=== PATIENT | male | born 1985 | race African-American/Black ===

== ENCOUNTER 2020-06-28 14:19 | Outpatient (REF) | payer MEDICAID, SELFPAY ==
[2020-06-28 16:45] LABS: Digoxin 1.1 ng/mL (0.8-2.0)
[2020-06-28 16:54] LABS: Anion Gap 16 (12-20); Blood Urea Nitrogen 20 mg/dL (9-16); Calcium 8.8 mg/dL (8.4-10.2); Carbon Dioxide 25 mmol/L (22-29); Chloride 103 mmol/L (96-108); Estimated Glomerular Filt Rate > 60; Glucose Random 113 mg/dL (60-115); Potassium 4.5 mmol/l (3.3-5.1); Sodium 139 mmol/L (135-145)
== END 2020-06-28 14:20 | disposition home or self-care (01) ==
LOC: HO.LAB 14:19
PROVIDERS: Referring Provider Nurse Practitioner Family; Visit Provider Internal Medicine Cardiovascular Disease
DX: I48.20 Chronic atrial fibrillation, unspecified (principal); I50.20 Unspecified systolic (congestive) heart failure; I42.8 Other cardiomyopathies; E66.01 Morbid (severe) obesity due to excess calories
CPT/HCPCS: 80048; 80162; 99212

== ENCOUNTER → 2021-03-01 13:10 | Outpatient (REF) | payer MEDICAID, SELFPAY | LOC: HO.SL 13:10 | PROVIDERS: PCP Nurse Practitioner Primary Care; Visit Provider Nurse Practitioner Primary Care | DX: G47.33 Obstructive sleep apnea (adult) (pediatric) (principal); I42.9 Cardiomyopathy, unspecified | CPT/HCPCS: 95806 ==

== ENCOUNTER 2021-05-31 16:44 | Outpatient (REF) | payer MEDICAID, SELFPAY ==
--- NOTE | ~2021-05-31 | US_ITS ---
EXAMINATION: US RETROPERITONEAL COMPLETE (RENAL) CLINICAL INFORMATION: Painful micturition. COMPARISON: CT abdomen and pelvis 12/18/2018. TECHNIQUE: Real-time imaging of the kidneys and bladder. FINDINGS: RIGHT KIDNEY: 11.4 x 4.5 x 6.3 cm (SAG x AP x TRV). The kidney is normal in size, contour, and echogenicity. Renal cortical thickness is normal. No calculi or focal parenchymal lesions. No hydronephrosis. LEFT KIDNEY: 10.0 x 4.5 x 5.2 cm (SAG x AP x TRV). The kidney is normal in size, contour, and echogenicity. Renal cortical thickness is normal. No calculi or focal parenchymal lesions. No hydronephrosis. BLADDER: Well distended and normal. Bilateral ureteral jets are demonstrated. Prevoid bladder volume is 328 mL. Postvoid bladder volume is 17 mL. ADDITIONAL FINDINGS: None US/US retroperitoneal comp IMPRESSION: Unremarkable renal ultrasound..
== END 2021-05-31 16:45 | disposition home or self-care (01) ==
LOC: HO.US 16:44
PROVIDERS: PCP Nurse Practitioner Primary Care; Visit Provider Nurse Practitioner Primary Care
DX: R30.9 Painful micturition, unspecified (principal); R36.9 Urethral discharge, unspecified
CPT/HCPCS: 76770

== ENCOUNTER 2021-07-16 20:13 | Emergency (ER) | payer MEDICAID, SELFPAY ==
[2021-07-16 20:20] VITALS: RESP 16; BMI 48.8
--- NOTE | 2021-07-16 20:35 | ECG_ITS ---
Test Reason : CP Blood Pressure : / mmHG Vent. Rate : 067 BPM Atrial Rate : 000 BPM P-R Int : 000 ms QRS Dur : 094 ms QT Int : 370 ms P-R-T Axes : 000 -05 -13 degrees QTc Int : 390 ms Atrial fibrillation Minimal voltage criteria for LVH, may be normal variant ( R in aVL ) Nonspecific T wave abnormality Abnormal ECG When compared with ECG of 28-JAN-2019 15:18, Atrial fibrillation has replaced Sinus rhythm QT has shortened Referred By: Amberly Mariscal Electronically Signed By:PHAN MANRIQUEZ MD
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
--- NOTE | 2021-07-16 21:19 | PC.NURSE ---
pt brought over to POD by Garrett MOON and Rob URBINA. pt tearful, stating that he just wants to see his mother and that staff not human to not understand his requests. pt reports his gf broke up with his tonight, his mother dis-owned him, he is now homeless. pt perseverative, medications requested from .
[2021-07-16] MEDS: LORazepam 1 MG TABLET 2 MG PO (21:25)
[2021-07-16] MEDS: diphenhydrAMINE HCL 25 MG TABLET 50 MG PO (21:25)
[2021-07-16 21:26] VITALS: BP 166/106; PULSE 86; RESP 18; TEMP 36.5; O2SAT 98
--- NOTE | 2021-07-16 21:39 | PC.NURSE ---
pt on a section 12
[2021-07-16 21:50] LABS: Appearance Urine CLOUDY; Color Urine DK YELLOW; Glucose Urine UA NEG (NEG); Leukocyte Esterase Urine NEG (NEG); Nitrite Urine NEG (NEG); Specific Gravity - Urine >= 1.030 (1.005-1.025); UACC Culture Trigger NO; Urine Blood 1+ (NEG); Urine Ketones 5 MG/DL (NEG); Urine Protein 3+ MG/DL (NEG-TRACE)
[2021-07-16] MEDS: Furosemide 20 MG TABLET PO (21:54)
[2021-07-16 21:55] VITALS: BP 155/116; PULSE 78
[2021-07-16] MEDS: carvediloL 25 MG TABLET PO (21:55)
[2021-07-16 21:57] VITALS: BP 155/117; PULSE 78; TEMP 37.5; O2SAT 100
--- NOTE | 2021-07-16 21:58 | PC.NURSE ---
pt continues to be tearful, reporting that he is in prison. pt leaning against doors with body lightly hitting the doors ith body weight. stated to t/w that he feels trapped, going to explode and will break down the doors . pt reports he does not want to hurt anyone but he feels like he is in prison. flight risk signs hung at both entrances to the POD. security notified. all entrances into the POD redirected to come through by the security office.
--- NOTE | 2021-07-16 22:01 | PC.NURSE ---
medications: pt reports he takes a whole bunch but has not taken then from over a week
[2021-07-16 22:02] LABS: Bacteria Urine 1+ /LPF; Calcium Oxalate Crystals Urine TRACE /LPF; Mucus Urine 4+ /LPF; Squamous Epithelial Cell Urine 3+ /LPF; WBC Urine 0 /HPF (0-4)
[2021-07-16 22:06] LABS: Amphetamine Screen Urine Not Detected (Not Detect); Barbiturates, Urine Not Detected (Not Detect); Benzodiazepines Screen Urine Not Detected (Not Detect); Cannabinoid Screen Urine POSITIVE (Not Detect); Cocaine Screen Urine Not Detected (Not Detect); Fentanyl, urine POSITIVE (Not Detect); Opiate Screen Urine POSITIVE (Not Detect); Phencyclidine Screen Urine Not Detected (Not Detect)
--- NOTE | 2021-07-16 22:31 | PC.NURSE ---
pt referred to N for eval. N contacted for expected time of arrival and informed t/w they have no clinicians this evening. CARE team notified and asked to see the pt and CARE team also will have no clinicians after 11 pm . pt will be seen tomorrow.
[2021-07-16 22:45] LABS: MANUAL DIFF FLAG NO
[2021-07-16 22:46] LABS: Basophils Percent Auto 0.4 % (0-2); Eosinophils Percent Auto 0.2 % (0-4); Hematocrit 49.5 % (42.0-52.0); Hemoglobin 16.4 g/dl (14.0-18.0); Imm Gran Abs Auto 0.02 X10*3/uL (0.00-0.03); Imm Gran Pct Auto 0.4 % (0.0-0.4); Lymphocytes Absolute Auto 1.3 X10*3/uL (1.2-4.9); Lymphocytes Percent Auto 24.6 % (20-40); Mean Corpuscular HGB Conc 33.1 g/dl (31.0-36.0); Mean Corpuscular Hemoglobin 28.9 pg (27.0-33.0); Mean Corpuscular Volume 87.3 fL (80.0-98.0); Mean Platelet Volume 9.5 fL (9.4-12.4); Monocytes Absolute Auto 0.3 X10*3/uL (0.1-1.2); Monocytes Percent Auto 6.1 % (2-11); Neutrophils Absolute Auto 3.6 x10*3/uL (2.0-8.3); Neutrophils Percent Auto 68.3 % (45-73); Platelet Count 182 X10*3/uL (160-400); Red Blood Count 5.67 X10*6/uL (4.60-5.80); Red Cell Distribution Width 14.1 % (11.0-16.0); White Blood Count 5.2 X10*3/uL (4.8-10.8)
[2021-07-16 22:47] VITALS: BP 138/96; PULSE 91
[2021-07-16 22:57] LABS: Ethanol < 10 mg/dL
[2021-07-16 23:01] LABS: Alanine Aminotransferase 14 U/L (0-40); Albumin Level 4.2 g/dL (3.5-5.0); Alkaline Phosphatase 71 U/L (39-117); Anion Gap 11 (12-20); Aspartate Amino Transferase 16 U/L (5-37); Bilirubin Total 0.9 mg/dL (0.0-1.0); Blood Urea Nitrogen 15 mg/dL (9-16); Calcium 9.7 mg/dL (8.4-10.2); Carbon Dioxide 26 mmol/L (22-29); Chloride 104 mmol/L (96-108); Creatinine Clr Calc Pharmacy 161.8; Estimated Glomerular Filt Rate > 60; Glucose Random 116 mg/dL (60-115); Potassium 4.1 mmol/L (3.3-5.1); Sodium 137 mmol/L (135-145); Total Protein 7.4 g/dL (6.5-8.0)
[2021-07-16 23:02] LABS: COVID-19 Test Negative (Negative); IDNOW Serial# 9DD0AD1C
[2021-07-16 23:33] VITALS: BP 126/87; PULSE 66; RESP 18; TEMP 36.4; O2SAT 100
--- NOTE | 2021-07-17 00:16 | PC.NURSE ---
Patient med recs completed by talking patient and claim history and approved by the provider, provider raised question about why Carvedilol is not on med rec? Explained to provider that per med claim history patient is not on those medication, this financial underwriter was notified that patient should be on Carvedilol by the provider and this financial underwriter replied the provider to put the order in. Since Carvidelolol order was seen in the OCT, this financial underwriter called patient's girl friend Mary @ [phone] who takes care of patient's medication and Mary notified that his pharmacy told him that his meds is on hold as per provider's order put she has no answer but said he is supposed to on those medication, meds rec updated /pending provider's approval. Patient is currently upset, over being sectioned and not being able to see the clinician dima because he wants leave [facility], will continue to monitor.
[2021-07-17] MEDS: LORazepam 1 MG TABLET 2 MG PO (01:36)
[2021-07-17 02:50] VITALS: RESP 20
[2021-07-17] MEDS: diphenhydrAMINE HCL 50 MG/ML VIAL 25 MG IM (02:50)
[2021-07-17] MEDS: LORazepam 2 MG/ML VIAL IM (02:50)
[2021-07-17] MEDS: Haloperidol Lactate 5 MG/ML VIAL IM (02:50)
[2021-07-17 03:05] VITALS: RESP 20
[2021-07-17 03:20] VITALS: RESP 17
--- NOTE | 2021-07-17 03:21 | PC.NURSE ---
Patient's behavior is escalating, getting more disruptive, threatening to elope, upset and mad thinking he is held here against his will, argumentative towards staff member, non-redirectable, provider notified/ordered Ativan 2 mg IM, Bendryl 25 mg IM, and Haldol 5 mg IM, administered as ordered at 0250/pending effect, will continue to monitor.
[2021-07-17 03:35] VITALS: RESP 17
[2021-07-17 03:50] VITALS: RESP 16
--- NOTE | 2021-07-17 06:48 | PC.NURSE ---
Patient is currently in bed appears sleeping, patient is on 1:1 for safety, patient is s/p medication restraint, thought fixated on d/c, [facility] referral completed/confirmed patient will be evaluated in the morning, patient threatened to elope but patient was made aware of the consequences, will continue to monitor.
--- NOTE | 2021-07-17 07:38 | PC.NURSE ---
patient appears to remain at rest at present, respirations are even and unlabored, patient appears in no distress
--- NOTE | 2021-07-17 09:18 | PHA.MEDREC ---
Pharmacy Consult ? Medication Reconciliation Pharmacy has completed the medication reconciliation. Patient is unaware if they take digoxin or not Thanks Morteza Montiel
[2021-07-17] MEDS: Ondansetron ODT 4 MG TAB.RAPDIS TRANSLINGU (12:43)
== END 2021-07-17 13:15 | disposition home or self-care (01) ==
PROVIDERS: Physician Assistant; Emergency Provider Emergency Medicine
DX: F32.A Depression, unspecified (principal); R45.851 Suicidal ideations; F41.9 Anxiety disorder, unspecified; F19.10 Other psychoactive substance abuse, uncomplicated; I48.20 Chronic atrial fibrillation, unspecified; I50.20 Unspecified systolic (congestive) heart failure; I42.8 Other cardiomyopathies; Z79.01 Long term (current) use of anticoagulants; Z79.899 Other long term (current) drug therapy; Z20.822 Contact with and (suspected) exposure to COVID-19; Z91.51 Personal history of suicidal behavior
CPT/HCPCS: 36415; 80053; 80307; 81001; 82077; 85025; 87635; 93005; 96372; 99285; J1200; J2060; Q0163

== ENCOUNTER → 2021-07-25 15:18 | Outpatient (BNVA) | payer MEDICAID, SELFPAY | PROVIDERS: PCP Nurse Practitioner Primary Care; Referring Provider Nurse Practitioner Primary Care; Visit Provider Nurse Practitioner Family | DX: I50.20 Unspecified systolic (congestive) heart failure (principal); I42.8 Other cardiomyopathies; I48.20 Chronic atrial fibrillation, unspecified; E66.01 Morbid (severe) obesity due to excess calories; G47.33 Obstructive sleep apnea (adult) (pediatric) | CPT/HCPCS: 99212 ==

== ENCOUNTER → 2021-12-20 15:45 | Outpatient (BNVA) | payer MEDICAID, SELFPAY | PROVIDERS: PCP Nurse Practitioner Primary Care; Visit Provider Internal Medicine | DX: G47.33 Obstructive sleep apnea (adult) (pediatric) (principal); E66.01 Morbid (severe) obesity due to excess calories; Z68.41 Body mass index [BMI] 40.0-44.9, adult | CPT/HCPCS: 99202 ==

== ENCOUNTER → 2022-01-08 13:08 | Outpatient (REF) | payer MEDICAID, SELFPAY ==
--- NOTE | 2022-01-08 13:10 | CA_ITS ---
Transthoracic Echocardiogram Patient (Last, First, Middle): Pablo Bedolla A Gender: Male Date of : 1985 Age: 36 Procedure Date: 01/08/2022 Procedure Type: Transthoracic Echocardiogram Location: OP Height: 177.8 cm Weight: 140.62 kg BSA: 2.51 m2 Heart Rate: bpm BP: 136 / 70 mmHg Android Platform Developer: YOANA Referring MD: Margarita Rodriguez PUMP ERECTOR-Shakira Powder Line Repairer: Montrell Chow MD Symptoms: I50.20 - Unspecified systolic (congestive) heart failure Study Quality: Technically Difficult ECG Rhythm: Atrial Fibrillation Conclusions: - 1. Mildly dilated left ventricle with low normal LVEF of 50 55% 2. At least moderately dilated left atrium 3. Normal cardiac valvular Doppler 4. Normal RV systolic pressure 5. No pericardial effusion Findings Procedure Information Contrast agent, definity, is being given per protocol without apparent complications. Left Ventricle Mildly increased left ventricular cavity size. There is normal left ventricular wall thickness. The left ventricular systolic function is low normal. The visually estimated ejection fraction is between 50-55%. Diastolic function is indeterminate on the basis of available data. Right Ventricle The right ventricle was not well visualized. Atria The left atrium is moderately dilated. Interatrial shunt cannot be excluded. The right atrium was not well visualized. Aortic Valve The aortic valve was not well visualized. There is no aortic valve stenosis. There is no aortic valve regurgitation. Mitral Valve The mitral valve was not well visualized. There is trace mitral valve regurgitation. There is no mitral valve stenosis. Pulmonic Valve The pulmonic valve was not well visualized. Tricuspid Valve Likely normal tricuspid valve structure and function. There is mild tricuspid valve regurgitation. The right ventricular systolic pressure is normal. The right ventricular systolic pressure is 27 mmHg. Normal right atrial pressure. There is no evidence of pulmonary hypertension. Great Vessels All visible segments of the aorta are normal in size. The pulmonary artery was not well visualized. Venous The inferior vena cava was not well visualized. Pericardium/Pleural There is no evidence of pericardial effusion. Prior Study Comparison Changes noted compared to prior study dated: 05/24/2020. LV systolic function is improved Measurements 2D Linear Measurements IVSd: 0.70 0.6-0.9/0.6-1.0 cm LVIDd: 6.12 3.9-5.3/4.2-5.9 cm LVIDd Index: 2.44 2.4-3.2/2.2-3.1 cm/m2 LVIDs: 4.50 2.0-3.6 cm LVPWd: 0.56 0.7-1.1 cm LA Diam: 4.10 2.7-3.8/3.0-4.0 cm LAIDs Index: 1.63 1.5-2.3 cm/m2 LV Mass: 179.81 67-162/88-224 g LV Mass Index: 71.64 43-95/49-115 g/m2 LVOT Diam: 2.20 3.0+(-)1.3 cm 2D Systolic Function EF 4C: 55.40 >55% EF 2C: 54.30 >55% EF BiP: 54.80 >55% Aortic Valve AoV Pk Lance: 1.21 AoV Mn Lance: 0.85 AoV VTI: 0.21 AoV Pk Grad: 6.00 Aov Mn Grad: 3.00 ELISA Cont.VTI: 2.62 LVOT LVOT Pk Lance: 0.82 LVOT Mn Lance: 0.59 LVOT VTI: 0.15 LVOT Pk Grad: 3.00 LVOT Mn Grad: 2.00 LVOT Diam: 2.20 LVOT Area: 3.80 Right Ventricle TVS' Lance: 8.00 Tricuspid Valve TR Pk Lance: 2.43 TR Pk Grad: 24.00 RA Press: 3.00 RVSP: 27.00 Great Vessels Aorta Ao Asc: 3.30 2.1-3.4 cm Pulmonary Valve PV Pk Lance: 1.04 Peak PV Grad: 4.00 Updated in Other Vendor System with Status of Final Montrell Chow MD electronically signed on 01/08/2022 4:25:23 PM with status of Final
== END ==
LOC: HO.CARD 13:08
PROVIDERS: Visit Provider Nurse Practitioner Family
DX: I50.20 Unspecified systolic (congestive) heart failure (principal)
CPT/HCPCS: 93306; Q9957

== ENCOUNTER 2022-10-10 14:46 | Emergency (ER) | payer MEDICAID, SELFPAY ==
--- NOTE | ~2022-10-10 | CT_ITS ---
EXAMINATION: CT SOFT TISSUE NECK WITH CONTRAST CLINICAL INFORMATION: Left-sided neck swelling. History of lymphoma. COMPARISON: PET/CT from 01/08/2019. TECHNIQUE: Multidetector helical imaging was performed in the axial plane following the administration of 60 mL of Omnipaque 350 intravenous contrast. Multiple axial reformats and coronal/sagittal reconstructions were created the technologist workstation for review. This CT examination was performed using dose optimization techniques as appropriate, variously including the following: *Automated exposure control. *Adjustment of mA and/or kV according to patient size (this includes techniques or standardized protocols for targeted exams where dose is matched to indication/reason for exam; i.e. extremities or head). *Use of iterative reconstruction technique. DLP: 1155 mGy-cm FINDINGS: No significant cutaneous thickening or subcutaneous inflammation. No discrete fluid collection within the deep tissues of the neck. The premaxillary, retromaxillary, pterygopalatine fossa, orbital apical, parapharyngeal, and prelaryngeal adipose tissue is maintained. Normal appearance of the parotid, submandibular, and thyroid glands. Scattered subcentimeter lymph nodes bilaterally, none of which are pathologically enlarged or abnormally enhancing. Normal mucosal contours of the pharynx and larynx without abnormal enhancement. Normal appearance of the hyoid bone, thyroid cartilage, or cartilaginous trachea. The airways remains widely patent. No radiopaque foreign bodies. The atlantooccipital and atlantoaxial articulations remain well aligned. Mild reversal the normal cervical lordosis. No evidence of acute fracture or subluxation of the cervical spine. The vertebral body heights are maintained. Mild multilevel degenerative disc disease. No evidence of epidural collection. There is no prevertebral soft tissue swelling. Normal opacification of the cervical arterial and venous structures. The visualized portion of the skull base is without significant abnormalities. Mild mucosal thickening of the paranasal sinuses. Moderate leftward nasal septal deviation. The mastoid air cells and middle ear cavities are clear. No demonstrated significant periapical odontogenic disease. CT Upper Chest: Chronic peripherally calcified soft tissue within the preaortic soft tissues of the mediastinum, measuring up to 4.2 x 3.2 cm. Otherwise, the visualized lung apices and upper mediastinum are within normal limits. CT/CT soft tissue neck w IV con IMPRESSION: 1. No focal lesion, collection, lymphadenopathy, or abnormal enhancement within the soft tissues of the neck. 2. Chronic peripherally calcified soft tissue within the preaortic soft tissues of the mediastinum.
[2022-10-10 14:49] VITALS: BP 193/112; PULSE 62; RESP 19; TEMP 36.6; O2SAT 99; BMI 40.1
--- NOTE | 2022-10-10 14:53 | ED_ITS ---
HPI - General Adult General Chief complaint: Neck Pain/Injury <Radha Davis NP - Last Filed: 10/10/22 14:55> Stated complaint: lump on neck <Radha Davis NP - Last Filed: 10/10/22 14:55> Time Seen by Provider: 10/10/22 14:52 <Radha Davis NP - Last Filed: 10/10/22 14:55> Source: patient <RANDAL Bay - Last Filed: 10/10/22 19:11> Mode of arrival: ambulatory <RANDAL Bay Last Filed: 10/10/22 19:11> Limitations: no limitations <RANDAL Bay Last Filed: 10/10/22 19:11> History of Present Illness HPI narrative: 37 yo male with history of afib on Xarelto, NICMP, obesity, poorly controlled HTN, HFrEF, lymphoma in 2009 s/p treatment and since in remission presenting with a painful and tenderness mass on the left side of his neck that he noticed 4-5 days ago. He reports it is tender to touch. It gets bigger when he eats and tends to calm down after he eats. He denies any sore throat, difficulty swallowing, dental pain, ear pin. No chest pain or SOB. No fevers, night sweats or enlarged lymph nodes anywhere else on the body. <RANDAL Bay - Last Filed: 10/10/22 19:11> MD complaint: left sided neck mass <RANDAL Bay Last Filed: 10/10/22 19:11> Onset (ago): day(s) (5) <RANDAL Bay Last Filed: 10/10/22 19:11> Location: neck <RANDAL Bay Last Filed: 10/10/22 19:11> Radiation: non-radiation <RANDAL Bay Last Filed: 10/10/22 19:11> Severity: moderate <RANDAL Bay Last Filed: 10/10/22 19:11> Quality: aching <RANDAL Bay Last Filed: 10/10/22 19:11> Pain Consistency: intermittent <RANDAL Bay - Last Filed: 10/10/22 19:11> Relieving factors: rest <RANDAL Bay - Last Filed: 10/10/22 19:11> Exacerbating factors: eating <RANDAL Bay - Last Filed: 10/10/22 19:11> Associated symptoms: denies other symptoms <RANDAL Bay - Last Filed: 10/10/22 19:11> Treatments prior to arrival: none <RANDAL Bay - Last Filed: 10/10/22 19:11> Related Data Home medications: Home Medications Medication Instructions Recorded Confirmed bupropion HCl 300 mg 24 hr tablet, 1 tab PO DAILY 07/16/21 07/25/21 extended release levothyroxine 25 mcg tablet 1 tab PO QAM 07/16/21 07/25/21 venlafaxine 150 mg 1 cap PO DAILY 07/16/21 07/25/21 capsule,extended release 24 hr cholecalciferol (vitamin D3) 50 1 tab PO DAILY 07/17/21 07/25/21 mcg (2,000 unit) tablet Previous Rx's Medication Instructions Recorded sacubitril 49 mg-valsartan 51 mg 1 tab PO BID #60 tabs 08/06/22 tablet (Entresto) carvedilol 25 mg tablet 50 mg PO BID #360 tabs 08/13/22 digoxin 250 mcg (0.25 mg) tablet 250 mcg PO DAILY #90 tabs 08/13/22 furosemide 20 mg tablet 20 mg PO DAILY #90 tabs 08/13/22 rivaroxaban 20 mg tablet (Xarelto) 20 mg PO DAILY 90 days #90 tabs 08/14/22 clindamycin HCl 300 mg capsule 300 mg PO Q6H 7 days #28 caps 10/10/22 <Radha Davis NP - Last Filed: 10/10/22 14:55> Allergies/adverse reactions: Allergies Allergy/AdvReac Type Severity Reaction Status Date / Time No Known Allergies Allergy Verified 12/20/21 17:30 <Radha Davis NP - Last Filed: 10/10/22 14:55> Review of Systems Review of Systems: Yes all other systems are reviewed and are negative <RANDAL Bay - Last Filed: 10/10/22 19:11> [facility] Past Medical History Medical History: Medical History Chronic atrial fibrillation FH: bone marrow transplant Heart failure with reduced ejection fraction Hodgkin lymphoma Mitral regurgitation Morbid obesity Nonischemic cardiomyopathy RAMESH (obstructive sleep apnea) <Radha Davis NP - Last Filed: 10/10/22 14:55> Surgical History: Surgical History Hx of cardiac cath <Radha Davis NP - Last Filed: 10/10/22 14:55> Family History Family History: Family History Father CVD (cardiovascular disease) Diabetes Mother No problems noted. <Radha Davis NP - Last Filed: 10/10/22 14:55> Social History Social History: Social History Alcohol intake: current Patient Tobacco Use Status: Never used Tobacco Substance Use Type: Marijuana Advance Directives: No Advance Directives Information Provided: No <Radha Davis NP - Last Filed: 10/10/22 14:55> Physical Exam ED Vital Signs: Vital Signs - 24 hr 10/10/22 14:49 Temperature 98 F Pulse Rate 62 Respiratory Rate 19 Blood Pressure 193/112 H Pulse Oximetry 99 Oxygen Delivery Method Room Air BMI result Body Mass Index 40.1 <Radha Davis NP - Last Filed: 10/10/22 14:55> Vital Signs - 24 hr 10/10/22 14:49 Temperature 98 F Pulse Rate 62 Respiratory Rate 19 Blood Pressure 193/112 H Pulse Oximetry 99 Oxygen Delivery Method Room Air BMI result Body Mass Index 40.1 <RANDAL Bay - Last Filed: 10/10/22 19:11> Appearance: Alert. Oriented X3. No acute distress. HEENT: normal inspection. airway patent. no dental tenderness. normal TM bilaterally. no pre or post auricular LAD Neck: no visualized neck swelling, trachea midline, on palpation the left lateral with tenderness and possible mass, no skin changes, difficult to fully assess due to facial hair CVS: Normal heart rate and rhythm. Pulses normal. Respiratory: No respiratory distress. Skin: Skin warm and dry. Normal skin color. Normal skin turgor. No rashes. Extremities: normal inspection x4, no swelling, no appreciated LAD. Neuro: Oriented X 3. No motor deficit. No sensory deficit. <RANDAL Bay - Last Filed: 10/10/22 19:11> Course Course Course Narrative: This is rapid medical exam. Defer additional HPI, ROS, PE department provider. 37 yo male with history of hodgkins lymphoma s/p treatment in remission (2009), AFib on Xarelto, hypertension, nonischemic cardiomyopathy, sleep apnea who presents with left neck swelling x 1 week. On exam patient with palpable node to the left neck. Due to history will likely need advanced imaging. Will obtain labs and viral testing and triage. Hypertensive in triage. Did not take morning medications. <Radha Davis NP - Last Filed: 10/10/22 14:55> Reevaluation(s) Reevaluation #1: labs unremarkable. BP slightly improved after coreg. he states his BP is always high. He denies chest pain, headache, dizziness or vision changes. CT/CT soft tissue neck w IV con IMPRESSION: 1.? No focal lesion, collection, lymphadenopathy, or abnormal enhancement within the soft tissues of the neck. 2.? Chronic peripherally calcified soft tissue within the preaortic soft tissues of the mediastinum. results d/w patient. thankfully does not show concerning signs of possible lymphoma recurrence. will treat for partotitis. pateint agrees with plan and is stable for d/c home - will follow up with his cash reconciliation specialist, PCP and oncologist. ? <RANDAL Bay - Last Filed: 10/10/22 19:11> Medications Administered Discontinued Medications Generic Name Dose Route Start Last Admin Trade Name Freq PRN Reason Stop Dose Admin Carvedilol 25 mg 10/10/22 15:29 10/10/22 15:34 Carvedilol 25 Mg Tablet PO 10/10/22 15:30 25 mg ONCE ONE Administration Protocol Iohexol 100 ml 10/10/22 16:36 10/10/22 16:37 Iohexol 350 Mg/Ml 100 Ml Infus..Btl IV 10/10/22 16:37 60 ml ONCE ONE Administration <Radha Davis NP - Last Filed: 10/10/22 14:55> Medications Administered Discontinued Medications Generic Name Dose Route Start Last Admin Trade Name Humberto PRN Reason Stop Dose Admin Carvedilol 25 mg 10/10/22 15:29 10/10/22 15:34 Carvedilol 25 Mg Tablet PO 10/10/22 15:30 25 mg ONCE ONE Administration Protocol Iohexol 100 ml 10/10/22 16:36 10/10/22 16:37 Iohexol 350 Mg/Ml 100 Ml Infus..Btl IV 10/10/22 16:37 60 ml ONCE ONE Administration <RANDAL Bay - Last Filed: 10/10/22 19:11> Medical Decision Making Differential Diagnosis Differential Diagnoses: The differential diagnosis associated with the presentation includes <RANDAL Bay - Last Filed: 10/10/22 19:11> lymphoma recurrence, swollen lymph node, paroitits, cyst, abscess, <RANDAL Bay - Last Filed: 10/10/22 19:11> Lab Data MDM Lab Attestation statement: I reviewed the patient's lab results. <RANDAL Bay - Last Filed: 10/10/22 19:11> Result Diagrams: 10/10/22 15:15 10/10/22 15:15 <Radha Davis NP - Last Filed: 10/10/22 14:55> Labs: Lab Results 10/10/22 10/10/22 10/10/22 Range/Units 15:15 15:15 15:15 WBC 4.8 (4.8-10.8) X10*3/uL RBC 4.67 (4.60-5.80) X10*6/uL Hgb 13.4 L (14.0-18.0) g/dl Hct 41.6 L (42.0-52.0) % MCV 89.1 (80.0-98.0) fL MCH 28.7 (27.0-33.0) pg MCHC 32.2 (31.0-36.0) g/dl RDW 13.4 (11.0-16.0) % Plt Count 204 (160-400) X10*3/uL MPV 9.3 L (9.4-12.4) fL Immature Gran % (Auto) 0.2 (0.0-0.4) % Neut % (Auto) 49.6 (45-73) % Lymph % (Auto) 36.2 (20-40) % Esmeralda % (Auto) 10.1 (2-11) % Eos % (Auto) 3.5 (0-4) % Baso % (Auto) 0.4 (0-2) % Lymph # (Auto) 1.8 (1.2-4.9) X10*3/uL Esmeralda # (Auto) 0.5 (0.1-1.2) X10*3/uL Eos # (Auto) 0.2 (0.0-0.4) X10*3/uL Baso # (Auto) 0.0 (0.0-0.2) X10*3/uL Abs Immat Gran (auto) 0.01 (0.00-0.03) X10*3/uL Absolute Neuts (auto) 2.4 (2.0-8.3) x10*3/uL Absolute Nucleated RBC 0.000 (0.0-0.012) X10*3/uL Nucleated RBC % (auto) 0.0 (0.0-0.2) /100WBC Sodium 142 (135-145) mmol/L Potassium 4.7 (3.3-5.1) mmol/L Chloride 105 (96-108) mmol/L Carbon Dioxide 27 (22-29) mmol/L Anion Gap 15 (12-20) BUN 9 (9-16) mg/dL Creatinine 0.91 (0.5-1.4) mg/dL Estim Creat Clear Calc 148.7 Estimated GFR > 60 Random Glucose 102 (60-115) mg/dL Calcium 9.1 D (8.4-10.2) mg/dL Total Bilirubin 0.7 (0.0-1.0) mg/dL Direct Bilirubin 0.2 (0.0-0.5) mg/dL AST 14 (5-37) U/L ALT 12 (0-40) U/L Alkaline Phosphatase 62 (39-117) U/L Total Protein 6.2 L (6.5-8.0) g/dL Albumin 3.6 (3.5-5.0) g/dL Influenza Type A (PCR) NEGATIVE (Negative) Influenza Type B (PCR) NEGATIVE (Negative) RSV RNA Qual (PCR) NEGATIVE (Negative) SARS-CoV-2 RNA (RT-PCR) NEGATIVE (Negative) <Radha Germainmoy, ARCHIVIST ECONOMIC HISTORY - Last Filed: 10/10/22 14:55> Lab Results 10/10/22 10/10/22 10/10/22 Range/Units 15:15 15:15 15:15 WBC 4.8 (4.8-10.8) X10*3/uL RBC 4.67 (4.60-5.80) X10*6/uL Hgb 13.4 L (14.0-18.0) g/dl Hct 41.6 L (42.0-52.0) % MCV 89.1 (80.0-98.0) fL MCH 28.7 (27.0-33.0) pg MCHC 32.2 (31.0-36.0) g/dl RDW 13.4 (11.0-16.0) % Plt Count 204 (160-400) X10*3/uL MPV 9.3 L (9.4-12.4) fL Immature Gran % (Auto) 0.2 (0.0-0.4) % Neut % (Auto) 49.6 (45-73) % Lymph % (Auto) 36.2 (20-40) % Esmeralda % (Auto) 10.1 (2-11) % Eos % (Auto) 3.5 (0-4) % Baso % (Auto) 0.4 (0-2) % Lymph # (Auto) 1.8 (1.2-4.9) X10*3/uL Esmeralda # (Auto) 0.5 (0.1-1.2) X10*3/uL Eos # (Auto) 0.2 (0.0-0.4) X10*3/uL Baso # (Auto) 0.0 (0.0-0.2) X10*3/uL Abs Immat Gran (auto) 0.01 (0.00-0.03) X10*3/uL Absolute Neuts (auto) 2.4 (2.0-8.3) x10*3/uL Absolute Nucleated RBC 0.000 (0.0-0.012) X10*3/uL Nucleated RBC % (auto) 0.0 (0.0-0.2) /100WBC Sodium 142 (135-145) mmol/L Potassium 4.7 (3.3-5.1) mmol/L Chloride 105 (96-108) mmol/L Carbon Dioxide 27 (22-29) mmol/L Anion Gap 15 (12-20) BUN 9 (9-16) mg/dL Creatinine 0.91 (0.5-1.4) mg/dL Estim Creat Clear Calc 148.7 Estimated GFR > 60 Random Glucose 102 (60-115) mg/dL Calcium 9.1 D (8.4-10.2) mg/dL Total Bilirubin 0.7 (0.0-1.0) mg/dL Direct Bilirubin 0.2 (0.0-0.5) mg/dL AST 14 (5-37) U/L ALT 12 (0-40) U/L Alkaline Phosphatase 62 (39-117) U/L Total Protein 6.2 L (6.5-8.0) g/dL Albumin 3.6 (3.5-5.0) g/dL Influenza Type A (PCR) NEGATIVE (Negative) Influenza Type B (PCR) NEGATIVE (Negative) RSV RNA Qual (PCR) NEGATIVE (Negative) SARS-CoV-2 RNA (RT-PCR) NEGATIVE (Negative) <RANDAL Bay - Last Filed: 10/10/22 19:11> Independent Interpretation I performed an independent interpretation of an: CT Scan <RANDAL Bay - Last Filed: 10/10/22 19:11> Interpretation: no appreciated mass or enlarged LN <RANDAL Bay - Last Filed: 10/10/22 19:11> Radiology Impression Discussion of test interpretation with radiology: I have reviewed the radiologist's reading. <RANDAL Bay - Last Filed: 10/10/22 19:11> Radiologist Impression: CT/CT soft tissue neck w IV con IMPRESSION: 1.? No focal lesion, collection, lymphadenopathy, or abnormal enhancement within the soft tissues of the neck. 2.? Chronic peripherally calcified soft tissue within the preaortic soft tissues of the mediastinum. <RANDAL Bay - Last Filed: 10/10/22 19:11> Independent Historian Clinical information obtained from an independent historian. History obtained from or confirmed by: Spouse <RANDAL Bay - Last Filed: 10/10/22 19:11> External Record Review External record reviewed: Office record, Outpatient record, Prior outpatient labs and Prior outpatient radiology <RANDAL Bay Last Filed: 10/10/22 19:11> Prescription Management I considered prescription management with: Pain Medication and Antibiotic <RANDAL Bay Last Filed: 10/10/22 19:11> Chronic Conditions Patient?s care impacted by: Other (cardiomyopathy, afib, HTN, HFrEF) <RANDAL Bay - Last Filed: 10/10/22 19:11> Critical Care Time Critical Care Time Critical Care Time: No <RANDAL Bay Last Filed: 10/10/22 19:11> Discharge Plan Discharge Clinical Impression: Parotitis <Radha Davis NP - Last Filed: 10/10/22 14:55> Patient Disposition: Home, Self-Care <Radha Davis NP - Last Filed: 10/10/22 14:55> Additional Instructions: CT/CT soft tissue neck w IV con IMPRESSION: 1.? No focal lesion, collection, lymphadenopathy, or abnormal enhancement within the soft tissues of the neck. 2.? Chronic peripherally calcified soft tissue within the preaortic soft tissues of the mediastinum. Take the prescribed antibiotic as directed Eat lemon slices or sour candies to increase your salivation Follow up with your doctor and Dr. Lockhart <Radha Davis NP - Last Filed: 10/10/22 14:55> Prescriptions: New clindamycin HCl 300 mg capsule 300 mg PO Q6H 7 Days Qty: 28 0RF No Action Entresto 49-51 mg tablet 1 tab PO BID Qty: 60 5RF furosemide 20 mg tablet 20 mg PO DAILY Qty: 90 3RF carvedilol 25 mg tablet 50 mg PO BID Qty: 360 3RF digoxin 250 mcg (0.25 mg) tablet 250 mcg PO DAILY Qty: 90 3RF Xarelto 20 mg tablet 20 mg PO DAILY 90 Days Qty: 90 3RF venlafaxine 150 mg capsule,extended release 24hr 1 cap PO DAILY levothyroxine 25 mcg tablet 1 tab PO QAM bupropion HCl 300 mg tablet extended release 24 hr 1 tab PO DAILY cholecalciferol (vitamin D3) 50 mcg (2,000 unit) tablet 1 tab PO DAILY <Radha Davis NP - Last Filed: 10/10/22 14:55> Referrals: [facility] [place] [facility] [Provider Group] Yaquelin Cage NP [Primary Care Provider] - <Radha Davis NP - Last Filed: 10/10/22 14:55> Interventions: ED Discharge Assessment Last Done: 10/10/22 17:29 <Radha Davis NP - Last Filed: 10/10/22 14:55> Discharge Date/Time: 10/10/22 17:30 <Radha Davis NP - Last Filed: 10/10/22 14:55>
[2022-10-10 15:19] LABS: MANUAL DIFF FLAG NO
[2022-10-10 15:20] LABS: Basophils Percent Auto 0.4 % (0-2); Eosinophils Absolute Auto 0.2 X10*3/uL (0.0-0.4); Eosinophils Percent Auto 3.5 % (0-4); Hematocrit 41.6 % (42.0-52.0); Hemoglobin 13.4 g/dl (14.0-18.0); Imm Gran Abs Auto 0.01 X10*3/uL (0.00-0.03); Imm Gran Pct Auto 0.2 % (0.0-0.4); Lymphocytes Absolute Auto 1.8 X10*3/uL (1.2-4.9); Lymphocytes Percent Auto 36.2 % (20-40); Mean Corpuscular HGB Conc 32.2 g/dl (31.0-36.0); Mean Corpuscular Hemoglobin 28.7 pg (27.0-33.0); Mean Corpuscular Volume 89.1 fL (80.0-98.0); Mean Platelet Volume 9.3 fL (9.4-12.4); Monocytes Absolute Auto 0.5 X10*3/uL (0.1-1.2); Monocytes Percent Auto 10.1 % (2-11); Neutrophils Absolute Auto 2.4 x10*3/uL (2.0-8.3); Neutrophils Percent Auto 49.6 % (45-73); Platelet Count 204 X10*3/uL (160-400); Red Blood Count 4.67 X10*6/uL (4.60-5.80); Red Cell Distribution Width 13.4 % (11.0-16.0); White Blood Count 4.8 X10*3/uL (4.8-10.8)
[2022-10-10] MEDS: carvediloL 25 MG TABLET PO (15:34)
[2022-10-10 15:58] LABS: Influenza A PCR NEGATIVE (Negative); Influenza B PCR NEGATIVE (Negative); Resp Syncy Virus RNA Qual PCR NEGATIVE (Negative); SARS COV2 PCR INHOUSE NEGATIVE (Negative)
[2022-10-10 16:20] LABS: Alanine Aminotransferase 12 U/L (0-40); Albumin Level 3.6 g/dL (3.5-5.0); Alkaline Phosphatase 62 U/L (39-117); Anion Gap 15 (12-20); Aspartate Amino Transferase 14 U/L (5-37); Bilirubin Direct 0.2 mg/dL (0.0-0.5); Bilirubin Total 0.7 mg/dL (0.0-1.0); Blood Urea Nitrogen 9 mg/dL (9-16); Calcium 9.1 mg/dL (8.4-10.2); Carbon Dioxide 27 mmol/L (22-29); Chloride 105 mmol/L (96-108); Creatinine Clr Calc Pharmacy 148.7; Estimated Glomerular Filt Rate > 60; Glucose Random 102 mg/dL (60-115); Potassium 4.7 mmol/L (3.3-5.1); Sodium 142 mmol/L (135-145); Total Protein 6.2 g/dL (6.5-8.0)
[2022-10-10] MEDS: iohexoL 350 MG/ML 100 ML INFUS..BTL IV (16:37)
== END 2022-10-10 17:30 | disposition home or self-care (01) ==
PROVIDERS: Nurse Practitioner Family; Emergency Provider Emergency Medicine; PCP Nurse Practitioner Primary Care
DX: K11.20 Sialoadenitis, unspecified (principal); Z20.822 Contact with and (suspected) exposure to COVID-19; Z20.828 Contact with and (suspected) exposure to other viral communicable diseases; I48.20 Chronic atrial fibrillation, unspecified; F12.90 Cannabis use, unspecified, uncomplicated; E66.9 Obesity, unspecified; Z68.41 Body mass index [BMI] 40.0-44.9, adult; Z85.71 Personal history of Hodgkin lymphoma; Z79.01 Long term (current) use of anticoagulants; Z79.899 Other long term (current) drug therapy
CPT/HCPCS: 0241U; 70491; 80048; 80076; 85025; 99283; 99284; Q9967

== ENCOUNTER → 2022-11-20 13:27 | Outpatient (BNV) | payer MEDICAID, SELFPAY | PROVIDERS: PCP Nurse Practitioner Primary Care; Visit Provider Internal Medicine Medical Oncology | DX: C81.90 Hodgkin lymphoma, unspecified, unspecified site (principal) | CPT/HCPCS: 99204; 99213 ==

== ENCOUNTER → 2023-01-22 14:19 | Outpatient (BNVA) | payer MEDICAID, SELFPAY | PROVIDERS: PCP Nurse Practitioner Primary Care; Referring Provider Nurse Practitioner Primary Care; Visit Provider Nurse Practitioner Family | DX: I48.20 Chronic atrial fibrillation, unspecified (principal); I42.8 Other cardiomyopathies; I50.20 Unspecified systolic (congestive) heart failure; G47.33 Obstructive sleep apnea (adult) (pediatric); E66.01 Morbid (severe) obesity due to excess calories; Z68.41 Body mass index [BMI] 40.0-44.9, adult; Z59.01 Sheltered homelessness; Z98.890 Other specified postprocedural states | CPT/HCPCS: 93005; 99212 ==

== ENCOUNTER → 2023-02-25 15:10 | Outpatient (REF) | payer MEDICAID, SELFPAY ==
--- NOTE | 2023-02-25 15:13 | CA_ITS ---
Transthoracic Echocardiogram Patient (Last, First, Middle): Pablo Bedolla A Gender: Male Date of : 1985 Age: 37 Procedure Date: 02/25/2023 Procedure Type: Transthoracic Echocardiogram Location: OP Height: 177.8 cm Weight: 138.35 kg BSA: 2.50 m2 Heart Rate: bpm BP: 130 / 80 mmHg [place] [facility] [place]: Referring MD: Margarita Rodriguez INSTRUCTOR WATCH ASSEMBLY-Shakira Symptoms: I42.8 - Other cardiomyopathies, Re-assess EF and WMA Study Quality: Fair ECG Rhythm: Atrial Fibrillation Conclusions: - The left ventricular systolic function is normal. The visually estimated ejection fraction is between 55-60%. Findings Left Ventricle Mildly increased left ventricular cavity size. There is mildly increased left ventricular wall thickness. The left ventricular systolic function is normal. The visually estimated ejection fraction is between 55-60%. Prior Study Comparison Changes noted compared to prior study dated: 01/08/2022. Slightly higher LVEF, but could also be inter-observer variability. Measurements 2D Linear Measurements IVSd: 1.20 0.6-0.9/0.6-1.0 cm LVIDd: 5.76 3.9-5.3/4.2-5.9 cm LVIDd Index: 2.30 2.4-3.2/2.2-3.1 cm/m2 LVIDs: 4.26 2.0-3.6 cm LVPWd: 1.24 0.7-1.1 cm LV Mass: 374.68 67-162/88-224 g LV Mass Index: 149.87 43-95/49-115 g/m2 2D Systolic Function EF 4C: 57.10 >55% EF 2C: 63.20 >55% EF BiP: 59.60 >55% Updated in Other Vendor System with Status of Final Sincere Hollis MD electronically signed on 02/26/2023 11:07:07 AM with status of Final
== END ==
LOC: HO.CARD 15:10
PROVIDERS: PCP Nurse Practitioner Primary Care; Visit Provider Nurse Practitioner Family
DX: I42.8 Other cardiomyopathies (principal)
CPT/HCPCS: 93308; Q9957

== ENCOUNTER 2024-03-31 15:26 | Outpatient (AMB) | payer MEDICAID, SELFPAY ==
[2024-03-31 15:30] VITALS: BP 124/70; PULSE 61; BMI 43.9
--- NOTE | 2024-03-31 15:30 | A.OFFVIS_ITS ---
Vital Signs 03/31/24 15:30 Height 5 ft 10 in Weight 306 lb 0.026 oz BMI 43.9 BP 124/70 Blood Pressure Location Lt brachial Position Sitting Pulse 61 Pulse Source Monitor Intake Visit Reasons: f/u Skeiner Required: No Allergies No Known Allergies Allergy (Verified 03/31/24 15:34) Medication List - Last Reconciled 03/31/24 by Margarita Rodriguez NP-C bupropion HCl XL 300 mg PO DAILY carvedilol 25 mg PO BID 90 days cholecalciferol (vitamin D3) 50 mcg PO DAILY digoxin 250 mcg PO DAILY furosemide 20 mg PO DAILY levothyroxine 25 mcg PO QAM rivaroxaban (Xarelto) 20 mg PO DAILY sacubitril-valsartan 49-51 mg (Entresto) 1 tab PO BID sildenafil (Viagra) 1 tab PO DAILY PRN venlafaxine ER 150 mg PO DAILY HPI HPI f/u: Details: Pablo is a 37-year-old male with past medical history of morbid obesity, obstructive sleep apnea, chronic atrial fibrillation, heart failure with reduced EF, nonischemic cardiomyopathy who presents for follow-up.? Today he reports that he has been under high mental stress in the last year. His mother last year and he is now homeless. He is currently staying with his brother but that is temporary. He has been unable to get an apartment because he has no rental history. Physically he denies any chest discomfort at rest or with activity. He denies shortness of breath, palpitations, dizziness, presyncope, syncope, PND, orthopnea or edema. He tells me he is taking his medications as directed. He is smoking marijuana routinely. No routine exercise or physical activity. [facility]LY [facility] Medical History (Updated 03/31/24 @ 16:49 by Margarita Rodriguez, GRACIE-C) Hodgkin lymphoma FH: bone marrow transplant Mitral regurgitation Morbid obesity RAMESH (obstructive sleep apnea) Heart failure with reduced ejection fraction Chronic atrial fibrillation Nonischemic cardiomyopathy Surgical History (Updated 03/31/24 @ 16:50 by Margarita Rodriguez NP-C) Hx of cardiac cath Family History Father CVD (cardiovascular disease) Diabetes Mother No problems noted. Social History Alcohol intake: former Patient Tobacco Use Status: Never used Tobacco Substance Use Type: Marijuana Review of Systems Const All systems reviewed & are unremarkable except as noted in HPI and below ENT Denies dizziness Card Reports chest pain, Reports chest pain at rest, Denies chest pain with activity, Denies rapid heart rate, Denies pedal edema, Denies edema, Denies leg edema, Denies lightheadedness, Denies palpitations, Denies dyspnea, Denies dyspnea on exertion and Denies orthopnea Resp Denies cough, Denies dyspnea and Denies dyspnea on exertion GI Denies hematochezia and Denies change in stool character Musc Denies abnormal gait, Denies limited range of motion, Denies muscle cramps, Denies muscle weakness, Denies numbness, Denies radiating pain into limb, Denies stiffness and Denies tingling Neuro Denies abnormal gait, Denies dizziness, Denies numbness and Denies tingling Endo Denies palpitations Physical Exam Vital Signs: BMI result Body Mass Index 43.9 Const Other: morbidly obese General: cooperative, healthy appearing, comfortable and no acute distress Orientation/consciousness: patient oriented x3 Neck Neck: Yes normal visual inspection and Yes no JVD Resp Effort & Inspection: normal respiratory effort Auscultation: clear to auscultation bilaterally, no rales, no rhonchi and no wheezes Cardio Jugular venous distension: no JVD Rate: regular rate Rhythm: regular rhythm Heart sounds: S1 normal heart sound present, S2 normal heart sound present, no murmurs and no rubs Neuro General: patient oriented x3 Extrem General: Yes normal to inspection Psych Appearance: grossly normal Mental Status: mental status grossly normal Speech and movement: Normal speech and movement present Office Procedures EKG Details: Today, read by me, atrial fibrillation, nonspecific ST and T-wave abnormality, rate 61, QTC 356 milliseconds [id number], Complete Assessment & Plan Assessment & Plan (1) Heart failure with reduced ejection fraction: Code(s): I50.20 - Unspecified systolic (congestive) heart failure Category: Medical Plan: History of heart failure with reduced EF, secondary to nonischemic cardiomyopathy. Echo 05/24/2020 shows EF 30-35% with global hypokinesis. He has been on appropriate medical management with Entresto and carvedilol for neurohormonal modulation and he does report med compliance. Last echocardiogram done 01/08/2022 showed EF 50-55% with moderately dilated left atrium. He reports high social stressors and considers himself homeless. He does tell me he is taking his meds. On exam he has no clinical signs indicating decompensated heart failure however morbid obesity makes this assessment more challenging. Labs done on 11/20/2022 showed creatinine 0.95. Reviewed the need for ongoing strict medication compliance. Signs and symptoms of heart failure discussed. Will send message to our nurse regarding getting him some social assistance. Will check a limited echo to reassess EF based on his current situation. Cardiology follow-up in 6 months, sooner if needed. (2) Nonischemic cardiomyopathy: Code(s): I42.8 - Other cardiomyopathies Category: Medical Plan: As above (3) Chronic atrial fibrillation: Code(s): I48.20 - Chronic atrial fibrillation, unspecified Category: Medical Plan: History of chronic atrial fibrillation. He has been on carvedilol for rate slowing and cardiomyopathy. His current dose is 50 mg b.i.d. and has been listed as such in our record for some time. I am not able to locate a reason for it has increased. EKG done today shows atrial fibrillation with heart rate 68. He is also on digoxin. Lasted level in 2020 was 1.1. At this time I will ordered reduce carvedilol down to 25 mg b.i.d. which is a usual max dose. Will continue digoxin and obtain a digoxin level. He is on Xarelto for anticoagulation. No reports of bleeding issues. Continue without change. Stroke risk with AFib reviewed with him. (4) Morbid obesity: Comment: Patient is well aware of the this problem. He claims that he has lost weight already and is trying to restrict his diet. He is not inclined to join a weight management program. Code(s): E66.01 - Morbid (severe) obesity due to excess calories Category: Medical (5) RAMESH (obstructive sleep apnea): Comment: Moderately severe obstructive sleep apnea with excessive snoring, as per his sleep study. In view of his the cardiac problems, it is imperative for him to start the CPAP therapy as soon as possible. He does have an old CPAP device. We are checking with the [employer] , to go over the settings in that old CPAP. And if it is functioning or not. If it is not functioning then he would need a new CPAP device. I have advised to start him on auto PAP mode with pressure setting of 6-20 cm, using full face mask. He will be monitored closely for compliance. Code(s): G47.33 - Obstructive sleep apnea (adult) (pediatric) Category: Medical Plan: Home sleep study done on 03/03/2021 shows obstructive sleep apnea, moderately severe, no significant hypoxemia was recorded, CPAP therapy recommended. Follows with Dr. Parr. Need for mask compliance reviewed with him. (6) Chest discomfort: Code(s): R07.89 - Other chest pain Category: Medical (7) Hx of cardiac cath: Comment: 12/31/2018 showing normal coronary arteries Code(s): Z98.890 - Other specified postprocedural states Category: Surgical Plan: As above Plan Time spent on chart review, documentation, interview and assessment Orders: Orders Basic Metabolic Panel Today I48.20 - Chronic atrial fibrillation, unspecified Digoxin Today I48.20 - Chronic atrial fibrillation, unspecified CA echo transthoracic complete Today I42.8 - Other cardiomyopathies, I48.20 - Chronic atrial fibrillation, unspecified Coding Level of Care Code Est Pt Level 4 (82360) Diagnoses Heart failure with reduced ejection fraction I50.20 Nonischemic cardiomyopathy I42.8 Chronic atrial fibrillation I48.20 Morbid obesity E66.01 RAMESH (obstructive sleep apnea) G47.33 Chest discomfort R07.89 Hx of cardiac cath Z98.890 CPT Codes EKG - CPT: [id number], Complete ([id number]) Time Spent (min) 30
== END 2024-03-31 16:05 | disposition home or self-care (01) ==
PROVIDERS: PCP Nurse Practitioner Primary Care; Visit Provider Nurse Practitioner Family
DX: I50.20 Unspecified systolic (congestive) heart failure (principal); I42.8 Other cardiomyopathies; I48.20 Chronic atrial fibrillation, unspecified; E66.01 Morbid (severe) obesity due to excess calories; G47.33 Obstructive sleep apnea (adult) (pediatric); R07.89 Other chest pain; Z98.890 Other specified postprocedural states
CPT/HCPCS: 93010; 99214

== ENCOUNTER → 2024-03-31 15:26 | Outpatient (BNVA) | payer MEDICAID, SELFPAY | PROVIDERS: PCP Nurse Practitioner Primary Care; Visit Provider Nurse Practitioner Family | DX: I50.20 Unspecified systolic (congestive) heart failure (principal); I42.8 Other cardiomyopathies; I48.20 Chronic atrial fibrillation, unspecified; E66.01 Morbid (severe) obesity due to excess calories; G47.33 Obstructive sleep apnea (adult) (pediatric); R07.89 Other chest pain; R94.31 Abnormal electrocardiogram [ECG] [EKG]; Z98.890 Other specified postprocedural states; Z68.41 Body mass index [BMI] 40.0-44.9, adult | CPT/HCPCS: 93005; 99212 ==

== ENCOUNTER → 2024-05-21 14:49 | Outpatient (REF) | payer MEDICAID, SELFPAY ==
--- NOTE | 2024-05-21 14:51 | CA_ITS ---
Transthoracic Echocardiogram Patient (Last, First, Middle): Pablo Bedolla A Gender: Male Date of : 1985 Age: 38 Procedure Date: 05/21/2024 Procedure Type: Transthoracic Echocardiogram Location: OP Height: 177.8 cm Weight: 136.08 kg BSA: 2.48 m2 Heart Rate: bpm BP: 150 / 90 mmHg Machine Presser: KAY Referring MD: Margarita Rodriguez NARCOTICS AGENT-Shakira Machine Stapler: Montrell Chow MD Symptoms: I42.8 - Other cardiomyopathies Study Quality: Technically Difficult, contrast ECG Rhythm: Atrial Fibrillation Conclusions: - 1. Low normal LV ejection fraction 50-55% 2. Mildly dilated left atrium 3. Cardiac valvular Doppler is within normal limits Findings Procedure Information Contrast agent, definity, is being given per protocol without apparent complications. Left Ventricle Normal left ventricular cavity size. There is normal left ventricular wall thickness. The left ventricular systolic function is low normal. The visually estimated ejection fraction is between 50-55%. Diastolic function is indeterminate on the basis of available data. Right Ventricle The right ventricle was not well visualized. Atria The left atrium is mildly dilated. Interatrial shunt cannot be excluded. The right atrium was not well visualized. Aortic Valve The aortic valve was not well visualized. There is no aortic valve stenosis. There is no aortic valve regurgitation. Mitral Valve Likely normal mitral valve structure and function. There is no mitral valve regurgitation. There is no mitral valve stenosis. Pulmonic Valve The pulmonic valve was not well visualized. Tricuspid Valve The tricuspid valve was not well visualized. Tricuspid regurgitation envelope is inadequate for calculation of right ventricular systolic pressure. Normal right atrial pressure. Great Vessels All visible segments of the aorta are normal in size. The pulmonary artery was not well visualized. There is no dilatation of the ascending aorta measuring 3.30 cm. Venous The inferior vena cava is normal in size and collapses greater than 50% with inspiration. Pericardium/Pleural The pericardium was not well visualized. Prior Study Comparison Changes noted compared to prior study dated: 02/25/2023. minimal reduction LV ejection fraction, could be interobserver variability Measurements 2D Linear Measurements IVSd: 0.97 0.6-0.9/0.6-1.0 cm LVIDd: 5.12 3.9-5.3/4.2-5.9 cm LVIDd Index: 2.06 2.4-3.2/2.2-3.1 cm/m2 LVIDs: 3.30 2.0-3.6 cm LVPWd: 0.89 0.7-1.1 cm LA Diam: 4.30 2.7-3.8/3.0-4.0 cm LAIDs Index: 1.73 1.5-2.3 cm/m2 LV Mass: 214.39 67-162/88-224 g LV Mass Index: 86.45 43-95/49-115 g/m2 LVOT Diam: 2.10 3.0+(-)1.3 cm 2D Systolic Function EF 4C: 53.90 >55% EF 2C: 47.30 >55% EF BiP: 51.50 >55% Mitral Valve MV Pk E: 1.00 MV Decel Time: 209.00 E'Lateral: 14.60 E'Medial: 9.03 E/E' Med: 11.10 E/E' Lat: 6.80 PHT: 61.00 MVA PHT: 3.61 Decel Brewster: 4.83 Aortic Valve AoV Pk Lance: 1.24 AoV Mn Lance: 0.85 AoV VTI: 0.23 AoV Pk Grad: 6.00 Aov Mn Grad: 3.00 ELISA Cont.VTI: 2.58 LVOT LVOT Pk Lance: 0.89 LVOT Mn Lance: 0.56 LVOT VTI: 0.17 LVOT Pk Grad: 3.00 LVOT Mn Grad: 2.00 LVOT Diam: 2.10 LVOT Area: 3.46 Diastolic Function MV Pk E: 1.00 E'Medial: 9.03 E/E' Med: 11.10 E' Laterial: 14.60 E/E' Lat: 6.80 Right Ventricle TAPSE (mm): 26.70 TVS' Lance: 13.90 Tricuspid Valve RA Press: 3.00 Great Vessels Aorta Sinus of Valsalva: 3.33 2.0-3.5 cm Ao Asc: 3.30 2.1-3.4 cm Updated in Other Vendor System with Status of Final Montrell Chow MD electronically signed on 05/22/2024 9:22:34 AM with status of Final
== END ==
LOC: HO.CARD 14:49
PROVIDERS: PCP Nurse Practitioner Primary Care; Visit Provider Nurse Practitioner Family
DX: I42.8 Other cardiomyopathies (principal); I48.20 Chronic atrial fibrillation, unspecified
CPT/HCPCS: 93306; Q9957

== ENCOUNTER → 2024-05-21 14:51 | Outpatient (BNV) | payer MEDICAID, SELFPAY | PROVIDERS: PCP Nurse Practitioner Primary Care; Visit Provider Internal Medicine Cardiovascular Disease | DX: I42.8 Other cardiomyopathies (principal) | CPT/HCPCS: 93306 ==

== ENCOUNTER 2024-06-24 09:09 | Outpatient (REF) | payer MEDICAID, SELFPAY ==
[2024-06-24 12:25] LABS: Anion Gap 10 (12-20); Blood Urea Nitrogen 15 mg/dL (9-16); Calcium 9.4 mg/dL (8.4-10.2); Carbon Dioxide 31 mmol/L (22-29); Chloride 106 mmol/L (96-108); Estimated Glomerular Filt Rate > 60; Glucose Random 84 mg/dL (60-115); Potassium 4.5 mmol/L (3.3-5.1); Sodium 142 mmol/L (135-145)
[2024-06-24 12:43] LABS: TSH reflex Free T4 2.05 uIU/mL (0.32-4.0); Vitamin D 25-OH Total 27.3 ng/mL (>30)
[2024-06-29 19:44] LABS: Testosterone, Free 52.5 pg/mL (35.0-155.0); Testosterone, Total 324 ng/dL (250-1100)
== END 2024-06-24 09:10 | disposition home or self-care (01) ==
LOC: HO.HHCL 09:09
PROVIDERS: Referring Provider Nurse Practitioner Family; Visit Provider Nurse Practitioner Primary Care
DX: E03.9 Hypothyroidism, unspecified (principal); R79.89 Other specified abnormal findings of blood chemistry; I48.20 Chronic atrial fibrillation, unspecified
CPT/HCPCS: 36415; 80048; 80162; 82306; 84402; 84403; 84443

== ENCOUNTER 2024-10-02 13:27 | Outpatient (AMB) | payer MEDICAID, SELFPAY ==
--- OUTSIDE RECORDS SUMMARY | 2024-10-02 13:37 | XMS_ITS | Encounter Summary ---
Author Organization [employer] Address [address] [place] [address] 7 [place] [address] Care Team Providers Care Tube Mill Operator Name Role Phone Yaquelin Cage Primary Care Provider [phone] Jamal Marie Unavailable Unavailable Fouzia Romero RN Unavailable [phone] Reason for Visit * Reason Comments Care Coordination Appt reminder Encounter Details Date Type Department Care Team (Latest Contact Info) Description 10/01/2024 Patient Outreach [facility] [address] [place], [place] [phone] Yaquelin Cage ANP [address] [place] [address] Care Coordination (Appt reminder) Social History Tobacco Use Types Packs/Day Years Used Date Smoking Tobacco: Former Cigarettes Smokeless Tobacco: Never Alcohol Use Standard Drinks/Week Comments Never 0 (1 standard drink = 0.6 oz pur e alcohol) Depression Answer Date Recorded Patient Health Questionnaire-9 Score 17 08/06/2024 Patient Health Questionnaire-9 Score 17 08/06/2024 Last PHQ-9: Questionnaire Data Not on file 1 10/07/2023 Housing Stability Answer Date Recorded What is your housing situation today? I do not have housing (Staying with others, in a hotel, in a jail, living outside on the street, on a beach, in a car, or in a park 12/30/[address] you li ve. Do you have problems with any of the following? None of the above 12/30/2023 Food Insecurity Answer Date Recorded Within the past 12 months, y ou worried that your food would run out before you got money to buy more: Sometimes True 04/29/ 2024 Within the past 12 months,th e food you bought just didn't last and you didn't have enough money to get more: Sometimes True 12/30/2023 Transportation Answer Date Recorded In the past 12 months, has l ack of transportation kept you from medical appts, meetings, work or from getting things needed for daily living? No 09/24/2024 Utilities Answer Date Recorded In the past 12 months, has t he electric, gas, oil or water company threatened to shut off services in your home? No 12/30/2023 Depression Answer Date Recorded Patient Health Questionnaire-2 Score 6 08/06/2024 Internet Access Answer Date Recorded Internet Access Q1 Yes 09/24/2024 Internet Access Q2 Not on file 09/24/2024 Sex and Gender Information Value Date Recorded Sex Assigned at Male 07/02/2022 10:16 AM EDT Legal Sex Male 10:16 AM EDT Gender Identity Male 07/02/2022 10:16 AM EDT Sexual Orientation Choose not to disclose 2021 10:16 AM EDT documented as of this encounter Progress Notes * Yolanda Murray - 10/01/2024 10:20 AM EST CHW Yolanda Murray placed call to patient to remind of appt on [facility] 10/02/24 at 1:45pm. CHW let patient know that PT1 will pick him up at 115pm. Patient understood and agreed to attend appt. documented in this encounter Plan of Treatment Upcoming Encounters Date Type Department Care Team (Late st Contact Info) Description 10/09/2024 10:30 AM EST Office Visit [facility] [address] [place] [address] Yaquelin Cage ANP [address] [place] [address] documented as of this encounter Visit Diagnoses Not on filedocumented in this encounter Additional Health Concerns Assessment Noted Time PHQ-9 Depression Total Score: 17 024 2:40 PM EST documented as of this encounter Care Teams Tube Mill Operator Relationship Specialty Start Date End Date Yaqueiln Cage ANP [address] [place] [address] PCP - General Family Medicine 05/02/20 Jamal Marie FNP [address] [place] [address] Nurse Practitioner Family Medicine 08/06/23 Fouzia Romero RN [address] [address] Sheet Rock Installation HelperOncology Nurse 09/28/24 documented as of this encounter
--- OUTSIDE RECORDS SUMMARY | 2024-10-02 13:37 | XMS_ITS | Encounter Summary ---
Author Organization [employer] Address [address] [place] [address] 7 [place] [address] Care Team Providers Care Straight Tooth Gear Generator Operator Name Role Phone Yaquelin Cage Primary Care Provider [phone] Jamal Marie Unavailable Unavailable Fouzia Romero RN Unavailable [phone] Reason for Visit * Reason Onset Date Comments Med Refill 02/18/2024 Encounter Details Date Type Department Care Team (Late st Contact Info) Description 02/18/2024 Telephone [facility] MEDICINE [address] [place], [place] [phone] Yaquelin Cage ANP [address] [place], [place] [phone] Med Refill Social History Tobacco Use Types Packs/Day Years Used Date Smoking Tobacco: Former Cigarettes Smokeless Tobacco: Never Alcohol Use Standard Drinks/Week Comments Never 0 (1 standard drink = 0.6 oz pur e alcohol) Depression Answer Date Recorded Patient Health Questionnaire-9 Score 22 01/09/2024 Patient Health Questionnaire-9 Score 22 01/09/2024 Last PHQ-9: Questionnaire Data Not on file 0 01/09/2024 Housing Stability Answer Date Recorded What is your housing situation today? I do not have housing (Staying with others, in a hotel, in a fpc, living outside on the street, on a [...] got money to buy more: Sometimes True 2023 Within the past 12 months,th e food you bought just didn't last and you didn't have enough money to get more: Sometimes True 12/30/2023 Transportation Answer Date Recorded In the past 12 months, has l ack of transportation kept you from medical appts, meetings, work or from getting things needed for daily living? Yes, it has kept me from medical appointments or getting medications. 12/30/2023 Utilities Answer Date Recorded In the past 12 months, has t he [employer], gas, oil or water company threatened to shut off services in your home? No 12/30/2023 Depression Answer Date Recorded Patient Health Questionnaire-2 Score 6 01/09/2024 Sex and Gender Information Value Date Recorded Sex Assigned at Male 07/02/2022 10:16 AM EDT Legal Sex Male 10:16 AM EDT Gender Identity Male 07/02/2022 10:16 AM EDT Sexual Orientation Choose not to disclose 2021 10:16 AM EDT documented as of this encounter Miscellaneous Notes * Telephone Encounter - Sofie Joiner LPN - 02/18/2024 10:59 AM EDT Medication pended to PCP. * Telephone Encounter - Junior Murray - 02/18/2024 10:53 AM EDT TC from pt requesting medication refill. Medications needing refill: sildenafil (Viagra) 100 MG tablet To be sent to: [facility] Pharmacy documented in this encounter Plan of Treatment Upcoming Encounters Date Type Department Care Team (Late st Contact Info) Description 10/09/2024 10:30 AM EST Office Visit [facility] MED[facility]INE [address] [place], [place] [phone] Yaquelin Cage ANP [address] [place], [place] [phone] documented as of this encounter Visit Diagnoses Not on filedocumented in this encounter Additional Health Concerns Assessment Noted Time PHQ-9 Depression Total Score: 22 024 3:48 PM EDT documented as of this encounter Care Teams Straight Tooth Gear Generator Operator Relationship Specialty Start Date End Date Yaquelin Cage ANP [address] [place] [address] PCP - General Family Medicine 05/02/20 Jamal Marie FNP [address] [place] [address] Nurse Practitioner Family Medicine 08/06/23 Fouzia Romero, RED [address] [place] [address] Box Coverer HandCustomer Resource Specialist 09/28/24 documented as of this encounter
--- OUTSIDE RECORDS SUMMARY | 2024-10-02 13:37 | XMS_ITS | Encounter Summary ---
Author Organization [employer] Address [address] [place] [address] [address] [place] [address] Care Team Providers Care Film Washer Name Role Phone Fauzia Yaquelin WARD Primary Care Provider [phone] Jamal Marie Unavailable Unavailable Reason for Visit * Reason Onset Date Comments Care Management 09/17/2024 [facility]- chart revi ew Encounter Details Date Type Department Care Team ([facility] st Contact Info) Description 09/17/2024 Telephone [facility] MEDICINE [address] [place] [address] Fouzia Romero RN [address] [place] [address] Care Management ([facility]- chart review) Social History Tobacco Use Types Packs/Day Years [...] with others, in a hotel, in a skilled nursing, living outside on the street, on a [...] Recorded Patient Health Questionnaire-2 Score 6 08/06/2024 Sex and Gender Information Value Date Recorded Sex Assigned at Male 07/02/2022 10:16 AM EDT Legal Sex Male 10:16 AM EDT Gender Identity Male 07/02/2022 10:16 AM EDT Sexual Orientation Choose not to disclose 2021 10:16 AM EDT documented as of this encounter Miscellaneous Notes * Telephone Encounter - Fouzia Romero RN - 09/17/2024 8:15 AM EST CM Fouzia Romero RN, performed chart review, in anticipation of initial assessment with patient, as patient has stratified for [facility] Adult Complex Care through the ADT feed. History significant for RAMESH, asthma, nonischemic cardiomyopathy, HTN, obesity, cannabis abuse, depressive disorder, Hodgkin's di sease, OCD, housing instability, PTSD, and low testosterone. Specialists include [facility], and [facility]. ED visits within the last 12 months include [facility] ED 09/17/24, [facility] [place]24, [facility] [facility] [place] 08[facility]04/24, [facility] 05/12/24, [facility] [place] 03[facility]09/24, and [facility] [place] 01/08/[place]-01/09/24. Patient admitted to [facility] on 09/17/24 Dx Hemoptysis. Discharge pending. Last appointment in PCP office on 08/05. Next appointment scheduled for 10/08/24 at 1:00pm for follow up with PCP. documented in this encounter Plan of Treatment Upcoming Encounters Date Type Department Care Team (Late st Contact Info) Description 10/09/2024 10:30 AM EST Office Visit [facility] MED[facility] [address] [place] [address] Yaquelin Cage ANP [address] [place] [address] documented as of this encounter Visit Diagnoses Not on filedocumented in this encounter Additional Health Concerns Assessment Noted Time PHQ-9 Depression Total Score: 17 024 2:40 PM EST documented as of this encounter Care Teams Film Washer Relationship Specialty Start Date End Date Yaquelin Cage ANP [address] [place] [id number] PCP - General Family Medicine 05/02/20 Jamal Marie FNP [address] [place] [phone] Nurse Practitioner Family Medicine 08/06/23 documented as of this encounter
--- OUTSIDE RECORDS SUMMARY | 2024-10-02 13:37 | XMS_ITS | Encounter Summary ---
Author Organization [employer] Address [address] [place] [address] [place] [address] Care Team Providers Care Manager Hydraulic Name Role Phone Yaquelin Cage Primary Care Provider [phone] Jamal Marie Unavailable Unavailable Reason for Visit * Reason Comments Transition Of Care (Tcm) HDF- scheduled and SDOH screening positive and Tobacco screening negative Encounter Details Date Type Department Care Team ([facility] st Contact Info) Description 09/24/2024 Patient Outreach [facility] [address] [place] [address] Yaquelin Cage ANP [address] [place] [address] Transition Of Care (Tcm) (HDF- scheduled and SDOH screening positive and Tobacco screening negative) Social History Tobacco Use Types Packs/Day Years [...] as of this encounter Miscellaneous Notes * Significant Event - Iliana Bowie - 09/24/2024 9:15 AM EST 09/24/24 0908 Hospital Discharges and Admission for [facility] Type of Visit Hospital Admission Date of Admission/Visit 09/17/24 Date of Discharge 09/23/24 [facility] Diagnosis Pending Disposition Discharged Home Follow-Up Actions Follow-Up Needed Provider appointment Follow-Up Outcome Spoke to Patient;Booked Appointment Initial Contact Date 09/24/24 PRETTY Herrera placed outbound call to patient for HDF outreach. Patient's name and were confirmed. Patient educated on the importance of follow up with provider following inpatient admission. Patient offered an HDF appt. Patient is agreeable to an appointment and has been scheduled for 10/09/2024 at 10:30am with Yaquelin Cage NP. Insurance verified prior to scheduling. Patient advised to bring to appointment a photo id and insurance card. Patient provided with education on contacting the Health Center with any questions or concerns prior to the scheduled appointment. Patient educated on extended clinic hours on Mondays and Wednesdays, and Walk-In Urgent Care Located in [facility]. Patient provided with after-hours line for [facility], , which offer night time triage service and option to transfer to fashion supervisor provider if needed. CC will request Discharge summary to be scanned into chart. Biggest concern for appointment at this time is no concerns. Patient was scheduled for a follow with PCP on 10/08/2024, video game script writer advised appt will need to be cancelled. Patient agreed and will keep appt for 10/09/2024. Appropriate screenings completed in anticipation of appointment. SDOH positive. Patient looking for assistance with housing and food insecurities. Referral will be placed. documented in this encounter Plan of Treatment Upcoming Encounters Date Type Department Care Team (Late st Contact Info) Description 10/09/2024 10:30 AM EST Office Visit [facility] [address] [place] [address] Yaquelin Cage ANP [address] [place] [address] documented as of this encounter Visit Diagnoses Not on filedocumented in this encounter Additional Health Concerns Assessment Noted Time PHQ-9 Depression Total Score: 17 024 2:40 PM EST documented as of this encounter Care Teams Manager Hydraulic Relationship Specialty Start Date End Date Yaquelin Cage ANP [address] [place] [id number] PCP - General Family Medicine 05/02/20 Jamal Marie FNP [address] [place] [phone] Nurse Practitioner Family Medicine 08/06/23 documented as of this encounter
--- OUTSIDE RECORDS SUMMARY | 2024-10-02 13:37 | XMS_ITS | Encounter Summary ---
Author Organization [employer] Address [address] [place] [address] [address] [place] [address] Care Team Providers Care Flatwork Folder Name Role Phone Yaquelin Cage Primary Care Provider [phone] Jamal Marie Unavailable Unavailable Reason for Visit * Reason Comments Care Coordination CM/CHW outreach Encounter Details Date Type Department Care Team (Latest Contact Info) Description 09/22/[address] [facility] [address] [place], [place] [phone] Yaquelin Cage ANP [address] [place] [address] Care Coordination (CM/CHW outreach) Social History Tobacco Use Types Packs/Day Years [...] with others, in a hotel, in a mcfp, living outside on the street, on a [...] encounter Progress Notes * Yolanda Murray - 09/22/2024 9:51 AM EST CHW Yolanda Murray, placed outbound call to patient introducing herself from [facility] CM Department, in regard to offering services. Patient's name and was confirmed. Patient agrees to participate in program. Appt. for initial assessment scheduled for 09/28/24 @ 1PM tele with BON Romero RN. CHW reinforced direct contact information or CM for any additional questions or concerns and extended clinic hours on Mondays and Wednesdays, and Walk-InUrge Care Located in [facility]. Patient provided with after-hours line for [facility], , which offer nighttime triage service and option to transfer to head of loss prevention provider if needed. Patient verbalizes understanding, and able to repeat back to business writer. documented in this encounter Plan of Treatment Upcoming Encounters Date Type Department Care Team (Late st Contact Info) Description 10/09/2024 10:30 AM EST Office Visit [facility] [address] [place] [address] Yaquelin Cage, ANP [address] [place] [address] documented as of this encounter Visit Diagnoses Not on filedocumented in this encounter Additional Health Concerns Assessment Noted Time PHQ-9 Depression Total Score: 17 024 2:40 PM EST documented as of this encounter Care Teams Flatwork Folder Relationship Specialty Start Date End Date Yaquelin Cage ANP [address] [place] [address] PCP - General Family Medicine 05/02/20 Jamal Marie FNP [address] [place] [address] Nurse Practitioner Family Medicine 08/06/23 documented as of this encounter
--- OUTSIDE RECORDS SUMMARY | 2024-10-02 13:37 | XMS_ITS | Encounter Summary ---
Author Organization [facility] Address [address] [place] [id number] Care Team Providers Care Control System Manager Name Role Phone Physician, No Pcp Primary Care Provider Unavaila ble Reason for Visit * Auth/Cert (Routine) Specialty Diagnoses / Procedures Referred By Contac t Referred To Contact Diagnoses Lung mass Left lower lobe pneumonia Hemoptysis Pneumonia of left lower lobe due to infectious organism Procedures [facility] IP/OBS CARE INITIAL MODERATE LEVEL PER DAY Balta Wilson MD [address] [place] [address] [address] Referral ID Status Reason Start Date Expiration Date Visits Re quested Visits Authorized [id number] 1 1 Encounter Details Date Type Department Care Team (Late st Contact Info) Description 09/22/2024 4:46 PM EST Anesthesia Event [facility] Endoscopy [address] [place] [phone] Roldan Crain MD [address] [place] [phone] Marcial Troncoso CRNA [address] [place] [phone] Anesthesia Record Procedure Summary Procedure Name Responsible Anesthesiologist Anesthesia Start Time Anesthesia Stop Time BRONCHOSCOPY Roldan Crain MD 09/22/24 1646 09/22/24 1722 Events Date Time Event Comment 09/22/2024 1559 1644 In Room 1646 An Start 1646 An Start Data The patient wa s reevaluated immediately before moderate or deep sedation use and before anesthesia induction. 1650 An Induction 1653 An Intubation 1654 Anesthesia Ready 1711 An Extubation 1714 an stop data 1717 Out of Room 1718 Handoff to RN I completed my handoff to the receiving nurse during which we: 1. Identified the patient 2. Identified the responsible provider 3. Reviewed the pertinent medical history 4. Discussed the surgical course 5. Reviewed intra-op anesthesia management and issues during anesthesia 6. Set expectations for post-procedure period 7. Allowed opportunity for questions and acknowledgement of understanding. 1722 An Stop Meds Name Total midazolam 1 mg/mL 2 mg fentaNYL (SUBLIMAZE) injection 100 mcg propofol (DIPRIVAN) injection 10 mg/mL 2 00 mg succinylcholine 20 mg/mL 100 mg propofoL (DIPRIVAN) infusion 10 mg/mL 24 4.98 mg lactated Ringer's infusion 100 mL * Agents Name O2 N2O Air Sevoflurane Inspired Sevoflurane * Blood No blood administrations on file. Lines, Drains, and Airways Type Details Placement Removal Peripheral IV Placement Date: 09/02 05/27; Placement Time: 1200; Catheter Size: 20 G; Orientation: Anterior, Distal, Right, Upper; Location: Arm; Site Prep: Alcohol; Inserted by: marleen gallego RN; Insertion Attempts: 1; Patient Tolerance: Tolerated well; Removal Date: 09/23/24; Removal Time: 1345; Removal Reason: Removed by patient 09/20/24 1200 by Marleen Gallego RN 09/23/24 1345 by Morena Staley RN ETT Placement Date: 09/03 09/26; Placement Time: 1658 (created via procedure documentation); Mask Ventilation: 0; Technique: Direct laryngoscopy; Type: ETT; Cuffed: Yes; Blade Size: 4; Location: Oral; Insertion Attempts: 1; Placement Verification: Auscultation, Capnometry, Palpation of cuff; Removal Date: 09/22/24; Removal Time: 1713 09/22/24 1658 by Roldan Crain MD 09/22/24 1713 by Marcial Troncoso CRNA documented in this encounter Social History Tobacco Use Types Packs/Day Years Used Date Smoking Tobacco: Never Smokeless Tobacco: Never Alcohol Use Standard Drinks/Week Comments Not Currently 0 (1 standard drink = 0.6 oz pur e alcohol) Interpersonal Safety Answer Date Record ed Physical Abuse 09/21/2024 Verbal Abuse 09/21/2024 Sex and Gender Information Value Date Recorded Sex Assigned at Not on file Gender Identity Not on file Sexual Orientation Not on file Job Start Date Occupation Industry Not on file Not on file Not on file documented as of this encounter Progress Notes * Marcial Troncoso CRNA - 09/22/2024 5:22 PM EST Patient: Pablo Bedolla Procedure Summary Date: 09/22/24 Room / Location: [facility] Endoscopy Anesthesia Start: 164 Anesthesia Stop: 1721 Procedure: BRONCHOSCOPY Diagnosis: TB (pulmonary tuberculosis) Scheduled Providers: Tahmina Knapp MD Responsible Provider: Roldan Crain MD Anesthesia Type: general ASA Status: 3 Anesthesia Plan: general Last Vitals: Vitals Value Taken Time BP 140/97 09/22/24 1722 Temp 97.7 09/22/24 1722 Pulse 81 09/22/24 1722 Resp 22 09/22/24 1722 SpO2 96 09/22/24 1722 Pain Score: 0 - No pain Anesthesia Post Evaluation Patient location during evaluation: PACU Patient participation: waiting for patient participation Level of consciousness: responsive to verbal stimuli Pain score: 0 Pain management: adequate Airway patency: patent Anesthetic complications: no Cardiovascular status: acceptable and hemodynamically stable Respiratory status: acceptable, face mask and nasal airway Hydration status: acceptable Nausea: No There were no known notable events for this encounter. * Roldan Crain MD - 09/22/2024 4:56 PM ESTAssociated Order(s): Intubation General Information and Staff Patient location during procedure: OR Performed by: Roldan Crain MD Authorized by: Roldan Crain MD Intubation Airway not difficult Urgency: elective Final Airway Details Successful airway: ETT Cuffed: yes Successful intubation technique: direct laryngoscopy Facilitating devices/methods: anterior pressure/BURP Endotracheal tube insertion site: oral Blade: Serge Blade size: #4 ETT size (mm): 8.5 Cormack-Lehane Classification: grade IIb - view of arytenoids or posterior of glottis only Placement verified by: chest auscultation, capnometry and palpation of cuff Measured from: gums ETT to gums (cm): 22 Number of attempts at approach: 1 Ventilation between attempts: none Number of other approaches attempted: 0Final airway type: endotracheal airway Indications and Patient Condition Indications for airway management: anesthesia Spontaneous Ventilation: absent Sedation level: Yes Preoxygenated: yes Soft Tissue Damage: No Dentition Unchanged: Yes Patient position: neutral MILS maintained throughout Mask difficulty assessment: 0 - not attempted * Roldan Crain MD - 09/22/2024 3:54 PM EST Relevant Problems Cardio (+) Atrial fibrillation (CMS/HCC) Pulmonary (+) Left lower lobe pneumonia Clinical information reviewed: Allergies Meds Med Hx Surg Hx Fam Hx Soc Hx Anesthesia Plan ASA 3 Anesthesia Plan: general General Anesthesia Considerations: ETT Anesthesia Risks Discussed serious complications Anesthetic plan and risks discussed with patient. Anesthesia Evaluation No history of anesthetic complications Airway Mallampati: II Dental - normal exam Pulmonary (+) asthma (mild), sleep apnea (doesnt use cpap), rhonchi (-) COPD Cardiovascular Exercise tolerance: good (+) hypertension, dysrhythmias (a-fib), CHF (-) past AR Rhythm: regular Rate: normal Neuro/Psych (-) seizures, CVA GI/Hepatic/Renal (-) GERD, liver disease, renal disease Endo/Other (-) diabetes mellitus Comments: Lymphoma s/p chemorx tx Abdominal (+) obese ECHO (09/2024): Left ventricle cavity size is normal. Left ventricle mild concentric hypertrophy. Left ventricular systolic function is mildly decreased with an ejection fraction of 45-50%. Right ventricle cavity is mildly enlarged. Right ventricular systolic function is normal. Left atrium cavity is mildly dilated. Right atrium cavity is mildly dilated. There is mild regurgitation. Right ventricular systolic pressure is normal PONV RISK SCORE: 2 Vitals: 09/22/24 0100 09/22/24 0343 09/22/24 0738 09/22/24 1546 BP: (!) 171/95 (!) 161/107 (!) 177/105 (!) 160/119 BP Location: Left arm Left arm Left arm Patient Position: Lying Lying Lying Pulse: 80 (!) 47 55 83 Resp: 18 18 18 Temp: 36.5 ??C (97.7 ??F) 36.4 ??C (97.5 ??F) 36.1 ??C (96.9 ??F) 35.8 ??C (96.5 ??F) TempSrc: Oral Oral Temporal Temporal SpO2: 100% 98% 100% 100% Weight: Height: SpO2 Readings from Last 1 Encounters: 09/22/24 100% WBC Date Value Ref Range Status 09/22/2024 6.1 4.8 - 10.8 K/mcL Final RBC Date Value Ref Range Status 09/22/2024 4.90 4.50 - 5.50 M/mcL Final Hemoglobin Date Value Ref Range Status 09/22/2024 13.4 (L) 13.5 - 17.5 g/dL Final Hematocrit Date Value Ref Range Status 09/22/2024 42.6 42.0 - 54.0 % Final Platelets Date Value Ref Range Status 09/22/2024 227 130 - 400 K/mcL Final MCV Date Value Ref Range Status 09/22/2024 87.1 79.0 - 98.0 FL Final No Known Allergies STOP BANG: No data recorded NPO Status: Time of Last Liquid: 0900 documented in this encounter Plan of Treatment Not on file documented as of this encounter Procedures Procedure Name Priority Date/Time Associated Diagnosis Comments TH AN ENDOTRACHEAL(NO CHARGE) Routine 09/22/2024 4:56 PM EST documented in this encounter Results * TH AN ENDOTRACHEAL(NO CHARGE) (09/22/2024 4:56 PM EST) Narrative Roldan Crain MD - 09/22/2024 4:56 PM EST Roldan Crain MD ? 09/22/2024 ??4:58 PM General Information and Staff Patient location during procedure: OR Performed by: Roldan Crain MD Authorized by: Roldan Crain MD ?? Intubation Airway not difficult Urgency: elective Final Airway Details Successful airway: ETT Cuffed: yes Successful intubation technique: direct laryngoscopy Facilitating devices/methods: anterior pressure/BURP Endotracheal tube insertion site: oral Blade: Serge Blade size: #4 ETT size (mm): 8.5 Cormack-Lehane Classification: grade IIb - view of arytenoids or posterior of glottis only Placement verified by: chest auscultation, capnometry and palpation of cuff Measured from: gums ETT to gums (cm): 22 Number of attempts at approach: 1 Ventilation between attempts: none Number of other approaches attempted: 0Final airway type: endotracheal airway Indications and Patient Condition Indications for airway management: anesthesia Spontaneous Ventilation: absent Sedation level: Yes Preoxygenated: yes Soft Tissue Damage: No Dentition Unchanged: Yes Patient position: neutral MILS maintained throughout Mask difficulty assessment: 0 - not attempted Roldan Crain MD ANESTHESIA ORDERABLE S documented in this encounter Visit Diagnoses Not on filedocumented in this encounter Administered Medications Inactive Administered Medications - up to 3 most recent administrations Medication Order MAR Action Action Date Dose Rate Site fentaNYL (PF) (SUBLIMAZE) injection intravenous, As needed, Starting on Sat09/22/24 at 1644, Anesthesia Intraprocedure Given 09/22/2024 4:44 PM EST 100 mcg lactated Ringer's infusion 100 mL/hr, intravenous, Continuous, Starting on Sat09/22/24 at 1615, Recovery (only) New Bag 09/22/2024 4:44 PM EST midazolam (VERSED) injection intravenous, As needed, Starting on Sat09/22/24 at 1644, Anesthesia Intraprocedure Given 09/22/2024 4:44 PM EST 2 mg propofoL (DIPRIVAN) infusion 10 mg/mL intravenous, Continuous PRN, Starting on Sat09/22/24 at 1653, Anesthesia Intraprocedure Rate/Dose Change 09/22/2024 5:04 PM EST 150 mcg/kg/min 122.49 mL/hr New Bag 09/22/2024 4:53 PM EST 150 mcg/kg/min 122.49 mL /hr propofoL (DIPRIVAN) injection intravenous, As needed, Starting on Sat09/22/24 at 1650, Anesthesia Intraprocedure Given 09/22/2024 4:50 PM EST 2 00 mg succinylcholine (ANECTINE) injection intravenous, As needed, Starting on Sat09/22/24 at 1650, Anesthesia Intraprocedure Given 09/22/2024 4:50 PM EST 1 00 mg documented in this encounter Care Teams Control System Manager Relationship Specialty Start Date End Date Physician, No Pcp PCP - General 08/16/24 documented as of this encounter
--- OUTSIDE RECORDS SUMMARY | 2024-10-02 13:37 | XMS_ITS | Clinical Summary ---
Author Organization [facility] Address [address] [place] [address] Phone Care Team Providers Care Composition Molder Name Role Phone Physician, No Pcp Primary Care Provider Unavaila ble Allergies No known active allergies Medications Medication Sig Dispensed Refills Start Date End Date Status amLODIPine (NORVASC) 10 mg tablet Take 1 tablet (10 mg total) by mouth 1 (one) time each day. Active buPROPion XL (WELLBUTRIN XL) 300 mg 24 hr tablet Take 1 tablet (300 mg total) by mouth 1 (one) time each day. Do not crush, chew, or split. Active carvediloL (COREG) 25 mg tablet Take 1 tablet (25 mg total) by mouth 2 (two) times a day with meals. Active cholecalciferol (VITAMIN D-3) 50 mcg (2,000 unit) tablet Take 1 tablet (2,000 Units total) by mouth 1 (one) time each day. Active digoxin (LANOXIN) 250 mcg (0.25 mg) tablet Take 1 tablet (250 mcg total) by mouth 1 (one) time each day. Active furosemide (LASIX) 20 mg tablet Take 1 tablet (20 mg total) by mouth 1 (one) time each day. Active levothyroxine (SYNTHROID, LEVOTHROID) 25 mcg tablet Take 1 tablet (25 mcg total) by mouth 1 (one) time each day before breakfast. Active rivaroxaban (XARELTO) 20 mg tablet Take 1 tablet (20 mg total) by mouth 1 (one) time each day with dinner. Take with food. Active sacubitriL-valsar anderson (Entresto) 49-51 mg per tablet Take 1 tablet by mouth 2 (two) times a day. Active venlafaxine XR (EFFEXOR-XR) 150 mg 24 hr capsule Take 1 capsule (150 mg total) by mouth 1 (one) time each day. Do not crush or chew. Active hydrALAZINE (APRESOLINE) 10 mg tablet Take 2 tablets (20 mg total) by mouth 2 (two) times a day. 120 each 11 09/23/2024 09/23/2025 Active levoFLOXacin (LEVAQUIN) 750 mg tablet Take 1 tablet (750 mg total) by mouth 1 (one) time each day for 12 days. 12 each 09/23/2024 10/05/2024 Active guaiFENesin (ROBITUSSIN) 100 mg/5 mL liquid Take 10 mL (200 mg total) by mouth 3 (three) times a day if needed for cough for up to 10 days. 120 mL 09/23/2024 10/03/2024 Active omeprazole (PriLOSEC) [address] capsule Take 1 capsule (20 mg total) by mouth 1 (one) time each day. Do not crush or chew. 30 each 08/16/2024 09/23/2024 Discontinued( Stop Taking at Discharge) Active Problems Problem Noted Date Diagnosed Date Left lower lobe pneumonia 09/17/2024 Mass of lower lobe of left lung 09/17/2024 History of Hodgkin's lymphoma 09/17/2024 Nonischemic cardiomyopathy 09/17/2024 Atrial fibrillation 09/17/2024 Hemoptysis 09/17/2024 Encounters Date Type Department Care Team Description 09/22/2024 4:46 PM EST Anesthesia Event [facility] Endoscopy [address] [place] [address] Roldan Crain MD Hayes, Brett L, YARED 09/17/2024 2:57 AM EST - 09/23/2024 4:57 PM EST Hospital Encounter [facility] [address] [place] [address] Balta Wilson MD Flores, Carlos M, MD Zipagan, James T, MD Mohani, Priya, MD Surendran, MD Lyudmila Hemoptysis (Primary Dx); Lung mass; Pneumonia of left lower lobe due to infectious organism; Longstanding persistent atrial fibrillation (CMS/HCC); Leg swelling; Atrial fibrillation, unspecified type (CMS/HCC); History of Hodgkin's lymphoma; TB (pulmonary tuberculosis) Discharge Disposition: Home or Self Care 08/16/2024 11:15 AM EST - 08/16/2024 4:07 PM EST Emergency [facility] Emergency [address] [place] [address] Other acute gastritis without hemorrhage (Primary Dx) Discharge Disposition: Home or Self Care from Last 3 Months Immunizations Name Administration Dates Next Due Pneumococcal conjugate 20 va lent (Prevnar 20, PCV 20) 2mo and older 09/23/2024(Deferred: Patient Refused) Medical History Medical History Date Comments Non-Hodgkin lymphoma (CMS/HCC) Social History Tobacco Use Types Packs/Day Years Used Date Smoking Tobacco: Never Smokeless Tobacco: Never Tobacco Cessation:Counseling Given: No Alcohol Use Standard Drinks/Week Comments Not Currently [...] file Not on file Not on file Obstetrics History Last Filed Vital Signs Vital Sign Reading Time Taken Comments Blood Pressure 162/105 09/23/2024 3:31 PM EST Pulse 96 09/23/2024 3:31 PM EST Temperature 36.1 ??C (97 ??F) 09/23/2024 3:31 PM EST Respiratory Rate 18 09/23/2024 3:31 PM EST Oxygen Saturation 100% 09/23/2024 3:31 PM EST Inhaled Oxygen Concentration - - Weight 136 kg (300 lb) 09/17/2024 3:12 AM EST Height 180.3 cm (5' 11 ) 09/17/2024 3:12 AM EST Body Mass Index 41.84 09/17/2024 3:12 AM EST Plan of Treatment Health Maintenance Due Date Last Done Comments COVID-19 Vaccine (#1) 1990 Pneumococcal Vaccine: Pediatrics (0 to 5 Years) and At-Risk Patients (6 to 64 Years) (1 of 2 - PCV) 1991 Hepatitis A Vaccines (1 of 2 - Risk 2-dose series) 2004 Hepatitis B Vaccines (1 of 3 - 19+ 3-dose series) 2004 Influenza Vaccine (#1) 2024 06/10/2013, 2008 Social Influencers of Health Screening 08/16/2024 Depression Screening 08/06/2025 08/06/2024 Cholesterol Screening (Lipid Panel) 09/14/2025 09/14/2020 Hypertension/CHF/CAD Annual BMP Blood Test 09/22/2025 09/22/2024, 09/21/2024, 09/20/2024, Additional history exists DTaP,Tdap,and Td Vaccines (2 - Td or Tdap) 10/22/2028 10/22/2018 HIV Screening Completed 09/17/2024 Hepatitis C Screening Completed 09/21/2024 HIB Vaccines Aged Out No longer eligi ble based on patient's age to complete this topic HPV Vaccines Aged Out No longer eligi ble based on patient's age to complete this topic IPV Vaccines Aged Out No longer eligi ble based on patient's age to complete this topic MMR Vaccines Aged Out No longer eligi ble based on patient's age to complete this topic Meningococcal ACWY Vaccine Aged Out N o longer eligible based on patient's age to complete this topic RSV Immunization Patients Under 20 months Aged Out No longer eligible based on patient's age to complete this topic Varicella Vaccines Aged Out No longer eligible based on patient's age to complete this topic Procedures Procedure Name Priority Date/Time Associated Diagnosis Comments NON-GYNECOLOGIC CYTOLOGY Routine 09/22/2024 5:19 PM EST Hemoptysis Lung mass Pneumonia of left lower lobe due to infectious organism Longstanding persistent atrial fibrillation (CMS/HCC) Leg swelling Atrial fibrillation, unspecified type (CMS/HCC) History of Hodgkin's lymphoma TB (pulmonary tuberculosis) CULTURE ANAEROBIC WITH GRAM STAIN Routine 09/22/2024 5:18 PM EST Hemoptysis Lung mass Pneumonia of left lower lobe due to infectious organism Longstanding persistent atrial fibrillation (CMS/HCC) Leg swelling Atrial fibrillation, unspecified type (CMS/HCC) History of Hodgkin's lymphoma TB (pulmonary tuberculosis) BRONCHOSCOPY Routine 09/22/2024 5:17 PM EST TB (pulmonary tuberculosis) ..CONCENTRATION Routine 09/22/2024 5:10 PM EST Hemoptysis Lung mass Pneumonia of left lower lobe due to infectious organism Longstanding persistent atrial fibrillation (CMS/HCC) Leg swelling Atrial fibrillation, unspecified type (CMS/HCC) History of Hodgkin's lymphoma TB (pulmonary tuberculosis) ACID FAST BACILLI STAIN Routine 09/22/2024 5:10 PM EST Hemoptysis Lung mass Pneumonia of left lower lobe due to infectious organism Longstanding persistent atrial fibrillation (CMS/HCC) Leg swelling Atrial fibrillation, unspecified type (CMS/HCC) History of Hodgkin's lymphoma TB (pulmonary tuberculosis) CULTURE BRONCHIAL WITH GRAM STAIN Routine 09/22/2024 5:10 PM EST Hemoptysis Lung mass Pneumonia of left lower lobe due to infectious organism Longstanding persistent atrial fibrillation (CMS/HCC) Leg swelling Atrial fibrillation, unspecified type (CMS/HCC) History of Hodgkin's lymphoma TB (pulmonary tuberculosis) CULTURE, AFB AND SMEAR WITH REFLEX TO IDENTIFICATION AND SUSCEPTIBILITY Routine 09/22/2024 5:10 PM EST Hemoptysis Lung mass Pneumonia of left lower lobe due to infectious organism Longstanding persistent atrial fibrillation (CMS/HCC) Leg swelling Atrial fibrillation, unspecified type (CMS/HCC) History of Hodgkin's lymphoma TB (pulmonary tuberculosis) PNEUMOCYSTIS JIROVECII PCR Routine 09/22/2024 5:10 PM EST Hemoptysis Lung mass Pneumonia of left lower lobe due to infectious organism Longstanding persistent atrial fibrillation (CMS/HCC) Leg swelling Atrial fibrillation, unspecified type (CMS/HCC) History of Hodgkin's lymphoma TB (pulmonary tuberculosis) CULTURE FUNGAL, OTHER Routine 09/22/2024 5:10 PM EST Hemoptysis Lung mass Pneumonia of left lower lobe due to infectious organism Longstanding persistent atrial fibrillation (CMS/HCC) Leg swelling Atrial fibrillation, unspecified type (CMS/HCC) History of Hodgkin's lymphoma TB (pulmonary tuberculosis) TH AN ENDOTRACHEAL(NO CHARGE) Routine 09/22/2024 4:56 PM EST OXYGEN THERAPY, ADULT Routine 09/22/2024 3:59 PM EST OXYGEN THERAPY, ADULT Routine 09/22/2024 3:59 PM EST CULTURE BLOOD Routine 09/22/2024 12:00 PM EST CULTURE BLOOD Routine 09/22/2024 11:38 AM EST CRYPTOCOCCAL ANTIGEN, CSF Routine 09/22/2024 9:52 AM EST CSF CELL COUNT WITH REFLEX TO DIFFERENTIAL, ADDITIONAL TUBE Routine 09/22/2024 9:52 AM EST PROTEIN, CSF Routine 09/22/2024 9:52 AM EST GLUCOSE, CSF Routine 09/22/2024 9:52 AM EST CULTURE CSF WITH GRAM STAIN Routine 09/22/2024 9:52 AM EST ENCEPHALITIS PATHOGENS BY PCR Routine 09/22/2024 9:52 AM EST HERPES SIMPLEX VIRUS 1 AND 2 PCR, QUALITATIVE Routine 09/22/2024 9:52 AM EST XR LUMBAR PUNCTURE DIAGNOSTIC Routine 09/22/2024 9:51 AM EST BASIC METABOLIC PANEL Routine 09/22/2024 4:04 AM EST CBC WITH AUTO DIFFERENTIAL Routine 09/22/2024 4:04 AM EST CBC AND DIFFERENTIAL Routine 09/22/2024 4:04 AM EST PROTHROMBIN TIME WITH INR Routine 09/22/2024 4:04 AM EST TYPE AND SCREEN Routine 09/22/2024 4:04 AM EST HEPATITIS C ANTIBODY Add-On 09/21/2024 8:51 AM EST LAVENDER - EDTA Routine 09/21/2024 8:51 AM EST EXTRA TUBES Routine 09/21/2024 8:51 AM EST PROTHROMBIN TIME WITH INR Routine 09/21/2024 8:51 AM EST BASIC METABOLIC PANEL Routine 09/21/2024 8:[address] CHEST W CONTRAST STAT 09/20/2024 1 1:16 AM EST ..CONCENTRATION Routine 09/20/2024 6:42 AM EST ACID FAST BACILLI STAIN Routine 09/20/2024 6:42 AM EST CULTURE, AFB AND SMEAR WITH REFLEX TO IDENTIFICATION AND SUSCEPTIBILITY Routine 09/20/2024 6:42 AM EST CBC WITH AUTO DIFFERENTIAL Routine 09/20/2024 6:06 AM EST CBC AND DIFFERENTIAL Routine 09/20/2024 6:06 AM EST BASIC METABOLIC PANEL Routine 09/20/2024 6:06 AM EST ..CONCENTRATION Routine 09/19/2024 8:45 AM EST ACID FAST BACILLI STAIN Routine 09/19/2024 8:45 AM EST CULTURE, AFB AND SMEAR WITH REFLEX TO IDENTIFICATION AND SUSCEPTIBILITY Routine 09/19/2024 8:45 AM EST CBC WITH AUTO DIFFERENTIAL Routine 09/19/2024 6:33 AM EST CBC AND DIFFERENTIAL Routine 09/19/2024 6:33 AM EST BASIC METABOLIC PANEL Routine 09/19/2024 6:32 AM EST VAS US DUPLEX LOWER EXT VENOUS BILAT Routine 09/18/2024 5:40 PM EST Leg swelling INTERFERON GAMMA INTERPRETATION Routine 09/18/2024 10:47 AM EST INTERFERON GAMMA ANTIGEN 2 Routine 09/18/2024 10:47 AM EST INTERFERON GAMMA ANTIGEN 1 Routine 09/18/2024 10:47 AM EST INTERFERON GAMMA MITOGEN Routine 09/18/2024 10:47 AM EST INTERFERON GAMMA NIL Routine 09/18/2024 10:47 AM EST INTERFERON GAMMA FOR TB, QUALITATIVE Routine 09/18/2024 10:47 AM EST TRANSTHORACIC ECHOCARDIOGRAM (TTE) COMPLETE W/ CONTRAST Routine 09/18/2024 10:37 AM EST Longstanding persistent atrial fibrillation (CMS/HCC) ..CONCENTRATION Routine 09/18/2024 9:44 AM EST ACID FAST BACILLI STAIN Routine 09/18/2024 9:44 AM EST CULTURE, AFB AND SMEAR WITH REFLEX TO IDENTIFICATION AND SUSCEPTIBILITY Routine 09/18/2024 9:44 AM EST CBC WITH AUTO DIFFERENTIAL Routine 09/18/2024 9:35 AM EST TYPE AND SCREEN Routine 09/18/2024 9:35 AM EST CBC AND DIFFERENTIAL Routine 09/18/2024 9:35 AM EST BASIC METABOLIC PANEL Routine 09/18/2024 9:35 AM EST CULTURE BLOOD Routine 09/18/2024 9:35 AM EST XR CHEST 2 VIEWS Routine 09/18/2024 8:36 AM EST CULTURE BLOOD STAT 09/17/2024 7:15 PM EST STREPTOCOCCUS PNEUMONIAE ANTIBODIES, IGG, 23 SEROTYPES Routine 09/17/2024 3:17 PM EST MRSA PCR Routine 09/17/2024 11:36 AM EST CULTURE SPUTUM STAT 09/17/2024 10:31 AM EST PROTHROMBIN TIME WITH INR STAT 09/17/2024 9:08 AM EST HIV 1, 2 ANTIBODY, P24 ANTIGEN WITH REFLEX TO DIFFERENTIATION Add-On 09/17/2024 8:36 AM EST DIGOXIN LEVEL Timed 09/17/2024 8:36 AM EST MRSA PCR Routine 09/17/2024 6:55 AM EST LACTATE STAT 09/17/2024 6:52 AM EST BLOOD CULTURE PATHOGENS BY PCR Routine 09/17/2024 6:52 AM EST CULTURE BLOOD STAT 09/17/2024 6:52 AM EST CULTURE BLOOD STAT 09/17/2024 6:[address] ANGIO CHEST WO AND/OR W CONTRAST STAT 09/17/2024 5:[address] ABDOMEN PELVIS W CONTRAST STAT 09/17/2024 5:[address] HEAD WO CONTRAST STAT 09/17/2024 5 :43 AM EST VILLEGAS URINE CULTURE TUBE STAT 09/17/2024 5:00 AM EST URINALYSIS WITH REFLEX MICROSCOPIC AND CULTURE STAT 09/17/2024 5:00 AM EST URINALYSIS WITH REFLEX MICROSCOPIC AND CULTURE STAT 09/17/2024 5:00 AM EST LEGIONELLA ANTIGEN URINE, EIA STAT Add-on 09/17/2024 5:00 AM EST CULTURE URINE STAT 09/17/2024 5:00 AM EST RESPIRATORY VIRUS PANEL MOLECULAR STUDY STAT 09/17/2024 4:39 AM EST TROPONIN I HIGH SENSITIVITY STAT 09/17/2024 4:25 AM EST ECG 12-LEAD STAT 09/17/2024 3:38 AM EST LACTATE DEHYDROGENASE Add-On 09/17/2024 3:35 AM EST CBC WITH AUTO DIFFERENTIAL STAT 09/17/2024 3:35 AM EST TROPONIN I HIGH SENSITIVITY STAT 09/17/2024 3:35 AM EST MAGNESIUM STAT 09/17/2024 3:35 AM EST BASIC METABOLIC PANEL STAT 09/17/2024 3:35 AM EST CBC AND DIFFERENTIAL STAT 09/17/2024 3:35 AM EST ECG ANNOTATED 09/17/2024 US ABDOMEN LIMITED STAT 08/16/2024 12 :37 PM EST THYROID STIMULATING HORMONE STAT Add-on 08/16/2024 9:47 AM EST HELICOBACTER PYLORI ANTIBODY, IGG Add-On 08/16/2024 9:47 AM EST DIGOXIN LEVEL STAT 08/16/2024 9:47 AM EST CBC WITH AUTO DIFFERENTIAL STAT 08/16/2024 9:47 AM EST LIPASE STAT 08/16/2024 9:47 AM EST COMPREHENSIVE METABOLIC PANEL STAT 08/16/2024 9:47 AM EST CBC AND DIFFERENTIAL STAT 08/16/2024 9:47 AM EST from Last 3 Months Results * Non-gynecologic cytology (09/22/2024 5:19 PM EST) Final Diagnosis A. Lung, Left Lower Lobe, Bronchoalveolar Lavage, (ThinPrep, cell block): Negative for malignant cells. B. Lung, Left Lower Lobe, Brushing, (ThinPrep, cell block): Negative for malignant cells. 09/24/2024 9:35 AM EST [facility]) [facility] Specimen A Adequacy Satisfactory for evaluation 09/24/2024 9:35 AM EST [facility] Specimen B Adequacy Satisfactory for evaluation 09/24/2024 9:[address] [facility] Gross Description A. Lung, Left Lower Lobe, Bronchoalveolar Lavage: Received in saline 10 ml of cloudy fluid; 1 ThinPrep, 1 Cell block Cell block in formalin @1030 am; -total formalin fixation time 10.5 hours. Specimen was collected 09/22/24 @ 17:19 in saline. Specimen was not split into formalin and CytoLyt. Processed the next morning, 09/23/24. B. Lung, Left Lower Lobe, Brushing: Received in saline 30 ml of clear fluid with brush; 1 ThinPrep, 1 Cell block Cell block in formalin @1030 am; -total formalin fixation time 10.5 hours. Specimen was collected 09/22/24 @ 17:21 in saline. Specimen was not split into formalin and CytoLyt. Processed the next morning, 09/23/24. 09/24/2024 9:35 AM EST [facility] Disclaimer Unless otherwise specified, all tissue is 10% NB formalin fixed and paraffin embedded. Technical cytopathology services provided by [facility], at [address] [place] [id number] (CLIA # [id number]/Newton Braden MD, Wrapper Stitcher.) 09/24/2024 9:[address] [facility] Bronchoalveolar Lavage Structure of lower lobe of left lung / Unknown 09/22/2024 5:19 PM EST 09/23/2024 9:55 AM EST Brushing, function (observable entity) Structure of lower lobe of left lung / Unknown 09/22/2024 5:21 PM EST 09/23/2024 9:59 AM EST Tahmina Knapp MD LAB CYTOLOGY ORDERAB LES [facility]) [facility] [address] [place] [address], * Culture anaerobic with gram stain (09/22/2024 5:18 PM EST) Culture, Anaerobic No Growth of Anaerobes. 09/27/2024 9:31 AM EST [facility] Brushing Structure of lower lobe of left lung / Unknown 09/22/2024 5:18 PM EST 09/22/2024 5:38 PM EST Tahmina Knapp MD LAB MICROBIOLOGY - G ENERAL ORDERABLES [facility]) [facility] [address] [place] [address], * BRONCHOSCOPY Anesthesia - MAC; [facility] ENDOSCOPY (09/22/2024 5:17 PM EST) Anatomical Region Laterality Modality Endoscopy 09/22/2024 4:18 PM EST Impressions 09/22/2024 5:50 PM EST - Hemoptysis with abnormal CXR ? - No specimens collected. Recommendation: ?await lab results Narrative 09/22/2024 5:50 PM EST [facility] Pulmonology Patient Name: Pablo Bedolla Procedure Date: 09/22/2024 4:18 PM Date of : 1985 Age: 39 Gender: Male Note Status: Finalized Attending MD: Tahmina Knapp MD, Procedure Date No Time: 09/22/2024 Procedure: ? Bronchoscopy Indications: ? Hemoptysis with abnormal CXR Providers: ? Tahmina Knapp MD Referring MD: ?Tahmina Knapp MD Medicines: ? See the Anesthesia note for documentation of the ? administered medications Complications: ? no immediate Estimated Blood Loss: ? Estimated blood loss was minimal. Procedure: ? Pre-Anesthesia Assessment: ? - ? After obtaining informed consent, the Olympus ? Bronchoscope was introduced through the mouth, via the ? endotracheal tube (the patient was intubated for the ? procedure) and advanced to the tracheobronchial tree ? of both lungs. The procedure was accomplished without ? difficulty. The patient tolerated the procedure well. Findings: ?ETT place by anesthesia. The tracheal was normal and ? elina was sharp. Quick inspection of the right lung ? vides showed no significant abnormality. The right ? lower, middle and upper lobe were patent. I next went ? to the left lung vides, the left main bronchus was ? patent. No fresh blood in the left bronchus. The left ? upper lobe was visualized. The ant-posterior segment ? was first visualized. It was atelectic due to external ? compression. The orifice was saber tooth appearing and ? bronchosocopy cannot be extended. The submucal was ? normal from partial visualization. The rest of the ? left upper lobe and lingula lobe was patent. No fresh ? or old blood, submucosal was normal. The left lower ? lobe was patent, no endobronchial lesuion, no blood. i ? did lavage in left lower lobe bronchus and 2 ? brushings. Specimen send for cytology nad culture. MD Tahmina Smith MD 09/22/2024 5:49:54 PM This report has been signed electronically.Tahmina Knapp MD Number of Addenda: 0 Note Initiated On: 09/22/2024 4:18 PM ? Endoscopy Department at [facility] - [address] [place] [address] [address] ? [address] [place] [address] Procedure Note Tahmina Knapp MD - 09/22/2024 [facility] Pulmonology Patient Name: Pablo Bedolla Procedure Date: 09/22/2024 4:18 PM Date of : 1985 Age: 39 Gender: Male Note Status: Finalized Attending MD: Tahmina Knapp MD, Procedure Date No Time: 09/22/2024 Procedure: Bronchoscopy Indications: Hemoptysis with abnormal CXR Providers: Tahmina Knapp MD Referring MD: Tahmina Knapp MD Medicines: See the Anesthesia note for documentation of the administered medications Complications: no immediate Estimated Blood Loss: Estimated blood loss was minimal. Procedure: Pre-Anesthesia Assessment: - After obtaining informed consent, the Olympus Bronchoscope was introduced through the mouth, viathe endotracheal tube (the patient was intubated forthe procedure) and advanced to the tracheobronchialtree of both lungs. The procedure was accomplishedwithout difficulty. The patient tolerated the procedurewell. Findings: ETT place by anesthesia. The tracheal was normaland elina was sharp. Quick inspection of the rightlung vides showed no significant abnormality. The right lower, middle and upper lobe were patent. I nextwent to the left lung vides, the left main bronchus was patent. No fresh blood in the left bronchus. Theleft upper lobe was visualized. The ant-posteriorsegment was first visualized. It was atelectic due toexternal compression. The orifice was saber tooth appearingand bronchosocopy cannot be extended. The submucal was normal from partial visualization. The rest of the left upper lobe and lingula lobe was patent. Nofresh or old blood, submucosal was normal. The left lower lobe was patent, no endobronchial lesuion, noblood. i did lavage in left lower lobe bronchus and 2 brushings. Specimen send for cytology nadculture. MD Tahmina Smith MD 09/22/2024 5:49:54 PM This report has been signed electronically.Tahmina Knapp MD Number of Addenda: 0 Note Initiated On: 09/22/2024 4:18 PM Endoscopy Department at [facility] - [address] [place] [address] [address] [place] [address] IMPRESSION: - Hemoptysis with abnormal CXR - No specimens collected. Recommendation: await lab results Tahmina Knapp MD GI~PROCEDURE ORDERAB LES * Culture bronchial with gram stain (09/22/2024 5:10 PM EST) Bronchial Culture No pathogens isolated. 09/25/2024 11:18 AM EST [facility] Gram Stain Result No Epithelial cells 09/25/2024 11:18 AM EST [facility] Gram Stain Result Moderate Polymorphonuclear leukocytes 09/25/2024 11:18 AM EST [facility] Gram Stain Result No organisms seen 09/25/2024 11:18 AM EST [facility] Bronchoalveolar Lavage Structure of lower lobe of left lung / Unknown 09/22/2024 5:10 PM EST 09/22/2024 5:38 PM EST Tahmina Knapp MD LAB MICROBIOLOGY - G ENERAL ORDERABLES Performing Organization Address [facility] Co de Phone Number [facility] [address] [place] [address], * Concentration (09/22/2024 5:10 PM EST) Only the most recent of4 resultswithin the time period is included. [facility] AFB Concentration Performed 025 4:05 PM EST [facility] Bronchoalveolar Lavage Structure of lower lobe of left lung / Unknown 09/22/2024 5:10 PM EST 09/22/2024 5:38 PM EST Narrative [facility] - 09/24/2024 4:05 PM EST Performed at: ??01 - [facility] [address] ??[id number] Clinical Laboratory Service Teacher: Rosalina Vuong MD, Phone: ??[phone] Tahmina Knapp MD LAB BLOOD ORDERABLES [facility] * Pneumocystis jirovecii molecular study (09/22/2024 5:10 PM EST) [facility] Pneumocystis PCR Result Negative 09/27/2024 2:05 AM EST [facility] Comment: ADDITIONAL INFORMATION This test was developed and its performance characteristics determined by [facility] in a manner consistent with CLIA requirements. This test has not been cleared or approved by the U.S. Food and Drug Administration. REFERENCE RANGE: Not Applicable Specimen Source LUNG, LEFT LOWER LOBE 09/27/2024 2:05 AM EST [facility] Bronchoalveolar Lavage Structure of lower lobe of left lung / Unknown 09/22/2024 5:10 PM EST 09/22/2024 5:36 PM EST Narrative [facility] - 09/27/2024 2:05 AM EST Performed at: ??01 - [facility] Main [facility] [address] [place], [place] ??[id number] Clinical Laboratory Service Teacher: Evan Uribe PhD, Phone: ??[phone] Tahmina Knapp MD LAB MICROBIOLOGY - G ENERAL ORDERABLES Performing Organization Address City/[facility]/ZIP Co de Phone Number [facility] * Acid fast bacilli stain (09/22/2024 5:10 PM EST) Only the most recent of4 resultswithin the time period is included. AFB Stain Result No Acid fast bacilli seen on direct smear (Fuchsin method, 1000x) No Acid Fast Bacilli seen on direct smear 09/23/2024 7:56 AM EST [facility] Bronchoalveolar Lavage Structure of lower lobe of left lung / Unknown 09/22/2024 5:10 PM EST 09/22/2024 5:38 PM EST Tahmina Knapp MD LAB MICROBIOLOGY - G ENERAL ORDERABLES Performing Organization Address City/[facility]/ZIP Co de Phone Number [facility] [address] [place] [address], * TH AN ENDOTRACHEAL(NO CHARGE) (09/22/2024 4:56 [...] attempted Roldan Crain MD ANESTHESIA ORDERABLE S * Culture blood (09/22/2024 12:00 PM EST) Only the most recent of6 resultswithin the time period is included. [facility] Culture, Blood No growth at 5 days 09/27/2024 1:01 PM EST [facility] Blood Venous blood specimen / Unknown Venipuncture / Unknown 09/22/2024 12:00 PM EST 09/22/2024 12:33 PM EST Christine Harman MD LAB MICROBIOLOGY - G ENERAL ORDERABLES [facility] [address] [place] [address], * (ABNORMAL) CSF cell count with reflex to differential, additional tube (09/22/2024 9:52 AM EST) [facility] Total Nucleated Cells, CSF Additional Tube 3 0 - 4 /mm3 09/22/2024 10:56 AM EST [facility] RBC, CSF Additional Tube 2,870(H) 0 - 10 /mm3 09/22/2024 10:56 AM EST [facility] Color, CSF Additional Tube [place] 09/22/2024 10:[address] [facility] Appearance, CSF Additional Tube Cloudy(A) Clear/Colorless 09/22/2024 10:[address] [facility] Tube Number, CSF Additional Tube 4 09/22/2024 10:[address] [facility] Appearance, Supernatant CSF Additional Tube Xanthochromic Absent Xanthochromic Absent 09/22/2024 10:[address] [facility] Cerebrospinal Fluid Lumbar puncture / Unknown Non-blood Collection / Unknown 09/22/2024 9:52 AM EST 09/22/2024 10:05 AM EST Lyudmila Cardoso MD LAB BODY FLUIDS AND STOOLS ORDERABLES [facility] [address] [place] [address], * Culture CSF with gram stain (09/22/2024 9:52 AM EST) Culture, CSF No growth at 5 days 9:[address] [facility] Gram Stain Result Rare Polymorphonuclear leukocytes 09/27/2024 9:[address] [facility] Gram Stain Result No epithelial cells seen 09/27/2024 9:[address] [facility] Gram Stain Result No organisms seen 09/27/2024 9:[address] [facility] Cerebrospinal Fluid Lumbar puncture / Unknown Non-blood Collection / Unknown 09/22/2024 9:52 AM EST 09/22/2024 10:06 AM EST Lyudmila Cardoso MD LAB MICROBIOLOGY - GENERAL ORDERABLES [facility] [address] [place], [place] [address] [phone] * Encephalitis pathogens molecular study (09/22/2024 9:52 AM EST) Escherichia coli K1 Detection by PCR Not Detected Not Detected LAB MICROBIOLOGY METHOD 09/22/2024 11:[address] [facility] Haemophilus influenzae Detection by PCR Not Detected Not Detected LAB MICROBIOLOGY METHOD 09/22/2024 11:[address] [facility] Listeria monocytogenes Detection by PCR Not Detected Not Detected LAB MICROBIOLOGY METHOD 09/22/2024 11:[address] [facility] Neisseria meningitidis Detection by PCR Not Detected Not Detected LAB MICROBIOLOGY METHOD 09/22/2024 11:[address] [facility] Streptococcus agalactiae Detection by PCR Not Detected Not Detected LAB MICROBIOLOGY METHOD 09/22/2024 11:[address] [facility] Streptococcus pneumoniae Detection by PCR Not Detected Not Detected LAB MICROBIOLOGY METHOD 09/22/2024 11:[address] [facility] Cytomegalovirus Detection by PCR Not Detected Not Detected LAB MICROBIOLOGY METHOD 09/22/2024 11:[address] [facility] Enterovirus Detection by PCR Not Detected Not Detected LAB MICROBIOLOGY METHOD 09/22/2024 11:[address] [facility] Herpes Simplex Virus 1 Detection by PCR Not Detected Not Detected LAB MICROBIOLOGY METHOD 09/22/2024 11:[address] [facility] Herpes Simplex Virus 2 Detection by PCR Not Detected Not Detected LAB MICROBIOLOGY METHOD 09/22/2024 11:[address] [facility] Human Herpesvirus 6 Detection by PCR Not Detected Not Detected LAB MICROBIOLOGY METHOD 09/22/2024 11:[address] [facility] Human Parechovirus Detection by PCR Not Detected Not Detected LAB MICROBIOLOGY METHOD 09/22/2024 11:[address] [facility] Varicella Zoster Virus Detection by PCR Not Detected Not Detected LAB MICROBIOLOGY METHOD 09/22/2024 11:[address] [facility] Cryptococcus neoformans/gattii Detection by PCR Not Detected Not Detected LAB MICROBIOLOGY METHOD 09/22/2024 11:54 AM EST [facility] Cerebrospinal Fluid Lumbar puncture / Unknown Non-blood Collection / Unknown 09/22/2024 9:52 AM EST 09/22/2024 10:06 AM EST Narrative [facility] - 09/22/2024 11:54 AM EST All results must be correlated with clinical findings. A negative result does not exclude the possibility of [employer] infection and should not be used as the sole basis for diagnosis, treatment, or other management decisions. False negative results may occur from the presence of sequence variants in the region targeted by the assay or the presence of inhibitors. Results may be affected by concurrent Antiviral/Antiicrobial therapy or levels of organisms that are below the limit of detection. REFERENCE RANGE: NEGATIVE, Target Nucleic Acid Not Detected Testing Performed by Multiplexed PCR Lyudmila Cardoso MD LAB MICROBIOLOGY - GENERAL ORDERABLES [facility] [address] [place] [address], * Herpes simplex virus 1 and 2 molecular study, qualitative (09/22/2024 9:52 AM EST) Specimen Source CSF 10:56 AM EST [facility] Herpes simplex Virus I Not detected Not detected 09/25/2024 10:56 AM EST [facility] Herpes simplex Virus II Not detected Not detected 09/25/2024 10:56 AM EST [facility] Comment: This test utilizes a real-time polymerase chain reaction procedure to amplify and detect portions of the herpes simplex virus glycoprotein G genes. ??The analytical sensitivity of this assay is 50 copies/mL. A Not detected result does not rule out infection. This test uses commercial reagents that have not been approved or cleared by the FDA. ??The FDA has determined that such clearance or approval is not necessary. ??The performance characteristics of this procedure were determined by [facility]. This test is performed pursuant to a license agreement with [employer] Test performed at [facility], [facility] [address], [place] ??[address] ? [phone] Senait Stokes MD, PhD - Wrapper Stitcher Cerebrospinal Fluid Lumbar spine structure / Unknown Non-blood Collection / Unknown 09/22/2024 9:52 AM EST 09/22/2024 10:05 AM EST Lyudmila Cardoso MD LAB MICROBIOLOGY - GENERAL ORDERABLES Performing Organization Address [facility]/ZIP Co de Phone Number [address] [address] * Cryptococcal antigen, CSF (09/22/2024 9:52 AM EST) Cryptococcal Antigen CSF Negative Negative 09/24/2024 4:06 PM EST [facility] CAP Mandated Reflex to Culture Not Indicated 09/24/2024 4:06 PM EST [facility] Cerebrospinal Fluid Lumbar puncture / Unknown Non-blood Collection / Unknown 09/22/2024 9:52 AM EST 09/22/2024 10:06 AM EST Narrative [facility] - 09/24/2024 4:06 PM EST Performed at: ??01 - [facility] [address] ??[id number] Clinical Laboratory Service Teacher: Nori Samuel MD, Phone: ??[phone] Lyudmila Cardoso MD LAB BODY FLUIDS AND STOOLS ORDERABLES Performing Organization Address [facility]/ZIP Co de Phone Number [facility] * (ABNORMAL) Protein, CSF (09/22/2024 9:52 AM EST) Protein, CSF 52(H) 15 - 45 mg/dL LAB CHEMISTRY METHOD 09/22/2024 10:49 AM EST [facility] Cerebrospinal Fluid Lumbar puncture / Unknown Non-blood Collection / Unknown 09/22/2024 9:52 AM EST 09/22/2024 10:05 AM EST Lyudmila Cardoso MD LAB BODY FLUIDS AND STOOLS ORDERABLES Performing Organization Address City/State/[facility] Co de Phone Number [facility] [address] [place] [address], * Glucose, CSF (09/22/2024 9:52 AM EST) Glucose, CSF 68 40 - 80 mg/dL LAB CHEMISTRY METHOD 09/22/2024 10:49 AM EST [facility] Cerebrospinal Fluid Lumbar puncture / Unknown Non-blood Collection / Unknown 09/22/2024 9:52 AM EST 09/22/2024 10:05 AM EST Lyudmila Cardoso MD LAB BODY FLUIDS AND STOOLS ORDERABLES Performing Organization Address [facility] Co de Phone Number [facility] [address] [place] [address], * XR Lumbar Puncture Diagnostic w Fluoro/CT (09/22/2024 9:51 AM EST) Anatomical Region Laterality Modality Spine, L-spine Radiographic Xochilt ging 09/22/2024 10:5 4 AM EST Impressions 09/23/2024 9:46 AM EST Fluoroscopically-guided lumbar puncture with retrieval of approximately 13cc of CSF fluid as described above. 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 ??Following sterile prep of the skin overlying the lumbar spine and placement of local anesthetic, 20-gauge spinal needle advanced into the thecal sac at the L4- 5 level. Blood-tinged CSF encountered likely secondary to traumatic tap. Opening and closing pressures not obtained due to patient being in prone position. Fluid divided between 4 vials and sent for requested studies. Stylet replaced and needle removed. ??Procedure well tolerated. No immediate complication. FINDINGS: Single spot film of the LS-spine at time of needle placement shows spinal needle tip projecting over the right paramedian lumbar spinal canal at the L4-5 level. DAP: 3.92 Gycm^2 Procedure Note Merle Segundo MD - 09/23/2024 History: Bacteremia, nuchal rigidity PROCEDURE: Fluoroscopically-guided lumbar puncture as per referring clinicianrequest. Following sterile prep of the skin overlying the lumbar spineand placement of local anesthetic, 20-gauge spinal needle advanced intothe thecal sac at the L4-5 level. Blood- tinged CSF encountered likelysecondary to traumatic tap. Opening and closing pressures not obtained dueto patient being in prone position. Fluid divided between 4 vials and sentfor requested studies. Stylet replaced and needle removed. Procedure welltolerated. No immediate complication. FINDINGS: Single spot film of the LS-spine at time of needle placementshows spinal needle tip projecting over the right paramedian lumbar spinalcanal at the L4-5 level. DAP: 3.92 Gycm^2 IMPRESSION: Fluoroscopically-guided lumbar puncture with retrieval of [id number] of CSF fluid as described above. -------- FINAL REPORT -------- Dictated By: Gabby Underwood Dictated Date: 09/22/2024 10:54 ET Assigned Physician: Merle Segundo Reviewed and Electronically Signed By: Merle Segundo Signed Date: 09/23/2024 09:46 ET Workstation ID: [id number] Transcribed By: Self Edit Transcribed Date: 09/22/2024 11:00 ET Resident/PA/TRUCK B[employer] BUILDER APPRENTICE: Gabby Underwood Lyudmila Cardoso MD IMG FLUOROSCOPY PRO CEDURES * (ABNORMAL) CBC auto differential (09/22/2024 4:04 AM EST) Only the most recent of6 resultswithin the time period is included. WBC 6.1 4.8 - 10.8 K/mcL LAB HEMETOLOGY METHOD 09/22/2024 4:[address] [facility] RBC 4.90 4.50 - 5.50 M/mcL LAB HEMETOLOGY METHOD 09/22/2024 4:[address] [facility] Hemoglobin 13.4(L) 13.5 - 17.5 g/dL LAB HEMETOLOGY METHOD 09/22/2024 4:[address] [facility] Hematocrit 42.6 42.0 - 54.0 % LAB HEMETOLOGY METHOD 09/22/2024 4:[address] [facility] MCV 87.1 79.0 - 98.0 FL LAB HEMETOLOGY METHOD 09/22/2024 4:[address] [facility] MCH 27.4 27.0 - 32.0 pcg LAB HEMETOLOGY METHOD 09/22/2024 4:[address] [facility] MCHC 31.5(L) 32.0 - 37.0 g/dL LAB HEMETOLOGY METHOD 09/22/2024 4:[address] [facility] RDW 14.9 11.0 - 15.0 % LAB HEMETOLOGY METHOD 09/22/2024 4:[address] [facility] Platelets 227 130 - 400 K/mcL LAB HEMETOLOGY METHOD 09/22/2024 4:[address] [facility] MPV 9.7 7.0 - 11.0 FL LAB HEMETOLOGY METHOD 09/22/2024 4:[address] [facility] NRBC 0.0 <1.0 % LAB HEMETOLOGY METHOD 09/22/2024 4:[address] [facility] NRBC Absolute 0.00 <0.10 K/mcL LAB HEMETOLOGY METHOD 09/22/2024 4:[address] [facility] Neutrophils Relative 52.6 % LAB HEMETOLOGY METHOD 09/22/2024 4:[address] [facility] Lymphocytes Relative 32.0 % LAB HEMETOLOGY METHOD 09/22/2024 4:[address] [facility] Monocytes Relative 12.6 % LAB HEMETOLOGY METHOD 09/22/2024 4:[address] [facility] Eosinophils Relative 1.5 % LAB HEMETOLOGY METHOD 09/22/2024 4:[address] [facility] Basophils Relative 0.5 % LAB HEMETOLOGY METHOD 09/22/2024 4:[address] [facility] Immature Granulocytes Relative 0.8 % LAB HEMETOLOGY METHOD 09/22/2024 4:[address] [facility] Neutrophils Absolute 3.21 1.50 - 7.00 K/mcL LAB HEMETOLOGY METHOD 09/22/2024 4:[address] [facility] Lymphocytes Absolute 1.95 1.00 - 5.00 K/mcL LAB HEMETOLOGY METHOD 09/22/2024 4:[address] [facility] Monocytes Absolute 0.77 0.20 - 1.00 K/mcL LAB HEMETOLOGY METHOD 09/22/2024 4:[address] [facility] Eosinophils Absolute 0.09 0.00 - 0.50 K/mcL LAB HEMETOLOGY METHOD 09/22/2024 4:[address] [facility] Basophils Absolute 0.03 0.00 - 0.20 K/mcL LAB HEMETOLOGY METHOD 09/22/2024 4:[address] [facility] Immature Granulocytes Absolute 0.05(H) 0.00 - 0.03 K/mcL LAB HEMETOLOGY METHOD 09/22/2024 4:[address] [facility] Blood Venous blood specimen / Unknown Venipuncture / Unknown 09/22/2024 4:04 AM EST 09/22/2024 4:13 AM EST Maddison Benavidez MD LAB BLOOD ORDERABLES Performing Organization Address City/[facility]/ZIP Co de Phone Number [facility] [address] [place] [address], [place] [phone] * Prothrombin time with INR (09/22/2024 4:04 AM EST) Only the most recent of3 resultswithin the time period is included. Protime 12.6 10.6 - 13.9 sec LAB COAGULATION METHOD 09/22/2024 4:30 AM EST [facility] INR 1.0 LAB COAGULATION METHOD 09/22/2024 4:30 AM EST [facility] Blood Venous blood specimen / Unknown Venipuncture / Unknown 09/22/2024 4:04 AM EST 09/22/2024 4:13 AM EST Maddison Benavidez MD LAB BLOOD ORDERABLES Performing Organization Address [facility]/ZIP Co de Phone Number [facility] [address] [place] [address], [place] [phone] * Type and screen (09/22/2024 4:04 AM EST) Only the most recent of2 resultswithin the time period is included. ABO Group O 09/22/2024 5:10 AM EST [facility] Rh Type Positive 09/22/2024 5:10 AM EST [facility] Antibody Screen Negative 09/22/2024 5:10 AM EST [facility] Blood Venous blood specimen / Unknown Venipuncture / Unknown 09/22/2024 4:04 AM EST 09/22/2024 4:13 AM EST Maddison Benavidez MD LAB BLOOD BANK TEST ORDERABLES Performing Organization Address City/[facility]/ZIP Co de Phone Number [facility] [address] [place] [address], [place] [phone] * (ABNORMAL) Basic metabolic panel (09/22/2024 4:04 AM EST) Only the most recent of6 resultswithin the time period is included. Sodium 142 133 - 145 mmol/L LAB CHEMISTRY METHOD 09/22/2024 4:[address] [facility] Potassium 4.3 3.5 - 5.5 mmol/L LAB CHEMISTRY METHOD 09/22/2024 4:[address] [facility] Chloride 105 96 - 110 mmol/L LAB CHEMISTRY METHOD 09/22/2024 4:[address] [facility] CO2 32 21 - 32 mmol/L LAB CHEMISTRY METHOD 09/22/2024 4:[address] [facility] Anion Gap 5 3 - 11 LAB CHEMISTRY METHOD 09/22/2024 4:[address] [facility] Glucose 127(H) 70 - 100 mg/dL LAB CHEMISTRY METHOD 09/22/2024 4:[address] [facility] BUN 15 5 - 25 mg/dL LAB CHEMISTRY METHOD 09/22/2024 4:[address] [facility] Creatinine 1.09 0.70 - 1.30 mg/dL LAB CHEMISTRY METHOD 09/22/2024 4:[address] [facility] eGFR 89 >=60 mL/min/1. 73m2 LAB CHEMISTRY METHOD 09/22/2024 4:[address] [facility] Comment:Calculation based on the??Chronic Kidney Disease Epidemiology Collaboration (CKD-EPI) equation refit??without adjustment for race. BUN/Creatinine Ratio 13.8 LAB CHEMISTRY METHOD 09/22/2024 4:[address] [facility] Calcium 8.4(L) 8.5 - 10.5 mg/dL LAB CHEMISTRY METHOD 09/22/2024 4:[address] [facility] Blood Venous blood specimen / Unknown Venipuncture / Unknown 09/22/2024 4:04 AM EST 09/22/2024 4:13 AM EST Lyudmila Cardoso MD LAB BLOOD ORDERABLE S Performing Organization Address [facility]/ZIP Co de Phone Number [facility] [address] [place] [address], [place] [phone] * Hepatitis C antibody (09/21/2024 8:51 AM EST) Hepatitis C Antibody Negative Negative LAB CHEMISTRY METHOD 09/21/2024 5:07 PM EST [facility] Blood Venous blood specimen / Unknown Venipuncture / Unknown 09/21/2024 8:51 AM EST 09/21/2024 8:58 AM EST Christine Harman MD LAB BLOOD ORDERABLES Performing Organization Address [facility] de Phone Number [facility] [address] [place] [address], [place] [phone] * Lavender tube (09/21/2024 8:51 AM EST) Pathologist [facility] Extra Tube Hold for add-ons. 09/21/2024 10:01 AM EST [facility] Comment:Auto resulted. Blood Venous blood specimen / Unknown Venipuncture / Unknown 09/21/2024 8:51 AM EST 09/21/2024 9:00 AM EST Lyudmila Cardoso MD LAB BLOOD ORDERABLE S Performing Organization Address City/[facility] Co de Phone Number [facility] [address] [place] [address], [place] [phone] * CT Chest w Contrast (09/20/2024 11:16 AM EST) Anatomical Region Laterality Modality Body Computed Tomogra phy 09/20/2024 11:5 1 AM EST Impressions 09/20/2024 12:05 PM EST Ill-defined left upper lobe 2.1 cm nodule intertwined within the secondary bronchioles. This results in lingular, left lower lobe dense consolidation. There is mild atelectatic changes of the left upper lobe anterior segment. These findings were present on the last exam 09/17/2024. There is a abnormal anterior mediastinal lymph node. There is a adjacent 3.3 cm lesion likely lymph node with calcified alcantar. It is stable to last exam. No additional parenchymal lesions seen. Small left pleural effusion. -------- FINAL REPORT -------- Dictated By: Ronaldo Fuller Dictated Date: 09/20/2024 11:51 ET Assigned Physician: Ronaldo Fuller Reviewed and Electronically Signed By: Ronaldo Fuller Signed Date: 09/20/2024 12:05 ET Workstation ID: [id number] Transcribed By: Self Edit Transcribed Date: 09/20/2024 11:51 ET Narrative 09/20/2024 12:05 PM EST Examination: CT chest with contrast. CLINICAL INDICATION: Pneumonia, effusion abscess suspected. COMPARISON: Chest 2 views TECHNIQUE: 2.5 mm thin axial and reformatted 3 mm thin sagittal and coronal images of chest were obtained following IV 90 mL Isovue-370. Scanner: [employer] 64 slice VCT Dose reduction technique: ASIR (Adaptive statistical iterative reconstruction) and/or AEC (automated exposure control) Dose: total exam DLP 1399 mGy/cm FINDINGS: LUNGS: The right lung is expanded and clear. There is loss of left lung volume with left lingular and left lower lobed ??dense consolidation. There is a soft tissue ill-defined density in the left upper lobe paramediastinal measuring 2.1 x 1.8 cm on axial slice 36/3 with a few bronchi traversing the lesion resulting in mild atelectatic changes in the left upper lobe anterior segment. Nonspecific focal right lateral major fissure thickening ??is noted. No additional pulmonary nodules seen. Pleura: There is a small left pleural effusion without thickening. Mediastinum. Heart size and the great vessels are normal caliber. There is a three-vessel rotting of the aortic arch without aneurysm or dissection. There is a prominent anterior mediastinal lymph node measuring 1.5 cm cyst, suspicious. Adjacent to the lymph is a mass with calcified alcantar. It measures 3.3 x 3.3 cm on axial slice 42/3 There is no pericardial effusion. No coronary artery calcification seen. There is good opacification of pulmonary artery and its branches without intraluminal filling defect. Axilla: Unremarkable. Upper abdomen: Visualized liver, spleen, pancreas and adrenal glands unremarkable. The upper kidneys unremarkable. Osseous structures: No aggressive lytic or sclerotic process seen. Procedure Note Ronaldo Fuller MD - 09/20/2024 Examination: CT chest with contrast. CLINICAL INDICATION: Pneumonia, effusion abscess suspected. COMPARISON: Chest 2 views TECHNIQUE: 2.5 mm thin axial and reformatted 3 mm thin sagittal andcoronal images of chest were obtained following IV 90 mL Isovue-370.Scanner: [employer] 64 slice VCT Dose reduction technique: ASIR (Adaptive statistical iterativereconstruction) and/or AEC (automated exposure control) Dose: total exam DLP 1399 mGy/cm FINDINGS: LUNGS: The right lung is expanded and clear. There is loss of left lungvolume with left lingular and left lower lobed dense consolidation. Thereis a soft tissue ill-defined density in the left upper lobeparamediastinal measuring 2.1 x 1.8 cm on axial slice 36/3 with a fewbronchi traversing the lesion resulting in mild atelectatic changes in theleft upper lobe anterior segment. Nonspecific focal right lateral majorfissure thickening is noted. No additional pulmonary nodules seen. Pleura: There is a small left pleural effusion without thickening. Mediastinum. Heart size and the great vessels are normal caliber. There geri three-vessel rotting of the aortic arch without aneurysm or dissection.There is a prominent anterior mediastinal lymph node measuring 1.5 cmcyst, suspicious. Adjacent to the lymph is a mass with calcified alcantar. Itmeasures 3.3 x 3.3 cm on axial slice 42/3 There is no pericardialeffusion. No coronary artery calcification seen. There is goodopacification of pulmonary artery and its branches without intraluminalfilling defect. Axilla: Unremarkable. Upper abdomen: Visualized liver, spleen, pancreas and adrenal glandsunremarkable. The upper kidneys unremarkable. Osseous structures: No aggressive lytic or sclerotic process seen. IMPRESSION: Ill-defined left upper lobe 2.1 cm nodule intertwined within the secondarybronchioles. This results in lingular, left lower lobe denseconsolidation. There is mild atelectatic changes of the left upper lobeanterior segment. These findings were present on the last exam09/17/2024. There is a abnormal anterior mediastinal lymph node. There is a adjacent3.3 cm lesion likely lymph node with calcified alcantar. It is stable to lastexam. No additional parenchymal lesions seen. Small left pleural effusion. -------- FINAL REPORT -------- Dictated By: Ronaldo Fuller Dictated Date: 09/20/2024 11:51 ET Assigned Physician: Ronaldo Fuller Reviewed and Electronically Signed By: Ronaldo Fuller Signed Date: 09/20/2024 12:05 ET Workstation ID: [id number] Transcribed By: Self Edit Transcribed Date: 09/20/2024 11:51 ET Sanna Mackey MD IMG CT PROCEDURES * Vascular US duplex lower extremity venous bilateral (09/18/2024 5:40 PM EST) Anatomical Region Laterality Modality Vascular, Abdomen Ultrasound 09/18/2024 5:56 PM EST Impressions 09/18/2024 5:57 PM EST NO RIGHT OR LEFT LOWER EXTREMITY DEEP VENOUS THROMBOSIS. -------- FINAL REPORT -------- Dictated By: DIO CALDWELL Dictated Date: 09/18/2024 17:56 ET Assigned Physician: DIO CALDWELL Reviewed and Electronically Signed By: DIO CALDWELL Signed Date: 09/18/2024 17:57 ET Workstation ID: [id number] Transcribed By: Self Edit Transcribed Date: 09/18/2024 17:56 ET Narrative 09/18/2024 5:57 PM EST PROCEDURE: VAS US DUPLEX LOWER EXT VENOUS BILAT INDICATION: Lower extremity edema, lymphoma TECHNIQUE: 2-D and color Doppler imaging of the lower extremity venous vasculature with compression and augmentation maneuvers. COMPARISON: No priors available. FINDINGS: RIGHT: There is normal flow, compression, and augmentation from the common femoral through the popliteus. LEFT: There is normal flow, compression, and augmentation from the common femoral through the popliteus. Visualized calf veins are patent. 3.5 cm right popliteal fossa cyst Procedure Note Dio Caldwell MD - 09/18/2024 PROCEDURE: VAS US DUPLEX LOWER EXT VENOUS BILAT INDICATION: Lower extremity edema, lymphoma TECHNIQUE: 2-D and color Doppler imaging of the lower extremity venousvasculature with compression and augmentation maneuvers. COMPARISON: No priors available. FINDINGS: RIGHT: There is normal flow, compression, and augmentation from the commonfemoral through the popliteus. LEFT: There is normal flow, compression, and augmentation from the commonfemoral through the popliteus. Visualized calf veins are patent. 3.5 cm right popliteal fossa cyst IMPRESSION: NO RIGHT OR LEFT LOWER EXTREMITY DEEP VENOUS THROMBOSIS. -------- FINAL REPORT -------- Dictated By: DIO CALDWELL Dictated Date: 09/18/2024 17:56 ET Assigned Physician: DIO CALDWELL Reviewed and Electronically Signed By: DIO CALDWELL Signed Date: 09/18/2024 17:57 ET Workstation ID: [id number] Transcribed By: Self Edit Transcribed Date: 09/18/2024 17:56 ET Maddison Benavidez MD CV VASCULAR PROCEDUR ES * Interferon gamma interpretation (09/18/2024 10:47 AM EST) Quantiferon Plus Interpretation Negative Negative LAB CHEMISTRY METHOD 09/19/2024 10:37 AM EST [facility] Blood Venous blood specimen / Unknown Venipuncture / Unknown 09/18/2024 10:47 AM EST 09/18/2024 10:57 AM EST Maddison Benavidez MD LAB BLOOD ORDERABLES [facility] [address] [place] [address], * Interferon gamma antigen 2 (09/18/2024 10:47 AM EST) Blood Venous blood specimen / Unknown Venipuncture / Unknown 09/18/2024 10:47 AM EST 09/18/2024 10:57 AM EST Maddison Benavidez MD LAB BLOOD ORDERABLES Performing Organization Address City/[facility]/ZIP Co de Phone Number [facility] [address] [place] [address], * Inteferon gamma antigen 1 (09/18/2024 10:47 AM EST) Blood Venous blood specimen / Unknown Venipuncture / Unknown 09/18/2024 10:47 AM EST 09/18/2024 10:57 AM EST Maddison Benavidez MD LAB BLOOD ORDERABLES Performing Organization Address City/[facility]/ZIP Co de Phone Number [facility] [address] [place] [address], * Interferon gamma mitogen (09/18/2024 10:47 AM EST) Blood Venous blood specimen / Unknown Venipuncture / Unknown 09/18/2024 10:47 AM EST 09/18/2024 10:57 AM EST Maddison Benavidez MD LAB BLOOD ORDERABLES Performing Organization Address City/[facility]/ZIP Co de Phone Number [facility] [address] [place] [address], * Interferon gamma NIL (09/18/2024 10:47 AM EST) Blood Venous blood specimen / Unknown Venipuncture / Unknown 09/18/2024 10:47 AM EST 09/18/2024 10:57 AM EST Maddison Benavidez MD LAB BLOOD ORDERABLES Performing Organization Address City/[facility]/ZIP Co de Phone Number [facility] [address] [place] [address], * (ABNORMAL) TRANSTHORACIC ECHOCARDIOGRAM (TTE) COMPLETE W/ CONTRAST (09/18/2024 10:37 AM EST) Left Atrium Minor Bristow 6.0 cm CV PACS Left Atrium Major Bristow 6.8 cm CV PACS LA Area Sys (A2C) 27 cm2 CV PACS LA Area Sys (A4C) 27 cm2 CV PACS LA Volume (BP) 98 mL CV PACS RA Area 23.6 cm2 CV PACS RA 2D Volume 73 mL CV PACS AV Mean Gradient 3 mmHg CV PACS Ao VTI 17.9 cm CV PACS AV Peak Lance 1.3 m/s CV PACS AV Peak Gradient 6 mmHg CV PACS AV Area Continuity Equation 2.9 cm2 CV PACS AV Area Peak Velocity 2.3 cm2 CV PACS Aortic Sinus Valsalva 3.5 cm CV PACS Ascending Aorta 3.8 cm CV PACS IVSD 1.1(A) 0.6 - 1.0 cm CV PACS LVIDD 5.3 4.2 - 5.8 cm CV PACS LVIDS 3.8 2.5 - 4.0 cm CV PACS LVOT Diameter 2.0 cm CV PACS LVOT Mean Lance 0.6 m/s CV PACS LVOT Mean Grad 1 mmHg CV PACS LVOT Peak VTI 16.6 cm CV PACS LVOT Peak Lance 0.9 m/s CV PACS LVOT Peak Gradient 3 mmHg CV PACS LVPWD 1.2(A) 0.6 - 1.0 cm CV PACS MV E' Tissue Velocity Lateral 13 cm/s CV PACS MV E' Tissue Velocity Septal 7 cm/s CV PACS LVOT Area 3.1 cm2 CV PACS LVOT Stroke Volume 52 mL CV PACS MV Deceleration [place] 4.6 m/s2 CV PACS E Wave Deceleration Time 209 119 - 242 ms CV PACS MV PHT 61 ms CV PACS MV Peak E Lance 0.80 m/s CV PACS MV Mean Gradient 2 mmHg CV PACS MV VTI 27.7 cm CV PACS Mitral Valve Max Velocity 1.1 m/s CV PACS MV Peak Gradient 5 mmHg CV PACS MV Area PHT 4.1 cm2 CV PACS MV Area Continuity Equation 1.9 cm2 CV PACS PV Acceleration Time 115 ms CV PACS RV Diastolic Basal Dimension 4.3(A) 2.5 - 4.1 cm CV PACS RV S' 13 cm/s CV PACS TAPSE 29 mm CV PACS TR Peak Gradient 23 mmHg CV PACS E/E' Ratio Septal 11 CV PACS E/E' Ratio Averaged 9 CV PACS LVOT Stroke Index 21 mL/m2 CV PACS Relative Wall Thickness ratio 0.44(A) 0.24 - 0.42 CV PACS LVOT:AV VTI Index 0.93 CV PACS FS 28 % CV PACS LV Mass 2D 239(A) 96 - 200 g CV PACS Ascending Aorta Index 1.51 cm/m2 CV PACS MV VTI:LVOT VTI ratio 1.7 CV PACS LVOT flow 188 mL/s CV PACS RA 2D Volume Index 29 18 - 32 mL/m2 CV PACS ELISA Index (VTI) 1.16 cm2/m2 CV PACS ELISA Index (Pk Lance) 0.92 cm2/m2 CV PACS LVIDD Index 2.11 cm/m2 CV PACS LVIDS Index 1.51 cm/m2 CV PACS AV Velocity Ratio 0.72 CV PACS E/E' Ratio Lateral 6 CV PACS LA Volume Index (BP) 39 mL/m2 CV PACS LV Mass Index 2D 96 50 - 102 g/m2 CV PACS BSA 2.61 m2 CV PACS LV Diastolic Volume (BP) 124 62 - 150 mL CV PACS LV Diastolic Volume Index (BP) 49 34 - 74 mL/m2 CV PACS LV Systolic Volume (BP) 63(A) 21 - 61 mL CV PACS LV Systolic Volume Index (BP) 25 11 - 31 mL/m2 CV PACS LV EDV (A4C) 166 mL CV PACS LV EDV Index (A4C) 66 mL/m2 CV PACS LV ESV (A4C) 78 mL CV PACS LV ESV Index (A4C) 31 mL/m2 CV PACS LV EDV (A2C) 86 mL CV PACS LV EDV Index (A2C) 34 mL/m2 CV PACS LV ESV (A2C) 47 mL CV PACS LV ESV Index (A2C) 19 mL/m2 CV PACS LA Volume (A-L) 81 mL CV PACS LA Volume Index (A-L) 32 mL/m2 CV PACS RV Free Wall Peak S' 14 cm/s CV PACS RA Major Bristow 6.2 cm CV PACS RA Major Bristow Index 2.5 2.1 - 2.7 cm/m2 CV PACS AV Area 2D 2.3 cm2 CV PACS ELISA Index (2D) 0.92 cm2/m2 CV PACS LV EF MOD 2C 46 % CV PACS LV EF 4C A-L 54 % CV PACS LV EDV 4C A-L 175 mL CV PACS LV Length Sys (A4C) 7.0 cm CV PACS LV Length Chahal (A4C) 8.1 cm CV PACS Left Ventricular Stroke Volume by 2-D Biplane-MOD 61 mL CV PACS Est. RA Pressure 8 mmHg CV PACS Anatomical Region Laterality Modality Ultrasound Narrative 09/18/2024 11:11 AM EST ?Left ventricle cavity size is normal. Left ventricle mild concentric hypertrophy. Left ventricular systolic function is mildly decreased with an ejection fraction of 45-50%. ?Right ventricle cavity is mildly enlarged. Right ventricular systolic function is normal. ?Left atrium cavity is mildly dilated. ?Right atrium cavity is mildly dilated. ?There is mild regurgitation. ?Right ventricular systolic pressure is normal Left Ventricle Left ventricle cavity size is normal. There is mild concentric hypertrophy. Systolic function is mildly decreased with an ejection fraction of 45-50%. Difficult to assess wall motion due to arrhythmia. Abnormal septal motion. Unable to assess diastolic function due to arrhythmia. Right Ventricle Right ventricle cavity is mildly dilated. Systolic function is normal. Left Atrium Left atrium cavity is mildly dilated. Right Atrium Right atrium cavity is mildly dilated. IVC/SVC Inferior vena cava structure is normal. RA pressures is estimated to be 3 mmHg (IVC diameter <21 mm and decreases >50% during inspiration). Mitral Valve The leaflets are mildly thickened. There is mild annular calcification. There is mild regurgitation. There is no evidence of mitral valve stenosis. Tricuspid Valve Tricuspid valve structure is normal. There is trace regurgitation. There is no evidence of tricuspid valve stenosis. Aortic Valve The aortic valve was not well visualized. The aortic valve is trileaflet. The leaflets are mildly thickened. There is no regurgitation or stenosis. Pulmonic Valve The pulmonic valve was not well visualized. Visualized portions of the pulmonic valve appear normal. There is trace pulmonic valve regurgitation. There is no evidence of pulmonic valve stenosis. Ascending Aorta The aorta was not well visualized. The Sinus of Valsalva is dilated (3.5 cm). The ascending aorta is dilated (3.8 cm). Pericardium Pericardium appears normal. There is no pericardial effusion. Study Details Overall the study quality was technically difficult. The underlying ECG rhythm was atrial fibrillation. Definity contrast was given to enhance imaging. Study was difficult due to: poor endocardial visualization. Maddison Benavidez MD CV ECHO PROCEDURES * XR Chest 2 Views (09/18/2024 8:36 AM EST) Anatomical Region Laterality Modality Body Radiographic Xochilt ging 09/18/2024 12:1 0 PM EST Impressions 09/18/2024 12:14 PM EST Left hilar and perihilar density consistent with an inflammatory, infectious, and/or neoplastic process. ??There is a moderate sized left pleural effusion with underlying atelectasis and/or infiltrate. ??The right lung is clear. Code 81813 -------- FINAL REPORT -------- Dictated By: Esa Nathan Dictated Date: 09/18/2024 12:10 ET Assigned Physician: Esa Nathan Reviewed and Electronically Signed By: Esa Nathan Signed Date: 09/18/2024 12:14 ET Workstation ID: [id number] Transcribed By: Self Edit Transcribed Date: 09/18/2024 12:10 ET Narrative 09/18/2024 12:14 PM EST HISTORY: The patient is a 39-year-old male with dyspnea on exertion. ??CT scan of the chest performed 09/17/2024 demonstrated left hilar and perihilar fullness consistent with an infectious, inflammatory, or neoplastic process, with lingular and left lower lobe consolidation as well as a left pleural effusion. FINDINGS: PA and lateral graphs of the chest, without previous chest radiograph for comparison, demonstrate normal appearance of the bony structures. ??The cardiac size is difficult to evaluate on this examination. ??There is density in the left hilar and parahilar regions consistent with lymphadenopathy and/or an inflammatory or infectious process. ??There is a moderate sized left pleural effusion with underlying atelectasis and/or infiltrate. ??The right lung is clear. Procedure Note Esa Nathan MD - 09/18/2024 HISTORY: The patient is a 39-year-old male with dyspnea on exertion. CTscan of the chest performed 09/17/2024 demonstrated left hilar andperihilar fullness consistent with an infectious, inflammatory, orneoplastic process, with lingular and left lower lobe consolidation aswell as a left pleural effusion. FINDINGS: PA and lateral graphs of the chest, without previous chestradiograph for comparison, demonstrate normal appearance of the bonystructures. The cardiac size is difficult to evaluate on thisexamination. There is density in the left hilar and parahilar regionsconsistent with lymphadenopathy and/or an inflammatory or infectiousprocess. There is a moderate sized left pleural effusion with underlyingatelectasis and/or infiltrate. The right lung is clear. IMPRESSION: Left hilar and perihilar density consistent with an inflammatory,infectious, and/or neoplastic process. There is a moderate sized leftpleural effusion with underlying atelectasis and/or infiltrate. The rightlung is clear. Code 74572 -------- FINAL REPORT -------- Dictated By: Esa Nathan Dictated Date: 09/18/2024 12:10 ET Assigned Physician: Esa Nathan Reviewed and Electronically Signed By: Esa Nathan Signed Date: 09/18/2024 12:14 ET Workstation ID: [id number] Transcribed By: Self Edit Transcribed Date: 09/18/2024 12:10 ET Maddison Benavidez MD IMG XR PROCEDURES * Streptococcus pneumoniae antibodies, IgG, 23 serotypes (09/17/2024 3:17 PM EST) Serotype 1 (1) 1.0 >=1.0 mcg/mL 09/23/2024 3:19 PM EST [facility] Serotype 2 (2) 0.3 >=1.0 mcg/mL 09/23/2024 3:19 PM EST [facility] Serotype 3 (3) 0.3 >=1.0 mcg/mL 09/23/2024 3:19 PM EST [facility] Serotype 4 (4) 0.1 >=1.0 mcg/mL 09/23/2024 3:19 PM EST [facility] Serotype 5 (5) 0.2 >=1.0 mcg/mL 09/23/2024 3:19 PM EST [facility] Serotype 8 (8) 1.0 >=1.0 mcg/mL 09/23/2024 3:19 PM EST [facility] Serotype 9 (9N) 0.3 >=1.0 mcg/mL 09/23/2024 3:19 PM EST [facility] Serotype 12F (12) SEE BELOW >=1.0 mcg/mL 09/23/2024 3:19 PM EST [facility] Comment: No result available due to non-linear dilution response for this serotype. See Interpretation. Serotype 14 (14) 0.5 >=1.0 mcg/mL 09/23/2024 3:19 PM EST [facility] Serotype 17 (17F) 1.0 >=1.0 mcg/mL 09/23/2024 3:19 PM EST [facility] Serotype 19 (19F) 2.5 >=1.0 mcg/mL 09/23/2024 3:19 PM EST [facility] Serotype 20 (20) 2.0 >=1.0 mcg/mL 09/23/2024 3:19 PM EST [facility] Serotype 22F (22) 0.8 >=1.0 mcg/mL 09/23/2024 3:19 PM EST [facility] Serotype 23 (23F) SEE BELOW >=1.0 mcg/mL 09/23/2024 3:19 PM EST [facility] Comment: No result available due to non-linear dilution response for this serotype. See Interpretation. Serotype 6B 1.0 >=1.0 mcg/mL 09/23/2024 3:19 PM EST [facility] Serotype 10A 1.3 >=1.0 mcg/mL 09/23/2024 3:19 PM EST [facility] Serotype 11A 0.4 >=1.0 mcg/mL 09/23/2024 3:19 PM EST [facility] Serotype 7F 0.5 >=1.0 mcg/mL 09/23/2024 3:19 PM EST [facility] Serotype 15B 2.2 >=1.0 mcg/mL 09/23/2024 3:19 PM EST [facility] Serotype 18C 0.7 >=1.0 mcg/mL 09/23/2024 3:19 PM EST [facility] Serotype 19A 1.4 >=1.0 mcg/mL 09/23/2024 3:19 PM EST [facility] Serotype 9V 0.2 >=1.0 mcg/mL 09/23/2024 3:19 PM EST [facility] Serotype 33F 2.4 >=1.0 mcg/mL 09/23/2024 3:19 PM EST [facility] Interpretation SEE BELOW 09/23/2024 3:19 PM EST [facility] Comment: Unable to quantitate serotypes 12F (12) and 23F (23) due to nonlinear dilution response of patient sample. Overall interpretation of pneumococcal antibody serology panel can be based on the reported 21 serotypes. Evaluation of the immune response following pneumococcal vaccination can be assessed by measuring serotype-specific Streptococcus pneumonia IgG antibodies. Either of the following conditions is consistent with a normal response to Streptococcus pneumonia vaccination: 1. When comparing pre and post-vaccination samples, antibody concentrations increased by at least 2-fold for either >50% of serotypes in children <6 years of age or >70% of serotypes for individuals >6 years of age. 2. In either a pre- or post-vaccination sample, antibody concentrations >=1.0 mcg/mL for either >50% of serotypes for children <6 years of age or >70% of serotypes for individuals >6 years of age. Results >=1.0 mcg/mL or those showing a >=2-fold change are consistent with an immune response, but are not necessarily sufficient to provide protection against infection. ADDITIONAL INFORMATION This test was developed and its performance characteristics determined by [facility] in a manner consistent with CLIA requirements. This test has not been cleared or approved by the U.S. Food and Drug Administration. Test Performed by: [facility] [address] [place] [address] Clinical Laboratory Service Teacher: Evan Uribe Ph.D.; CLIA# [id number] Blood Venous blood specimen / Unknown Venipuncture / Unknown 09/17/2024 3:17 PM EST 09/17/2024 3:17 PM EST Kylah Arredondo NP LAB BLOOD ORDERABLES [facility] [address] [place] [address] * MRSA molecular study (09/17/2024 11:36 AM EST) Only the most recent of2 resultswithin the time period is included. MRSA Screen PCR Not Detected Not Detected LAB MICROBIOLOGY METHOD 09/17/2024 1:08 PM EST [facility] Swab Both anterior nares / Unknown Non-blood Collection / Unknown 09/17/2024 11:36 AM EST 09/17/2024 11:49 AM EST Maddison Benavidez MD LAB MICROBIOLOGY - G ENERAL ORDERABLES [facility] [address] [place] [address], * (ABNORMAL) Culture sputum (09/17/2024 10:31 AM EST) Pathologist [facility] Culture, Sputum No pathogens isolated. 09/20/2024 8:43 AM EST [facility] Gram Stain Result Many Polymorphonuclear leukocytes(A) 09/20/2024 8:[address] [facility] Gram Stain Result Rare Epithelial cells(A) 09/20/2024 8:[address] [facility] Gram Stain Result Rare Gram positive cocci in pairs(A) 09/20/2024 8:[address] [facility] Gram Stain Result Rare Gram positive bacilli(A) 09/20/2024 8:[address] [facility] Gram Stain Result Greater than 25 WBCS and less than 10 Epithelial cells(A) 09/20/2024 8:[address] [facility] Sputum, expectorated (Lungs) 09/17/2024 10:31 AM EST 09/17/2024 11:49 AM EST Charlie Greene MD LAB MICROBIOLOGY - G ENERAL ORDERABLES [facility] [address] [place] [address], [place] [phone] * HIV 1,2 antibody, p24 antigen with reflex to differentiation (09/17/2024 8:36 AM EST) [facility] HIV Combo AB/AG Negative Negative LAB CHEMISTRY METHOD 09/17/2024 3:37 PM EST [facility] Blood Venous blood specimen / Unknown Venipuncture / Unknown 09/17/2024 8:36 AM EST 09/17/2024 9:24 AM EST Narrative [facility] - 09/17/2024 3:37 PM EST This assay is a 4th generation assay allowing for earlier detection of HIV infection by detecting the presence of the HIV-1 p24 antigen as well as the traditional antibodies to HIV type 1 (including group O) and type 2. ??Use of a 4th generation assay is the current CDC recommendation for HIV screening. Kylah Arredondo NP LAB BLOOD ORDERABLES [facility] [address] [place] [address], [place] [phone] * Digoxin level (09/17/2024 8:36 AM EST) Only the most recent of2 resultswithin the time period is included. [facility] Digoxin Lvl 1.0 0.5 - 2.0 ng/mL LAB CHEMISTRY METHOD 09/17/2024 10:40 AM EST [facility] Blood Venous blood specimen / Unknown Venipuncture / Unknown 09/17/2024 8:36 AM EST 09/17/2024 9:24 AM EST Kylah Arredondo NP LAB BLOOD ORDERABLES [facility] [address] [place] [address], [place] [phone] * (ABNORMAL) Blood culture pathogens molecular study (09/17/2024 6:52 AM EST) Pathologist [facility] Streptococcus pneumoniae Detected (A) Not Detected LAB MICROBIOLOGY METHOD 09/17/2024 8:30 PM EST [facility] Blood Venous blood specimen / Unknown Venipuncture / Unknown 09/17/2024 6:52 AM EST 09/17/2024 7:00 AM EST Balta Wilson MD LAB MICROBIOLOGY - GENERAL ORDERABLES Performing Organization Address [facility] Co de Phone Number [facility] [address] [place] [address], [place] [phone] * (ABNORMAL) Lactate (09/17/2024 6:52 AM EST) [facility] Lactate 2.1(H) 0.4 - 2.0 mmol/L LAB CHEMISTRY METHOD 09/17/2024 7:24 AM EST [facility] Blood Venous blood specimen / Unknown Venipuncture / Unknown 09/17/2024 6:52 AM EST 09/17/2024 7:01 AM EST Balta Wilson MD LAB BLOOD ORDERABLE S Performing Organization Address [facility] Co de Phone Number [facility] [address] [place] [address], [place] [phone] * CT Abdomen Pelvis w Contrast (09/17/2024 5:43 AM EST) Anatomical Region Laterality Modality Body Computed Tomogra phy 09/17/2024 6:20 AM EST Impressions 09/17/2024 6:20 AM EST Prominent left hemidiaphragm elevation. Hepatomegaly. Dense retained stool. No abnormal masses. This document has been electronically signed by: Omar Mendiola MD on 09/17/2024 06:20:44 Narrative 09/17/2024 6:20 AM EST Exam: CT abdomen and pelvis with IV contrast. Comparison: None Findings: Prominent left hemidiaphragm elevation. No free air. No solid liver mass. Enlarged at 20.7 cm. No calcified gallstones. No clinically significant biliary ductal dilation. No splenomegaly or suspicious splenic lesions. No solid or cystic pancreatic mass. No pancreatic ductal dilation. No acute inflammatory changes. Adrenal glands without nodule. No suspicious renal mass. No hydronephrosis. No significant stranding. Bladder without acute pathology. Dense colonic fecal retention without obstruction. No evidence for acute appendicitis. No adenopathy. No abdominal aortic aneurysm. No suspicious pelvic masses. No acute soft tissue pathology. No acute osseous pathology. Procedure Note Omar Mendiola MD - 09/17/2024 Exam: CT abdomen and pelvis with IV contrast. Comparison: None Findings: Prominent left hemidiaphragm elevation. No free air. No solid liver mass. Enlarged at 20.7 cm. No calcified gallstones. No clinically significant biliary ductal dilation. No splenomegaly or suspicious splenic lesions. No solid or cystic pancreatic mass. No pancreatic ductal dilation. No acute inflammatory changes. Adrenal glands without nodule. No suspicious renal mass. No hydronephrosis. No significant stranding. Bladder without acute pathology. Dense colonic fecal retention without obstruction. No evidence for acute appendicitis. No adenopathy. No abdominal aortic aneurysm. No suspicious pelvic masses. No acute soft tissue pathology. No acute osseous pathology. IMPRESSION: Prominent left hemidiaphragm elevation. Hepatomegaly. Dense retained stool. No abnormal masses. This document has been electronically signed by: Omar Mendiola MD on 09/17/2024 06:20:44 Maeve TEE [facility] [place] CT PROCEDURES * CT Angio Chest wo and/or w Contrast (09/17/2024 5:43 AM EST) Anatomical Region Laterality Modality Body Computed Tomogra phy 09/17/2024 6:15 AM EST Addenda Addendum by Omar Mendiola MD on 09/17/2024 6:30 AM EST ADDENDUM: Alternative consideration given patient age for left hilar process and adenopathy is infectious sequelae. This document has been electronically signed by: Omar Mendiola MD on 09/17/2024 06:30:58 Impressions 09/17/2024 6:15 AM EST No pulmonary emboli. Left hilar process with encasement of vascular and airway structures for which neoplasm is prime consideration. This is difficult to measure given infiltrative nature. Left lingular and lower lobe consolidations may reflect infiltrates or post-obstructive atelectasis. Prevascular adenopathy. Prominent elevation left hemidiaphragm. This document has been electronically signed by: Omar Mendiola MD on 09/17/2024 06:15:17 Narrative 09/17/2024 6:[address] angiography chest with contrast. 3D Postprocessing. Comparison: None Findings: No pulmonary embolism. No thoracic aortic aneurysm. No cardiomegaly. Left hilar soft tissue infiltrative process encasing the left main pulmonary artery and branches as well as left sided bronchi. Prominent elevation left hemidiaphragm. Dense consolidations left lower lobe and lingular segment of the upper lobe. Right lung clear. No pneumothorax No significant pleural effusion. Large peripherally calcified prevascular node measuring 3.2 x 5.6 cm. No acute chest wall pathology. No acute fracture or dislocation. Procedure Note Omar Mendiola MD - 09/17/2024 CT angiography chest with contrast. 3D Postprocessing. Comparison: None Findings: No pulmonary embolism. No thoracic aortic aneurysm. No cardiomegaly. Left hilar soft tissue infiltrative process encasing the left main pulmonary artery and branches as well as left sided bronchi. Prominent elevation left hemidiaphragm. Dense consolidations left lower lobe and lingular segment of the upper lobe. Right lung clear. No pneumothorax No significant pleural effusion. Large peripherally calcified prevascular node measuring 3.2 x 5.6 cm. No acute chest wall pathology. No acute fracture or dislocation. IMPRESSION: No pulmonary emboli. Left hilar process with encasement of vascular and airway structures for which neoplasm is prime consideration. This is difficult to measuregiven infiltrative nature. Left lingular and lower lobe consolidations may reflect infiltrates or post-obstructive atelectasis. Prevascular adenopathy. Prominent elevation left hemidiaphragm. This document has been electronically signed by: Omar Mendiola MD on 09/17/2024 06:15:17 Maeve TEE [facility] [place] CT PROCEDURES * CT Head wo Contrast (09/17/2024 5:43 AM EST) Anatomical Region Laterality Modality Head and Neck Computed Tomogra phy 09/17/2024 5:58 AM EST Impressions 09/17/2024 5:58 AM EST Impression: No acute intracranial pathology. This document has been electronically signed by: Omar Mendiola MD on 09/17/2024 05:58:03 Narrative 09/17/2024 5:58 AM EST Exam: CT head without contrast Comparison: None Findings: No acute stroke or bleed. Villegas-white differentiation maintained. Ventricles are midline. No hydrocephalus. No sinus fluid levels. No significant mastoid air cell effusion. No acute skull fracture. Procedure Note Omar Mendiola MD - 09/17/2024 Exam: CT head without contrast Comparison: None Findings: No acute stroke or bleed. Villegas-white differentiation maintained. Ventricles are midline. No hydrocephalus. No sinus fluid levels. No significant mastoid air cell effusion. No acute skull fracture. IMPRESSION: Impression: No acute intracranial pathology. This document has been electronically signed by: Omar Mendiola MD on 09/17/2024 05:58:03 Maeve TEE [facility] CT PROCEDURES * (ABNORMAL) Urinalysis with reflex microscopic and culture (09/17/2024 5:00 AM EST) Specific [place] Urine 1.015 1.003 - 1.030 LAB URINALYSIS - AUTOMATED METHOD 09/17/2024 5:[address] [facility] pH, Urine 6.5 5.0 - 8.0 pH LAB URINALYSIS - AUTOMATED METHOD 09/17/2024 5:[address] [facility] Leukocytes, Urine Small(A) Negative LAB URINALYSIS - AUTOMATED METHOD 09/17/2024 5:[address] [facility] Nitrite, Urine Negative Negative LAB URINALYSIS - AUTOMATED METHOD 09/17/2024 5:[address] [facility] Protein, Urine Trace <=Trace mg/dL LAB URINALYSIS - AUTOMATED METHOD 09/17/2024 5:[address] [facility] Glucose, Urine Negative Negative mg/dL LAB URINALYSIS - AUTOMATED METHOD 09/17/2024 5:[address] [facility] Ketones, Urine Negative Negative mg/dL LAB URINALYSIS - AUTOMATED METHOD 09/17/2024 5:[address] [facility] Urobilinogen, Urine 1.0 0.2 - 1.0 mg/dL LAB URINALYSIS - AUTOMATED METHOD 09/17/2024 5:[address] [facility] Bilirubin, Urine Negative Negative LAB URINALYSIS - AUTOMATED METHOD 09/17/2024 5:[address] [facility] Blood, Urine Negative Negative LAB URINALYSIS - AUTOMATED METHOD 09/17/2024 5:[address] [facility] RBC, Urine 0.4 0 - 4 /HPF LAB URINALYSIS - AUTOMATED METHOD 09/17/2024 5:[address] [facility] WBC, Urine 5.8(H) 0 - 4 /HPF LAB URINALYSIS - AUTOMATED METHOD 09/17/2024 5:[address] [facility] Squamous Epithelial, Urine 23 0 - 60 /LPF LAB URINALYSIS - AUTOMATED METHOD 09/17/2024 5:[address] [facility] Bacteria, Urine Negative Negative /HPF LAB URINALYSIS - AUTOMATED METHOD 09/17/2024 5:[address] [facility] Hyaline Casts, Urine 0.4 0 - 3 /LPF LAB URINALYSIS - AUTOMATED METHOD 09/17/2024 5:[address] [facility] Urine Urine specimen obtained by clean catch procedure / Unknown Non-blood Collection / Unknown 09/17/2024 5:00 AM EST 09/17/2024 5:29 AM EST Maeve TEE LAB URINE ORDERABLES Performing Organization Address City/[facility]/ZIP Co de Phone Number [facility] [address] [place] [address], [place] [phone] * Villegas urine culture tube (09/17/2024 5:00 AM EST) Extra Tube Hold for add-ons. 09/17/2024 7:01 AM EST [facility] Comment:Auto resulted. Urine Urine specimen obtained by clean catch procedure / Unknown Non-blood Collection / Unknown 09/17/2024 5:00 AM EST 09/17/2024 5:29 AM EST Maeve TEE LAB URINE ORDERABLES Performing Organization Address [facility] Co de Phone Number [facility] [address] [place] [address], * Legionella antigen urine, EIA (09/17/2024 5:00 AM EST) Legionella Antigen, Ur Negative Negative 09/17/2024 4:35 PM EST [facility] Urine Urine specimen obtained by clean catch procedure / Unknown Non-blood Collection / Unknown 09/17/2024 5:00 AM EST 09/17/2024 5:51 AM EST Narrative [facility] - 09/17/2024 4:35 PM EST Negative for Legionella pneumophilia serogroup 1 antigen. This presumptive result suggests no current or recent infection due to L. pneumophilia serogroup 1. Culture is recommended if Legionella infection is till suspected, as other serogroups and species of Legionella are not detected by this test. Kylah Arredondo NP LAB URINE ORDERABLES Performing Organization Address City/[facility]/ZIP Co de Phone Number [facility] [address] [place] [address], [place] [phone] * (ABNORMAL) Culture urine (09/17/2024 5:00 AM EST) [facility] Culture, Urine 10,000-49,000 CFU/mL Streptococcus beta-hemolytic Group B(A) 09/18/2024 10:13 AM EST [facility] Comment: Susceptibility testing is not routinely performed for Beta Streptococcus isolates since these organisms are predictably sensitive to Penicillin. If the Patient is not responding, is allergic to Penicillin, or further therapeutic information is requir ed, please consult an Infectious Disease Specialist. Urine Urine specimen obtained by clean catch procedure / Unknown Non-blood Collection / Unknown 09/17/2024 5:00 AM EST 09/17/2024 5:51 AM EST Maeve TEE LAB MICROBIOLOGY - G ENERAL ORDERABLES [facility] [address] [place] [address], * Respiratory virus panel molecular study (09/17/2024 4:39 AM EST) [facility] Adenovirus Detection by PCR Not Detected Not Detected LAB MICROBIOLOGY METHOD 09/17/2024 6:[address] [facility] Influenza A PCR Not Detected Not Detected LAB MICROBIOLOGY METHOD 09/17/2024 6:[address] [facility] Influenza B PCR Not Detected Not Detected LAB MICROBIOLOGY METHOD 09/17/2024 6:[address] [facility] Coronavirus 229E Not Detected Not Detected LAB MICROBIOLOGY METHOD 09/17/2024 6:23 AM EST [facility] Coronavirus HKU1 Not Detected Not Detected LAB MICROBIOLOGY METHOD 09/17/2024 6:[address] [facility] Coronavirus OC43 Not Detected Not Detected LAB MICROBIOLOGY METHOD 09/17/2024 6:[address] [facility] Coronavirus NL63 Not Detected Not Detected LAB MICROBIOLOGY METHOD 09/17/2024 6:[address] [facility] Parainfluenza Virus 1 Not Detected Not Detected LAB MICROBIOLOGY METHOD 09/17/2024 6:[address] [facility] Parainfluenza Virus 2 Not Detected Not Detected LAB MICROBIOLOGY METHOD 09/17/2024 6:[address] [facility] Parainfluenza Virus 3 Not Detected Not Detected LAB MICROBIOLOGY METHOD 09/17/2024 6:[address] [facility] Parainfluenza Virus 4 Not Detected Not Detected LAB MICROBIOLOGY METHOD 09/17/2024 6:[address] [facility] RSV PCR Not Detected Not Detected LAB MICROBIOLOGY METHOD 09/17/2024 6:[address] [facility] Human Metapneumovirus A and B Not Detected Not Detected LAB MICROBIOLOGY METHOD 09/17/2024 6:[address] [facility] Rhinovirus/Entero virus Not Detected Not Detected LAB MICROBIOLOGY METHOD 09/17/2024 6:[address] [facility] Bordetella pertussis Not Detected Not Detected LAB MICROBIOLOGY METHOD 09/17/2024 6:[address] [facility] Bordetella parapertussis Not Detected Not Detected LAB MICROBIOLOGY METHOD 09/17/2024 6:[address] [facility] Mycoplasma pneumo by PCR Not Detected Not Detected LAB MICROBIOLOGY METHOD 09/17/2024 6:[address] [facility] Chlamydia pneumoniae Not Detected Not Detected LAB MICROBIOLOGY METHOD 09/17/2024 6:[address] [facility] SARS COV-2 Not Detected Not Detected LAB MICROBIOLOGY METHOD 09/17/2024 6:[address] [facility] Swab Both anterior nares / Unknown Non-blood Collection / Unknown 09/17/2024 4:39 AM EST 09/17/2024 5:28 AM EST [facility] - 09/17/2024 6:23 AM EST Testing was performed using the [employer] Respiratory Pathogen PCR Assay. All results must be correlated with the clinical findings. Results should not be used as the sole basis for diagnosis. False Negative results may occur from the presence of sequence variants in the region targeted by the assay or the presence of inhibitors. Results may be affected by concurrent antiviral/antimicrobial therapy or levels of organisms that are below the limit of detection. Maeve TEE LAB MICROBIOLOGY - G ENERAL ORDERABLES Performing Organization Address [facility] Co de Phone Number [facility] [address] [place] [address], * Troponin I high sensitivity (09/17/2024 4:25 AM EST) Only the most recent of2 resultswithin the time period is included. [facility] High Sensitivity Troponin I 3 <=79 ng/L LAB CHEMISTRY METHOD 09/17/2024 4:55 AM EST [facility] Blood Venous blood specimen / Unknown Venipuncture / Unknown 09/17/2024 4:25 AM EST 09/17/2024 4:28 AM EST Narrative [facility] - 09/17/2024 4:55 AM EST High levels of biotin in samples may falsely decrease hsTroponin values. ??Use caution when interpreting hsTroponin results in patients taking biotin who exhibit renal impairment (eGFR <60) or in patients taking more than 20 mg/day of biotin. Shelley Wiseman MD LAB BLOOD ORDERA BLES Performing Organization Address [facility] Co de Phone Number [facility] [address] [place] [address], [place] [phone] * ECG 12 lead (09/17/2024 3:38 AM EST) Pathologist [facility] Ventricular Rate ECG 90 BPM GEMUSE Atrial Rate 326 BPM GEMUSE QRS Duration 94 ms GEMUSE Q-T Interval 396 ms GEMUSE QTc 484 ms GEMUSE R [place] -2 degrees GEMUSE T [place] 5 degrees GEMUSE ECG Interpretation Atrial flutter with variable A-V block Minimal voltage criteria for LVH, may be normal variant Nonspecific T wave abnormality Abnormal ECG No previous ECGs available Confirmed by Navin DEL CASTILLO JAMES ([id number]) on 09/17/2024 9:33:30 PM GEMUSE 09/17/2024 3:38 AM EST 09/17/2024 9:33 PM EST Shleley Wiseman MD ECG ORDERABLES Performing Organization Address [facility] de Phone Number GEMUSE * (ABNORMAL) Magnesium (09/17/2024 3:35 AM EST) Magnesium 1.7(L) 1.9 - 2.6 mg/dL LAB CHEMISTRY METHOD 09/17/2024 4:08 AM EST [facility] Blood Venous blood specimen / Unknown Venipuncture / Unknown 09/17/2024 3:35 AM EST 09/17/2024 3:48 AM EST Shelley Wiseman MD LAB BLOOD ORDERA BLES Performing Organization Address [facility] de Phone Number [facility] [address] [place] [address], [place] [phone] * (ABNORMAL) Lactate dehydrogenase (09/17/2024 3:35 AM EST) LDH 248(H) 120 - 246 unit/L LAB CHEMISTRY METHOD 09/17/2024 7:14 AM EST [facility] Blood Venous blood specimen / Unknown Venipuncture / Unknown 09/17/2024 3:35 AM EST 09/17/2024 3:48 AM EST Balta Wilson MD LAB BLOOD ORDERABLE S Performing Organization Address [facility] Co de Phone Number [facility] [address] [place] [address], [place] [phone] * ECG-Annotated (09/17/2024) Chapo Small MD ECG ORDERABLES * [place] Abdomen Limited (08/16/2024 12:37 PM EST) Anatomical Region Laterality Modality Body Ultrasound 08/16/2024 12:3 4 PM EST Impressions 08/16/2024 12:36 PM EST Impression: Common bile duct is prominent. ??This finding should be correlated with any clinical or laboratory evidence of cholestasis. -------- FINAL REPORT -------- Dictated By: Balta Bailey Dictated Date: 08/16/2024 12:34 ET Assigned Physician: Balta Bailey Reviewed and Electronically Signed By: Balta Bailey Signed Date: 08/16/2024 12:36 ET Workstation ID: [id number] Transcribed By: Self Edit Transcribed Date: 08/16/2024 12:34 ET Narrative 08/16/2024 12:36 PM EST Ultrasound Right Upper quadrant. TECHNIQUE: Dedicated ultrasound images were performed of the right upper quadrant. ??Color Doppler imaging was performed. History: Abdominal pain Comparison: None Findings: Gallbladder: Appears normal. No stones. ?? Biliary: Common bile duct measures up to 8 mm. ??No obstructing stone or lesion is visualized. Liver: Appears normal. ??The liver measures 17cm. ??Normal directional flow in the portal vein. ?? Pancreas: Appears within normal limits. ?? Right kidney: ??measures 11cm and appears normal. Procedure Note Balta Bailey MD - 08/16/2024 Ultrasound Right Upper quadrant. TECHNIQUE: Dedicated ultrasound images were performed of the right upperquadrant. Color Doppler imaging was performed. History: Abdominal pain Comparison: None Findings: Gallbladder: Appears normal. No stones. Biliary: Common bile duct measures up to 8 mm. No obstructing stone orlesion is visualized. Liver: Appears normal. The liver measures 17cm. Normal directional flowin the portal vein. Pancreas: Appears within normal limits. Right kidney: measures 11cm and appears normal. IMPRESSION: Impression: Common bile duct is prominent. This finding should becorrelated with any clinical or laboratory evidence of cholestasis. -------- FINAL REPORT -------- Dictated By: Balta Bailey Dictated Date: 08/16/2024 12:34 ET Assigned Physician: Balta Bailey Reviewed and Electronically Signed By: Balta Bailey Signed Date: 08/16/2024 12:36 ET Workstation ID: [id number] Transcribed By: Self Edit Transcribed Date: 08/16/2024 12:34 ET [place] TEE IMG US PROCEDURES * Helicobacter pylori antibody, IgG (08/16/2024 9:47 AM EST) Helicobacter Pylori AB Negative Negative LAB CHEMISTRY METHOD 08/16/2024 2:30 PM EST [facility] Blood Venous blood specimen / Unknown Venipuncture / Unknown 08/16/2024 9:47 AM EST 08/16/2024 10:09 AM EST [place] TEE LAB BLOOD ORDERABLES Performing Organization Address City/[facility]/ZIP Co de Phone Number [facility] [address] [place] [address], * Thyroid stimulating hormone (TSH) (08/16/2024 9:47 AM EST) Pathologist [facility] TSH 1.23 0.40 - 4.00 mcIU/mL LAB CHEMISTRY METHOD 08/16/2024 2:13 PM EST [facility] Blood Venous blood specimen / Unknown Venipuncture / Unknown 08/16/2024 9:47 AM EST 08/16/2024 10:09 AM EST [place] TEE LAB BLOOD ORDERABLES Performing Organization Address City/[facility]/ZIP Co de Phone Number [facility] [address] [place] [address], * Lipase (08/16/2024 9:47 AM EST) Pathologist [facility] Lipase 20 13 - 75 unit/L LAB CHEMISTRY METHOD 08/16/2024 10:[address] [facility] Blood Venous blood specimen / Unknown Venipuncture / Unknown 08/16/2024 9:47 AM EST 08/16/2024 10:09 AM EST Ricardo Rooney MD LAB BLOOD ORDERABLES [facility] [address] [place] [address], * Comprehensive metabolic panel (08/16/2024 9:47 AM EST) Sodium 143 133 - 145 mmol/L LAB CHEMISTRY METHOD 08/16/2024 10:[address] [facility] Potassium 4.3 3.5 - 5.5 mmol/L LAB CHEMISTRY METHOD 08/16/2024 10:[address] [facility] Chloride 109 96 - 110 mmol/L LAB CHEMISTRY METHOD 08/16/2024 10:[address] [facility] CO2 29 21 - 32 mmol/L LAB CHEMISTRY METHOD 08/16/2024 10:[address] [facility] Anion Gap 5 3 - 11 LAB CHEMISTRY METHOD 08/16/2024 10:[address] [facility] Glucose 97 70 - 100 mg/dL LAB CHEMISTRY METHOD 08/16/2024 10:[address] [facility] BUN 13 5 - 25 mg/dL LAB CHEMISTRY METHOD 08/16/2024 10:[address] [facility] Creatinine 1.07 0.70 - 1.30 mg/dL LAB CHEMISTRY METHOD 08/16/2024 10:[address] [facility] eGFR 91 >=60 mL/min/1. 73m2 LAB CHEMISTRY METHOD 08/16/2024 10:[address] [facility] Comment:Calculation based on the??Chronic Kidney Disease Epidemiology Collaboration (CKD-EPI) equation refit??without adjustment for race. BUN/Creatinine Ratio 12.1 LAB CHEMISTRY METHOD 08/16/2024 10:[address] [facility] Calcium 9.1 8.5 - 10.5 mg/dL LAB CHEMISTRY METHOD 08/16/2024 10:[address] [facility] AST (SGOT) 16 10 - 42 unit/L LAB CHEMISTRY METHOD 08/16/2024 10:[address] [facility] ALT (SGPT) 36 10 - 60 unit/L LAB CHEMISTRY METHOD 08/16/2024 10:[address] [facility] Alkaline Phosphatase 96 42 - 121 unit/L LAB CHEMISTRY METHOD 08/16/2024 10:[address] [facility] Total Protein 6.8 6.0 - 8.0 g/dL LAB CHEMISTRY METHOD 08/16/2024 10:[address] [facility] Albumin 3.2 3.2 - 5.0 g/dL LAB CHEMISTRY METHOD 08/16/2024 10:[address] [facility] Total Bilirubin 0.6 0.0 - 1.4 mg/dL LAB CHEMISTRY METHOD 08/16/2024 10:[address] [facility] Blood Venous blood specimen / Unknown Venipuncture / Unknown 08/16/2024 9:47 AM EST 08/16/2024 10:09 AM EST Ricardo Rooney MD LAB BLOOD ORDERABLES [facility] [address] [place] [address], from Last 3 Months Additional Health Concerns Infection Onset Date Last Indicated Tuberculosis Rule-Out 09/22/2024 09/22/2024 Advance Directives * Full Code - Default (Latest Code Status on File) Date Activated Date Inactivated Comments 09/17/2024 6:46 AM 09/23/2024 7:02 PM This is orde r is used when code status has not been discussed with the patient, or code status is otherwise unknown/unconfirmed To update the patient's code status, place a code status order. Do not modify or discontinue any currently active code status orders. Care Teams Composition Molder Relationship Specialty Start Date End Date Physician, No Pcp PCP - General 08/16/24
--- OUTSIDE RECORDS SUMMARY | 2024-10-02 13:37 | XMS_ITS | Encounter Summary ---
Author Organization [employer] Address [address] [place] [address] [address] [place] [address] Care Team Providers Care Spectrographic Analyst Name Role Phone Yaquelin Cage Primary Care Provider [phone] Jamal Marie Unavailable Unavailable Fouzia Romero RN Unavailable [phone] Reason for Visit * Reason Onset Date Comments Med Refill Appointment 04/16/2023 No Active phone # at this time. Re: his appt for today as [id number] @3:45pm. Encounter Details Date Type Department Care Team (Late st Contact Info) Description 04/07/2023 Refill [facility] [address] [place] [id number] Yaquelin Cage ANP [address] [place] [address] [phone] Erectile dysfunction due to diseases classified elsewhere Social History Tobacco Use Types Packs/Day Years Used Date Smoking Tobacco: Never Smokeless Tobacco: Never Alcohol Use Standard Drinks/Week Comments Not Currently 0 (1 standard drink = 0.6 oz pur e alcohol) Sex and Gender Information Value Date Recorded Sex Assigned at Male 07/02/2022 10:16 AM EDT Legal Sex Male 10:16 AM EDT Gender Identity Male 07/02/2022 10:16 AM EDT Sexual Orientation Choose not to disclose 2021 10:16 AM EDT documented as of this encounter Plan of Treatment Upcoming Encounters Date Type Department Care Team (Late st Contact Info) Description 10/09/2024 10:30 AM EST Office Visit [facility] [address] [place] [phone] Yaquelin Cage ANP [address] [place] [address] documented as of this encounter Visit Diagnoses Diagnosis Erectile dysfunction due to diseases classified elsewhere documented in this encounter Additional Health Concerns Assessment Noted Time PHQ-9 Depression Total Score: 11 023 3:01 PM EDT documented as of this encounter Care Teams Spectrographic Analyst Relationship Specialty Start Date End Date Yaquelin Cage ANP [address] [place] [address] PCP - General Family Medicine 05/02/20 Jamal Marie FNP [address] [place] [phone] Nurse Practitioner Family Medicine 08/06/23 Fouzia Romero, RED [address] [place] [id number] [employer] Clerk 09/28/24 documented as of this encounter
--- OUTSIDE RECORDS SUMMARY | 2024-10-02 13:37 | XMS_ITS | Encounter Summary ---
Author Organization [employer] Address [address] [place] [address] 7 [place] [address] Care Team Providers Care Herb Doctor Name Role Phone Yaquelin Cage SYLVIA Primary Care Provider [phone] Jamal Marie Unavailable Unavailable Fouzia Romero RN Unavailable [phone] Reason for Visit * Reason Onset Date Comments Care Management 09/28/2024 C3CM- initial as sessment/ enrollment. Encounter Details Date Type Department Care Team ([facility] st Contact Info) Description 09/28/2024 Telephone [facility]INE [address] [place] [address] Fouzia Romero, RN [address] [place], [place] [phone] Care Management (C3CM- initial assessment/ enrollment.) Social History Tobacco Use Types Packs/Day Years [...] with others, in a hotel, in a half-way, living outside on the street, on a [...] Telephone Encounter - Fouzia Romero RN - 09/28/2024 2:18 PM EST BON Romero RN, provided notification to PCP SYLVIA Rolon of patient's enrollment into C3 Complex Care Program. BON Romero RN, completed care plan and sent to HIM to be scanned into the medical record. PCP notified and awaiting review from provider. CM plan: - assist patient with scheduling appts with [facility], [facility] and ensuring that patient is attending visits as scheduled -provide patient with appt reminders and assist with PT1 as needed - provide education on disease processes and management - provide resources based on positive SDOH needs * Telephone Encounter - Fouzia Romero RN - 09/28/2024 2:18 PM EST BON Romero RN placed outbound call to patient for agreed upon time for initial assessment for enrollment into Adult Care Management Program. Patient's name, , and address were verified. Pablo is a 39 year old male with Hx of RAMESH, asthma, nonischemic cardiomyopathy, HTN, cannabis use, depressive disorder, hodgkin's disease, OCD, housing instability, and PTSD. [facility] He is scheduled to be seen on 10/02/24 at 1:45pm. CM will attempt to assist with PT1. Patient was previously being followed by Hematology/ Oncology and Pulmonology. Patient is requesting assistance with scheduling f/u appts with these providers as he has not been seen in some time. CM's plan is to assist with coordinating care. Patient with Hx of depression and anxiety. He states he isnot interested in referral to services at this time. He denies SI/HI. CM educated patient on theavailability of clinicians on site and advised him on how to connect to services. Also advised that a referral can be submitted on his behalf if at any point he is interested in re-establishing car e. He verbalizes understanding. Patient states he was recently discharged from [facility] with pneumonia. He states he was discharged with antibiotics, which he reports taking as prescribed. Per patient, symptoms have improved since he was discharged, although he continues to experience mild cough and nausea. CM provided home recs and instructed patient that he f/u if symptoms persist or worsen. He agrees. CM also reminded patient of his scheduled HDF with PCP on 10/09/24 at 10:30am. CHW will assist with coordinating PT1. Patient will also be reminded of the scheduled appt one day prior. Patient with Hx of RAMESH. He states he has a CPAP machine but is not currently using it. Per patient, the CPAP paoti ne is at his ex-partner's home and patient currently living in a half-way. Patient also reports Hx of HTN. He states he does not monitor his BP and is not interested in a BP monitor at this time. Patient states all of his medications are in med boxes which are prepared by [facility] pharmacy. He states he takes his medications as prescribed. Per patient, sometimes misses his PM doses but states he does take his meds most of the time. He denies any concerns with his medications at this time. Patient reports living in a half-way x1 year and would like assistance/ resources for housing. CHW will outreachand assistance with connecting patient to resources. Patient denies any further needs or concerns at this time. Care management program explained and contact information given. Patient verbalizes understanding, and able to repeat back to video game script writer. A follow up call will be placed within 10 days, patient agrees with plan. documented in this encounter Plan of Treatment Upcoming Encounters Date Type Department Care Team (Late st Contact Info) Description 10/09/2024 10:30 AM EST Office Visit [facility]INE [address] [place] [address] Yaquelin Cage ANP [address] [place] [address] documented as of this encounter Visit Diagnoses Not on filedocumented in this encounter Additional Health Concerns Assessment Noted Time PHQ-9 Depression Total Score: 17 024 2:40 PM EST documented as of this encounter Care Teams Herb Doctor Relationship Specialty Start Date End Date Yaquelin Cage ANP [address] [place] [address] PCP - General Family Medicine 05/02/20 Jamal Marie FNP [address] [place] [address] Nurse Practitioner Family Medicine 08/06/23 Fouzia Romero RN [address] [place] [id number] Automotive GlazierEquipment Driver 09/28/24 documented as of this encounter
--- OUTSIDE RECORDS SUMMARY | 2024-10-02 13:37 | XMS_ITS | Encounter Summary ---
Author Organization [employer] Address [address] [place] [address] 7 [place] [address] Care Team Providers Care Research Physiologist Name Role Phone Yaquelin Cage Primary Care Provider [phone] Jamal Marie Unavailable Unavailable Fouzia Romero RN Unavailable [phone] Reason for Visit * Reason Comments Care Coordination PT1 Encounter Details Date Type Department Care Team (Latest Contact Info) Description 09/30/2024 Patient Outreach [facility] [address] [place], [place] [phone] Yaquelin Cage ANP [address] [place] [address] Care Coordination (PT1) Social History Tobacco Use Types Packs/Day Years [...] with others, in a hotel, in a group home, living outside on the street, on a [...] encounter Progress Notes * Yolanda Murray - 09/30/2024 8:32 AM EST CHW Yolanda Murray scheduled PT1 to appt on 10/02/24 at 1:45pm to [address] arjun veras, CHW will remind patient of appt. documented in this encounter Plan of Treatment Upcoming Encounters Date Type Department Care Team (Late st Contact Info) Description 10/09/2024 10:30 AM EST Office Visit [facility] [address] [place] [address] Yaquelin Cage ANP [address] [place] [address] documented as of this encounter Visit Diagnoses Not on filedocumented in this encounter Additional Health Concerns Assessment Noted Time PHQ-9 Depression Total Score: 17 024 2:40 PM EST documented as of this encounter Care Teams Research Physiologist Relationship Specialty Start Date End Date Yaquelin Cage ANP [address] [place] [address] PCP - General Family Medicine 05/02/20 Jamal Marie FNP [address] [facility] [address] Nurse Practitioner Family Medicine 08/06/23 Fouzia Romero, RED [address] [place] [address] Editor MagazineCream Dumper 09/28/24 documented as of this encounter
--- OUTSIDE RECORDS SUMMARY | 2024-10-02 13:37 | XMS_ITS | Encounter Summary ---
Author Organization [employer] Address [address] [place] [address] [place] [address] Care Team Providers Care Bookkeeping Teacher Name Role Phone Yaquelin Cage Primary Care Provider [phone] Jamal Marie Unavailable Unavailable Reason for Visit * Reason Comments Care Coordination CM/CHW appt reminder Encounter Details Date Type Department Care Team (Latest Contact Info) Description 09/25/2024 Patient Outreach [facility] [address] [place], [place] [phone] Yaquelin Cage ANP [address] [place] [address] Care Coordination (CM/CHW appt reminder) Social History Tobacco Use Types Packs/Day [...] with others, in a hotel, in a residential, living outside on the street, on a [...] encounter Progress Notes * Yolanda Murray - 09/25/2024 9:27 AM EST CHW Yolanda Murray placed outbound call to patient. No answer at this time. [facility] reminding patient of initial assessment appt via telephone on 09/28/24@ 1PM with CM Fouzia Romero RN with CM Adult Complex Care program services. Requested call back to , as well as for any additional questions or concerns. documented in this encounter Plan of Treatment Upcoming Encounters Date Type Department Care Team (Late st Contact Info) Description 10/09/2024 10:30 AM EST Office Visit [facility] [address] [place], [place] [phone] Yaquelin Cage ANP [address] [place], [place] [phone] documented as of this encounter Visit Diagnoses Not on filedocumented in this encounter Additional Health Concerns Assessment Noted Time PHQ-9 Depression Total Score: 17 024 2:40 PM EST documented as of this encounter Care Teams Bookkeeping Teacher Relationship Specialty Start Date End Date Yaquelin Cage ANP [address] [place] [address] PCP - General Family Medicine 05/02/20 Jamal Marie FNP [address] [place] [address] Nurse Practitioner Family Medicine 08/06/23 documented as of this encounter
--- OUTSIDE RECORDS SUMMARY | 2024-10-02 13:37 | XMS_ITS | Encounter Summary ---
Author Organization [employer] Address [address] [place] [address] 7 [place] [address] Care Team Providers Care Engineering Equipment Operator Name Role Phone Yaquelin Cage Primary Care Provider [phone] Jamal Marie Unavailable Unavailable Reason for Visit * Reason Comments Care Coordination CM/CHW outreach Encounter Details Date Type Department Care Team (Latest Contact Info) Description 09/17/2024 Patient Outreach [facility] [address] [place], [place] [phone] Yaquelin Cage ANP [address] [place] [address] Care Coordination (CM/CHW outreach) Social History Tobacco [...] encounter Progress Notes * Yolanda Murray - 09/17/2024 11:06 AM EST CHW Yolanda Murray placed outbound call to [facility] for discharge coordination as patient was admitted on 09/17/2024. CHW was connected to patient's nurse station with no answer at this time, unable to LVM. CHW to follow up within the next 2 days. documented in this encounter Plan of Treatment Upcoming Encounters Date Type Department Care Team (Late st Contact Info) Description 10/09/2024 10:30 AM EST Office Visit [facility] MED[facility]INE [address] [place] [address] Yaquelin Cage ANP [address] [place] [address] documented as of this encounter Visit Diagnoses Not on filedocumented in this encounter Additional Health Concerns Assessment Noted Time PHQ-9 Depression Total Score: 17 024 2:40 PM EST documented as of this encounter Care Teams Engineering Equipment Operator Relationship Specialty Start Date End Date Yaquelin Cage ANP [address] [place] [address] PCP - General Family Medicine 05/02/20 Jamal Marie FNP [address] [place] [address] Nurse Practitioner Family Medicine 08/06/23 documented as of this encounter
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
--- OUTSIDE RECORDS SUMMARY | 2024-10-02 13:37 | XMS_ITS | Encounter Summary ---
Author Organization [employer] Address [address] [place] [address] 7 [place] [address] Care Team Providers Care Cans Vacuum Tester Name Role Phone Yaquelin Cage Primary Care Provider [phone] Jamal Marie Unavailable Unavailable Reason for Visit * Reason Comments Med Refill Encounter Details Date Type Department Care Team ([facility] st Contact Info) Description 09/12/2024 Refill [facility] [address] [place], [place] [phone] Yaquelin Cage ANP [address] [place] [address] Mild intermittent asthma without complication Social History Tobacco Use Types Packs/Day Years [...] Description 10/09/2024 10:30 AM EST Office Visit [facility] [address] [place] [address] Yaquelin Cage ANP [address] [place] [address] documented as of this encounter Visit Diagnoses Diagnosis Mild intermittent asthma without complication documented in this encounter Additional Health Concerns Assessment Noted Time PHQ-9 Depression Total Score: 17 024 2:40 PM EST documented as of this encounter Care Teams Cans Vacuum Tester Relationship Specialty Start Date End Date Yaquelin Cage ANP [address] [place] [phone] PCP - General Family Medicine 05/02/20 Jamal Marie FNP [address] [place] [phone] Nurse Practitioner Family Medicine 08/06/23 documented as of this encounter
--- OUTSIDE RECORDS SUMMARY | 2024-10-02 13:38 | XMS_ITS | Encounter Summary ---
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 Role Phone Physician, No Pcp Primary Care Provider Unavaila ble Reason for Visit * Reason Comments Fall Weakness - Generalized Fall with weaknes s and lethargy * Auth/Cert (Routine) Specialty Diagnoses / Procedures Referred By Adrien walls Referred To Contact Diagnoses Lung mass Left lower lobe pneumonia Hemoptysis Pneumonia of left lower lobe due to infectious organism Procedures OR HOSPITAL IP/OBS CARE INITIAL MODERATE LEVEL PER DAY Balta Wilson MD [address] [place] [id number] [phone] Referral ID Status Reason Start Date Expiration Date Visits Re quested Visits Authorized [id number] 1 1 Encounter Details Date Type Department Care Team (Late st Contact Info) Description 09/17/2024 2:57 AM EST - 09/23/2024 4:57 PM [facility] [place] Hospital Encounter [facility] [address] [place] [phone] Balta Wilson MD [address] [place] [id number] Charlie Greene MD [address] [place] [phone] Braydon Jaime MD [address] [place] [phone] Sanna Mackey MD [address] [place] [address] [phone] Lyudmila Cardoso MD [address] [place] [phone] Hemoptysis (Primary Dx); Lung mass; Pneumonia of left lower lobe due to infectious organism; Longstanding persistent atrial fibrillation (CMS/HCC); Leg swelling; Atrial fibrillation, unspecified type (CMS/HCC); History of Hodgkin's lymphoma; TB (pulmonary tuberculosis) Discharge Disposition: Home or Self Care Social History Tobacco Use Types Packs/Day Years [...] on file documented as of this encounter Last Filed Vital Signs Vital Sign Reading [...] Mass Index 41.84 09/17/2024 3:12 AM EST documented in this encounter Discharge Summaries * Lyudmila Cardoso MD - 09/23/2024 3:05 PM EST Images from the original note were not included. [place] DISCHARGE SUMMARY Patient Information Pablo Bedolla : 1985 [39 y.o.] Admitting Provider Balta Wilson MD Discharge Provider Lyudmila Cardoso MD, Lyudmila Cardoso MD Primary Care Physician No Pcp Physician Admission Date 09/17/2024 Discharge Date 09/23/2024 Summary of Hospital Problems Presenting Chief Complaint: Generalized weakness Primary Discharge Diagnosis: Left lower lobe pneumonia Streptococcus pneumonia with bacteremia Hemoptysis resolved Secondary Discharge Diagnosis: Non-Hodgkin's lymphoma status postchemotherapy and XRT Bronchial asthma Hypertension CT RAMESH A-fib Nonischemic cardiomyopathy Discharge Destination: Fdc Code Status at Discharge: Full Code - Default Inpatient Consultants: Dr. Harman from ID Dr. Knapp from pulmonary Hospital Course Summary 39 y.o. obese, homeless man with h/o preevious non hodgkin lymphoma diagnosed in 2010 treated with chemotherapy and XRT, Asthma, HTN, OCD, RAMESH, Afib on Xarelto and nonischemic cardiomyopathy who presented to the ED complaining of 3 days of generalized weakness and cough with bloody sputum Postobstructive pneumonia: Strep pneumoniae with strep pneumonia bacteremia Hemoptysis -improved Incidental finding of hilar mass encasing left main pulmonary artery and LV structure Seen by vascular no role for any intervention at this time. Patient was seen by pulmonary and thoracic surgery given the CAT scan findings. Recommended bronchoscopy for further evaluation to rule out malignancy at the time. AFB x 3 is negative, QuantiFERON test is negative. Discussed w blood culture on admission came back positive for strep pneumonia by PCR. Repeat blood cultures have been negative so far. Discussed with Dr. Knapp, reviewed CT findings, feels this is more likely infectious etiology however recommended bronchoscopy to rule out any possibility of underlying malignancy. Patient underwent bronchoscopy on 09/22/2024 no evidence of lung mass, some external compression of the left upper lobe bronchus noted from outside, felt most of the lung changes could likely be secondary to postradiation. Malignancy less likely. However given his history of lymphoma status post chemoradiation treatment 10 years ago recommended outpatient follow-up with a PET scan through oncology. No evidence of TB or active hemoptysis noted. Seen by ID, appreciate input, patient apparently had some complaints of neck pain/stiffness earlierwhen he presented which according to the patient today is all better. Recommending LP to rule out invasive strep meningitis. LP was negative for any evidence of meningitis/ encephalitis Recommended to switch to levofloxacin 750 mg p.o. daily for antibiotics to complete the course, enddate would be 10/05/2024. QTc within normal limits. History of cardiomyopathy on Entresto, Coreg History of a flutter/fib/secondary hypercoagulable state On digoxin and carvedilol. Xarelto can be resumed history of Hodgkin's lymphoma which is in remission at this time. Outpatient follow-up with Dr. 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 Follow-up with PCP as outpatient Follow-Up Instructions and Recommendations Follow-up with PCP as outpatient in a week Follow-up with Dr. Lockhart as outpatient in 1 to 2 weeks Outpatient PET scan recommended for follow-up. Will need to follow-up on final culture, cytology results from bronchoscopy Discharge Medications Your medication list START taking these medications Instructions Last Dose Given Next Dose Due guaiFENesin 100 mg/5 mL liquid Commonly known as: ROBITUSSIN Take 10 mL (200 mg total) by mouth 3 (three) times a day if needed for cough for up to 10 days. hydrALAZINE 10 mg tablet Commonly known as: APRESOLINE Take 2 tablets (20 mg total) by mouth 2 (two) times a day. levoFLOXacin 750 mg tablet Commonly known as: LEVAQUIN Take 1 tablet (750 mg total) by mouth 1 (one) time each day for 12 days. CONTINUE taking these medications Instructions Last Dose Given Next Dose Due amLODIPine 10 mg tablet Commonly known as: NORVASC Take 1 tablet (10 mg total) by mouth 1 (one) time each day. buPROPion XL 300 mg 24 hr tablet Commonly known as: WELLBUTRIN XL Take 1 tablet (300 mg total) by mouth 1 (one) time each day. Do not crush, chew, or split. carvediloL 25 mg tablet Commonly known as: COREG Take 1 tablet (25 mg total) by mouth 2 (two) times a day with meals. cholecalciferol 50 mcg (2,000 unit) tablet Commonly known as: VITAMIN D-3 Take 1 tablet (2,000 Units total) by mouth 1 (one) time each day. digoxin 250 mcg (0.25 mg) tablet Commonly known as: LANOXIN Take 1 tablet (250 mcg total) by mouth 1 (one) time each day. Entresto 49-51 mg per tablet Generic drug: sacubitriL-valsartan Take 1 tablet by mouth 2 (two) times a day. furosemide 20 mg tablet Commonly known as: LASIX Take 1 tablet (20 mg total) by mouth 1 (one) time each day. levothyroxine 25 mcg tablet Commonly known as: SYNTHROID, LEVOTHROID Take 1 tablet (25 mcg total) by mouth 1 (one) time each day before breakfast. rivaroxaban 20 mg tablet Commonly known as: XARELTO Take 1 tablet (20 mg total) by mouth 1 (one) time each day with dinner. Take with food. venlafaxine XR 150 mg 24 hr capsule Commonly known as: EFFEXOR-XR Take 1 capsule (150 mg total) by mouth 1 (one) time each day. Do not crush or chew. STOP taking these medications omeprazole [address] capsule Commonly known as: PriLOSEC Where to Get Your Medications These medications were sent to [facility] at [place] [address] guaiFENesin 100 mg/5 mL liquid hydrALAZINE 10 mg tablet levoFLOXacin 750 mg tablet Physical Exam at time of Discharge Physical Exam Obese male not in any acute distress ambulating without any issues. HEENT PERRLA, EOMI Neck supple Chest clear to auscultation at this time Heart S1-S2 regular Abdomen soft nontender bowel sounds present Extremities no edema. Vitals Visit Vitals BP (!) 154/104 (BP Location: Right arm, Patient Position: Lying) Pulse 63 Temp 36 ??C (96.8 ??F) (Temporal) Resp 19 Temp (24hrs), Av.3 ??C (97.4 ??F), Min:35.8 ??C (96.5 ??F), Max:36.8 ??C (98.2 ??F) Body mass index is 41.84 kg/m??. No results found for: PTWT , PTHT Results from last 7 days Lab Units 09/22/24 0404 09/21/24 0851 09/20/24 0606 SODIUM mmol/L 142 140 139 POTASSIUM mmol/L 4.3 3.9 4.0 CHLORIDE mmol/L 105 104 102 CO2 mmol/L 32 32 31 BUN mg/dL 15 15 11 CREATININE mg/dL 1.09 0.84 0.88 GLUCOSE mg/dL 127* 123* 101* CALCIUM mg/dL 8.4* 9.2 8.6 Results from last 7 days Lab Units 09/22/24 0404 09/20/24 0606 09/19/24 0633 WBC AUTO K/mcL 6.1 7.9 12.6* HEMOGLOBIN g/dL 13.4* 13.6 14.0 HEMATOCRIT % 42.6 43.0 44.6 PLATELETS K/mcL 227 211 180 XR Lumbar Puncture Diagnostic w Fluoro/CT Final Result Fluoroscopically-guided lumbar puncture with retrieval of approximately 13cc of CSF fluid as described above. -------- FINAL REPORT -------- Dictated By: Gabby Underwood Dictated Date: 09/22/2024 10:54 ET Assigned Physician: Merle Segundo Reviewed and Electronically Signed By: Merle Segundo Signed Date: 09/23/2024 09:46 ET Workstation ID: [id number] Transcribed By: Self Edit Transcribed Date: 09/22/2024 11:00 ET Resident/PA/QUALITY LEAD: Gabby Underwood CT Chest w Contrast Final Result Ill-defined left upper lobe 2.1 cm nodule intertwined within the secondary bronchioles. This results in lingular, left lower lobe dense consolidation. There is mild atelectatic changes of the left upper lobe anterior segment. These findings were present on the last exam 09/17/2024. There is a abnormal anterior mediastinal lymph node. There is a adjacent 3.3 cm lesion likely lymphnode with calcified alcantar. It is stable to last exam. No additional parenchymal lesions seen. Small left pleural effusion. -------- FINAL REPORT -------- Dictated By: Ronaldo Fuller Dictated Date: 09/20/2024 11:51 ET Assigned Physician: Ronaldo Fuller Reviewed and Electronically Signed By: Ronaldo Fuller Signed Date: 09/20/2024 12:05 ET Workstation ID: [id number] Transcribed By: Self Edit Transcribed Date: 09/20/2024 11:51 ET Vascular US duplex lower extremity venous bilateral Final Result NO RIGHT OR LEFT LOWER EXTREMITY DEEP VENOUS THROMBOSIS. -------- FINAL REPORT -------- Dictated By: DIO CALDWELL Dictated Date: 09/18/2024 17:56 ET Assigned Physician: DIO CALDWELL Reviewed and Electronically Signed By: DIO CALDWELL Signed Date: 09/18/2024 17:57 ET Workstation ID: [id number] Transcribed By: Self Edit Transcribed Date: 09/18/2024 17:56 ET Transthoracic echocardiogram (TTE) complete with PRN contrast, bubble, strain, and 3D order panel Final Result XR Chest 2 Views Final Result Left hilar and perihilar density consistent with an inflammatory, infectious, and/or neoplastic process. There is a moderate sized left pleural effusion with underlying atelectasis and/or infiltrate.The right lung is clear. Code 90139 -------- FINAL REPORT -------- Dictated By: Esa Nathan Dictated Date: 09/18/2024 12:10 ET Assigned Physician: Esa Nathan Reviewed and Electronically Signed By: Esa Nathan Signed Date: 09/18/2024 12:14 ET Workstation ID: [id number] Transcribed By: Self Edit Transcribed Date: 09/18/2024 12:[address] Head wo Contrast Final Result Impression: No acute intracranial pathology. This document has been electronically signed by: Omar Mendiola MD on 09/17/2024 05:58:03 CT Angio Chest wo and/or w Contrast Final Result Addendum (preliminary) 1 of 1 ADDENDUM: Alternative consideration given patient age for left hilar process and adenopathy is infectious sequelae. This document has been electronically signed by: Omar Mendiola MD on 09/17/2024 06:30:58 Final No pulmonary emboli. Left hilar process with encasement of vascular and airway structures for which neoplasm is prime consideration. This is difficult to measure given infiltrative nature. Left lingular and lower lobe consolidations may reflect infiltrates or post-obstructive atelectasis. Prevascular adenopathy. Prominent elevation left hemidiaphragm. This document has been electronically signed by: Omar Mendiola MD on 09/17/2024 06:15:17 CT Abdomen Pelvis w Contrast Final Result Prominent left hemidiaphragm elevation. Hepatomegaly. Dense retained stool. No abnormal masses. This document has been electronically signed by: Omar Mendiola MD on 09/17/2024 06:20:44 Recent Results (from the past 168 hour(s)) Respiratory virus panel molecular study Collection Time: 09/17/24 4:39 AM Specimen: Nares; Swab Result Value Ref Range Adenovirus Detection by PCR Not Detected Not Detected Influenza A PCR Not Detected Not Detected Influenza B PCR Not Detected Not Detected Coronavirus 229E Not Detected Not Detected Coronavirus HKU1 Not Detected Not Detected Coronavirus OC43 Not Detected Not Detected Coronavirus NL63 Not Detected Not Detected Parainfluenza Virus 1 Not Detected Not Detected Parainfluenza Virus 2 Not Detected Not Detected Parainfluenza Virus 3 Not Detected Not Detected Parainfluenza Virus 4 Not Detected Not Detected RSV PCR Not Detected Not Detected Human Metapneumovirus A and B Not Detected Not Detected Rhinovirus/Enterovirus Not Detected Not Detected Bordetella pertussis Not Detected Not Detected Bordetella parapertussis Not Detected Not Detected Mycoplasma pneumo by PCR Not Detected Not Detected Chlamydia pneumoniae Not Detected Not Detected SARS COV-2 Not Detected Not Detected Culture urine Collection Time: 09/17/24 5:00 AM Specimen: Urine, Clean Catch Result Value Ref Range Culture, Urine (A) 10,000-49,000 CFU/mL Streptococcus beta-hemolytic Group B Legionella antigen urine, EIA Collection Time: 09/17/24 5:00 AM Result Value Ref Range Legionella Antigen, Ur Negative Negative Blood Culture, Peripheral Draw #2 Collection Time: 09/17/24 6:52 AM Specimen: Blood, Venous Result Value Ref Range Culture, Blood Streptococcus pneumoniae (AA) Gram Stain Result (AA) Aerobic and Anaerobic bottles Gram positive cocci in pairs and chains Blood Culture, Peripheral Draw #1 Collection Time: 09/17/24 6:52 AM Specimen: Blood, Venous Result Value Ref Range Culture, Blood Streptococcus pneumoniae (AA) Gram Stain Result (AA) Aerobic and Anaerobic bottles Gram positive cocci in pairs and chains Susceptibility Streptococcus pneumoniae - MARY Penicillin (non-meningitis) Susceptible ug/ml Penicillin PO Susceptible ug/ml Penicillin (meningitis) Susceptible ug/ml Cefotaxime (Meningitis) Susceptible ug/ml Cefotaxime (Non Meningitis) Susceptible ug/ml Ceftriaxone (Meningitis) Susceptible ug/ml Ceftriaxone (Non Meningitis) Susceptible ug/ml Levofloxacin Susceptible ug/ml Moxifloxacin Susceptible ug/ml Erythromycin Susceptible ug/ml Clindamycin Susceptible ug/ml Linezolid Susceptible ug/ml Vancomycin Tetracycline Susceptible ug/ml Tigecycline Trimethoprim/Sulfamethoxazole Susceptible ug/ml Blood culture pathogens molecular study Collection Time: 09/17/24 6:52 AM Specimen: Blood, Venous Result Value Ref Range Streptococcus pneumoniae Detected (A) Not Detected MRSA molecular study Collection Time: 09/17/24 6:55 AM Specimen: Nares; Swab Result Value Ref Range MRSA Screen PCR Not Detected Not Detected Culture sputum Collection Time: 09/17/24 10:31 AM Specimen: Lungs; Sputum, expectorated Result Value Ref Range Culture, Sputum No pathogens isolated. Gram Stain Result Many Polymorphonuclear leukocytes (A) Gram Stain Result Rare Epithelial cells (A) Gram Stain Result Rare Gram positive cocci in pairs (A) Gram Stain Result Rare Gram positive bacilli (A) Gram Stain Result (A) Greater than 25 WBCS and less than 10 Epithelial cells MRSA molecular study Collection Time: 09/17/24 11:36 AM Specimen: Nares; Swab Result Value Ref Range MRSA Screen PCR Not Detected Not Detected Culture blood Collection Time: 09/17/24 7:15 PM Specimen: Blood, Venous Result Value Ref Range Culture, Blood No growth at 5 days Culture blood Collection Time: 09/18/24 9:35 AM Specimen: Blood, Venous Result Value Ref Range Culture, Blood No growth at 5 days Culture, afb and smear with reflex to identification and susceptibility Collection Time: 09/18/24 9:44 AM Specimen: Trachea; Sputum Result Value Ref Range AFB Specimen Processing Concentration Acid Fast Smear Negative Acid fast bacilli stain Collection Time: 09/18/24 9:44 AM Specimen: Trachea; Sputum Result Value Ref Range AFB Stain Result No Acid Fast Bacilli seen on direct smear No Acid fast bacilli seen on direct smear (Fuchsin method, 1000x) Acid fast bacilli stain Collection Time: 09/19/24 8:45 AM Specimen: Sputum Result Value Ref Range AFB Stain Result No Acid Fast Bacilli seen on direct smear No Acid fast bacilli seen on direct smear (Fuchsin method, 1000x) Acid fast bacilli stain Collection Time: 09/20/24 6:42 AM Specimen: Sputum Result Value Ref Range AFB Stain Result No Acid Fast Bacilli seen on direct smear No Acid fast bacilli seen on direct smear (Fuchsin method, 1000x) Encephalitis pathogens molecular study Collection Time: 09/22/24 9:52 AM Specimen: Lumbar Puncture; Cerebrospinal Fluid Result Value Ref Range Escherichia coli K1 Detection by PCR Not Detected Not Detected Haemophilus influenzae Detection by PCR Not Detected Not Detected Listeria monocytogenes Detection by PCR Not Detected Not Detected Neisseria meningitidis Detection by PCR Not Detected Not Detected Streptococcus agalactiae Detection by PCR Not Detected Not Detected Streptococcus pneumoniae Detection by PCR Not Detected Not Detected Cytomegalovirus Detection by PCR Not Detected Not Detected Enterovirus Detection by PCR Not Detected Not Detected Herpes Simplex Virus 1 Detection by PCR Not Detected Not Detected Herpes Simplex Virus 2 Detection by PCR Not Detected Not Detected Human Herpesvirus 6 Detection by PCR Not Detected Not Detected Human Parechovirus Detection by PCR Not Detected Not Detected Varicella Zoster Virus Detection by PCR Not Detected Not Detected Cryptococcus neoformans/gattii Detection by PCR Not Detected Not Detected Culture CSF with gram stain Collection Time: 09/22/24 9:52 AM Specimen: Lumbar Puncture; Cerebrospinal Fluid Result Value Ref Range Culture, CSF No growth at 1 day Gram Stain Result Rare Polymorphonuclear leukocytes Gram Stain Result No epithelial cells seen Gram Stain Result No organisms seen Culture blood Collection Time: 09/22/24 11:38 AM Specimen: Blood, Venous Result Value Ref Range Culture, Blood No growth at 24 hours Culture blood Collection Time: 09/22/24 12:00 PM Specimen: Blood, Venous Result Value Ref Range Culture, Blood No growth at 24 hours Culture bronchial with gram stain Collection Time: 09/22/24 5:10 PM Specimen: Lung, Left Lower Lobe; Bronchoalveolar Lavage Result Value Ref Range Bronchial Culture Screening for Pathogens Gram Stain Result No Epithelial cells Gram Stain Result Moderate Polymorphonuclear leukocytes Gram Stain Result No organisms seen Acid fast bacilli stain Collection Time: 09/22/24 5:10 PM Specimen: Lung, Left Lower Lobe; Bronchoalveolar Lavage Result Value Ref Range AFB Stain Result No Acid Fast Bacilli seen on direct smear No Acid fast bacilli seen on direct smear (Fuchsin method, 1000x) Culture anaerobic with gram stain Collection Time: 09/22/24 5:18 PM Specimen: Lung, Left Lower Lobe; Brushing Result Value Ref Range Culture, Anaerobic Screening for Anaerobes Total time spent 45 minutes doing chart review, seeing patient performing physical exam, formulating plan, coordinating with RN, ICC for discharge, and documentation This dictation was performed using voice recognition software. Word substitution may have occurred and may have gone unnoticed and uncorrected * Lyudmila Cardoso MD - 09/23/2024 3:02 PM EST Low salt cardiac diet * Lyudmila Cardoso MD - 09/23/2024 3:02 PM EST As tolerated documented in this encounter Discharge Instructions * Discharge Instructions* Lyudmila Cardoso MD - 09/23/2024 3:04 PM EST Follow-up with your primary care physician in a week upon discharge. Follow-up with Dr. Lockhart as outpatient, will need to have an outpatient PET scan scheduled throughDr. Lockhart. Continue taking antibiotics to complete the course. Watch for any diarrhea, ankle/heel pain while on antibiotics, call your PCP immediately, medications may need to be changed then. Avoid taking any calcium, multivitamin, thyroid supplements along with levofloxacin, take at least 4 hours apart. Follow-up with cardiology as outpatient as scheduled next. Follow-up on blood pressure as outpatient and further medication adjustments to be made through your PCP. documented in this encounter Medications at Time of Discharge Medication Sig Dispensed Refills Start Date End Date amLODIPine (NORVASC) 10 mg tablet Take 1 tablet (10 mg total) by mouth 1 (one) time each day. buPROPion XL (WELLBUTRIN XL) 300 mg 24 hr tablet Take 1 tablet (300 mg total) by mouth 1 (one) time each day. Do not crush, chew, or split. carvediloL (COREG) 25 mg tablet Take 1 tablet (25 mg total) by mouth 2 (two) times a day with meals. cholecalciferol (VITAMIN D-3) 50 mcg (2,000 unit) tablet Take 1 tablet (2,000 Units total) by mouth 1 (one) time each day. digoxin (LANOXIN) 250 mcg (0.25 mg) tablet Take 1 tablet (250 mcg total) by mouth 1 (one) time each day. furosemide (LASIX) 20 mg tablet Take 1 tablet (20 mg total) by mouth 1 (one) time each day. guaiFENesin (ROBITUSSIN) 100 mg/5 mL liquid Take 10 mL (200 mg total) by mouth 3 (three) times a day if needed for cough for up to 10 days. 120 mL 09/23/2024 10/03/2024 hydrALAZINE (APRESOLINE) 10 mg tablet Take 2 tablets (20 mg total) by mouth 2 (two) times a day. 120 each 09/23/2024 09/23/2025 levoFLOXacin (LEVAQUIN) 750 mg tablet Take 1 tablet (750 mg total) by mouth 1 (one) time each day for 12 days. 12 each 09/23/2024 10/05/2024 levothyroxine (SYNTHROID, LEVOTHROID) 25 mcg tablet Take 1 tablet (25 mcg total) by mouth 1 (one) time each day before breakfast. rivaroxaban (XARELTO) 20 mg tablet Take 1 tablet (20 mg total) by mouth 1 (one) time each day with dinner. Take with food. sacubitriL-valsartan (Entresto) 49-51 mg per tablet Take 1 tablet by mouth 2 (two) times a day. venlafaxine XR (EFFEXOR-XR) 150 mg 24 hr capsule Take 1 capsule (150 mg total) by mouth 1 (one) time each day. Do not crush or chew. documented as of this encounter Ordered Prescriptions Prescription Sig Dispensed Refills Start Date End Da te guaiFENesin (ROBITUSSIN) 100 mg/5 mL liquid Take 10 mL (200 mg total) by mouth 3 (three) times a day if needed for cough for up to 10 days. 120 mL 09/23/2024 10/03/2024 levoFLOXacin (LEVAQUIN) 750 mg tablet Take 1 tablet (750 mg total) by mouth 1 (one) time each day for 12 days. 12 each 09/23/2024 10/05/2024 hydrALAZINE (APRESOLINE) 10 mg tablet Take 2 tablets (20 mg total) by mouth 2 (two) times a day. 120 each 09/23/2024 09/23/2025 documented in this encounter Discharge Disposition Disposition Code Departure Means Destination Comment s Home or Self Assisted documented in this encounter Progress Notes * Tracy Parra LCSW - 09/23/2024 4:10 PM EST Pt does not agree with d/c plan sw explained that he does not have a bed at [facility] per nursing sw and bedside nurse were present in the room and called [facility] spoke with [place] she stated that pt should go to [facility] at least for the night pt called his friend at [facility] his friend stated that his stuff his on his bunk still which is a bottom bunk Radha stated all beds are full pt states that he will go to [facility] and try, per [facility] pt had a safe d/c plan which he declined * Tracy Parra LCSW - 09/23/2024 1:56 PM EST Carmella from [facility] called and stated that they would not be able to accommodate the pt due to the pt's needing a bottom bunk, pt has been accepted at the [facility] [place] located at [address] [place] [address] pt will require a Lyft for transportation he will need to arrive at the group home between 3-4 pm sw will remain available to assist with d/c * Tracy Parra LCSW - 09/23/2024 11:53 AM EST Pt is ready to d/c per bedside nurse no d/c summary yet, gama reached out to [facility] and spoke with Carmella RN she stated that the pt has lost his bed but they do have a top bunk available she feels the pt may not be able to climb to a top bunk tw asked the pt if he could pt stated that he could try but wasunsure, tw also reached out to [facility] they do have bottom bunks available tw will complete the referral, Carmella will call back if they are able to accommodate sw will continue to follow for safe d/c planning * Tahmina Knapp MD - 09/23/2024 8:11 AM EST Subjective Patient without significant hemoptysis. Bronc done yesterday showed no evidence of active bleeding or clots in the airway. He is on room air, AFB negative on bronchoscopy Objective - no fever, purulent sputum Physical Exam Constitutional: Appearance: He is obese. HENT: Head: Normocephalic and atraumatic. Eyes: Conjunctiva/sclera: Conjunctivae normal. Pulmonary: Effort: Pulmonary effort is normal. Abdominal: Palpations: Abdomen is soft. Musculoskeletal: Cervical back: Normal range of motion. Skin: General: Skin is warm. Neurological: General: No focal deficit present. Mental Status: He is alert. Last Recorded Vitals: Blood pressure (!) 144/99, pulse 96, temperature 36.6 ??C (97.8 ??F), temperature source Temporal, resp. rate 16, height 1.803 m (71 ), weight 136 kg (300 lb), SpO2 96%. AFB negative x 3 and negative on bronchoscopy Assessment/Plan Principal Problem: Left lower lobe pneumonia Active Problems: Mass of lower lobe of left lung History of Hodgkin's lymphoma Nonischemic cardiomyopathy (CMS/HCC) Atrial fibrillation (CMS/HCC) Hemoptysis Bronc done yesterday showed no lung mass, there is some external compression of the left upper lobesubbronchus from the outside, I suspect that much of the left lung changes might be due to postradiation. Malignancy is less likely. The patient finish chemoradiation for lymphoma 10 years ago. He has not seen his oncologist Dr. Lockhart in several years. I recommend follow-up outpatient PET CT scan.There is no evidence of TB or active hemoptysis, anticoagulation can be resumed. * Tracy Parra LCSW - 09/22/2024 12:55 PM EST Sw met with pt at bedside pt was alert and oriented pt is concerned that he is going to lose his bed at [facility] due to him still being admitted to [facility] tw spoke with [facility] nursing pt will lose the bed because he has been here more than 3 days pt will need to complete the intake process again also the pt is open to going to [facility] once the pt is medically ready referrals will be placed * Christine Harman MD - 09/22/2024 12:44 PM EST Pablo Bedolla is here for { Fall and Weakness - Generalized (Fall with weakness and lethargy) Subjective Patient feels well except feeling a little tired from his procedure this morning. Denies any complaints. Review of Systems Review of Systems Constitutional: Negative. HENT: Negative. Respiratory: Negative. Cardiovascular: Negative. Gastrointestinal: Negative. Genitourinary: Negative. Musculoskeletal: Negative. Neurological: Negative. Physical Examination: Vitals: Visit Vitals BP (!) 177/105 (BP Location: Left arm, Patient Position: Lying) Pulse 55 Temp 36.1 ??C (96.9 ??F) (Temporal) Resp 18 Physical Exam Vitals reviewed. Constitutional: Appearance: Normal appearance. HENT: Head: Normocephalic and atraumatic. Eyes: General: No scleral icterus. Cardiovascular: Rate and Rhythm: Normal rate and regular rhythm. Heart sounds: No murmur heard. No friction rub. No gallop. Pulmonary: Effort: Pulmonary effort is normal. No respiratory distress. Breath sounds: Normal breath sounds. No stridor. No wheezing, rhonchi or rales. Chest: Chest wall: No tenderness. Abdominal: General: Abdomen is flat. Bowel sounds are normal. There is no distension. Palpations: Abdomen is soft. Tenderness: There is no abdominal tenderness. There is no right CVA tenderness, left CVA tenderness, guarding or rebound. Hernia: No hernia is present. Skin: General: Skin is warm and dry. Findings: No rash. Neurological: Mental Status: He is alert and oriented to person, place, and time. Objective Recent Lab Results: Lab Results Component Value Date WBC 6.1 09/22/2024 RBC 4.90 09/22/2024 HGB 13.4 (L) 09/22/2024 HCT 42.6 09/22/2024 MCV 87.1 09/22/2024 MCHC 31.5 (L) 09/22/2024 RDW 14.9 09/22/2024 PLT 227 09/22/2024 MPV 9.7 09/22/2024 NRBC 0.0 09/22/2024 DIFF Lab Results Component Value Date LYMPHOPCT 32.0 09/22/2024 NEUTROABS 3.21 09/22/2024 LYMPHSABS 1.95 09/22/2024 MONOABS 0.77 09/22/2024 EOSABS 0.09 09/22/2024 BASOSABS 0.03 09/22/2024 IMMGRANABS 0.05 (H) 09/22/2024 RETIC No results found for: RETIC , RETICCTPCT Lab Results Component Value Date BLOODCX Culture in progress 09/22/2024 BLOODCX No growth at 2 days 09/18/2024 URINECX (A) 09/17/2024 10,000-49,000 CFU/mL Streptococcus beta-hemolytic Group B MRSA Not Detected 09/17/2024 Recent Results (from the past 168 hour(s)) Respiratory virus panel molecular study Collection Time: 09/17/24 4:39 AM Specimen: Nares; Swab Result Value Ref Range Adenovirus Detection by PCR Not Detected Not Detected Influenza A PCR Not Detected Not Detected Influenza B PCR Not Detected Not Detected Coronavirus 229E Not Detected Not Detected Coronavirus HKU1 Not Detected Not Detected Coronavirus OC43 Not Detected Not Detected Coronavirus NL63 Not Detected Not Detected Parainfluenza Virus 1 Not Detected Not Detected Parainfluenza Virus 2 Not Detected Not Detected Parainfluenza Virus 3 Not Detected Not Detected Parainfluenza Virus 4 Not Detected Not Detected RSV PCR Not Detected Not Detected Human Metapneumovirus A and B Not Detected Not Detected Rhinovirus/Enterovirus Not Detected Not Detected Bordetella pertussis Not Detected Not Detected Bordetella parapertussis Not Detected Not Detected Mycoplasma pneumo by PCR Not Detected Not Detected Chlamydia pneumoniae Not Detected Not Detected SARS COV-2 Not Detected Not Detected Culture urine Collection Time: 09/17/24 5:00 AM Specimen: Urine, Clean Catch Result Value Ref Range Culture, Urine (A) 10,000-49,000 CFU/mL Streptococcus beta-hemolytic Group B Legionella antigen urine, EIA Collection Time: 09/17/24 5:00 AM Result Value Ref Range Legionella Antigen, Ur Negative Negative Blood Culture, Peripheral Draw #2 Collection Time: 09/17/24 6:52 AM Specimen: Blood, Venous Result Value Ref Range Culture, Blood Streptococcus pneumoniae (AA) Gram Stain Result (AA) Aerobic and Anaerobic bottles Gram positive cocci in pairs and chains Blood Culture, Peripheral Draw #1 Collection Time: 09/17/24 6:52 AM Specimen: Blood, Venous Result Value Ref Range Culture, Blood Streptococcus pneumoniae (AA) Gram Stain Result (AA) Aerobic and Anaerobic bottles Gram positive cocci in pairs and chains Susceptibility Streptococcus pneumoniae - MARY Penicillin (non-meningitis) Susceptible ug/ml Penicillin PO Susceptible ug/ml Penicillin (meningitis) Susceptible ug/ml Cefotaxime (Meningitis) Susceptible ug/ml Cefotaxime (Non Meningitis) Susceptible ug/ml Ceftriaxone (Meningitis) Susceptible ug/ml Ceftriaxone (Non Meningitis) Susceptible ug/ml Levofloxacin Susceptible ug/ml Moxifloxacin Susceptible ug/ml Erythromycin Susceptible ug/ml Clindamycin Susceptible ug/ml Linezolid Susceptible ug/ml Vancomycin Tetracycline Susceptible ug/ml Tigecycline Trimethoprim/Sulfamethoxazole Susceptible ug/ml Blood culture pathogens molecular study Collection Time: 09/17/24 6:52 AM Specimen: Blood, Venous Result Value Ref Range Streptococcus pneumoniae Detected (A) Not Detected MRSA molecular study Collection Time: 09/17/24 6:55 AM Specimen: Nares; Swab Result Value Ref Range MRSA Screen PCR Not Detected Not Detected Culture sputum Collection Time: 09/17/24 10:31 AM Specimen: Lungs; Sputum, expectorated Result Value Ref Range Culture, Sputum No pathogens isolated. Gram Stain Result Many Polymorphonuclear leukocytes (A) Gram Stain Result Rare Epithelial cells (A) Gram Stain Result Rare Gram positive cocci in pairs (A) Gram Stain Result Rare Gram positive bacilli (A) Gram Stain Result (A) Greater than 25 WBCS and less than 10 Epithelial cells MRSA molecular study Collection Time: 09/17/24 11:36 AM Specimen: Nares; Swab Result Value Ref Range MRSA Screen PCR Not Detected Not Detected Culture blood Collection Time: 09/17/24 7:15 PM Specimen: Blood, Venous Result Value Ref Range Culture, Blood No growth at 2 days Culture blood Collection Time: 09/18/24 9:35 AM Specimen: Blood, Venous Result Value Ref Range Culture, Blood No growth at 2 days Acid fast bacilli stain Collection Time: 09/18/24 9:44 AM Specimen: Trachea; Sputum Result Value Ref Range AFB Stain Result No Acid Fast Bacilli seen on direct smear No Acid fast bacilli seen on direct smear (Fuchsin method, 1000x) Acid fast bacilli stain Collection Time: 09/19/24 8:45 AM Specimen: Sputum Result Value Ref Range AFB Stain Result No Acid Fast Bacilli seen on direct smear No Acid fast bacilli seen on direct smear (Fuchsin method, 1000x) Acid fast bacilli stain Collection Time: 09/20/24 6:42 AM Specimen: Sputum Result Value Ref Range AFB Stain Result No Acid Fast Bacilli seen on direct smear No Acid fast bacilli seen on direct smear (Fuchsin method, 1000x) Encephalitis pathogens molecular study Collection Time: 09/22/24 9:52 AM Specimen: Lumbar Puncture; Cerebrospinal Fluid Result Value Ref Range Escherichia coli K1 Detection by PCR Not Detected Not Detected Haemophilus influenzae Detection by PCR Not Detected Not Detected Listeria monocytogenes Detection by PCR Not Detected Not Detected Neisseria meningitidis Detection by PCR Not Detected Not Detected Streptococcus agalactiae Detection by PCR Not Detected Not Detected Streptococcus pneumoniae Detection by PCR Not Detected Not Detected Cytomegalovirus Detection by PCR Not Detected Not Detected Enterovirus Detection by PCR Not Detected Not Detected Herpes Simplex Virus 1 Detection by PCR Not Detected Not Detected Herpes Simplex Virus 2 Detection by PCR Not Detected Not Detected Human Herpesvirus 6 Detection by PCR Not Detected Not Detected Human Parechovirus Detection by PCR Not Detected Not Detected Varicella Zoster Virus Detection by PCR Not Detected Not Detected Cryptococcus neoformans/gattii Detection by PCR Not Detected Not Detected Culture CSF with gram stain Collection Time: 09/22/24 9:52 AM Specimen: Lumbar Puncture; Cerebrospinal Fluid Result Value Ref Range Gram Stain Result Rare Polymorphonuclear leukocytes Gram Stain Result No epithelial cells seen Gram Stain Result No organisms seen Culture blood Collection Time: 09/22/24 11:38 AM Specimen: Blood, Venous Result Value Ref Range Culture, Blood Culture in progress Recent Imaging Findings: XR Lumbar Puncture Diagnostic w Fluoro/CT Result Date: 09/22/2024 Narrative: History: Bacteremia, nuchal rigidity PROCEDURE: Fluoroscopically- guided lumbar puncture as per referring clinician request. Following sterile prep of the skin overlying the lumbar spine and placement of local anesthetic, 20-gauge spinal needle advanced into the thecal sac at the L4-5 level. Blood- tinged CSF encountered likely secondary to traumatic tap. Opening and closing pressures not obtained due to patient being in prone position. Fluid divided between 4 vials and sent for requested studies. Stylet replaced and needle removed. Procedure well tolerated. No immediate complication. FINDINGS: Single spot film of the LS-spine at time of needle placement shows spinal needle tip projecting over the right paramedian lumbar spinal canal at the L4-5 level. DAP: 3.92 Gycm^2 Impression: Fluoroscopically-guided lumbar puncture with retrieval of approximately 13cc of CSF fluid as described above. -------- PRELIMINARY REPORT -------- Dictated By: Gabby Underwood Dictated Date: 09/22/2024 10:54 ET Assigned Physician: Merle Segundo Reviewed and Electronically Signed By: Signed Date: ET Workstation ID: [id number] Transcribed By: Self Edit Transcribed Date: 09/22/2024 11:00 ET Resident/PA/QUALITY LEAD: Gabby Underwood CT Chest w Contrast Result Date: 09/20/2024 Narrative: Examination: CT chest with contrast. CLINICAL INDICATION: Pneumonia, effusion abscess suspected. COMPARISON: Chest 2 views TECHNIQUE: 2.5 mm thin axial and reformatted 3 mm thin sagittal and coronal images of chest were obtained following IV 90 mL Isovue-370. Scanner: [employer] 64 slice VCT Dose reduction technique: ASIR (Adaptive statistical iterative reconstruction) and/or AEC (automated exposure control) Dose: total exam DLP 1399 mGy/cm FINDINGS: LUNGS: The right lung is expanded and clear. There is loss of left lung volume with left lingular and left lower lobed dense consolidation. There is a soft tissue ill-defined density in the left upper lobe paramediastinal measuring 2.1 x 1.8 cm on axial slice 36/3 with a few bronchi traversing the lesion resulting in mild atelectatic changes in the left upper lobe anterior segment. Nonspecific focal right lateral major fissurethickening is noted. No additional pulmonary nodules seen. Pleura: There is a small left pleural effusion without thickening. Mediastinum. Heart size and the great vessels are normal caliber. There is a three-vessel rotting of the aortic arch without aneurysm or dissection. There is a prominent anterior mediastinal lymph node measuring 1.5 cm cyst, suspicious. Adjacent to the lymph is a mass withcalcified alcantar. It measures 3.3 x 3.3 cm on axial slice 42/3 There is no pericardial effusion. No coronary artery calcification seen. There is good opacification of pulmonary artery and its brancheswithout intraluminal filling defect. Axilla: Unremarkable. Upper abdomen: Visualized liver, spleen,pancreas and adrenal glands unremarkable. The upper kidneys unremarkable. Osseous structures: No aggressive lytic or sclerotic process seen. Impression: Ill-defined left upper lobe 2.1 cm nodule intertwined within the secondary bronchioles.This results in lingular, left lower lobe dense consolidation. There is mild atelectatic changes ofthe left upper lobe anterior segment. These findings were present on the last exam 09/17/2024. Thereis a abnormal anterior mediastinal lymph node. There is a adjacent 3.3 cm lesion likely lymph node with calcified alcantar. It is stable to last exam. No additional parenchymal lesions seen. Small left pleural effusion. -------- FINAL REPORT -------- Dictated By: Ronaldo Fuller Dictated Date: 511:51 ET Assigned Physician: Ronaldo Fuller Reviewed and Electronically Signed By: Ronaldo Fuller Signed Date: 09/20/2024 12:05 ET Workstation ID: [id number] Transcribed By: Self Edit Transcribed Date: 09/20/2024 11:51 ET Vascular US duplex lower extremity venous bilateral Result Date: 09/18/2024 Narrative: PROCEDURE: VAS US DUPLEX LOWER EXT VENOUS [...] patent. 3.5 cm right popliteal fossa cyst Impression: NO RIGHT OR LEFT LOWER EXTREMITY DEEP VENOUS THROMBOSIS. -------- FINAL REPORT --------Dictated By: DIO CALDWELL Dictated Date: 09/18/2024 17:56 ET Assigned Physician: DIO CALDWELL Reviewed and Electronically Signed By: DIO CALDWELL Signed Date: 09/18/2024 17:57 ET Workstation ID: [id number] Transcribed By: Self Edit Transcribed Date: 09/18/2024 17:56 ET XR Chest 2 Views Result Date: 09/18/2024 Narrative: HISTORY: The patient is a 39-year-old male with dyspnea on exertion. CT scan of the chest performed 09/17/2024 demonstrated left hilar and perihilar fullness consistent with an infectious, inflammatory, or neoplastic process, with lingular and left lower lobe consolidation as well as a left pleural effusion. FINDINGS: PA and lateral graphs of the chest, without previous chest radiographfor comparison, demonstrate normal appearance of the bony structures. The cardiac size is difficultto evaluate on this examination. There is density in the left hilar and parahilar regions consistent with lymphadenopathy and/or an inflammatory or infectious process. There is a moderate sized left pleural effusion with underlying atelectasis and/or infiltrate. The right lung is clear. Impression: Left hilar and perihilar density consistent with an inflammatory, infectious, and/or neoplastic process. There is a moderate sized left pleural effusion with underlying atelectasis and/orinfiltrate. The right lung is clear. Code 79217 -------- FINAL REPORT -------- Dictated By: Esa Ntahan Dictated Date: 09/18/2024 12:10 ET Assigned Physician: Esa Nathan Reviewed and Electronically Signed By: Esa Nathan Signed Date: 09/18/2024 12:14 ET Workstation ID: [id number] Transcribed By: Self Edit Transcribed Date: 09/18/2024 12:10 ET Transthoracic echocardiogram (TTE) complete with PRN contrast, bubble, strain, and 3D order panel Result Date: 09/18/2024 Narrative: Left ventricle cavity size is normal. Left ventricle mild concentric hypertrophy. Left ventricular systolic function is mildly decreased with an ejection fraction of 45-50%. Right ventricle cavity is mildly enlarged. Right ventricular systolic function is normal. Left atrium cavity is mildly dilated. Right atrium cavity is mildly dilated. There is mild regurgitation. Right ventricular systolic pressure is normal CT Angio Chest wo and/or w Contrast Addendum Date: 09/17/2024 Addendum: ADDENDUM: Alternative consideration given patient age for left hilar process and adenopathy is infectious sequelae. This document has been electronically signed by: Omar Mendiola MD on 09/17/2024 06:30:58 Result Date: 09/17/2024 Narrative: CT angiography chest with contrast. 3D Postprocessing. Comparison: None Findings: No pulmonary embolism. No thoracic aortic aneurysm. No cardiomegaly. Left hilar soft tissue infiltrative process encasing the left main pulmonary artery and branches as well as left sided bronchi. Prominentelevation left hemidiaphragm. Dense consolidations left lower lobe and lingular segment of the upper lobe. Right lung clear. No pneumothorax No significant pleural effusion. Large peripherally calcified prevascular node measuring 3.2 x 5.6 cm. No acute chest wall pathology. No acute fracture or dislocation. Impression: No pulmonary emboli. Left hilar process with encasement of vascular and airway structures for which neoplasm is prime consideration. This is difficult to measure given infiltrative nature. Left lingular and lower lobe consolidations may reflect infiltrates or post-obstructive atelectasis. Prevascular adenopathy. Prominent elevation left hemidiaphragm. This document has been electronically signed by: Omar Mendiola MD on 09/17/2024 06:15:17 CT Abdomen Pelvis w Contrast Result Date: 09/17/2024 Narrative: Exam: CT abdomen and pelvis with IV contrast. Comparison: None Findings: Prominent left hemidiaphragm elevation. No free air. No solid liver mass. Enlarged at 20.7 cm. No calcified gallstones. No clinically significant biliary ductal dilation. No splenomegaly or suspicious splenic lesions. No solid or cystic pancreatic mass. No pancreatic ductal dilation. No acute inflammatory changes.Adrenal glands without nodule. No suspicious renal mass. No hydronephrosis. No significant stranding. Bladder without acute pathology. Dense colonic fecal retention without obstruction. No evidence for acute appendicitis. No adenopathy. No abdominal aortic aneurysm. No suspicious pelvic masses. No a cute soft tissue pathology. No acute osseous pathology. Impression: Prominent left hemidiaphragm elevation. Hepatomegaly. Dense retained stool. No abnormalmasses. This document has been electronically signed by: Omar Mendiola MD on 09/17/2024 06:20:44 CT Head wo Contrast Result Date: 09/17/2024 Narrative: Exam: CT head without contrast Comparison: None Findings: No acute stroke or bleed. Villegas-white differentiation maintained. Ventricles are midline. No hydrocephalus. No sinus fluid levels. No significant mastoid air cell effusion. No acute skull fracture. Impression: Impression: No acute intracranial pathology. This document has been electronically signed by: Omar Mendiola MD on 09/17/2024 05:58:03 Assessment/Plan: Pablo Bedolla is a 39 y.o. male who has a past medical history of Non-Hodgkin lymphoma (CMS/HCC).. The patient was admitted to the hospital on 09/17/2024 for feeling fatigued. The patient has recently been living in a group home and states for the past day or so he was feeling extremely fatigued prior to arrival and so he came to the hospital. He was unable to pinpoint any specific symptoms apart fromfeeling sick however he did state that he was having on and off headaches and felt like moving his neck hurt him specifically to the left side. CT scan of the chest revealed ill-defined left upper lobe nodule with dense consolidation. Blood cultures turn positive for strep pneumo. The patient was initially started on Unasyn which has been changed to ceftriaxone based on results of blood cultures.The patient is being planned for bronchoscopy tomorrow. The patient is still experiencing some neckpain and stiffness on moving his neck to the left side. TTE was unremarkable. The patient denies any nausea vomiting or diarrhea. The patient admits to smoking marijuana but does not use any other illicit substances, currently experiencing homelessness.. The ID service has been consulted for management during this patient's hospital stay. 1. Strep pneumo bacteremia secondary to likely postobstructive pneumonia, rule out invasive strep meningitis LP negative Unfortunately only 1 set of repeat blood cultures ordered so clearance cannot be confirmed, have ordered 2 sets repeat blood cultures today If both blood cultures remain negative at 48 hours then can go home on p.o. Levaquin 750 mg every 24 hours to complete 2-week course, this will be much preferred to p.o. cefdinir Await bronchoscopy The patient will require vaccination with Prevnar prior to discharge Recommendations: 1. I have switched ceftriaxone back to 2 g every 24 2. Await blood culture clearance for at least 48 hours, needs 2 sets to confirm clearance from today 3. If blood cultures remain negative for 48 hours then can go home on p.o. Levaquin 750 mg every 24hours to end on 2/3, if any contraindications then can go on p.o. cefdinir 300 mg twice daily however this would be second line 4. Please ensure that the patient gets Prevnar 20 prior to discharge Isolation: None I personally spent 35 minutes in this encounter. This included performing a detailed chart review, reviewing and independently interpreting labs ordered by other providers, performing a history and physical, counseling this patient/family, discussing the case with the primary team , coordinating his /her/their plan of care and performing complex medical decision making. Please note that this note has been completed with the help of voice recognition dictation software, as such there may be certain words that may be substituted or written in error error based on the voice-recognition tool, please contact me to clarify if any confusion * Lyudmila Cardoso MD - 09/22/2024 11:35 AM EST Images from the original note were not included. SUNNY PROGRESS NOTE Date: 09/22/2024 Author: Lyudmila Cardoso MD Patient ID: Pablo Bedolla is a 39 y.o. male : 1985 MR#: [id number] SUBJECTIVE Patient seen and examined. Reached out to radiology in am and plan for LP Patient currently denies any complaints, seen after LP was done. Cough is only minimal, no blood no significant sputum noted at this time. Overall feels better. Current Medications: buPROPion XL, 300 mg, oral, Daily carvediloL, 25 mg, oral, BID with meals [START ON 09/23/2024] cefTRIAXone, 2 g, intravenous, q24h digoxin, 250 mcg, oral, Daily hydrALAZINE, 10 mg, oral, TID levothyroxine, 25 mcg, oral, q AM AC pantoprazole, 40 mg, oral, q AM AC sacubitriL-valsartan, 1 tablet, oral, BID sodium chloride, 10 mL, intravenous, BID venlafaxine XR, 150 mg, oral, Daily PRN medications: acetaminophen, albuterol, guaiFENesin-codeine, morphine, ondansetron (ZOFRAN-ODT) disintegrating tablet OR ondansetron, oxyCODONE, prochlorperazine OR prochlorperazine ORprochlorperazine, Insert peripheral IV AND Maintain IV access AND Saline lock IV AND sodium chloride AND sodium chloride OBJECTIVE Vitals: 09/21/24 2119 09/22/24 0100 09/22/24 0343 09/22/24 0738 BP: (!) 156/106 (!) 171/95 (!) 161/107 (!) 177/105 BP Location: Right arm Left arm Left arm Left arm Patient Position: Lying Lying Lying Lying Pulse: 77 80 (!) 47 55 Resp: 18 18 Temp: 36.5 ??C (97.7 ??F) 36.4 ??C (97.5 ??F) 36.1 ??C (96.9 ??F) TempSrc: Oral Oral Temporal SpO2: 99% 100% 98% 100% Weight: Height: Physical Exam Obese pleasant male not in any acute distress HEENT PERRLA, EOMI Neck supple Chest no accessory muscle use clear to auscultation Heart S1-S2 regular Abdomen soft nontender bowel sounds present Extremities no edema noted Results from last 7 days Lab Units 09/22/24 0404 SODIUM mmol/L 142 POTASSIUM mmol/L 4.3 CHLORIDE mmol/L 105 CO2 mmol/L 32 BUN mg/dL 15 CREATININE mg/dL 1.09 GLUCOSE mg/dL 127* CALCIUM mg/dL 8.4* Results from last 7 days Lab Units 09/22/24 0404 WBC AUTO K/mcL 6.1 HEMOGLOBIN g/dL 13.4* HEMATOCRIT % 42.6 PLATELETS K/mcL 227 Recent Results (from the past 168 hour(s)) Respiratory virus panel molecular study Collection Time: 09/17/24 4:39 AM Specimen: Nares; Swab Result Value Ref Range Adenovirus Detection by PCR Not Detected Not Detected Influenza A PCR Not Detected Not Detected Influenza B PCR Not Detected Not Detected Coronavirus 229E Not Detected Not Detected Coronavirus HKU1 Not Detected Not Detected Coronavirus OC43 Not Detected Not Detected Coronavirus NL63 Not Detected Not Detected Parainfluenza Virus 1 Not Detected Not Detected Parainfluenza Virus 2 Not Detected Not Detected Parainfluenza Virus 3 Not Detected Not Detected Parainfluenza Virus 4 Not Detected Not Detected RSV PCR Not Detected Not Detected Human Metapneumovirus A and B Not Detected Not Detected Rhinovirus/Enterovirus Not Detected Not Detected Bordetella pertussis Not Detected Not Detected Bordetella parapertussis Not Detected Not Detected Mycoplasma pneumo by PCR Not Detected Not Detected Chlamydia pneumoniae Not Detected Not Detected SARS COV-2 Not Detected Not Detected Culture urine Collection Time: 09/17/24 5:00 AM Specimen: Urine, Clean Catch Result Value Ref Range Culture, Urine (A) 10,000-49,000 CFU/mL Streptococcus beta-hemolytic Group B Legionella antigen urine, EIA Collection Time: 09/17/24 5:00 AM Result Value Ref Range Legionella Antigen, Ur Negative Negative Blood Culture, Peripheral Draw #2 Collection Time: 09/17/24 6:52 AM Specimen: Blood, Venous Result Value Ref Range Culture, Blood Streptococcus pneumoniae (AA) Gram Stain Result (AA) Aerobic and Anaerobic bottles Gram positive cocci in pairs and chains Blood Culture, Peripheral Draw #1 Collection Time: 09/17/24 6:52 AM Specimen: Blood, Venous Result Value Ref Range Culture, Blood Streptococcus pneumoniae (AA) Gram Stain Result (AA) Aerobic and Anaerobic bottles Gram positive cocci in pairs and chains Susceptibility Streptococcus pneumoniae - MARY Penicillin (non-meningitis) Susceptible ug/ml Penicillin PO Susceptible ug/ml Penicillin (meningitis) Susceptible ug/ml Cefotaxime (Meningitis) Susceptible ug/ml Cefotaxime (Non Meningitis) Susceptible ug/ml Ceftriaxone (Meningitis) Susceptible ug/ml Ceftriaxone (Non Meningitis) Susceptible ug/ml Levofloxacin Susceptible ug/ml Moxifloxacin Susceptible ug/ml Erythromycin Susceptible ug/ml Clindamycin Susceptible ug/ml Linezolid Susceptible ug/ml Vancomycin Tetracycline Susceptible ug/ml Tigecycline Trimethoprim/Sulfamethoxazole Susceptible ug/ml Blood culture pathogens molecular study Collection Time: 09/17/24 6:52 AM Specimen: Blood, Venous Result Value Ref Range Streptococcus pneumoniae Detected (A) Not Detected MRSA molecular study Collection Time: 09/17/24 6:55 AM Specimen: Nares; Swab Result Value Ref Range MRSA Screen PCR Not Detected Not Detected Culture sputum Collection Time: 09/17/24 10:31 AM Specimen: Lungs; Sputum, expectorated Result Value Ref Range Culture, Sputum No pathogens isolated. Gram Stain Result Many Polymorphonuclear leukocytes (A) Gram Stain Result Rare Epithelial cells (A) Gram Stain Result Rare Gram positive cocci in pairs (A) Gram Stain Result Rare Gram positive bacilli (A) Gram Stain Result (A) Greater than 25 WBCS and less than 10 Epithelial cells MRSA molecular study Collection Time: 09/17/24 11:36 AM Specimen: Nares; Swab Result Value Ref Range MRSA Screen PCR Not Detected Not Detected Culture blood Collection Time: 09/17/24 7:15 PM Specimen: Blood, Venous Result Value Ref Range Culture, Blood No growth at 2 days Culture blood Collection Time: 09/18/24 9:35 AM Specimen: Blood, Venous Result Value Ref Range Culture, Blood No growth at 2 days Acid fast bacilli stain Collection Time: 09/18/24 9:44 AM Specimen: Trachea; Sputum Result Value Ref Range AFB Stain Result No Acid Fast Bacilli seen on direct smear No Acid fast bacilli seen on direct smear (Fuchsin method, 1000x) Acid fast bacilli stain Collection Time: 09/19/24 8:45 AM Specimen: Sputum Result Value Ref Range AFB Stain Result No Acid Fast Bacilli seen on direct smear No Acid fast bacilli seen on direct smear (Fuchsin method, 1000x) Acid fast bacilli stain Collection Time: 09/20/24 6:42 AM Specimen: Sputum Result Value Ref Range AFB Stain Result No Acid Fast Bacilli seen on direct smear No Acid fast bacilli seen on direct smear (Fuchsin method, 1000x) Culture CSF with gram stain Collection Time: 09/22/24 9:52 AM Specimen: Lumbar Puncture; Cerebrospinal Fluid Result Value Ref Range Gram Stain Result Rare Polymorphonuclear leukocytes Gram Stain Result No epithelial cells seen Gram Stain Result No organisms seen Imaging: XR Lumbar Puncture Diagnostic w Fluoro/CT Narrative: History: Bacteremia, nuchal rigidity PROCEDURE: Fluoroscopically-guided lumbar puncture as per referring clinician request. Following sterile prep of the skin overlying [...] studies. Stylet replaced and needle removed. Procedure well tolerated. No immediate complication. FINDINGS: Single spot film of the LS-spine at time of needle placement shows spinal needle tip projecting over the right paramedian lumbar spinal canal at the L4-5 level. DAP: 3.92 Gycm^2 Impression: Fluoroscopically-guided lumbar puncture with retrieval of approximately 13cc of CSF fluid as described above. -------- PRELIMINARY REPORT -------- Dictated By: Gabby Underwood Dictated Date: 09/22/2024 10:54 ET Assigned Physician: Merle Segundo Reviewed and Electronically Signed By: Signed Date: ET Workstation ID: [id number] Transcribed By: Self Edit Transcribed Date: 09/22/2024 11:00 ET Resident/PA/QUALITY LEAD: Gabby Underwood ASSESSMENT & PLAN 39 y.o. obese, homeless man with h/o preevious non hodgkin lymphoma diagnosed in 2010 treated with chemotherapy and XRT, Asthma, HTN, OCD, RAMESH, Afib on Xarelto and nonischemic cardiomyopathy who presented to the ED complaining of 3 days of generalized weakness and cough with bloody sputum Postobstructive pneumonia: Strep pneumoniae with strep pneumonia bacteremia Hemoptysis -improved Incidental finding of hilar mass encasing left main pulmonary artery and LV structure Seen by vascular no role for any intervention at this time. Patient was seen by pulmonary and thoracic surgery given the CAT scan findings. Recommended bronchoscopy for further evaluation to rule out malignancy at the time. AFB x 3 is negative, QuantiFERON test is negative. Discussed w blood culture on admission came back positive for strep pneumonia by PCR. Repeat blood cultures so far have been negative. Discussed with Dr. Knapp, reviewed CT findings, feels this is more likely infectious etiology however will do bronchoscopy to rule out any possibility of underlying malignancy. Plan to do bronchoscopy today afternoon. Seen by ID, appreciate input, patient apparently had some complaints of neck pain/stiffness earlierwhen he presented which according to the patient today is all better. Recommending LP to rule out invasive strep meningitis. LP has been done awaiting results at this time. Continue with ceftriaxone 2 g IV every 12 hours, continue with doxycycline for now as well. Overall clinically improving History of cardiomyopathy on Entresto History of a flutter/fib/secondary hypercoagulable state On digoxin and carvedilol. Holding Xarelto for now, plan for bronch in a.m. History of Hodgkin's lymphoma which is in remission at this time. 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 Disposition LP done today, awaiting results on this, [facility] later today. Awaiting LP, culture results and will then finalize on p.o. versus IV antibiotics and duration * Mira Figueredo RN - 09/22/2024 4:54 AM EST Problem: Cognitive: Infection Risk of Goal: Understanding of ways to prevent infection will improve Outcome: Progressing Goals: Identify possible barriers to meeting goals/advancing plan of care: bronchoscopy 09/22 Stability of the patient: Moderately Unstable - Medium risk of patient condition declining or worsening End of Shift Summary: pt NPOM, no issues at this time * Lyudmila Cardoso MD - 09/21/2024 1:27 PM EST Images from the original note were not included. SUNNY PROGRESS NOTE Date: 09/21/2024 Author: Lyudmila Cardoso MD Patient ID: Pablo Bedolla is a 39 y.o. male : 1985 MR#: [id number] SUBJECTIVE Patient seen and examined. Discussed with RN. No acute issues overnight currently on room air with good O2 sats. Overall states he feels better. Blood pressure noted to be elevated. Cough present with faint sputum at this time, states that this is much better than initially on presentation. Current Medications: ampicillin-sulbactam, 3 g, intravenous, q6h buPROPion XL, 300 mg, oral, Daily carvediloL, 25 mg, oral, BID with meals digoxin, 250 mcg, oral, Daily doxycycline, 100 mg, oral, q12h PETER levothyroxine, 25 mcg, oral, q AM AC pantoprazole, 40 mg, oral, q AM AC sacubitriL-valsartan, 1 tablet, oral, BID sodium chloride, 10 mL, intravenous, BID venlafaxine XR, 150 mg, oral, Daily PRN medications: acetaminophen, albuterol, guaiFENesin-codeine, morphine, ondansetron (ZOFRAN-ODT) disintegrating tablet OR ondansetron, oxyCODONE, prochlorperazine OR prochlorperazine ORprochlorperazine, Insert peripheral IV AND Maintain IV access AND Saline lock IV AND sodium chloride AND sodium chloride OBJECTIVE Vitals: 09/21/24 0327 09/21/24 0732 09/21/24 0930 09/21/24 1131 BP: (!) 161/98 (!) 168/95 (!) 152/102 BP Location: Left arm Left arm Left arm Patient Position: Lying Lying Lying Pulse: 68 58 62 73 Resp: Temp: 36.1 ??C (97 ??F) 36.1 ??C (96.9 ??F) 36.2 ??C (97.1 ??F) TempSrc: Temporal Oral Temporal SpO2: 97% 99% Weight: Height: Physical Exam Obese pleasant male not in any acute distress HEENT PERRLA, EOMI Neck supple Chest no accessory muscle use clear to auscultation Heart S1-S2 regular Abdomen soft nontender bowel sounds present Extremities no edema noted Results from last 7 days Lab Units 09/21/24 0851 SODIUM mmol/L 140 POTASSIUM mmol/L 3.9 CHLORIDE mmol/L 104 CO2 mmol/L 32 BUN mg/dL 15 CREATININE mg/dL 0.84 GLUCOSE mg/dL 123* CALCIUM mg/dL 9.2 Results from last 7 days Lab Units 09/20/24 0606 WBC AUTO K/mcL 7.9 HEMOGLOBIN g/dL 13.6 HEMATOCRIT % 43.0 PLATELETS K/mcL 211 Recent Results (from the past 168 hour(s)) Respiratory virus panel molecular study Collection Time: 09/17/24 4:39 AM Specimen: Nares; Swab Result Value Ref Range Adenovirus Detection by PCR Not Detected Not Detected Influenza A PCR Not Detected Not Detected Influenza B PCR Not Detected Not Detected Coronavirus 229E Not Detected Not Detected Coronavirus HKU1 Not Detected Not Detected Coronavirus OC43 Not Detected Not Detected Coronavirus NL63 Not Detected Not Detected Parainfluenza Virus 1 Not Detected Not Detected Parainfluenza Virus 2 Not Detected Not Detected Parainfluenza Virus 3 Not Detected Not Detected Parainfluenza Virus 4 Not Detected Not Detected RSV PCR Not Detected Not Detected Human Metapneumovirus A and B Not Detected Not Detected Rhinovirus/Enterovirus Not Detected Not Detected Bordetella pertussis Not Detected Not Detected Bordetella parapertussis Not Detected Not Detected Mycoplasma pneumo by PCR Not Detected Not Detected Chlamydia pneumoniae Not Detected Not Detected SARS COV-2 Not Detected Not Detected Culture urine Collection Time: 09/17/24 5:00 AM Specimen: Urine, Clean Catch Result Value Ref Range Culture, Urine (A) 10,000-49,000 CFU/mL Streptococcus beta-hemolytic Group B Legionella antigen urine, EIA Collection Time: 09/17/24 5:00 AM Result Value Ref Range Legionella Antigen, Ur Negative Negative Blood Culture, Peripheral Draw #2 Collection Time: 09/17/24 6:52 AM Specimen: Blood, Venous Result Value Ref Range Culture, Blood Streptococcus pneumoniae (AA) Gram Stain Result (AA) Aerobic and Anaerobic bottles Gram positive cocci in pairs and chains Blood Culture, Peripheral Draw #1 Collection Time: 09/17/24 6:52 AM Specimen: Blood, Venous Result Value Ref Range Culture, Blood Streptococcus pneumoniae (AA) Gram Stain Result (AA) Aerobic and Anaerobic bottles Gram positive cocci in pairs and chains Susceptibility Streptococcus pneumoniae - MARY Penicillin (non-meningitis) Susceptible ug/ml Penicillin PO Susceptible ug/ml Penicillin (meningitis) Susceptible ug/ml Cefotaxime (Meningitis) Susceptible ug/ml Cefotaxime (Non Meningitis) Susceptible ug/ml Ceftriaxone (Meningitis) Susceptible ug/ml Ceftriaxone (Non Meningitis) Susceptible ug/ml Levofloxacin Susceptible ug/ml Moxifloxacin Susceptible ug/ml Erythromycin Susceptible ug/ml Clindamycin Susceptible ug/ml Linezolid Susceptible ug/ml Vancomycin Tetracycline Susceptible ug/ml Tigecycline Trimethoprim/Sulfamethoxazole Susceptible ug/ml Blood culture pathogens molecular study Collection Time: 09/17/24 6:52 AM Specimen: Blood, Venous Result Value Ref Range Streptococcus pneumoniae Detected (A) Not Detected MRSA molecular study Collection Time: 09/17/24 6:55 AM Specimen: Nares; Swab Result Value Ref Range MRSA Screen PCR Not Detected Not Detected Culture sputum Collection Time: 09/17/24 10:31 AM Specimen: Lungs; Sputum, expectorated Result Value Ref Range Culture, Sputum No pathogens isolated. Gram Stain Result Many Polymorphonuclear leukocytes (A) Gram Stain Result Rare Epithelial cells (A) Gram Stain Result Rare Gram positive cocci in pairs (A) Gram Stain Result Rare Gram positive bacilli (A) Gram Stain Result (A) Greater than 25 WBCS and less than 10 Epithelial cells MRSA molecular study Collection Time: 09/17/24 11:36 AM Specimen: Nares; Swab Result Value Ref Range MRSA Screen PCR Not Detected Not Detected Culture blood Collection Time: 09/17/24 7:15 PM Specimen: Blood, Venous Result Value Ref Range Culture, Blood No growth at 2 days Culture blood Collection Time: 09/18/24 9:35 AM Specimen: Blood, Venous Result Value Ref Range Culture, Blood No growth at 2 days Acid fast bacilli stain Collection Time: 09/18/24 9:44 AM Specimen: Trachea; Sputum Result Value Ref Range AFB Stain Result No Acid Fast Bacilli seen on direct smear No Acid fast bacilli seen on direct smear (Fuchsin method, 1000x) Acid fast bacilli stain Collection Time: 09/19/24 8:45 AM Specimen: Sputum Result Value Ref Range AFB Stain Result No Acid Fast Bacilli seen on direct smear No Acid fast bacilli seen on direct smear (Fuchsin method, 1000x) Acid fast bacilli stain Collection Time: 09/20/24 6:42 AM Specimen: Sputum Result Value Ref Range AFB Stain Result No Acid Fast Bacilli seen on direct smear No Acid fast bacilli seen on direct smear (Fuchsin method, 1000x) Imaging: CT Chest w Contrast Narrative: Examination: CT chest with contrast. CLINICAL INDICATION: Pneumonia, effusion abscess suspected. COMPARISON: Chest 2 views TECHNIQUE: 2.5 mm thin axial and reformatted 3 mm thin sagittal and coronal images of chest were obtained following IV 90 mL [id number]. Scanner: Leeo 64 slice VCT Dose reduction technique: ASIR (Adaptive statistical iterative reconstruction) and/or AEC (automated exposure control) Dose: total exam DLP 1399 mGy/cm FINDINGS: LUNGS: The right lung is expanded and clear. There is loss of left lung volume with left lingular and left lower lobed dense consolidation. There is a soft tissue ill-defined density in the left upper lobe paramediastinal measuring 2.1 x 1.8 cm on axial slice 36/3 with a few bronchi traversing the lesion resulting in mild atelectatic changes in the left upper lobe anterior segment. Nonspecific focal right lateral major fissure thickening is noted. No additional pulmonary nodules [...] No aggressive lytic or sclerotic process seen. Impression: Ill-defined left upper lobe 2.1 cm nodule intertwined within the secondary bronchioles.This results in lingular, left lower lobe dense consolidation. There is mild atelectatic changes ofthe left upper lobe anterior segment. These findings were present on the last exam 09/17/2024. There is a abnormal anterior mediastinal lymph node. There is a adjacent 3.3 cm lesion likely lymphnode with calcified alcantar. It is stable to last exam. No additional parenchymal lesions seen. Small left pleural effusion. -------- FINAL REPORT -------- Dictated By: Ronaldo Fuller Dictated Date: 09/20/2024 11:51 ET Assigned Physician: Ronaldo Fuller Reviewed and Electronically Signed By: Ronaldo Fuller Signed Date: 09/20/2024 12:05 ET Workstation ID: [id number] Transcribed By: Self Edit Transcribed Date: 09/20/2024 11:51 ET ASSESSMENT & PLAN 39 y.o. obese, homeless man with h/o preevious non hodgkin lymphoma diagnosed in 2010 treated with chemotherapy and XRT, Asthma, HTN, OCD, RAMESH, Afib on Xarelto and nonischemic cardiomyopathy who presented to the ED complaining of 3 days of generalized weakness and cough with bloody sputum Postobstructive pneumonia: Strep pneumoniae with strep pneumonia bacteremia Hemoptysis -improved Incidental finding of hilar mass encasing left main pulmonary artery and LV structure Seen by vascular no role for any intervention at this time. Patient was seen by pulmonary and thoracic surgery given the CAT scan findings. Recommended bronchoscopy for further evaluation to rule out malignancy at the time. AFB x 3 is negative, QuantiFERON test is negative. Discussed w blood culture on admission came back positive for strep pneumonia by PCR. Repeat blood cultures so far have been negative. Discussed with Dr. Knapp, reviewed CT findings, feels this is more likely infectious etiology however will do bronchoscopy tomorrow to rule out any possibility of underlying malignancy. Overall clinically improving, leukocytosis trending down, currently on room air. Change to ceftriaxone 2gm for now, continue doxy - plan for bronch in am History of cardiomyopathy on Entresto History of a flutter/fib/secondary hypercoagulable state On digoxin and carvedilol. Holding Xarelto for now, plan for bronch in a.m. History of Hodgkin's lymphoma which is in remission at this time. 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 Agreeable to bronch in AM. * Tahmina Knapp MD - 09/21/2024 12:47 PM EST Subjective Patient seen and examined, discussed with hospital staff. Patient currently on antibiotics and inversely isolation. AFB has been negative, blood cultures grew strep pneumonia, the patient has less hemoptysis, if barely any blood-tinged sputum this a.m. ampicillin-sulbactam (UNASYN) 3 g in sodium chloride 0.9 % 100 mL IVPB 3 g, IV, q6h Last Action: Stopped, 09/21 614 buPROPion XL (WELLBUTRIN XL) 24 hr tablet 300 mg 300 mg, oral, Daily Last Action: Given, 300 mg at 09/21 929 carvediloL (COREG) tablet 25 mg 25 mg, oral, BID with meals Last Action: Given, 25 mg at 09/21 929 digoxin (LANOXIN) tablet 250 mcg 250 mcg, oral, Daily Last Action: Given, 250 mcg at 09/20 1738 doxycycline (MONODOX) capsule 100 mg 100 mg, oral, q12h PETER Last Action: Given, 100 mg at 09/21 929 levothyroxine (SYNTHROID, LEVOTHROID) tablet 25 mcg 25 mcg, oral, q AM AC Last Action: Given, 25 mcg at 09/21 625 pantoprazole (PROTONIX) EC tablet 40 mg 40 mg, oral, q AM AC Last Action: Given, 40 mg at 09/21 625 sacubitriL-valsartan (ENTRESTO) 49-51 mg per tablet 1 tablet 1 tablet, oral, BID Last Action: Given, 1 tablet at 09/21 929 sodium chloride 0.9 % flush 10 mL (And Linked Group #1) 10 mL, IV, BID Last Action: Given, 10 mL at 09/21 930 venlafaxine XR (EFFEXOR-XR) 24 hr capsule 150 mg 150 mg, oral, Daily Last Action: Given, 150 mg at 09/21 929 Objective Physical Exam Constitutional: Appearance: Normal appearance. He is obese. HENT: Head: Normocephalic. Eyes: Pupils: Pupils are equal, round, and reactive to light. Cardiovascular: Rate and Rhythm: Normal rate. Pulmonary: Breath sounds: Normal breath sounds. No stridor. No wheezing. Abdominal: Palpations: Abdomen is soft. Musculoskeletal: Cervical back: Normal range of motion. Skin: General: Skin is warm. Neurological: General: No focal deficit present. Last Recorded Vitals: Blood pressure (!) 152/102, pulse 73, temperature 36.2 ??C (97.1 ??F), temperature source Temporal,resp. rate 16, height 1.803 m (71 ), weight 136 kg (300 lb), SpO2 99%. 09/18 0835 09/19 0533 09/20 605 Auto WBC 21.9 High 12.6 High 7.9 Hemoglobin 13.1 Low 14.0 13.6 Hematocrit PFA 41.8 Low 44.6 43.0 Platelets 174 180 211 09/19 0632 09/20 0609/21 0851 Sodium 139 139 140 Potassium 4.2 4.0 3.9 Chloride 104 102 104 Carbon Dioxide POCT 31 31 32 BUN, Bld 15 11 15 Creatinine 0.91 0.88 0.84 Glucose POCT 98 101 High 123 High Blood culture 2 out of [address] chest IMPRESSION: Ill-defined left upper lobe 2.1 cm nodule intertwined within the secondary bronchioles. This results in lingular, left lower lobe dense consolidation. There is mild atelectatic changes of the left upper lobe anterior segment. These findings were present on the last exam 09/17/2024. There is a abnormal anterior mediastinal lymph node. There is a adjacent 3.3 cm lesion likely lymphnode with calcified alcantar. It is stable to last exam. No additional parenchymal lesions seen. Assessment/Plan Principal Problem: Left lower lobe pneumonia Active Problems: Mass of lower lobe of left lung History of Hodgkin's lymphoma Nonischemic cardiomyopathy (CMS/HCC) Atrial fibrillation (CMS/HCC) Hemoptysis I personally reviewed the patient's chest CT scan, I did not see an obvious lung mass but infiltrates and adenopathy. There is left lower lobe and lingula lobe atelectasis. Overall the picture is consistent with leukocytosis and positive blood culture is consistent with bacterial pneumonia. The patient is clinically better with decreased leukocytosis. Nevertheless I agree with a bronchoscopy and will do it tomorrow afternoon. Malignancy is less likely, MTB is very unlikely * Tracy Parra LCSW - 09/21/2024 11:42 AM EST Sw reviewed the chart pt is not medically ready to d/c pt can be tx to non tele floor bronch scheduled for 09/22, sw will continue to follow for d/c planning pt is homeless and will need group home placement * Ruperto Mesa RN - 09/21/2024 10:44 AM EST Goals: Identify possible barriers to meeting goals/advancing plan of care: yes Stability of the patient: Moderately Unstable - Medium risk of patient condition declining or worsening End of Shift Summary: no infection * Sanna Mackey MD - 09/20/2024 11:37 AM EST Images from the original note were not included. SUNNY PROGRESS NOTE Date: 09/20/2024 Author: Sanna Mackey MD Patient ID: Pablo Bedolla is a 39 y.o. male : 1985 MR#: [id number] SUBJECTIVE Patient seen and examined this morning. No overnight events. Continues to cough up some streaks of blood which is very minimal at this time. Complaining of mild shortness of breath today. And dyspneaon exertion. Denies any fever chills nausea vomiting abdominal pain or diarrhea. Current Medications: ampicillin-sulbactam, 3 g, intravenous, q6h buPROPion XL, 300 mg, oral, Daily carvediloL, 25 mg, oral, BID with meals digoxin, 250 mcg, oral, Daily doxycycline, 100 mg, oral, q12h PETER levothyroxine, 25 mcg, oral, q AM AC pantoprazole, 40 mg, oral, q AM AC sacubitriL-valsartan, 1 tablet, oral, BID sodium chloride, 10 mL, intravenous, BID sodium chloride, 10 mL, intravenous, Once venlafaxine XR, 150 mg, oral, Daily PRN medications: acetaminophen, albuterol, guaiFENesin-codeine, morphine, ondansetron (ZOFRAN-ODT) disintegrating tablet OR ondansetron, oxyCODONE, prochlorperazine OR prochlorperazine ORprochlorperazine, Insert peripheral IV AND Maintain IV access AND Saline lock IV AND sodium chloride AND sodium chloride OBJECTIVE Vitals: 09/19/24 1736 09/19/24 1934 09/20/24 0331 09/20/24 0700 BP: (!) 140/99 (!) 148/109 (!) 152/91 BP Location: Right arm Right arm Right arm Patient Position: Lying Lying Lying Pulse: 83 (!) 40 78 77 Resp: 20 18 Temp: 36.2 ??C (97.2 ??F) 36.4 ??C (97.5 ??F) 36.2 ??C (97.2 ??F) TempSrc: Temporal Temporal Temporal SpO2: 93% 100% 100% Weight: Height: Physical Exam Gen: Alert , oriented Neck Supple Chest : Diminished air entry at the bases. CVS S1 S2 RRR Abdomen Soft NT ND Extremities PP+ Neuro Intact Results from last 7 days Lab Units 09/20/24 0606 SODIUM mmol/L 139 POTASSIUM mmol/L 4.0 CHLORIDE mmol/L 102 CO2 mmol/L 31 BUN mg/dL 11 CREATININE mg/dL 0.88 GLUCOSE mg/dL 101* CALCIUM mg/dL 8.6 Results from last 7 days Lab Units 09/20/24 0606 WBC AUTO K/mcL 7.9 HEMOGLOBIN g/dL 13.6 HEMATOCRIT % 43.0 PLATELETS K/mcL 211 Recent Results (from the past 168 hour(s)) Respiratory virus panel molecular study Collection Time: 09/17/24 4:39 AM Specimen: Nares; Swab Result Value Ref Range Adenovirus Detection by PCR Not Detected Not Detected Influenza A PCR Not Detected Not Detected Influenza B PCR Not Detected Not Detected Coronavirus 229E Not Detected Not Detected Coronavirus HKU1 Not Detected Not Detected Coronavirus OC43 Not Detected Not Detected Coronavirus NL63 Not Detected Not Detected Parainfluenza Virus 1 Not Detected Not Detected Parainfluenza Virus 2 Not Detected Not Detected Parainfluenza Virus 3 Not Detected Not Detected Parainfluenza Virus 4 Not Detected Not Detected RSV PCR Not Detected Not Detected Human Metapneumovirus A and B Not Detected Not Detected Rhinovirus/Enterovirus Not Detected Not Detected Bordetella pertussis Not Detected Not Detected Bordetella parapertussis Not Detected Not Detected Mycoplasma pneumo by PCR Not Detected Not Detected Chlamydia pneumoniae Not Detected Not Detected SARS COV-2 Not Detected Not Detected Culture urine Collection Time: 09/17/24 5:00 AM Specimen: Urine, Clean Catch Result Value Ref Range Culture, Urine (A) 10,000-49,000 CFU/mL Streptococcus beta-hemolytic Group B Legionella antigen urine, EIA Collection Time: 09/17/24 5:00 AM Result Value Ref Range Legionella Antigen, Ur Negative Negative Blood Culture, Peripheral Draw #2 Collection Time: 09/17/24 6:52 AM Specimen: Blood, Venous Result Value Ref Range Culture, Blood Streptococcus pneumoniae (AA) Gram Stain Result (AA) Aerobic and Anaerobic bottles Gram positive cocci in pairs and chains Blood Culture, Peripheral Draw #1 Collection Time: 09/17/24 6:52 AM Specimen: Blood, Venous Result Value Ref Range Culture, Blood Streptococcus pneumoniae (AA) Gram Stain Result (AA) Aerobic and Anaerobic bottles Gram positive cocci in pairs and chains Susceptibility Streptococcus pneumoniae - MARY Penicillin (non-meningitis) Susceptible ug/ml Penicillin PO Susceptible ug/ml Penicillin (meningitis) Susceptible ug/ml Cefotaxime (Meningitis) Susceptible ug/ml Cefotaxime (Non Meningitis) Susceptible ug/ml Ceftriaxone (Meningitis) Susceptible ug/ml Ceftriaxone (Non Meningitis) Susceptible ug/ml Levofloxacin Susceptible ug/ml Moxifloxacin Susceptible ug/ml Erythromycin Susceptible ug/ml Clindamycin Susceptible ug/ml Linezolid Susceptible ug/ml Vancomycin Tetracycline Susceptible ug/ml Tigecycline Trimethoprim/Sulfamethoxazole Susceptible ug/ml Blood culture pathogens molecular study Collection Time: 09/17/24 6:52 AM Specimen: Blood, Venous Result Value Ref Range Streptococcus pneumoniae Detected (A) Not Detected MRSA molecular study Collection Time: 09/17/24 6:55 AM Specimen: Nares; Swab Result Value Ref Range MRSA Screen PCR Not Detected Not Detected Culture sputum Collection Time: 09/17/24 10:31 AM Specimen: Lungs; Sputum, expectorated Result Value Ref Range Culture, Sputum No pathogens isolated. Gram Stain Result Many Polymorphonuclear leukocytes (A) Gram Stain Result Rare Epithelial cells (A) Gram Stain Result Rare Gram positive cocci in pairs (A) Gram Stain Result Rare Gram positive bacilli (A) Gram Stain Result (A) Greater than 25 WBCS and less than 10 Epithelial cells MRSA molecular study Collection Time: 09/17/24 11:36 AM Specimen: Nares; Swab Result Value Ref Range MRSA Screen PCR Not Detected Not Detected Culture blood Collection Time: 09/17/24 7:15 PM Specimen: Blood, Venous Result Value Ref Range Culture, Blood No growth at 2 days Culture blood Collection Time: 09/18/24 9:35 AM Specimen: Blood, Venous Result Value Ref Range Culture, Blood No growth at 2 days Acid fast bacilli stain Collection Time: 09/18/24 9:44 AM Specimen: Trachea; Sputum Result Value Ref Range AFB Stain Result No Acid Fast Bacilli seen on direct smear No Acid fast bacilli seen on direct smear (Fuchsin method, 1000x) Acid fast bacilli stain Collection Time: 09/19/24 8:45 AM Specimen: Sputum Result Value Ref Range AFB Stain Result No Acid Fast Bacilli seen on direct smear No Acid fast bacilli seen on direct smear (Fuchsin method, 1000x) Imaging: Vascular US duplex lower extremity venous bilateral Narrative: PROCEDURE: VAS US DUPLEX LOWER EXT VENOUS BILAT INDICATION: Lower extremity edema, lymphoma TECHNIQUE: 2-D and color Doppler imaging of the lower extremity venous vasculature with compressionand augmentation maneuvers. COMPARISON: No priors available. FINDINGS: RIGHT: There is normal flow, compression, and augmentation from the common femoral through the popliteus. LEFT: There is normal flow, compression, and augmentation from the common femoral through the popliteus. Visualized calf veins are patent. 3.5 cm right popliteal fossa cyst Impression: NO RIGHT OR LEFT LOWER EXTREMITY DEEP VENOUS THROMBOSIS. -------- FINAL REPORT -------- Dictated By: DIO CALDWELL Dictated Date: 09/18/2024 17:56 ET Assigned Physician: DIO CALDWELL Reviewed and Electronically Signed By: DIO CALDWELL Signed Date: 09/18/2024 17:57 ET Workstation ID: [id number] Transcribed By: Self Edit Transcribed Date: 09/18/2024 17:56 ET XR Chest 2 Views Narrative: HISTORY: The patient is a 39-year-old male with dyspnea on exertion. CT scan of the chest performed 09/17/2024 demonstrated left hilar and perihilar fullness consistent with an infectious, inflammatory, or neoplastic process, with lingular and left lower lobe consolidation as well as a left pleural effusion. FINDINGS: PA and lateral graphs of the chest, without previous chest radiograph for comparison, demonstrate normal appearance of the bony structures. The cardiac size is difficult to evaluate on thisexamination. There is density in the left hilar and parahilar regions consistent with lymphadenopathy and/or an inflammatory or infectious process. There is a moderate sized left pleural effusion with underlying atelectasis and/or infiltrate. The right lung is clear. Impression: Left hilar and perihilar density consistent with an inflammatory, infectious, and/or neoplastic process. There is a moderate sized left pleural effusion with underlying atelectasis and/orinfiltrate. The right lung is clear. Code 30829 -------- FINAL REPORT -------- Dictated By: Esa Nathan Dictated Date: 09/18/2024 12:10 ET Assigned Physician: Esa Nathan Reviewed and Electronically Signed By: Esa Nathan Signed Date: 09/18/2024 12:14 ET Workstation ID: [id number] Transcribed By: Self Edit Transcribed Date: 09/18/2024 12:10 ET Transthoracic echocardiogram (TTE) complete with PRN contrast, bubble, strain, and 3D order panel Left ventricle cavity size is normal. Left ventricle mild concentric hypertrophy. Left ventricular systolic function is mildly decreased with an ejection fraction of 45-50%. Right ventricle cavity is mildly enlarged. Right ventricular systolic function is normal. Left atrium cavity is mildly dilated. Right atrium cavity is mildly dilated. There is mild regurgitation. Right ventricular systolic pressure is normal ASSESSMENT & PLAN 39 y.o. obese, homeless man with h/o preevious non hodgkin lymphoma diagnosed in 2010 treated with chemotherapy and XRT, Asthma, HTN, OCD, RAMESH, Afib on Xarelto and nonischemic cardiomyopathy who presented to the ED complaining of 3 days of generalized weakness and cough with bloody sputum Postobstructive pneumonia: Strep pneumoniae Hemoptysis Incidental finding of hilar mass encasing left main pulmonary artery and LV structure Seen by vascular no role for any intervention at this time. Patient was also seen by thoracic surgery. Recommend bronchoscopy for the patient. Patient seen by pulmonary and plan to do bronch on Saturday CT Chest with contrast ordered today to evaluate vascular involvement of the lesion. To help further patient will need a Endo suite or OR for bronchoscopy. Continue with bronchodilator DuoNebs at this time Continue with IV antibiotics at this time On isolation precaution as he is homeless and living in a group home rule out TB. If AFB cultures and stains are negative patient can be off precautions tomorrow. Came back positive for strep pneumoniae Leukocytosis resolved. He was 21.9 on admission and 7.9 today. History of cardiomyopathy on Entresto History of a flutter/fib On digoxin and carvedilol. History of Hodgkin's lymphoma which is in remission at this time. Hypothyroid on levothyroxine Secondary hypercoagulable state because of atrial fibrillation on Xarelto which has been on hold. 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 -Ultrasound lower extremity showed no DVT. -Record from [facility] from 2010, still not yet available -Patient continued to cough up streaks of blood, mild is quite minimal. Patient showed me multiple packages of blood streaks sputum on tissue next to his nightstand. ROS: Patient w/ continued complaint of hemoptysis, however has minimized. He also complaining of mild shortness of breath and dyspnea exertion. He denies chills, fever, nausea, vomiting, abdominal pain or diarrhea. OBJECTIVE: Visit Vitals BP (!) 148/109 (BP Location: Right arm, Patient Position: Lying) Pulse 78 Temp 36.4 ??C (97.5 ??F) (Temporal) Resp 20 GEN: NARD HEENT: anicteric sclera Cardiac: RR Lungs: Diminished breath sound, CTA bilaterally ABD: soft, NT, ND, good BS Ext: no c/c/e Neuro: Awake, alert, oriented x 3. HEMATOLOGY Lab Results Component Value Date WBC 12.6 (H) 09/19/2024 HGB 14.0 09/19/2024 HCT 44.6 09/19/2024 MCV 89.2 09/19/2024 PLT 180 09/19/2024 INR 1.8 09/17/2024 CHEMISTRY Lab Results Component Value Date GLUCOSE 98 09/19/2024 NA 139 09/19/2024 K 4.2 09/19/2024 CO2 31 09/19/2024 CL 104 09/19/2024 BUN 15 09/19/2024 CREATININE 0.91 09/19/2024 EGFR 110 09/19/2024 CALCIUM 8.8 09/19/2024 MG 1.7 (L) 09/17/2024 ANIONGAP 4 09/19/2024 ASSESSMENT AND PLAN: 39-year-old MO (BMI 42) male, h/o poor medical compliance, asthma, probable RAMESH, elevated left hemidiaphragm, A-fib (was on Xarelto prior to admission), HTN, systolic CHF, hypothyroidism, and non-Hodgkin lymphoma (s/p chemoradiation pulmonary transplant 2010) and R periorbital cellulitis. Admitted on 09/17/2024 with a syncopal event, following significant hemoptysis related to be a untreated strep pneumococcus pneumonia w/ questionable superimposed gram- negative daniel. Admission CTA of the chestshowed no pulmonary emboli, lingula consolidation w/ potential postobstructive process, and incidental finding of hilar mass encasing vascular (left main pulmonary artery) and airway structure. Patient remain off Xarelto since hospitalization w/ a mopped assist improving on antibiotic. -Cardiothoracic surgery involved, consult appreciated. -Vascular surgical service also involved, consult appreciated. There is no role in vascular surgery intervention at this time, would defer recommendations to thoracic surgery . -Anesthesia team also involved of the potential need for emergent the patient and double-lumen ET tube available. -CT chest incidental finding of hilar mass encasing vascular and airway structure, question if thisis old finding or overreading recent chest CT. Unfortunately, still no available medical record from [facility]. Will try to obtain again on Saturday. -Nasal MRSA screen negative. Urine Legionella negative. Respiratory panel negative. HIV negative. Sputum culture GPC, culture and sensitivity pending. Patient resides in a group home, AFB and QuantiFERON TB serology negative. -WBC went from 21.9 to 12.6. Continue current empiric antibiotic with IV Unasyn. -Continue serial H&H, and keep type and screen up to date. Remain off Xarelto. Transfusion if indicated. -On Saturday if renal function allow, please obtain CTA of the chest to evaluate vascular involvementof the lesion. This will also help us delineate whether Endo suite or OR be more appropriate for the bronchoscopy. On Saturday morning, we also obtain type and screen and INR with morning blood draw. -Given the limitation of bronchoscopy availability. Patient has already been scheduled for the nextavailable bronchoscope for 09/22/2023 at 3 PM. Depending on finding on the chest CT on Saturday, there might be consideration for interventional blocker and cutter contact lens/IP to assist with bronchoscopy. This coming week, I be available on 09/22/2023. -If patient's hemoptysis, should rapidly worsen, emergent intubation with double ET tube is a must.Anesthesia already aware. Left side down. -Continue current bronchodilator, Hycodan to suppress cough, and heated humidification for oxygen therapy. -High suspicion for RAMESH, outpatient sleep study is indicated, however, location of patient CPAP in the group home will require social service to assist. This can be addressed by patient outpatient physician. This chart was generated by the [employer] EMR system and [employer] speech recognition software and may contain inherent errors or omissions not intended by the user. Grammatical errors, random word insertions, deletions, pronoun errors and incomplete sentences are occasional consequences of this technologydue to software limitations. Not all errors are caught or corrected. If there are questions or concerns about the content of this note or information contained within the body of this dictation they should be addressed directly with the author for clarification. * Sanna Mackey MD - 09/19/2024 12:56 PM EST Images from the original note were not included. SUNNY PROGRESS NOTE Date: 09/19/2024 Author: Sanna Mackey MD Patient ID: Pablo Bedolla is a 39 y.o. male : 1985 MR#: [id number] SUBJECTIVE Patient seen and examined this morning. No overnight events.He mentioned that he is not coughing blood anymore. But is very tired and fatigued. Breathing has been fine. Current Medications: ampicillin-sulbactam, 3 g, intravenous, q6h buPROPion XL, 300 mg, oral, Daily carvediloL, 25 mg, oral, BID with meals digoxin, 250 mcg, oral, Daily doxycycline, 100 mg, oral, q12h PETER levothyroxine, 25 mcg, oral, q AM AC pantoprazole, 40 mg, oral, q AM AC sacubitriL-valsartan, 1 tablet, oral, BID sodium chloride, 10 mL, intravenous, BID venlafaxine XR, 150 mg, oral, Daily PRN medications: acetaminophen, albuterol, guaiFENesin-codeine, morphine, morphine, ondansetron (ZOFRAN-ODT) disintegrating tablet OR ondansetron, prochlorperazine OR prochlorperazine OR prochlorperazine, Insert peripheral IV AND Maintain IV access AND Saline lock IV AND sodium chloride AND sodium chloride OBJECTIVE Vitals: 09/18/24 2343 09/19/24 0409 09/19/24 0746 09/19/24 1118 BP: 116/69 129/80 (!) 141/87 132/84 BP Location: Right arm Right arm Right arm Right arm Patient Position: Lying Lying Lying Lying Pulse: 95 76 73 54 Resp: Temp: 36.9 ??C (98.4 ??F) 36.5 ??C (97.7 ??F) 36 ??C (96.8 ??F) 36.2 ??C (97.2 ??F) TempSrc: Oral Temporal Temporal Temporal SpO2: 99% 100% 97% 100% Weight: Height: Physical Exam Appearance: No Acute Distress, Alert Head Exam: Normocephalic and Atraumatic Eyes: Mild Pallor, Sclera Anicteric, PERRL, EOMI Neck: Supple, Non-tender, No carotid bruit, thyromegaly or lymphadenopathy Pulmonary: No Accessory Muscle Use, diminished air entry few rhonchi present but clear no rales Cardiovascular: S1 and S2 regular rate rhythm no murmurs rubs or gallops heard Abdominal Inspection: Normal, Soft, Non-tender, Bowel Sounds Present, No Hepatosplenomegaly Extremity: Peripheral Pulses are palpable and symmetrical, Musculoskeletal: No obvious joint pain, swelling or deformity Skin: Skin Color Normal, No rash or visible ulcer on limited examination Hematological: No lymphadenopathy or mass Neurologically alert oriented x3 no focal deficit Results from last 7 days Lab Units 09/19/24 0632 SODIUM mmol/L 139 POTASSIUM mmol/L 4.2 CHLORIDE mmol/L 104 CO2 mmol/L 31 BUN mg/dL 15 CREATININE mg/dL 0.91 GLUCOSE mg/dL 98 CALCIUM mg/dL 8.8 Results from last 7 days Lab Units 09/19/24 0633 WBC AUTO K/mcL 12.6* HEMOGLOBIN g/dL 14.0 HEMATOCRIT % 44.6 PLATELETS K/mcL 180 Recent Results (from the past 168 hour(s)) Respiratory virus panel molecular study Collection Time: 09/17/24 4:39 AM Specimen: Nares; Swab Result Value Ref Range Adenovirus Detection by PCR Not Detected Not Detected Influenza A PCR Not Detected Not Detected Influenza B PCR Not Detected Not Detected Coronavirus 229E Not Detected Not Detected Coronavirus HKU1 Not Detected Not Detected Coronavirus OC43 Not Detected Not Detected Coronavirus NL63 Not Detected Not Detected Parainfluenza Virus 1 Not Detected Not Detected Parainfluenza Virus 2 Not Detected Not Detected Parainfluenza Virus 3 Not Detected Not Detected Parainfluenza Virus 4 Not Detected Not Detected RSV PCR Not Detected Not Detected Human Metapneumovirus A and B Not Detected Not Detected Rhinovirus/Enterovirus Not Detected Not Detected Bordetella pertussis Not Detected Not Detected Bordetella parapertussis Not Detected Not Detected Mycoplasma pneumo by PCR Not Detected Not Detected Chlamydia pneumoniae Not Detected Not Detected SARS COV-2 Not Detected Not Detected Culture urine Collection Time: 09/17/24 5:00 AM Specimen: Urine, Clean Catch Result Value Ref Range Culture, Urine (A) 10,000-49,000 CFU/mL Streptococcus beta-hemolytic Group B Legionella antigen urine, EIA Collection Time: 09/17/24 5:00 AM Result Value Ref Range Legionella Antigen, Ur Negative Negative Blood Culture, Peripheral Draw #2 Collection Time: 09/17/24 6:52 AM Specimen: Blood, Venous Result Value Ref Range Culture, Blood Streptococcus pneumoniae (AA) Gram Stain Result (AA) Aerobic and Anaerobic bottles Gram positive cocci in pairs and chains Blood Culture, Peripheral Draw #1 Collection Time: 09/17/24 6:52 AM Specimen: Blood, Venous Result Value Ref Range Culture, Blood Streptococcus pneumoniae (AA) Gram Stain Result (AA) Aerobic and Anaerobic bottles Gram positive cocci in pairs and chains Susceptibility Streptococcus pneumoniae - MARY Penicillin (non-meningitis) Susceptible ug/ml Penicillin PO Susceptible ug/ml Penicillin (meningitis) Susceptible ug/ml Cefotaxime (Meningitis) Susceptible ug/ml Cefotaxime (Non Meningitis) Susceptible ug/ml Ceftriaxone (Meningitis) Susceptible ug/ml Ceftriaxone (Non Meningitis) Susceptible ug/ml Levofloxacin Susceptible ug/ml Moxifloxacin Susceptible ug/ml Erythromycin Susceptible ug/ml Clindamycin Susceptible ug/ml Linezolid Susceptible ug/ml Vancomycin Tetracycline Susceptible ug/ml Tigecycline Trimethoprim/Sulfamethoxazole Susceptible ug/ml Blood culture pathogens molecular study Collection Time: 09/17/24 6:52 AM Specimen: Blood, Venous Result Value Ref Range Streptococcus pneumoniae Detected (A) Not Detected MRSA molecular study Collection Time: 09/17/24 6:55 AM Specimen: Nares; Swab Result Value Ref Range MRSA Screen PCR Not Detected Not Detected Culture sputum Collection Time: 09/17/24 10:31 AM Specimen: Lungs; Sputum, expectorated Result Value Ref Range Culture, Sputum No pathogens isolated to date. Gram Stain Result Many Polymorphonuclear leukocytes (A) Gram Stain Result Rare Epithelial cells (A) Gram Stain Result Rare Gram positive cocci in pairs (A) Gram Stain Result Rare Gram positive bacilli (A) Gram Stain Result (A) Greater than 25 WBCS and less than 10 Epithelial cells MRSA molecular study Collection Time: 09/17/24 11:36 AM Specimen: Nares; Swab Result Value Ref Range MRSA Screen PCR Not Detected Not Detected Culture blood Collection Time: 09/17/24 7:15 PM Specimen: Blood, Venous Result Value Ref Range Culture, Blood No growth at 24 hours Culture blood Collection Time: 09/18/24 9:35 AM Specimen: Blood, Venous Result Value Ref Range Culture, Blood No growth at 24 hours Acid fast bacilli stain Collection Time: 09/18/24 9:44 AM Specimen: Trachea; Sputum Result Value Ref Range AFB Stain Result No Acid Fast Bacilli seen on direct smear No Acid fast bacilli seen on direct smear (Fuchsin method, 1000x) Imaging: Vascular US duplex lower extremity venous bilateral Narrative: PROCEDURE: VAS US DUPLEX LOWER EXT VENOUS BILAT INDICATION: Lower extremity edema, lymphoma TECHNIQUE: 2-D and color Doppler imaging of the lower extremity venous vasculature with compressionand augmentation maneuvers. COMPARISON: No priors available. FINDINGS: RIGHT: There is normal flow, compression, and augmentation from the common femoral through the popliteus. LEFT: There is normal flow, compression, and augmentation from the common femoral through the popliteus. Visualized calf veins are patent. 3.5 cm right popliteal fossa cyst Impression: NO RIGHT OR LEFT LOWER EXTREMITY DEEP VENOUS THROMBOSIS. -------- FINAL REPORT -------- Dictated By: DIO CALDWELL Dictated Date: 09/18/2024 17:56 ET Assigned Physician: DIO CALDWELL Reviewed and Electronically Signed By: DIO CALDWELL Signed Date: 09/18/2024 17:57 ET Workstation ID: [id number] Transcribed By: Self Edit Transcribed Date: 09/18/2024 17:56 ET XR Chest 2 Views Narrative: HISTORY: The patient is a 39-year-old male with dyspnea on exertion. CT scan of the chest performed 09/17/2024 demonstrated left hilar and perihilar fullness consistent with an infectious, inflammatory, or neoplastic process, with lingular and left lower lobe consolidation as well as a left pleural effusion. FINDINGS: PA and lateral graphs of the chest, without previous chest radiograph for comparison, demonstrate normal appearance of the bony structures. The cardiac size is difficult to evaluate on thisexamination. There is density in the left hilar and parahilar regions consistent with lymphadenopathy and/or an inflammatory or infectious process. There is a moderate sized left pleural effusion with underlying atelectasis and/or infiltrate. The right lung is clear. Impression: Left hilar and perihilar density consistent with an inflammatory, infectious, and/or neoplastic process. There is a moderate sized left pleural effusion with underlying atelectasis and/orinfiltrate. The right lung is clear. Code 55855 -------- FINAL REPORT -------- Dictated By: Esa Nathan Dictated Date: 09/18/2024 12:10 ET Assigned Physician: Esa Nathan Reviewed and Electronically Signed By: Esa Nathan Signed Date: 09/18/2024 12:14 ET Workstation ID: [id number] Transcribed By: Self Edit Transcribed Date: 09/18/2024 12:10 ET Transthoracic echocardiogram (TTE) complete with PRN contrast, bubble, strain, and 3D order panel Left ventricle cavity size is normal. Left ventricle mild concentric hypertrophy. Left ventricular systolic function is mildly decreased with an ejection fraction of 45-50%. Right ventricle cavity is mildly enlarged. Right ventricular systolic function is normal. Left atrium cavity is mildly dilated. Right atrium cavity is mildly dilated. There is mild regurgitation. Right ventricular systolic pressure is normal ASSESSMENT & PLAN 39 y.o. obese, homeless man with h/o preevious non hodgkin lymphoma diagnosed in 2010 treated with chemotherapy and XRT, Asthma, HTN, OCD, RAMESH, Afib on Xarelto and nonischemic cardiomyopathy who presented to the ED complaining of 3 days of generalized weakness and cough with bloody sputum Postobstructive pneumonia: Strep pneumoniae Hemoptysis Incidental finding of hilar mass encasing left main pulmonary artery and LV structure Seen by vascular no role for any intervention at this time. Patient was also seen by thoracic surgery. Recommend bronchoscopy for the patient. Patient seen by pulmonary and plan to do bronch on [place] Plan to get a CTA chest done on Saturday per pulmonary Continue with bronchodilator DuoNebs at this time Continue with IV antibiotics at this time On isolation precaution as he is homeless and living in a group home rule out TB. Came back positive for strep pneumoniae Leukocytosis improving History of cardiomyopathy takes Entresto which has been held at this time. Can resume once blood pressure more stable. History of a flutter/fib On digoxin and carvedilol. History of Hodgkin's lymphoma which is in remission at this time. Hypothyroid on levothyroxine Secondary hypercoagulable state because of atrial fibrillation on Xarelto which has been on hold. 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 SUNNY PROGRESS NOTE Date: 09/18/2024 Author: Sanna Mackey MD Patient ID: Pablo Bedolla is a 39 y.o. male : 1985 MR#: [id number] SUBJECTIVE Patient seen and examined this morning. Mentions that he continues to have hemoptysis but his breathing is better. Over the last 24 hours he has coughed up an hour and a half a cup of blood. Complains of shortness of breath on exertion. Also complains of fatigue. Looks comfortable at this time. Current Medications: ampicillin-sulbactam, 3 g, intravenous, q6h buPROPion XL, 300 mg, oral, Daily carvediloL, 25 mg, oral, BID with meals digoxin, 250 mcg, oral, Daily doxycycline, 100 mg, oral, q12h PETER levothyroxine, 25 mcg, oral, q AM AC pantoprazole, 40 mg, oral, q AM AC sacubitriL-valsartan, 1 tablet, oral, BID sodium chloride, 10 mL, intravenous, BID venlafaxine XR, 150 mg, oral, Daily PRN medications: acetaminophen, albuterol, guaiFENesin-codeine, morphine, morphine, ondansetron (ZOFRAN-ODT) disintegrating tablet OR ondansetron, prochlorperazine OR prochlorperazine OR prochlorperazine, Insert peripheral IV AND Maintain IV access AND Saline lock IV AND sodium chloride AND sodium chloride OBJECTIVE Vitals: 09/18/24 0405 09/18/24 0800 09/18/24 0854 09/18/24 1258 BP: (!) 141/91 138/86 109/53 BP Location: Left arm Left arm Right arm Patient Position: Lying Lying Lying Pulse: 89 84 103 78 Resp: Temp: 36.2 ??C (97.1 ??F) 36.9 ??C (98.4 ??F) 37.1 ??C (98.8 ??F) TempSrc: Temporal Temporal Temporal SpO2: 98% 99% 100% Weight: Height: Physical Exam Appearance: No Acute Distress, Alert Head Exam: Normocephalic and Atraumatic Eyes: Mild Pallor, Sclera Anicteric, PERRL, EOMI Neck: Supple, Non-tender, No carotid bruit, thyromegaly or lymphadenopathy Pulmonary: No Accessory Muscle Use, diminished air entry few rhonchi present but clear no rales Cardiovascular: S1 and S2 regular rate rhythm no murmurs rubs or gallops heard Abdominal Inspection: Normal, Soft, Non-tender, Bowel Sounds Present, No Hepatosplenomegaly Extremity: Peripheral Pulses are palpable and symmetrical, Musculoskeletal: No obvious joint pain, swelling or deformity Skin: Skin Color Normal, No rash or visible ulcer on limited examination Hematological: No lymphadenopathy or mass Neurologically alert oriented x3 no focal deficit Results from last 7 days Lab Units 09/18/24 0935 SODIUM mmol/L 136 POTASSIUM mmol/L 3.9 CHLORIDE mmol/L 101 CO2 mmol/L 28 BUN mg/dL 12 CREATININE mg/dL 0.88 GLUCOSE mg/dL 129* CALCIUM mg/dL 8.8 Results from last 7 days Lab Units 09/18/24 0935 WBC AUTO K/mcL 21.9* HEMOGLOBIN g/dL 13.1* HEMATOCRIT % 41.8* PLATELETS K/mcL 174 Recent Results (from the past 168 hour(s)) Respiratory virus panel molecular study Collection Time: 09/17/24 4:39 AM Specimen: Nares; Swab Result Value Ref Range Adenovirus Detection by PCR Not Detected Not Detected Influenza A PCR Not Detected Not Detected Influenza B PCR Not Detected Not Detected Coronavirus 229E Not Detected Not Detected Coronavirus HKU1 Not Detected Not Detected Coronavirus OC43 Not Detected Not Detected Coronavirus NL63 Not Detected Not Detected Parainfluenza Virus 1 Not Detected Not Detected Parainfluenza Virus 2 Not Detected Not Detected Parainfluenza Virus 3 Not Detected Not Detected Parainfluenza Virus 4 Not Detected Not Detected RSV PCR Not Detected Not Detected Human Metapneumovirus A and B Not Detected Not Detected Rhinovirus/Enterovirus Not Detected Not Detected Bordetella pertussis Not Detected Not Detected Bordetella parapertussis Not Detected Not Detected Mycoplasma pneumo by PCR Not Detected Not Detected Chlamydia pneumoniae Not Detected Not Detected SARS COV-2 Not Detected Not Detected Culture urine Collection Time: 09/17/24 5:00 AM Specimen: Urine, Clean Catch Result Value Ref Range Culture, Urine (A) 10,000-49,000 CFU/mL Streptococcus beta-hemolytic Group B Legionella antigen urine, EIA Collection Time: 09/17/24 5:00 AM Result Value Ref Range Legionella Antigen, Ur Negative Negative Blood Culture, Peripheral Draw #2 Collection Time: 09/17/24 6:52 AM Specimen: Blood, Venous Result Value Ref Range Culture, Blood Streptococcus pneumoniae (AA) Gram Stain Result (AA) Aerobic and Anaerobic bottles Gram positive cocci in pairs and chains Blood Culture, Peripheral Draw #1 Collection Time: 09/17/24 6:52 AM Specimen: Blood, Venous Result Value Ref Range Culture, Blood Streptococcus pneumoniae (AA) Gram Stain Result (AA) Aerobic and Anaerobic bottles Gram positive cocci in pairs and chains Blood culture pathogens molecular study Collection Time: 09/17/24 6:52 AM Specimen: Blood, Venous Result Value Ref Range Streptococcus pneumoniae Detected (A) Not Detected MRSA molecular study Collection Time: 09/17/24 6:55 AM Specimen: Nares; Swab Result Value Ref Range MRSA Screen PCR Not Detected Not Detected Culture sputum Collection Time: 09/17/24 10:31 AM Specimen: Lungs; Sputum, expectorated Result Value Ref Range Culture, Sputum Screening for Pathogens Gram Stain Result Many Polymorphonuclear leukocytes (A) Gram Stain Result Rare Epithelial cells (A) Gram Stain Result Rare Gram positive cocci in pairs (A) Gram Stain Result Rare Gram positive bacilli (A) Gram Stain Result (A) Greater than 25 WBCS and less than 10 Epithelial cells MRSA molecular study Collection Time: 09/17/24 11:36 AM Specimen: Nares; Swab Result Value Ref Range MRSA Screen PCR Not Detected Not Detected Culture blood Collection Time: 09/17/24 7:15 PM Specimen: Blood, Venous Result Value Ref Range Culture, Blood Culture in progress Culture blood Collection Time: 09/18/24 9:35 AM Specimen: Blood, Venous Result Value Ref Range Culture, Blood Culture in progress Acid fast bacilli stain Collection Time: 09/18/24 9:44 AM Specimen: Trachea; Sputum Result Value Ref Range AFB Stain Result No Acid Fast Bacilli seen on direct smear No Acid fast bacilli seen on direct smear (Fuchsin method, 1000x) Imaging: XR Chest 2 Views Narrative: HISTORY: The patient is a 39-year-old male with dyspnea on exertion. CT scan of the chest performed 09/17/2024 demonstrated left hilar and perihilar fullness consistent with an infectious, inflammatory, or neoplastic process, with lingular and left lower lobe consolidation as well as a left pleural effusion. FINDINGS: PA and lateral graphs of the chest, without previous chest radiograph for comparison, demonstrate normal appearance of the bony structures. The cardiac size is difficult to evaluate on thisexamination. There is density in the left hilar and parahilar regions consistent with lymphadenopathy and/or an inflammatory or infectious process. There is a moderate sized left pleural effusion with underlying atelectasis and/or infiltrate. The right lung is clear. Impression: Left hilar and perihilar density consistent with an inflammatory, infectious, and/or neoplastic process. There is a moderate sized left pleural effusion with underlying atelectasis and/orinfiltrate. The right lung is clear. Code 94517 -------- FINAL REPORT -------- Dictated By: Esa Nathan Dictated Date: 09/18/2024 12:10 ET Assigned Physician: Esa Nathan Reviewed and Electronically Signed By: Esa Nathan Signed Date: 09/18/2024 12:14 ET Workstation ID: [id number] Transcribed By: Self Edit Transcribed Date: 09/18/2024 12:10 ET Transthoracic echocardiogram (TTE) complete with PRN contrast, bubble, strain, and 3D order panel Left ventricle cavity size is normal. Left ventricle mild concentric hypertrophy. Left ventricular systolic function is mildly decreased with an ejection fraction of 45-50%. Right ventricle cavity is mildly enlarged. Right ventricular systolic function is normal. Left atrium cavity is mildly dilated. Right atrium cavity is mildly dilated. There is mild regurgitation. Right ventricular systolic pressure is normal ASSESSMENT & PLAN 39 y.o. obese, homeless man with h/o preevious non hodgkin lymphoma diagnosed in 2010 treated with chemotherapy and XRT, Asthma, HTN, OCD, RAMESH, Afib on Xarelto and nonischemic cardiomyopathy who presented to the ED complaining of 3 days of generalized weakness and cough with bloody sputum Postobstructive pneumonia Incidental finding of hilar mass encasing left main pulmonary artery and LV structure Seen by vascular no role for any intervention at this time. Patient was also seen by thoracic surgery. Recommend bronchoscopy for the patient. Patient seen by pulmonary and plan to do bronc on Saturday Plan to get a CTA chest done on Saturday Continue with bronchodilator DuoNebs at this time Continue with IV antibiotics at this time On isolation precaution as he is homeless and living in a group home rule out TB. History of cardiomyopathy takes Entresto which has been held at this time. Can resume once blood pressure more stable. History of a flutter/fib On digoxin and carvedilol. History of Hodgkin's lymphoma which is in remission at this time. Hypothyroid on levothyroxine Secondary hypercoagulable state because of atrial fibrillation on Xarelto which has been on hold. 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 Pt states that he has sister who lives in [place] he cannot stay with her but she does try to help the pt when she can, pt denies any drug or alcohol use, sw will continue to follow for safe d/c planning * Maddison Benavidez MD - 09/18/2024 7:33 AM EST SUBJECTIVE: Patient feeling better. Still w/ persistent coughing spasm with phlegm mixed with blood. Patient did not coughing up blood clots. Over last 24 hours, patient believe he coughed up 1/4 to 1/2 a cup of blood ROS: Patient complaining of shortness of breath and dyspnea on exertion but has improved. Patient does complain of fatigue and malaise. OBJECTIVE: Visit Vitals BP (!) 141/91 (BP Location: Left arm, Patient Position: Lying) Pulse 89 Temp 36.2 ??C (97.1 ??F) (Temporal) Resp 20 GEN: NARD HEENT: anicteric sclera Cardiac: RR Lungs: Diminished breath sound, few rhonchi but clear no rales ABD: soft, NT, ND, good BS Ext: no c/c/e Neuro: Awake, alert, oriented x 3. HEMATOLOGY Lab Results Component Value Date WBC 16.3 (H) 09/17/2024 HGB 15.2 09/17/2024 HCT 47.8 09/17/2024 MCV 87.2 09/17/2024 PLT 184 09/17/2024 INR 1.8 09/17/2024 CHEMISTRY Lab Results Component Value Date GLUCOSE 117 (H) 09/17/2024 NA 135 09/17/2024 K 3.9 09/17/2024 CO2 30 09/17/2024 CL 101 09/17/2024 BUN 12 09/17/2024 CREATININE 0.99 09/17/2024 EGFR 99 09/17/2024 CALCIUM 8.9 09/17/2024 MG 1.7 (L) 09/17/2024 ANIONGAP 4 09/17/2024 ASSESSMENT AND PLAN: 39-year-old MO (BMI 42) male, h/o poor medical compliance, asthma, probable RAMESH, elevated left hemidiaphragm, A-fib (was on Xarelto prior to admission), HTN, CHF, hypothyroidism, and non-Hodgkin lymphoma (s/p chemoradiation pulmonary transplant 2010) and R periorbital cellulitis. Admitted on 09/17/2024 with a syncopal event, following significant hemoptysis related to be a untreated URI/pneumonia. CTA of the chest showed no pulmonary emboli, lingula consolidation w/ potential postobstructive process, and incidental finding of hilar mass encasing vascular (left main pulmonary artery) and airway structure. So far sputum showed GPC and blood culture 1 out of 4 show evidence of Streptococcus pneumonia. -Cardiothoracic surgery involved, consult appreciated. -Vascular surgical service also involved, consult appreciated. There is no role in vascular surgery intervention at this time, would defer recommendations to thoracic surgery . -Anesthesia team also involved of the potential need for emergent the patient and double-lumen ET tube available. -Nasal MRSA screen negative. Urine Legionella negative. Pittore panel negative. HIV negative. Sputum culture GPC, culture and sensitivity pending. Patient resides in a group home, AFB and QuantiFERON TBserology pending. As above, so for strep pneumococcus appeared to be the culprit. --Continue current empiric antibiotic with IV Unasyn. Adjust antibiotic accordingly. -Continue serial H&H, and keep type and screen up to date. Remain off Xarelto. Transfusion if indicated. -On Saturday if renal function allow, please obtain CTA of the chest to evaluate vascular involvementof the lesion. This will also help us delineate whether Endo suite or OR be more appropriate for the bronchoscopy. -Given the limitation of bronchoscopy availability. Patient has already been scheduled for the nextavailable bronchoscope for 09/22/2023 at 3 PM at the end this week. -Depending on finding on the chest CT on Saturday, there might be consideration for IP to assist withbronchoscopy. Interventional blocker and cutter contact lens available at [facility], this coming Saturday. -If patient's hemoptysis, should rapidly worsen, emergent intubation with double ET tube is a must.Anesthesia already aware. Left side down. -Continue current bronchodilator, Hycodan to suppress cough, and heated humidification for oxygen therapy. -Currently patient is on isolation per hospital protocol. -High suspicion for RAMESH, outpatient sleep study is indicated, however, location of patient CPAP in the group home will require social service to assist. This can be addressed by patient outpatient physician. -In the meantime, we will recommend that we seek out assistance of social service early in this patient hospital stay given patient discharge planning will be quite a challenge. -Venodyne for DVT pervention. AC on hold, length not yet determine will also check US of LE. -Given patient's lymphoma h/o, and chronic dyspnea and social h/o, will also obtain baseline Echo. Order placed. This chart was generated by the [employer] system and [employer] speech recognition software and may contain inherent errors or omissions not intended by the user. Grammatical errors, random word insertions, deletions, pronoun errors and incomplete sentences are occasional consequences of this technologydue to software limitations. Not all errors are caught or corrected. If there are questions or concerns about the content of this note or information contained within the body of this dictation they should be addressed directly with the author for clarification. * Josefina Cohen RN - 09/18/2024 4:25 AM EST Goals: Identify possible barriers to meeting goals/advancing plan of care: Stability of the patient: Moderately Unstable - Medium risk of patient condition declining or worsening End of Shift Summary: * Park Ndiaye RN - 09/17/2024 7:17 AM EST ED RN HANDOFF (All Hunt Below Must Be Completed) Reason/Diagnosis for Admission: PNA/lung mass Type of Admission: [x] Medsurg, [] Telemetry Already in a Hospital Bed: [] Yes / [x] No Room Considerations/Precautions (ex: fever, diarrhea, or any infectious concerns): [] Yes / [x] No Marshmallow Runner: [] Yes / [x] No If YES, Cardiac Rhythm: [] NSR, [] SB, [] ST, [] A-FIB, [] A-Flutter, [] Pacemaker, [] 1st Degree HB, [] 2nd Degree HB, [] 3rd Degree HB Reason for Marshmallow Runner: VS: Visit Vitals BP (!) 115/95 (BP Location: Right arm;Upper, Patient Position: Lying) Pulse 99 Temp 37.1 ??C (98.8 ??F) (Oral) Resp 20 Ht 1.803 m (71 ) Wt 136 kg (300 lb) SpO2 (!) 88% BMI 41.84 kg/m?? BSA 2.5 m?? Current Mental Status: A/O x [x]4, []3, []2, []1 Current Ambulation Status: IV Access: [x] Yes / [] No Field IV present: [] Yes / [x] No Hx of Violence: [] Yes / [x] No / [] Unknown Fall Risk:[x] Yes / [] No Yellow Bracelet Applied [] Yes / [] No Yellow Socks Applied [] Yes / [] No Patient Belongings inventoried and BL completed: [x] Yes / [] No Patient belongings stored in the security closet: [] Yes (If Yes please supply Security bag #): [x] No Patient Medications stored in Pharmacy: [] Yes (If Yes please supply Medication Security bag #): [x] No ED Summary of Care: 2-3 days NV, cough with bloody sputum with upper abd/chest pain. last night felt weak and had fall vs syncope. CT chest with PNA and concern for neoplasm. Hx of non hodgkins lymphoma. Blood cultures and MRSA swab sent. Placed on 2L nc after dialudid Submitted by and Phone Extension: * Tracy Ryder RN - 09/17/2024 3:02 AM EST From [facility]. Unwitnessed fall, weakness and lethargy . Denies LOC. No headstrike. Pt also vomiting blood x 2 days. * RANDAL Pryor - 09/17/2024 2:50 AM EST Emergency Medicine Note Patient Name: aPblo Bedolla Initial Evaluation: 09/17/2024 : 1985 Patient's PCP: No Pcp Physician Emergency Physician: RANDAL Pryor History of Present Illness Chief Complaint: Chief Complaint Patient presents with ??? Fall ??? Weakness - Generalized Fall with weakness and lethargy HPI: 59-year-old male with history of non-Hodgkin's lymphoma in remission presenting for evaluationof generalized weakness, decreased p.o. intake, body aches and chest pain over the past 2 to 3 days. Reports associated hemoptysis. He is on anticoagulation for his heart, but cannot tell me specifically what or why (review of chart appears he takes Xarelto for A-fib) States he was so weak he believes he may have had a syncopal episode today ROS: I have performed a ROS with the pertinent positives and negatives documented in the history ofpresent illness. Previous History Past Medical History: Diagnosis Date ??? Non-Hodgkin lymphoma (CMS/HCC) History reviewed. No pertinent surgical history. No family history on file. has No Known Allergies. No current facility-administered medications on file prior to encounter. Current Outpatient Medications on File Prior to Encounter Medication Sig Dispense Refill ??? [] omeprazole (PriLOSEC) [address] capsule Take 1 capsule (20 mg total) by mouth 1 (one) time each day. Do not crush or chew. 30 each 0 Physical Exam ED Triage Vitals [09/17/24 0303] Temp Heart Rate Resp BP 36.3 ??C (97.3 ??F) 89 -- (!) 142/83 SpO2 Temp src Heart Rate Source Patient Position 94 % -- -- -- BP Location FiO2 (%) -- -- General: Well-appearing, well nourished, in no acute distress HEENT: PERRL, EOMI, external ears and nose appear unremarkable, airway is patent Neck: Supple, full range of motion Chest: Clear to auscultation; no evidence of respiratory distress Circulatory: RRR, extremities well perfused Abdomen: Non-distended, Non-Tender Extremities: Normal ROM, No edema Skin: Warm and dry Neuro: Alert and oriented, no focal deficits Results Labs Reviewed BASIC METABOLIC PANEL - Abnormal Result Value Sodium 135 Potassium 3.9 Chloride 101 CO2 30 Anion Gap 4 Glucose 117 (*) BUN 12 Creatinine 0.99 eGFR 99 BUN/Creatinine Ratio 12.1 Calcium 8.9 MAGNESIUM - Abnormal Magnesium 1.7 (*) CBC WITH AUTO DIFFERENTIAL - Abnormal WBC 16.3 (*) RBC 5.50 Hemoglobin 15.2 Hematocrit 47.8 MCV 87.2 MCH 27.7 MCHC 31.8 (*) RDW 15.0 Platelets 184 MPV 9.7 NRBC 0.0 NRBC Absolute 0.00 Neutrophils Relative 91.4 Lymphocytes Relative 4.1 Monocytes Relative 3.1 Eosinophils Relative 0.0 Basophils Relative 0.4 Immature Granulocytes Relative 1.0 Neutrophils Absolute 14.85 (*) Lymphocytes Absolute 0.67 (*) Monocytes Absolute 0.51 Eosinophils Absolute 0.00 Basophils Absolute 0.06 Immature Granulocytes Absolute 0.17 (*) URINALYSIS WITH REFLEX MICROSCOPIC AND CULTURE - Abnormal Specific [place] Urine 1.015 pH, Urine 6.5 Leukocytes, Urine Small (*) Nitrite, Urine Negative Protein, Urine Trace Glucose, Urine Negative Ketones, Urine Negative Urobilinogen, Urine 1.0 Bilirubin, Urine Negative Blood, Urine Negative RBC, Urine 0.4 WBC, Urine 5.8 (*) Squamous Epithelial, Urine 23 Bacteria, Urine Negative Hyaline Casts, Urine 0.4 RESPIRATORY VIRUS PANEL MOLECULAR STUDY - Normal Adenovirus Detection by PCR Not Detected Influenza A PCR Not Detected Influenza B PCR Not Detected Coronavirus 229E Not Detected Coronavirus HKU1 Not Detected Coronavirus OC43 Not Detected Coronavirus NL63 Not Detected Parainfluenza Virus 1 Not Detected Parainfluenza Virus 2 Not Detected Parainfluenza Virus 3 Not Detected Parainfluenza Virus 4 Not Detected RSV PCR Not Detected Human Metapneumovirus A and B Not Detected Rhinovirus/Enterovirus Not Detected Bordetella pertussis Not Detected Bordetella parapertussis Not Detected Mycoplasma pneumo by PCR Not Detected Chlamydia pneumoniae Not Detected SARS COV-2 Not Detected Narrative: Testing was performed using the ShotSpotter Respiratory Pathogen PCR Assay. All results must [...] that are below the limit of detection. TROPONIN I HIGH SENSITIVITY - Normal High Sensitivity Troponin I 3 Narrative: High levels of biotin in samples may falsely decrease hsTroponin values. Use caution when interpreting hsTroponin results in patients taking biotin who exhibit renal impairment (eGFR <60) or in patients taking more than 20 mg/day of biotin. TROPONIN I HIGH SENSITIVITY - Normal High Sensitivity Troponin I 3 Narrative: High levels of biotin in samples may falsely decrease hsTroponin values. Use caution when interpreting hsTroponin results in patients taking biotin who exhibit renal impairment (eGFR <60) or in patients taking more than 20 mg/day of biotin. CULTURE URINE CULTURE BLOOD CULTURE BLOOD CBC AND DIFFERENTIAL Narrative: The following orders were created for panel order CBC and differential. Procedure Abnormality Status --------- ------ CBC auto differential[[id number]] Abnormal Final result Please view results for these tests on the individual orders. URINALYSIS WITH REFLEX MICROSCOPIC AND CULTURE Narrative: The following orders were created for panel order Urinalysis with reflex microscopic and culture. Procedure Abnormality Status --------- ------ Urinalysis with reflex ...[[id number]] Abnormal Final result Villegas urine culture tube[[id number]] In process Please view results for these tests on the individual orders. LACTATE Abnormal Labs Reviewed BASIC METABOLIC PANEL - Abnormal; Notable for the following components: Result Value Glucose 117 (*) All other components within normal limits MAGNESIUM - Abnormal; Notable for the following components: Magnesium 1.7 (*) All other components within normal limits CBC WITH AUTO DIFFERENTIAL - Abnormal; Notable for the following components: WBC 16.3 (*) MCHC 31.8 (*) Neutrophils Absolute 14.85 (*) Lymphocytes Absolute 0.67 (*) Immature Granulocytes Absolute 0.17 (*) All other components within normal limits URINALYSIS WITH REFLEX MICROSCOPIC AND CULTURE - Abnormal; Notable for the following components: Leukocytes, Urine Small (*) WBC, Urine 5.8 (*) All other components within normal limits CT Head wo Contrast Final Result Impression: No acute intracranial pathology. This document has been electronically signed by: Omar Mendiola MD on 09/17/2024 05:58:03 CT Angio Chest wo and/or w Contrast Final Result No pulmonary emboli. Left hilar process with encasement of vascular and airway structures for which neoplasm is prime consideration. This is difficult to measure given infiltrative nature. Left lingular and lower lobe consolidations may reflect infiltrates or post-obstructive atelectasis. Prevascular adenopathy. Prominent elevation left hemidiaphragm. This document has been electronically signed by: Omar Mendiola MD on 09/17/2024 06:15:17 CT Abdomen Pelvis w Contrast Final Result Prominent left hemidiaphragm elevation. Hepatomegaly. Dense retained stool. No abnormal masses. This document has been electronically signed by: Omar Mendiola MD on 09/17/2024 06:20:44 I have discussed the incidental/abnormal imaging and/or lab abnormalities with the patient and haveinstructed them the need for further evaluation and workup with their primary care doctor. I have provided the patient with a paper copy of the abnormality. The laboratory results, imaging results and other diagnostic exam results were reviewed in the EMR. EKG Interpretation Critical Care Time None Medical Decision Making Medications magnesium sulfate 2 gram/50 mL (4 %) IVPB 2 g (2 g intravenous New Bag 09/17/24429) piperacillin-tazobactam (ZOSYN) 4.5 g in sodium chloride 0.9 % 100 mL IVPB (has no administration in time range) sodium chloride 0.9 % bolus 1,000 mL (1,000 mL intravenous New Bag 09/17/241) ondansetron (PF) (ZOFRAN) injection 4 mg (4 mg intravenous Given 09/17/24430) famotidine (PF) (PEPCID) injection 20 mg (20 mg intravenous Given 09/17/240) morphine injection 4 mg (4 mg intravenous Given 09/17/24 0502) sodium chloride 0.9 % flush 10 mL (10 mL intravenous Given 09/17/24526) iopamidoL (ISOVUE-370) 370 mg iodine /mL (76 %) injection 90 mL (95 mL intravenous Given 09/17/24526) ED Course as of 09/17/24626 Negin Sep 17, [address] of the chest has resulted is negative for PE but does show a left hilar process with encasement of vascular and airway extractions concerning for neoplasm however difficult to measure becauseof its infiltrative nature, also showing left lingular and lower lobe consolidations. There is associated prevascular adenopathy and prominent elevation of the left hemidiaphragm. I have discussed these findings with the patient. He reports continued pain, will be given additional dose of analgesia. Will discuss with hospital medicine. [LQ] [address] without any acute concerning findings. [LQ] ED Course User Index [LQ] RANDAL Pryor Clinical Impressions as of 09/17/24626 Hemoptysis Lung mass Pneumonia of left lower lobe due to infectious organism 09/17/2024 4:26 AM patient seen and evaluated, vitals reviewed, labs ordered prior to my evaluation reviewed show a leukocytosis to 16.3, H&H of 15.2/47.8, magnesium slightly low at 1.7 will be repleted. Initial troponin of 3-second is pending. Additional lab work, viral panel, urinalysis and CTof the head, chest abdomen pelvis are pending. Continuous cardiac monitoring. Procedures Procedures Diagnosis 1. Hemoptysis CT Angio Chest wo and/or w Contrast CT Angio Chest wo and/or w Contrast 2. Lung mass 3. Pneumonia of left lower lobe due to infectious organism Disposition Admit to Inpatient ED Prescriptions None Physician Attestation RANDAL Pryor 09/17/24 0430 RANDAL Pryor 09/17/24626 Associated attestation - Shelley Wiseman MD - 09/18/2024 7:42 AM EST I personally evaluated this patient with the EVELYN and performed a substantive portion of the visit including all aspects of the medical decision making. Reviewed and agree with documented PA assessment and plan. Patient will be admitted to hospitalist for hemoptysis, lung mass. Patient remains hemody namically stable, resting and comfortable at this time. Shelley Wiseman MD documented in this encounter H&P Notes * Kylah Arredondo NP - 09/17/2024 7:14 AM EST Images from the original note were not included. History of present illness: This is a 39-year-old male who stays in a group home. He presents to the emergency room with complaints of generalized weakness decreased p.o. intake and hemoptysis. He states that he has had chest painover the past 2 to 3 days and that generally he generally feels weak and tired. Does have a historyof Hodgkin's lymphoma and was treated back in 2010. He also has a history of A- fib/flutter and is on Xarelto. He denies a history of pulmonary embolus/DVT. However when questioned about this he couldnot definitively say yes or no. No complaints of abdominal pain he complains of decreased hunger. States he has not moved his bowels in several days. No blood in the urine or stool. He does not specifically know if he has had a fever but he has had some shaking chills. In the emergency room included a brain CT which was negative for acute process. He had a chest CTA: IMPRESSION: No pulmonary emboli. Left hilar process with encasement of vascular and airway structures for which neoplasm is prime consideration. This is difficult to measure given infiltrative nature. Left lingular and lower lobe consolidations may reflect infiltrates or post-obstructive atelectasis. Prevascular adenopathy. Prominent elevation left hemidiaphragm. This document has been electronically signed by: Omar Mendiola MD on 09/17/2024 06:15:17 CT of the abdomen and pelvis: IMPRESSION: Prominent left hemidiaphragm elevation. Hepatomegaly. Dense retained stool. No abnormal masses. This document has been electronically signed by: Omar Mendiola MD on 09/17/2024 06:20:44 Blood cultures were obtained UA was obtained and is negative for bacteria respiratory viral panel is negative. He is currently on doxycycline and Unasyn. Review of Systems: As stated in HPI. Past medical history: Asthma Cannabis abuse Nonischemic cardiomyopathy Essential hypertension Hodgkin's disease, extranodal and solid organ sites Obesity Obsessive-compulsive disorder PTSD Atrial fibrillation/flutter on Rivaroxaban Obstructive sleep apnea Low testosterone Housing instability Past surgical history: Biopsies in his neck Family history: His father was morbidly obese and had multiple strokes. His mother had cerebral palsy. Social history: Homeless. Stays at a group home. He denies tobacco use. He smokes cannabis daily. He drinks alcohol rarely. He denies other illicit drugs. Allergies: No known drug allergies Home medications: Albuterol 2 puffs by mouth every 6 hours as needed shortness of breath or wheezing Amlodipine 10 mg daily Bupropion HCl XL 300 mg daily Carvedilol 25 mg twice daily Vitamin D3 1000 units daily Digoxin 250 mcg daily at noon Furosemide 20 mg daily at noon levothyroxine 25 mcg daily in the morning omeprazole 20 mg daily Rivaroxaban 20 mg daily Entresto 49 mg - 51 mg 1 tablet twice a day at noon and at bedtime Venlafaxine ER 150 mg daily at noon Physical Exam: GENERAL: This is a 39-year-old male seen in the emergency room he is lying on stretcher has been just been medicated for pain not in acute distress. HEENT: Patient is normocephalic atraumatic pupils round and reactive no scleral icterus EOMI. Oral mucous membranes are pink and moist neck is supple without JVD. Trachea is midline CARDIAC: Sounds mostly regular there are extra beats no obvious murmurs rubs or gallops RESPIRATORY: Coarse breath sounds throughout coughing up hemoptysis GI: Abdomen is soft no guarding no rebound tenderness bowel sounds are present. : Deferred EXTREMITIES: 2+ bilateral lower extremity edema. No asymmetrical edema distal pulses are palpable. Feet are warm and well perfused with capillary refill less than 2 seconds. NEUROLOGICAL: Patient is alert and oriented. Cranial nerves II through XII are intact no focal deficits. Assessment and Plan: 1. Postobstructive pneumonia. Blood cultures pending I have ordered a sputum culture. Given that he lives in a group home we will also rule out TB. Pulmonary consult pending we have also involved thoracic surgery. Continue doxycycline and Unasyn for now. Continuous oxygen saturation monitoring. Isolation precaution. 2. Cardiomyopathy he normally takes Entresto but his blood pressure is soft so I am holding that for now and can be resumed when he is more stable. 3. A flutter/fib. Continue digoxin check a digoxin level. I have also continued his carvedilol. 4. Hodgkin's lymphoma he states that he was in remission and has not seen his oncologist in quite some time he thinks it was 2010. Given this new left lung mass I am concerned for recurrence and we are awaiting guidance from thoracic surgery and pulmonology. 5. Hypothyroid. Continue levothyroxine. 6. Hypercoagulable state secondary to atrial fibrillation patient was on rivaroxaban that is on hold. We have reversed that with Kcentra secondary to hemoptysis. DVT prophylaxis: Contra compression devices Healthcare proxy: He has no one listed. He lives in a group home. CODE STATUS: Full code Case and plan discussed extensively with Dr. Greene. Associated attestation - Charlie Greene MD - 09/18/2024 5:26 AM EST This is a split/shared visit with Kylah Arredondo NP. I personally performed the medical decision making (MDM) for the care of this patient on 09/18/24 as documented below Patient was discussed with Advanced Practice Provider. In brief this is a 39 y.o. obese, homeless man with h/o preevious non hodgkin lymphoma diagnosed in 2010 treated with chemotherapy and XRT, Asthma, HTN, OCD, RAMESH, Afib on Xarelto and nonischemic cardiomyopathy who presented to the ED complaining of 3 days of generalized weakness and cough with bloody sputum that began yesterday. A CTA chest done in ED showed a large infiltrative left hilar process with encasement of vascular and airway structures plus some evidence of LLL post-obstructive pneumonia. Patient is being admitted with TB isolation precautions given his presentation and living on a group home. He will be given broad spectrum abx's and will consult Pulmonary for the possibility of bronchoscopy with Bx of this L hilar lesion. Xarelto will be stopped and reversed with K-centra given significant hemoptysis. I personally saw and examined the patient at bedside. I independently obtained further history and reviewed significant updates, labs and imaging. I also contacted pertinent consultants in order to facilitate patient's medical care. Otherwise, I agree with the documentation and plan as outlined in the note below. Charlie Greene MD 09/18/24 5:18 AM EST documented in this encounter Consult Notes * Christine Harman MD - 09/21/2024 4:03 PM ESTAssociated Order(s): IP CONSULT TO INFECTIOUS DISEASES Infectious Diseases Consult 09/21/24 No ref. provider found No Pcp Physician Reason for Consultation: Strep bacteremia Source of history: chart review and the patient History Of Present Illness (includes Chief Complaint): Pablo Bedolla is a 39 y.o. male who has a past medical history of Non-Hodgkin lymphoma ([facility]).. The patient was admitted to the hospital on 09/17/2024 for feeling fatigued. The patient has recently been living in a group home and states for the past day or so he was feeling extremely fatigued prior to arrival and so he came to the hospital. He was unable to pinpoint any specific symptoms apart fromfeeling sick however he did state that he was having on and off headaches and felt like moving his neck hurt him specifically to the left side. CT scan of the chest revealed ill-defined left upper lobe nodule with dense consolidation. Blood cultures turn positive for strep pneumo. The patient was initially started on Unasyn which has been changed to ceftriaxone based on results of blood cultures.The patient is being planned for bronchoscopy tomorrow. The patient is still experiencing some neckpain and stiffness on moving his neck to the left side. TTE was unremarkable. The patient denies any nausea vomiting or diarrhea. The patient admits to smoking marijuana but does not use any other ill icit substances, currently experiencing homelessness.. The ID service has been consulted for management during this patient's hospital stay. Past Medical History: Past Medical History: Diagnosis Date Non-Hodgkin lymphoma ([facility]) Surgical History: History reviewed. No pertinent surgical history. Family History: No family history on file. No significant infectious disease history and family Social History: Social History Tobacco Use Smoking status: Unknown Allergies: Patient has no known allergies. Home Medications: Prior to Admission medications Medication Sig Start Date End Date Taking? Authorizing Provider amLODIPine (NORVASC) 10 mg tablet Take 1 tablet (10 mg total) by mouth 1 (one) time each day. Historical Provider, buPROPion XL (WELLBUTRIN XL) 300 mg 24 hr tablet Take 1 tablet (300 mg total) by mouth 1 (one) timeeach day. Do not crush, chew, or split. Historical Provider, carvediloL (COREG) 25 mg tablet Take 1 tablet (25 mg total) by mouth 2 (two) times a day with meals. Historical ProviderMD cholecalciferol (VITAMIN D-3) 50 mcg (2,000 unit) tablet Take 1 tablet (2,000 Units total) by mouth1 (one) time each day. Historical ProviderMD digoxin (LANOXIN) 250 mcg (0.25 mg) tablet Take 1 tablet (250 mcg total) by mouth 1 (one) time eachday. Historical ProviderMD furosemide (LASIX) 20 mg tablet Take 1 tablet (20 mg total) by mouth 1 (one) time each day. Historical ProviderMD levothyroxine (SYNTHROID, LEVOTHROID) 25 mcg tablet Take 1 tablet (25 mcg total) by mouth 1 (one) time each day before breakfast. Historical ProviderMD omeprazole (PriLOSEC) [address] capsule Take 1 capsule (20 mg total) by mouth 1 (one) time each day.Do not crush or chew. 08/16/24 09/15/24 RANDAL Varela rivaroxaban (XARELTO) 20 mg tablet Take 1 tablet (20 mg total) by mouth 1 (one) time each day with dinner. Take with food. Historical ProviderMD sacubitriL-valsartan (Entresto) 49-51 mg per tablet Take 1 tablet by mouth 2 (two) times a day. Historical ProviderMD venlafaxine XR (EFFEXOR-XR) 150 mg 24 hr capsule Take 1 capsule (150 mg total) by mouth 1 (one) time each day. Do not crush or chew. Historical ProviderMD Current Medications: Current Facility-Administered Medications: acetaminophen (TYLENOL) tablet 650 mg, 650 mg, oral, q4h PRN, Balta Wilson MD albuterol 2.5 mg /3 mL (0.083 %) nebulizer solution 2.5 mg, 2.5 mg, nebulization, q6h PRN, Balta Wilson MD buPROPion XL (WELLBUTRIN XL) 24 hr tablet 300 mg, 300 mg, oral, Daily, Balta Wilson MD, 300 mg at 09/21/24 0930 carvediloL (COREG) tablet 25 mg, 25 mg, oral, BID with meals, Balta Wilson MD, 25 mg at 09/21/24 0930 cefTRIAXone (ROCEPHIN) 2 g in sterile water 20 mL IV syringe, 2 g, intravenous, q24h, Lyudmila Cardoso MD, 2 g at 09/21/24 1456 digoxin (LANOXIN) tablet 250 mcg, 250 mcg, oral, Daily, Balta Wilson MD, 250 mcg at 09/20/24 1739 doxycycline (MONODOX) capsule 100 mg, 100 mg, oral, q12h PETER, Balta Wilson MD, 100 mg at 09/21/24 0930 guaiFENesin-codeine (ROBITUSSIN-AC) 100-10 mg/5 mL syrup 5 mL, 5 mL, oral, q6h PRN, Kylah Arredondo NP levothyroxine (SYNTHROID, LEVOTHROID) tablet 25 mcg, 25 mcg, oral, q AM AC, Balta Wilson MD, 25 mcg at 09/21/24 0626 morphine 2 mg/mL injection 2 mg, 2 mg, intravenous, q6h PRN, Sanna Mackey MD ondansetron ODT (ZOFRAN-ODT) disintegrating tablet 4 mg, 4 mg, oral, q8h PRN OR ondansetron (PF) (ZOFRAN) injection 4 mg, 4 mg, intravenous, q8h PRN, Balta Wilson MD oxyCODONE (ROXICODONE) 20 mg/mL concentrated solution 10 mg, 10 mg, oral, q6h PRN, Sanna Mackey MD pantoprazole (PROTONIX) EC tablet 40 mg, 40 mg, oral, q AM AC, Balta Wilson MD, 40 mg at 09/21/24 0626 prochlorperazine (COMPAZINE) tablet 10 mg, 10 mg, oral, q6h PRN OR prochlorperazine (COMPAZINE)injection 10 mg, 10 mg, intravenous, q6h PRN OR prochlorperazine (COMPAZINE) suppository 25 mg,25 mg, rectal, q12h PRN, Balta Wilson MD sacubitriL-valsartan (ENTRESTO) 49-51 mg per tablet 1 tablet, 1 tablet, oral, BID, Balta Wilson MD, 1 tablet at 09/21/24 0930 Insert peripheral IV, , , Once AND Maintain IV access, , , Until discontinued AND Saline lock IV, , , Once AND sodium chloride 0.9 % flush 10 mL, 10 mL, intravenous, BID, 10 mL at 09/21/24 0931 AND sodium chloride 0.9 % flush 10 mL, 10 mL, intravenous, PRN, Balta Wilson MD, 10mL at 09/20/24 1103 venlafaxine XR (EFFEXOR-XR) 24 hr capsule 150 mg, 150 mg, oral, Daily, Balta Wilson MD, 150 mg at 09/21/24 0930 PRN medications: acetaminophen, albuterol, guaiFENesin-codeine, morphine, ondansetron (ZOFRAN-ODT) disintegrating tablet OR ondansetron, oxyCODONE, prochlorperazine OR prochlorperazine ORprochlorperazine, Insert peripheral IV AND Maintain IV access AND Saline lock IV AND sodium chloride AND sodium chloride ROS: Review of Systems Constitutional: Negative. HENT: Negative. Respiratory: Negative. Cardiovascular: Negative. Gastrointestinal: Negative. Genitourinary: Negative. Musculoskeletal: Positive for neck pain and neck stiffness. Skin: Negative. Neurological: Positive for headaches. Hematological: Negative. Psychiatric/Behavioral: Negative. Vital signs for last 24 hours: Temp: 35.8 ??C (96.5 ??F) (09/21 1504) Heart Rate: 152 (09/21 1504) Resp: 16 (09/21 1504) BP: 159/110 (09/21 1504) Intake/Output this shift: No intake/output data recorded. Physicial Exam Physical Exam Vitals reviewed. Constitutional: Appearance: Normal appearance. HENT: Head: Normocephalic and atraumatic. Eyes: General: No scleral icterus. Cardiovascular: Rate and Rhythm: Normal rate and regular rhythm. Heart sounds: No murmur heard. No friction rub. No gallop. Pulmonary: Effort: Pulmonary effort is normal. No respiratory distress. Breath sounds: Normal breath sounds. No stridor. No wheezing, rhonchi or rales. Chest: Chest wall: No tenderness. Abdominal: General: Abdomen is flat. Bowel sounds are normal. There is no distension. Palpations: Abdomen is soft. There is no mass. Tenderness: There is no abdominal tenderness. There is no right CVA tenderness, left CVA tenderness, guarding or rebound. Hernia: No hernia is present. Musculoskeletal: Right lower leg: No edema. Left lower leg: No edema. Skin: General: Skin is warm and dry. Findings: No rash. Neurological: Mental Status: He is alert. Results: Lab No results displayed because visit has over 200 results. Lab Results Component Value Date BLOODCX No growth at 2 days 09/18/2024 BLOODCX No growth at 2 days 09/17/2024 URINECX (A) 09/17/2024 10,000-49,000 CFU/mL Streptococcus beta-hemolytic Group B MRSA Not Detected 09/17/2024 Recent Results (from the past 168 hour(s)) Respiratory virus panel molecular study Collection Time: 09/17/24 4:39 AM Specimen: Nares; Swab Result Value Ref Range Adenovirus Detection by PCR Not Detected Not Detected Influenza A PCR Not Detected Not Detected Influenza B PCR Not Detected Not Detected Coronavirus 229E Not Detected Not Detected Coronavirus HKU1 Not Detected Not Detected Coronavirus OC43 Not Detected Not Detected Coronavirus NL63 Not Detected Not Detected Parainfluenza Virus 1 Not Detected Not Detected Parainfluenza Virus 2 Not Detected Not Detected Parainfluenza Virus 3 Not Detected Not Detected Parainfluenza Virus 4 Not Detected Not Detected RSV PCR Not Detected Not Detected Human Metapneumovirus A and B Not Detected Not Detected Rhinovirus/Enterovirus Not Detected Not Detected Bordetella pertussis Not Detected Not Detected Bordetella parapertussis Not Detected Not Detected Mycoplasma pneumo by PCR Not Detected Not Detected Chlamydia pneumoniae Not Detected Not Detected SARS COV-2 Not Detected Not Detected Culture urine Collection Time: 09/17/24 5:00 AM Specimen: Urine, Clean Catch Result Value Ref Range Culture, Urine (A) 10,000-49,000 CFU/mL Streptococcus beta-hemolytic Group B Legionella antigen urine, EIA Collection Time: 09/17/24 5:00 AM Result Value Ref Range Legionella Antigen, Ur Negative Negative Blood Culture, Peripheral Draw #2 Collection Time: 09/17/24 6:52 AM Specimen: Blood, Venous Result Value Ref Range Culture, Blood Streptococcus pneumoniae (AA) Gram Stain Result (AA) Aerobic and Anaerobic bottles Gram positive cocci in pairs and chains Blood Culture, Peripheral Draw #1 Collection Time: 09/17/24 6:52 AM Specimen: Blood, Venous Result Value Ref Range Culture, Blood Streptococcus pneumoniae (AA) Gram Stain Result (AA) Aerobic and Anaerobic bottles Gram positive cocci in pairs and chains Susceptibility Streptococcus pneumoniae - MARY Penicillin (non-meningitis) Susceptible ug/ml Penicillin PO Susceptible ug/ml Penicillin (meningitis) Susceptible ug/ml Cefotaxime (Meningitis) Susceptible ug/ml Cefotaxime (Non Meningitis) Susceptible ug/ml Ceftriaxone (Meningitis) Susceptible ug/ml Ceftriaxone (Non Meningitis) Susceptible ug/ml Levofloxacin Susceptible ug/ml Moxifloxacin Susceptible ug/ml Erythromycin Susceptible ug/ml Clindamycin Susceptible ug/ml Linezolid Susceptible ug/ml Vancomycin Tetracycline Susceptible ug/ml Tigecycline Trimethoprim/Sulfamethoxazole Susceptible ug/ml Blood culture pathogens molecular study Collection Time: 09/17/24 6:52 AM Specimen: Blood, Venous Result Value Ref Range Streptococcus pneumoniae Detected (A) Not Detected MRSA molecular study Collection Time: 09/17/24 6:55 AM Specimen: Nares; Swab Result Value Ref Range MRSA Screen PCR Not Detected Not Detected Culture sputum Collection Time: 09/17/24 10:31 AM Specimen: Lungs; Sputum, expectorated Result Value Ref Range Culture, Sputum No pathogens isolated. Gram Stain Result Many Polymorphonuclear leukocytes (A) Gram Stain Result Rare Epithelial cells (A) Gram Stain Result Rare Gram positive cocci in pairs (A) Gram Stain Result Rare Gram positive bacilli (A) Gram Stain Result (A) Greater than 25 WBCS and less than 10 Epithelial cells MRSA molecular study Collection Time: 09/17/24 11:36 AM Specimen: Nares; Swab Result Value Ref Range MRSA Screen PCR Not Detected Not Detected Culture blood Collection Time: 09/17/24 7:15 PM Specimen: Blood, Venous Result Value Ref Range Culture, Blood No growth at 2 days Culture blood Collection Time: 09/18/24 9:35 AM Specimen: Blood, Venous Result Value Ref Range Culture, Blood No growth at 2 days Acid fast bacilli stain Collection Time: 09/18/24 9:44 AM Specimen: Trachea; Sputum Result Value Ref Range AFB Stain Result No Acid Fast Bacilli seen on direct smear No Acid fast bacilli seen on direct smear (Fuchsin method, 1000x) Acid fast bacilli stain Collection Time: 09/19/24 8:45 AM Specimen: Sputum Result Value Ref Range AFB Stain Result No Acid Fast Bacilli seen on direct smear No Acid fast bacilli seen on direct smear (Fuchsin method, 1000x) Acid fast bacilli stain Collection Time: 09/20/24 6:42 AM Specimen: Sputum Result Value Ref Range AFB Stain Result No Acid Fast Bacilli seen on direct smear No Acid fast bacilli seen on direct smear (Fuchsin method, 1000x) Radiology: CT Chest w Contrast Narrative: Examination: CT chest with contrast. CLINICAL INDICATION: Pneumonia, effusion abscess suspected. COMPARISON: Chest 2 views TECHNIQUE: 2.5 mm thin axial and reformatted 3 mm thin sagittal and coronal images of chest were obtained following IV 90 mL Isovue-370. Scanner: Leeo 64 slice VCT Dose reduction technique: ASIR (Adaptive statistical iterative reconstruction) and/or AEC (automated exposure control) Dose: total exam DLP 1399 mGy/cm FINDINGS: LUNGS: The right lung is expanded and clear. There is loss of left lung volume with left lingular and left lower lobed dense consolidation. There is a soft tissue ill-defined density in the left upper lobe paramediastinal measuring 2.1 x 1.8 cm on axial slice 36/3 with a few bronchi traversing the lesion resulting in mild atelectatic changes in the left upper lobe anterior segment. Nonspecific focal right lateral major fissure thickening is noted. No additional pulmonary nodules [...] No aggressive lytic or sclerotic process seen. Impression: Ill-defined left upper lobe 2.1 cm nodule intertwined within the secondary bronchioles.This results in lingular, left lower lobe dense consolidation. There is mild atelectatic changes ofthe left upper lobe anterior segment. These findings were present on the last exam 09/17/2024. There is a abnormal anterior mediastinal lymph node. There is a adjacent 3.3 cm lesion likely lymphnode with calcified alcantar. It is stable to last exam. No additional parenchymal lesions seen. Small left pleural effusion. -------- FINAL REPORT -------- Dictated By: Ronaldo Fuller Dictated Date: 09/20/2024 11:51 ET Assigned Physician: Ronaldo Fuller Reviewed and Electronically Signed By: Ronaldo Fuller Signed Date: 09/20/2024 12:05 ET Workstation ID: [id number] Transcribed By: Self Edit Transcribed Date: 09/20/2024 11:51 ET Assessment/Plan emanuel Bedolla is a 39 y.o. male who has a past medical history of Non-Hodgkin lymphoma ([facility]).. The patient was admitted to the hospital on 09/17/2024 for feeling fatigued. The patient has recently been living in a group home and states for the past day or so he was feeling extremely fatigued prior toarrival and so he came to the hospital. He was unable to pinpoint any specific symptoms apart from feeling sick however he did state that he was having on and off headaches and felt like moving his neck hurt him specifically to the left side. CT scan of the chest revealed ill-defined left upper lobe nodule with dense consolidation. Blood cultures turn positive for strep pneumo. The patient was initially started on Unasyn which has been changed to ceftriaxone based on results of blood cultures. The patient is being planned for bronchoscopy tomorrow. The patient is still experiencing some neck pain and stiffness on moving his neck to the left side. TTE was unremarkable. The patient denies anynausea vomiting or diarrhea. The patient admits to smoking marijuana but does not use any other illicit substances, currently experiencing homelessness.. The ID service has been consulted for management during this patient's hospital stay. 1. Strep pneumo bacteremia secondary to likely postobstructive pneumonia, rule out invasive strep meningitis Agree with ceftriaxone however I have switched her to BRICK TESTER dose AFB negative x 3, have asked the patient to be removed from isolation HIV negative, have ordered a hep C ab due to the patient experiencing homelessness The patient needs an LP to rule out invasive strep to the brain Blood cultures appear to have cleared as of 09/18 If LP negative then will need antibiotics for 2 weeks total can most likely transition to pills Await bronchoscopy The patient will require vaccination with Prevnar prior to discharge Recommendations: 1. Continue ceftriaxone, I have changed to 2 g every 12 for BRICK TESTER coverage 2. The patient will need an LP to rule out invasive strep to the brain, please check CSF analysis, glucose, cell count, ME panel and culture as well as protein 3. Await bronchoscopy I personally spent 75 minutes in this encounter. This included performing a detailed chart review, reviewing and independently interpreting labs and other tests ordered by other providers, performinga history and physical, counseling the patient/family, discussing the case with primary team , performing complex medical decision making, coordinating his/her/their plan of care and placing orders Communication: Thank you for the consult. Please do not hesitate to contact me via VolusionChat with issues or questions Please note that this note has been completed with the help of voice recognition dictation software, as such there may be certain words that may be substituted or written in error error based on the voice-recognition tool, please contact me to clarify if any confusion Christine Harman MD * RANDAL Yusuf - 09/17/2024 2:19 PM EST VASCULAR SURGERY CONSULTATION PATIENT: Pablo Bedolla ENCOUNTER: 09/17/2024 EMRN: [id number] : 1985 PCP: No Pcp Physician CHIEF COMPLAINT: Fall and Weakness - Generalized (Fall with weakness and lethargy) HPI: Patient is a 39 y.o. male with history of asthma, cannabis abuse, nonischemic cardiomyopathy, HTN, obesity, Hodgkin's lymphoma treated in 2010, atrial fibrillation/flutter on Xarelto, RAMESH presented to [facility] ED on 09/17/24 for evaluation of hemoptysis, generalized weakness, decreased PO intake and chest pain. Patient is homeless, stays at a group home. In the ER, patient was hemodynamically stable, afebrile. Initial labs with WBC count 9.3, H&H 14.7 and 47.2. Chemistry panel unremarkable. Head CT revealed no acute intracranial pathology. CTA chest without PE. Left infiltrative hilar process with encasement of vascular and airway structures for which neoplasm is prime consideration. Left lingular and lower lobe consolidations may reflect infiltrates or post- obstructive atelectasis, pre-vascular adenopathy and prominent elevation of left hemidiaphragm. CT abdomen/pelvis withno abnormal masses, dense retained stool and hepatomegaly. The patient was admitted to the medical service for further management. Blood cultures, sputum culture were obtained. He is currently being ruled out for TB given that he lives in a group home. He was started on doxycycline and Unasyn. Vascular surgery consult was placed by pulmonology. Past Medical History: Diagnosis Date Non-Hodgkin lymphoma (CMS/HCC) History reviewed. No pertinent surgical history. Current Facility-Administered Medications Medication Dose Route Frequency Provider Last Rate Last Admin acetaminophen (TYLENOL) tablet 650 mg 650 mg oral q4h PRN Balta Wilson MD albuterol 2.5 mg /3 mL (0.083 %) nebulizer solution 2.5 mg 2.5 mg nebulization q6h PRN Balta Wilson MD ampicillin-sulbactam (UNASYN) 3 g in sodium chloride 0.9 % 100 mL IVPB 3 g intravenous q6h Balta Wilson MD Stopped at 09/17/24 1257 buPROPion XL (WELLBUTRIN XL) 24 hr tablet 300 mg 300 mg oral Daily Balta Wilson MD 300 mg at 09/17/24 0900 carvediloL (COREG) tablet 25 mg 25 mg oral BID with meals Balta Wilson MD 25 mg at 09/17/24 0900 digoxin (LANOXIN) tablet 250 mcg 250 mcg oral Daily Balta Wilson MD doxycycline (MONODOX) capsule 100 mg 100 mg oral q12h PETER Balta Wilson MD 100 mg at 09/17/24 0859 levothyroxine (SYNTHROID, LEVOTHROID) tablet 25 mcg 25 mcg oral q AM AC Balta Wilson MD 25 mcg at 09/17/24 0900 morphine 2 mg/mL injection 2 mg 2 mg intravenous q4h PRN Balta Wilson MD morphine injection 4 mg 4 mg intravenous q2h PRN Balta Wilson MD ondansetron ODT (ZOFRAN-ODT) disintegrating tablet 4 mg 4 mg oral q8h PRN Balta Wilson MD Or ondansetron (PF) (ZOFRAN) injection 4 mg 4 mg intravenous q8h PRN Balta Wilson MD pantoprazole (PROTONIX) EC tablet 40 mg 40 mg oral q AM AC Balta Wilson MD 40 mg at 900 prochlorperazine (COMPAZINE) tablet 10 mg 10 mg oral q6h PRN Balta Wilson MD Or prochlorperazine (COMPAZINE) injection 10 mg 10 mg intravenous q6h PRN Balta Wilson MD Or prochlorperazine (COMPAZINE) suppository 25 mg 25 mg rectal q12h PRN Balta Wilson MD sacubitriL-valsartan (ENTRESTO) 49-51 mg per tablet 1 tablet 1 tablet oral BID Balta Wilson MD sodium chloride 0.9 % flush 10 mL 10 mL intravenous BID Balta Wilson MD 10 mL at 09/17/24 0908 And sodium chloride 0.9 % flush 10 mL 10 mL intravenous PRN Balta Wilson MD venlafaxine XR (EFFEXOR-XR) 24 hr capsule 150 mg 150 mg oral Daily Balta Wilson MD 150 mg at 09/17/24 0900 No Known Allergies Social History Tobacco Use Smoking status: Not on file Smokeless tobacco: Not on file Substance Use Topics Alcohol use: Not on file No family history on file. ROS: GENERAL: No malaise, significant weight loss or fever NECK: No lumps, goiter, pain or significant neck swelling RESPIRATORY: No cough, wheezing or shortness of breath CARDIAC: No chest pain or palpitations GI: No abdominal discomfort MUSCULOSKELETAL: SEE HPI SKIN: No lesions, rash or itching NEURO: No persistent headache, syncope, seizures, weakness or numbness VASCULAR: SEE HPI OBJECTIVE: I/O this shift: In: 60 [I.V.:10; IV Piggyback:50] Out: - No intake/output data recorded. Vitals: 09/17/24 0750 09/17/24 0900 09/17/24 0933 09/17/24 1143 BP: 113/71 101/69 96/62 BP Location: Right arm Right arm Right arm Patient Position: Sitting Lying Lying Pulse: 53 84 102 92 Resp: 14 (!) 28 (!) 28 Temp: 36.6 ??C (97.9 ??F) 36.7 ??C (98.1 ??F) 36.8 ??C (98.2 ??F) TempSrc: Temporal Temporal SpO2: 95% 94% 94% Weight: Height: General: Alert and oriented x 3, no acute distress, obese HEENT: Normocephalic atraumatic Neck: No JVD, no carotid bruit, carotid pulses present Chest: Respiratory effort normal Cardiac: Regular rate rhythm Abdomen: Soft, nontender, non-distended Extremities: -Right upper extremity: 2+ radial artery pulses palpable. -Left upper extremity: 2+ radial artery pulses palpable. -Right lower extremity: 2+ femoral artery pulse palpable. No palpable popliteal artery pulse. 2+ DPpalpable. No ulcers or gangrene. . -Left lower extremity: 2+ femoral artery pulse palpable. No palpable popliteal artery pulse. 2+ DP palpable. No ulcers or gangrene. . Integumentary: No wounds Lymphatics: No lymphadenopathy Neuro: Grossly intact RESULTS: CBC Lab Results Component Value Date WBC 16.3 (H) 09/17/2024 HGB 15.2 09/17/2024 HCT 47.8 09/17/2024 MCV 87.2 09/17/2024 PLT 184 09/17/2024 LYMPHOPCT 4.1 09/17/2024 MONOPCT 3.1 09/17/2024 EOSPCT 0.0 09/17/2024 Electrolytes Lab Results Component Value Date NA 135 09/17/2024 K 3.9 09/17/2024 CL 101 09/17/2024 BUN 12 09/17/2024 CREATININE 0.99 09/17/2024 EGFR 99 09/17/2024 GLUCOSE 117 (H) 09/17/2024 CALCIUM 8.9 09/17/2024 Lab Results Component Value Date MG 1.7 (L) 09/17/2024 IMAGING: ADDENDUM: Alternative consideration given patient age for left hilar process and adenopathy is infectious sequelae. This document has been electronically signed by: Omar Mendiola MD on 09/17/2024 06:30:58 Finalized by Omar Mendiola MD on SatSep 17, 2024 6:[address] angiography chest with contrast. 3D Postprocessing. [...] by: Omar Mendiola MD on 09/17/2024 06:15:17 ASSESSMENT: 1. Hemoptysis 2. Lung mass 3. Pneumonia of left lower lobe due to infectious organism RECOMMENDATIONS: 39 y.o. male with history of cannabis abuse, Hodgkin's lymphoma treated in 2010, atrial fibrillation on Xarelto admitted with infiltrative left hilar process with encasement of vascular and airway structures and post-obstructive pneumonia. CT imaging was reviewed by Dr. Vega. There is no role in vascular surgery intervention at this time, would defer recommendations to thoracic surgery. Discussed with ordering provider. Patient seen with Dr. Vega. EVELNY TIME I spent a total of 25 minutes of non-overlapping time on the visit. Moderate complexity decision making. Associated attestation - Dank Vega MD - 09/18/2024 6:34 PM EST Patient seen and examined. Chart reviewed. Imaging study reports appreciated and all images personally reviewed. I have formulated the plan of care. Case discussed with primary team. 35 minutes spenton patient encounter. 20 minutes spent in conjunction with PA. Moderate complexity medical decisionmaking * RANDAL Blanco - 09/17/2024 1:17 PM ESTAssociated Order(s): IP CONSULT TO CARDIOTHORACIC SURGERY Thoracic Surgery: New Patient Consultation Name: Pablo Bedolla : 1985 Date of Visit: 09/17/2024 Reason for Visit Chief Complaint Patient presents with Fall Weakness - Generalized Fall with weakness and lethargy History of Present Illness Pablo Bedolla is a 39 y.o. male with a PMH of non hodgkin lymphoma diagnosed in 2010 and treated with chemotherapy and radiation therapy, Asthma, HTN, OCD, RAMESH, Afib on Xarelto and nonischemic cardiomyopathy who presented to the ED with complaints of generalized weakness X 2-3 days and cough with bloody sputum that started yesterday. Thoracic Surgery is consulted for evaluation/management of hemoptysis. Past Medical History: Diagnosis Date Non-Hodgkin lymphoma (CMS/HCC) Asthma Afib Nonischemic cardiomyopathy HTN Obesity RAMESH PTSD OCD No Known Allergies Current Facility-Administered Medications Medication Dose Route Frequency Provider Last Rate Last Admin acetaminophen (TYLENOL) tablet 650 mg 650 mg oral q4h PRN Balta Wilson MD albuterol 2.5 mg /3 mL (0.083 %) nebulizer solution 2.5 mg 2.5 mg nebulization q6h PRN Balta Wilson MD ampicillin-sulbactam (UNASYN) 3 g in sodium chloride 0.9 % 100 mL IVPB 3 g intravenous q6h Balta Wilson MD Stopped at 09/17/24 1257 buPROPion XL (WELLBUTRIN XL) 24 hr tablet 300 mg 300 mg oral Daily Balta Wilson MD 300 mg at 09/17/24 0900 carvediloL (COREG) tablet 25 mg 25 mg oral BID with meals Balta Wilson MD 25 mg at 09/17/24 0900 digoxin (LANOXIN) tablet 250 mcg 250 mcg oral Daily Balta Wilson MD doxycycline (MONODOX) capsule 100 mg 100 mg oral q12h PETER Balta Wilson MD 100 mg at 09/17/24 0859 levothyroxine (SYNTHROID, LEVOTHROID) tablet 25 mcg 25 mcg oral q AM AC Balta Wilson MD 25 mcg at 09/17/24 0900 morphine 2 mg/mL injection 2 mg 2 mg intravenous q4h PRN Balta Wilson MD morphine injection 4 mg 4 mg intravenous q2h PRN Balta Wilson MD ondansetron ODT (ZOFRAN-ODT) disintegrating tablet 4 mg 4 mg oral q8h PRN Balta Wilson MD Or ondansetron (PF) (ZOFRAN) injection 4 mg 4 mg intravenous q8h PRN Balta Wilson MD pantoprazole (PROTONIX) EC tablet 40 mg 40 mg oral q AM AC Balta Wilson MD 40 mg at 09/17/24 0900 prochlorperazine (COMPAZINE) tablet 10 mg 10 mg oral q6h PRN Balta Wilson MD Or prochlorperazine (COMPAZINE) injection 10 mg 10 mg intravenous q6h PRN Balta Wilson MD Or prochlorperazine (COMPAZINE) suppository 25 mg 25 mg rectal q12h PRN Balta Wilson MD sacubitriL-valsartan (ENTRESTO) 49-51 mg per tablet 1 tablet 1 tablet oral BID Balta Wilson MD sodium chloride 0.9 % flush 10 mL 10 mL intravenous BID Balta Wilson MD 10 mL at 09/17/24 0908 And sodium chloride 0.9 % flush 10 mL 10 mL intravenous PRN Balta Wilson MD venlafaxine XR (EFFEXOR-XR) 24 hr capsule 150 mg 150 mg oral Daily Balta Wilson MD 150 mg at 09/17/24 0900 Surgical Hx Biopsies in 2010 SH: stays at a homeless group home, + cannabis use. Denies tobacco abuse and ETOH. Father: CVA Review of Systems Pt denies CVA, TIA, Fever, SOB, hematemesis, melena, enlarged lymph nodes, weight loss, calf pain, history of DVT/PE, and no difficulty ambulating. 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 Denies rashes Admits to generalized weakness, and a manic episode, ? Syncopal event or fall (found himself on floor, recent hospitalization at [facility] for abdominal pain (states abdominal infection), decreased hunger, hemoptysis (1 day, states hemoptysis first started as some flecks in sputum and now is more pinkish red). Also admits to bleeding tendency due to medication. Physical Exam Vitals: 09/17/24 0750 09/17/24 0900 09/17/24 0933 09/17/24 1143 BP: 113/71 101/69 96/62 BP Location: Right arm Right arm Right arm Patient Position: Sitting Lying Lying Pulse: 53 84 102 92 Resp: 14 (!) 28 (!) 28 Temp: 36.6 ??C (97.9 ??F) 36.7 ??C (98.1 ??F) 36.8 ??C (98.2 ??F) TempSrc: Temporal Temporal SpO2: 95% 94% 94% Weight: Height: General: Patient is lying comfortably in bed in no acute distress, well developed, well nourished Head: Normocephalic, atraumatic, & symmetric Eyes: Sclera anicteric, eyelids without edema or erythema, +EOMS intact ENT: Oral mucosa and tongue are moist without lesions or exudates. Tongue is midline Neck: Soft, supple, symmetric, trachea midline, no crepitus, no mass visualized or palpated. No cervical lymphadenopathy. No carotid bruits auscultated Cardiovascular: Irregular rate and rhythm Respiratory: Lung sounds decreased bilaterally, breathing nonlabored, speaking in full sentences, on room air. No use of accessory muscles. No chest wall crepitus Gastrointestinal: Soft, non-tender, non-distended, +normoactive bowel sounds. Skin: Warm and dry throughout, no rashes Lymphatic: no cervical, supraclavicular, or infraclavicular lymphadenopathy noted Pulses: Carotid 2+, Radial 2+, Femoral 2+, PT1 + bilaterally. Extremities: BLE with trace edema, no calf tenderness bilaterally. Lower extremties warm. Neurological: Alert and oriented x 3, no focal neurological deficit noted Psychiatric: No agitation, appropriate affect Radiology I personally viewed the patient's current and past imaging studies, in addition to reviewing the dictated report from the reading radiologist. CT Chest, Abdomen, Pelvis w/Contast IMPRESSION: No pulmonary emboli. Left hilar process with encasement of vascular and airway structures for which neoplasm is prime consideration. This is difficult to measure given infiltrative nature. Left lingular and lower lobe consolidations may reflect infiltrates or post-obstructive atelectasis. Prevascular adenopathy. Prominent elevation left hemidiaphragm. Hepatomegaly. Dense retained stool. No abnormal masses. Pathology Micro / Labs Sputum; Abnormal Many Polymorphonuclear leukocytes Rare Epithelial cells Rare Gram positive cocci in pairs Rare Gram positive bacilli Greater than 25 WBCS and less than 10 Epithelial cells Respiratory panel - Negative TB - pending Assessment and Plan Problem List Items Addressed This Visit Respiratory * (Principal) Left lower lobe pneumonia Relevant Medications piperacillin-tazobactam (ZOSYN) 4.5 g in sodium chloride 0.9 % 100 mL IVPB (Completed) ampicillin-sulbactam (UNASYN) 3 g in sodium chloride 0.9 % 100 mL IVPB doxycycline (MONODOX) capsule 100 mg albuterol 2.5 mg /3 mL (0.083 %) nebulizer solution 2.5 mg Hemoptysis - Primary Relevant Orders CT Angio Chest wo and/or w Contrast (Completed) Other Visit Diagnoses Lung mass Mr. Wilson is a 39 y.o gentleman w PMH of non-Hodgkin's Lymphoma diagnosed in 2010 and has been on Xarelto for Afib who presents to ED w/recent complaints of generalized weakness and coughing up blood. Thoracic Surgery is consulted for left hilar encasement and hemoptysis. - CT scan shows infiltrates which pneumonia can be a cause of hemoptysis. Sputum culture pending with gram positive cocci present. Pt is on antibiotic therapy - Unasyn. -Recommend Pulmonology to perform bronchoscopy to evaluate for any signs of active bleeding. Send cultures. -If need for bronchial biopsies, can be performed as an outpatient by Interventional Pulmonology. -Pt remains on TB precautions due to hx of homelessness which increases possibility. Await test results. Case, images reviewed with RANDAL Cruz 09/17/2024 at 1:19 PM EST * Maddison Benavidez MD - 09/17/2024 8:18 AM ESTAssociated Order(s): IP CONSULT TO PULMONOLOGY PULMONARY CONSULT CHIEF COMPLAINT or REASON FOR CONSULTATION: Fall and Weakness - Generalized (Fall with weakness and lethargy) HISTORY OF PRESENT ILLNESS: Pablo Bedolla is a 39 y.o. old, male h/o Asthma, probable RAMESH, elevated left hemidiaphragm, atrial fibrillation (on Xarelto), HTN, CHF, hypothyroidism, non- Hodgkin lymphoma (chemoradiation w/ s/p bonemarrow transplant), right pleural orbital cellulitis, and poor medical compliance. Over the last few months, patient has not been feeling well, with fatigue and malaise. In order of 2023, patient came down with recurrent bronchitis, with a chronic dry to clear phlegm that of cough, dyspnea, dyspneaon exertion, weight loss, and chest discomfort. Patient has been seen multiple times at [facility] for what appeared to be a viral gastroenteritis, URI, and loose stool (08/01/2024, 08/04/2024, and 08/15/2024). Over the last 3 days, patient has been coughing up clear phlegm with streaks of blood. Overthe last 24 hours, he is coughing up significant amount of bright red bloody secretion. Last evening at the group home, patient fainted and fell and brought to the emergency room. Last dose of Xarelto was yesterday. In the ER, vitals was stable, this am, BP on the low end. Patient blood work showed a hemoglobin of15.2, platelet 184, INR 1.8, WBC 16.3 neutrophil 91, magnesium 1.7, creatinine 0.99, BUN 12, , lactic acid 2.1, viral panel negative, EKG a flutter ventricular rate 90, QTc 484. CT head unremarkable. CTA chest, No PE, a hilar mass encasing vascular (left main pulmonary artery), and airwaystructure, lingula consolidation with postobstructive process, elevated left hemidiaphragm. Patientwas started on Zosyn and change management to Unasyn. Ex Smoker: age 15 to 25, 1 pack a dya, @ 10 ppy Inhaled marijuana & Vaping of marijuana cartridge frequently. Remote recreational drug use. 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 No occupation chemical or fume exposure. Unknwon tuberculosis or asbestos exposure. Pets: None . FH: No known FH of lung disease or cancer . REVIEW OF SYSTEMS: Review of Systems Constitutional: Positive for chills, decreased appetite, malaise/fatigue and weight loss. Negative for diaphoresis, fever and night sweats. HENT: Negative for congestion. Cardiovascular: Positive for chest pain and dyspnea on exertion. Negative for irregular heartbeat and leg swelling. Respiratory: Positive for cough, hemoptysis, shortness of breath, snoring, sputum production and wheezing. Endocrine: Negative for cold intolerance and heat intolerance. Skin: Negative for rash. Gastrointestinal: Positive for abdominal pain and nausea. Negative for constipation, diarrhea and dysphagia. Genitourinary: Negative for dysuria. Neurological: Positive for weakness. ALLERGIES: No Known Allergies ACTIVE MEDICATIONS: No outpatient medications have been marked as taking for the 09/17/24 encounter (Hospital Encounter). PROVIDER ATTESTS THAT THE MEDICATION LIST WAS OBTAINED, REVIEWED AND UPDATED. PHYSICAL EXAM: Visit Vitals BP 113/71 (BP Location: Right arm, Patient Position: Sitting) Pulse 53 Temp 36.6 ??C (97.9 ??F) Resp 14 Ht 1.803 m (71 ) Wt 136 kg (300 lb) SpO2 95% BMI 41.84 kg/m?? BSA 2.5 m?? Physical Exam Constitutional: Appearance: Normal appearance. He is obese. HENT: Head: Normocephalic and atraumatic. Nose: No congestion. Mouth/Throat: Comments: Mallampati 2-3 Eyes: Pupils: Pupils are equal, round, and reactive to light. Cardiovascular: Rate and Rhythm: Normal rate and regular rhythm. Heart sounds: No murmur heard. Pulmonary: Effort: Pulmonary effort is normal. No respiratory distress. Breath sounds: Normal breath sounds. No stridor. No wheezing, rhonchi or rales. Abdominal: General: Bowel sounds are normal. There is no distension. Palpations: Abdomen is soft. Tenderness: There is no abdominal tenderness. Musculoskeletal: Right lower leg: No edema. Left lower leg: No edema. Neurological: Mental Status: He is alert. DIAGNOSTIC DATA: CURRENTS ICD-10 PULMONARY DIAGNOSIS 1. Hemoptysis 2. Lung mass 3. Pneumonia of left lower lobe due to infectious organism ASSESSMENT/PLAN: 1. Hemoptysis due to a combination of pneumonia potential postobstructive process and questionable related to CT abnormality of . -Prior to proceeding given the complexity of the case, a multidiscipline approach should be initiated. I have taken the liberty and contact both thoracic surgery and vascular surgery to assist with management. I have also spoken to anesthesia, and charge today, Dr. Laura Pinzon, of potential worsening condition, and he agreed to signed out regularly to the upcoming anesthesiologist on-call. -Currently patient is off Xarelto, and receiving serial H&H monitoring., Transfusion if indicated. -I do believe it is reasonable to treat the pneumonia first, repeat the chest CT, as the lingular infiltrate improved, we might be able to discriminate the potential neoplasm better. Bronchoscopy availability, 09/22/23, at 3 PM. If the patient is intubated in the ICU, and urgent bronchoscopy is indicated, we can perform it there. -The Speed and quantity in which patient is coughing up the blood are quite concerning. In addition, the potential encasement of vascular structure, left main pulmonary artery and branches and left side bronchi, require further investigation'. -Recommend continue current anaerobic coverage, repeat CT chest on Saturday, w/ IV contrast, if renalfunction remains stable, for further discrimination. This will also tell us, whether the bronchoscopy can be performed safely at the Endo suite or in the OR or require high-level care for safe bronchoscopy. Tentative Endo suite bronchoscopy, next bronchoscopy availability, 09/22/23, at 3 PM. Endo suite aware. -If patient develop kendell bleeding, reversal of Xarelto or FFP will be needed. And in addition emergent embolization can be considered, but being the left main pulmonary artery might be involved, their are potential adverse consequences. -Hycodan and heated humidification to suppress the coughing and hemoptysis. 2. Left lower lobe pneumonia. -Await sputum culture, urine Legionella and MRSA screen. -Patient residing in a group home, and tuberculosis is being rule out, isolation and AFB pending. -Continue current Unasyn and bronchodilator. -Oxygen with heated humidification. -Given patient prior recreational drug history, if patient consent, will obtain HIV testing. 3. High suspicion for RAMESH. -Monitor for sleep apnea while in-house. Patient would benefit from a sleep study and intervention as indicated. Addendum: 60-minute of time spent reviewing various EMR records, contact of various providers and discussion with patient. This chart was generated by the [employer] system and [employer] speech recognition software and may contain inherent errors or omissions not intended by the user. Grammatical errors, random word insertions, deletions, pronoun errors and incomplete sentences are occasional consequences of this technologydue to software limitations. Not all errors are caught or corrected. If there are questions or concerns about the content of this note or information contained within the body of this dictation they should be addressed directly with the author for clarification. documented in this encounter Plan of Treatment Pending Results Name Type Priority Associated Diagnoses Date /Time Culture, afb and smear with reflex to identification and susceptibility Microbiology Routine 09/18/2024 9:44 AM EST Culture, afb and smear with reflex to identification and susceptibility Microbiology Routine 09/19/2024 8:45 AM EST Culture, afb and smear with reflex to identification and susceptibility Microbiology Routine 09/20/2024 6:42 AM EST Culture fungal, other Microbiology Routine Hemoptysis Lung mass Pneumonia of left lower lobe due to infectious organism Longstanding persistent atrial fibrillation (CMS/HCC) Leg swelling Atrial fibrillation, unspecified type (CMS/HCC) History of Hodgkin's lymphoma TB (pulmonary tuberculosis) 09/22/2024 5:10 PM EST Culture, afb and smear with reflex to identification and susceptibility Microbiology Routine Hemoptysis Lung mass Pneumonia of left lower lobe due to infectious organism Longstanding persistent atrial fibrillation (CMS/HCC) Leg swelling Atrial fibrillation, unspecified type (CMS/HCC) History of Hodgkin's lymphoma TB (pulmonary tuberculosis) 09/22/2024 5:10 PM EST documented as of this encounter Procedures Procedure [...] 09/22/2024 5:17 PM EST TB (pulmonary tuberculosis) CULTURE BRONCHIAL WITH GRAM STAIN Routine 09/22/2024 5:10 PM EST Hemoptysis Lung mass Pneumonia of left lower lobe due to infectious organism Longstanding persistent atrial fibrillation (CMS/HCC) Leg swelling Atrial fibrillation, unspecified type (CMS/HCC) History of Hodgkin's lymphoma TB (pulmonary tuberculosis) ..CONCENTRATION Routine 09/22/2024 5:10 [...] History of Hodgkin's lymphoma TB (pulmonary tuberculosis) OXYGEN THERAPY, ADULT Routine 09/22/2024 3:59 PM EST OXYGEN THERAPY, ADULT Routine 09/22/2024 3:59 PM EST CULTURE BLOOD Routine 09/22/2024 12:00 PM EST CULTURE BLOOD Routine 09/22/2024 11:38 AM EST CSF CELL COUNT WITH REFLEX TO DIFFERENTIAL, ADDITIONAL TUBE Routine 09/22/2024 9:52 AM EST CULTURE CSF WITH GRAM STAIN Routine 09/22/2024 9:52 AM EST ENCEPHALITIS PATHOGENS BY PCR Routine 09/22/2024 9:52 AM EST HERPES SIMPLEX VIRUS 1 AND 2 PCR, QUALITATIVE Routine 09/22/2024 9:52 AM EST CRYPTOCOCCAL ANTIGEN, CSF Routine 09/22/2024 9:52 AM EST PROTEIN, CSF Routine 09/22/2024 9:52 AM EST GLUCOSE, CSF Routine 09/22/2024 9:52 AM EST XR LUMBAR PUNCTURE DIAGNOSTIC Routine 09/22/2024 9:51 AM EST CBC WITH AUTO DIFFERENTIAL Routine 09/22/2024 4:04 AM EST PROTHROMBIN TIME WITH INR Routine 09/22/2024 4:04 AM EST CBC AND DIFFERENTIAL Routine 09/22/2024 4:04 AM EST TYPE AND SCREEN Routine 09/22/2024 4:04 AM EST BASIC METABOLIC PANEL Routine 09/22/2024 4:04 AM EST HEPATITIS C ANTIBODY Add-On 09/21/2024 8:51 AM EST EXTRA TUBES Routine 09/21/2024 8:51 AM EST LAVENDER - EDTA Routine 09/21/2024 8:51 AM EST PROTHROMBIN TIME WITH INR Routine 09/21/2024 8:51 AM EST BASIC METABOLIC PANEL Routine 09/21/2024 8:[address] CHEST W CONTRAST STAT 09/20/2024 1 1:16 AM EST ..CONCENTRATION Routine 09/20/2024 6:42 AM EST CULTURE, AFB AND SMEAR WITH REFLEX TO IDENTIFICATION AND SUSCEPTIBILITY Routine 09/20/2024 6:42 AM EST ACID FAST BACILLI STAIN Routine 09/20/2024 6:42 AM EST CBC WITH AUTO DIFFERENTIAL Routine 09/20/2024 6:06 AM EST CBC AND DIFFERENTIAL Routine 09/20/2024 6:06 AM EST BASIC METABOLIC PANEL Routine 09/20/2024 6:06 AM EST ..CONCENTRATION Routine 09/19/2024 8:45 AM EST CULTURE, AFB AND SMEAR WITH REFLEX TO IDENTIFICATION AND SUSCEPTIBILITY Routine 09/19/2024 8:45 AM EST ACID FAST BACILLI STAIN Routine 09/19/2024 8:45 AM EST CBC WITH [...] (CMS/HCC) ..CONCENTRATION Routine 09/18/2024 9:44 AM EST CULTURE, AFB AND SMEAR WITH REFLEX TO IDENTIFICATION AND SUSCEPTIBILITY Routine 09/18/2024 9:44 AM EST ACID FAST BACILLI STAIN Routine 09/18/2024 9:44 AM EST CBC WITH AUTO DIFFERENTIAL Routine 09/18/2024 9:35 AM EST CULTURE BLOOD Routine 09/18/2024 9:35 AM EST CBC AND DIFFERENTIAL Routine 09/18/2024 9:35 AM EST TYPE AND SCREEN Routine 09/18/2024 9:35 AM EST BASIC METABOLIC PANEL Routine 09/18/2024 9:35 AM EST XR CHEST [...] MRSA PCR Routine 09/17/2024 6:55 AM EST BLOOD CULTURE PATHOGENS BY PCR Routine 09/17/2024 6:52 AM EST CULTURE BLOOD STAT 09/17/2024 6:52 AM EST CULTURE BLOOD STAT 09/17/2024 6:52 AM EST LACTATE STAT 09/17/2024 6:[address] ABDOMEN PELVIS W CONTRAST STAT 09/17/2024 5:[address] ANGIO CHEST WO AND/OR W CONTRAST STAT 09/17/2024 5:[address] HEAD WO CONTRAST STAT 09/17/2024 5 :43 AM EST URINALYSIS WITH REFLEX MICROSCOPIC AND CULTURE STAT 09/17/2024 5:00 AM EST VILLEGAS URINE CULTURE TUBE STAT 09/17/2024 5:00 AM EST LEGIONELLA ANTIGEN URINE, EIA STAT Add-on 09/17/2024 5:00 AM EST URINALYSIS WITH REFLEX MICROSCOPIC AND CULTURE STAT 09/17/2024 5:00 AM EST CULTURE URINE STAT 09/17/2024 5:00 AM EST RESPIRATORY VIRUS PANEL MOLECULAR STUDY STAT 09/17/2024 4:39 AM EST TROPONIN I HIGH SENSITIVITY STAT 09/17/2024 4:25 AM EST ECG 12-LEAD STAT 09/17/2024 3:38 AM EST TROPONIN I HIGH SENSITIVITY STAT 09/17/2024 3:35 AM EST CBC WITH AUTO DIFFERENTIAL STAT 09/17/2024 3:35 AM EST CBC AND DIFFERENTIAL STAT 09/17/2024 3:35 AM EST MAGNESIUM STAT 09/17/2024 3:35 AM EST LACTATE DEHYDROGENASE Add-On 09/17/2024 3:35 AM EST BASIC METABOLIC PANEL STAT 09/17/2024 3:35 AM EST ECG ANNOTATED 09/17/2024 documented in this encounter Results * Non-gynecologic cytology (09/22/2024 5:19 PM EST) Final Diagnosis A. Lung, Left Lower Lobe, Bronchoalveolar Lavage, (ThinPrep, cell block): Negative for malignant cells. B. Lung, Left Lower Lobe, Brushing, (ThinPrep, cell block): Negative for malignant cells. 09/24/2024 9:35 AM EST [facility] Specimen A Adequacy Satisfactory for evaluation 09/24/2024 9:35 AM [facility] Specimen B Adequacy Satisfactory for evaluation 09/24/2024 9:35 AM [facility] Gross Description A. Lung, Left [...] next morning, 09/23/24. 09/24/2024 9:35 AM EST [facility] Disclaimer Unless otherwise specified, all tissue is 10% NB formalin fixed and paraffin embedded. Technical cytopathology services provided by [facility], at [address] [place] [id number] ([facility] # [id number]/Newton Braden MD, Party Demonstrator.) 09/24/2024 9:35 AM [facility] Bronchoalveolar Lavage Structure of lower lobe of left lung / Unknown 09/22/2024 5:19 PM EST 09/23/2024 9:55 AM EST Brushing, function (observable entity) Structure of lower lobe of left lung / Unknown 09/22/2024 5:21 PM EST 09/23/2024 9:59 AM EST Tahmina Knapp MD LAB CYTOLOGY ORDERAB LES Performing Organization Address City/[facility]/ZIP Co de Phone Number [facility] [address] [place] [address], [place] [phone] * Culture anaerobic with gram stain (09/22/2024 5:18 PM EST) Culture, Anaerobic No Growth of Anaerobes. 09/27/2024 9:31 AM [facility] Brushing Structure of lower lobe of left lung / Unknown 09/22/2024 5:18 PM EST 09/22/2024 5:38 PM EST Tahmina Knapp MD LAB MICROBIOLOGY - G ENERAL ORDERABLES Performing Organization Address City/[facility]/ZIP Co de Phone Number [facility] [address] [place] [address], [place] [phone] * [place]ON[place]OSCOPY [place] [facility] [place] [facility] [place] (09/22/2024 5:17 PM EST) Anatomical Region Laterality Modality Endoscopy 09/22/2024 4:18 PM EST Impressions 09/22/2024 5:50 PM EST - Hemoptysis with abnormal CXR ? - No specimens collected. Recommendation: ?await lab results Narrative 09/22/2024 5:50 PM EST [facility] Pulmonology Patient Name: Pablo Bedolla Procedure Date: [...] Quick inspection of the right lung ? hunt showed no significant abnormality. The right ? lower, middle and upper lobe were patent. I next went ? to the left lung hunt, the left main bronchus was ? patent. [...] 09/22/2024 4:18 PM ? Endoscopy Department at [facility] - [address] [place] [address] [address] [place] [address] Procedure Note Tahmina Knapp MD - 09/22/2024 [facility] Pulmonology Patient Name: Pablo Bedolla Procedure Date: [...] was sharp. Quick inspection of the rightlung hunt showed no significant abnormality. The right lower, middle and upper lobe were patent. I nextwent to the left lung hunt, the left main bronchus was patent. No [...] On: 09/22/2024 4:18 PM Endoscopy Department at [facility] - [address] [place] [address] [place] [address] IMPRESSION: - Hemoptysis with abnormal CXR - No specimens collected. Recommendation: await lab results Tahmina Knapp MD GI~PROCEDURE ORDERAB LES * Concentration (09/22/2024 5:10 PM EST) AFB Concentration Performed 025 4:05 PM EST [facility] Bronchoalveolar Lavage Structure of lower lobe of left lung / Unknown 09/22/2024 5:10 PM EST 09/22/2024 5:38 PM EST Narrative [facility] - 09/24/2024 4:05 PM EST Performed at: ??01 - [facility] [address] ??[id number] Improvement Manager: Rosalina Vuong MD, Phone: ??[phone] Tahmina Knapp MD LAB BLOOD ORDERABLES [facility] * Acid fast bacilli stain (09/22/2024 5:10 PM EST) AFB Stain Result No Acid fast bacilli seen on direct smear (Fuchsin method, 1000x) No Acid Fast Bacilli seen on direct smear 09/23/2024 7:56 AM EST [facility] Bronchoalveolar Lavage Structure of lower lobe of left lung / Unknown 09/22/2024 5:10 PM EST 09/22/2024 5:38 PM EST Tahmina Knapp MD LAB MICROBIOLOGY - G ENERAL ORDERABLES Performing Organization Address [facility] de Phone Number [facility] [address] [place] [address], * Culture bronchial with gram stain (09/22/2024 5:10 PM EST) Bronchial Culture No pathogens isolated. 09/25/2024 11:18 AM EST [facility] Gram Stain Result No Epithelial cells 09/25/2024 11:18 AM EST [facility] Gram Stain Result Moderate Polymorphonuclear leukocytes 09/25/2024 11:18 AM EST [facility] Gram Stain Result No organisms seen 09/25/2024 11:18 AM EST [facility] Bronchoalveolar Lavage Structure of lower lobe of left lung / Unknown 09/22/2024 5:10 PM EST 09/22/2024 5:38 PM EST Tahmina Knapp MD LAB MICROBIOLOGY - G ENERAL ORDERABLES Performing Organization Address [facility] de Phone Number [facility] [address] [place] [address], * Pneumocystis jirovecii molecular study (09/22/2024 5:10 PM EST) Pneumocystis PCR Result Negative 09/27/2024 2:05 AM EST [facility] Comment: ADDITIONAL INFORMATION This test was developed and its performance characteristics determined by [facility] in a manner consistent with CLIA requirements. [...] 2:05 AM EST Performed at: ??01 - [facility] [address] ??[id number] Improvement Manager: Evan Uribe PhD, Phone: ??[phone] Tahmina Knapp MD LAB MICROBIOLOGY - G ENERAL ORDERABLES [facility] * Culture blood (09/22/2024 12:00 PM EST) Culture, Blood No growth at 5 days 09/27/2024 1:01 PM EST [facility] Blood Venous blood specimen / Unknown Venipuncture / Unknown 09/22/2024 12:00 PM EST 09/22/2024 12:33 PM EST Christine Harman MD LAB MICROBIOLOGY - G ENERAL ORDERABLES Performing Organization Address City/[facility]/ZIP Co de Phone Number [facility] [address] [place] [address], * Culture blood (09/22/2024 11:38 AM EST) Culture, Blood No growth at 5 days 09/27/2024 12:01 PM EST [facility] Blood Venous blood specimen / Unknown Venipuncture / Unknown 09/22/2024 11:38 AM EST 09/22/2024 11:45 AM EST Christine Harman MD LAB MICROBIOLOGY - G ENERAL ORDERABLES Performing Organization Address City/[facility]/ZIP Co de Phone Number [facility] [address] [place] [address], * Culture CSF with gram stain (09/22/2024 9:52 AM EST) Culture, CSF No growth at 5 days 9:17 AM EST [facility] Gram Stain Result Rare Polymorphonuclear leukocytes 09/27/2024 9:17 AM EST [facility] Gram Stain Result No epithelial cells seen 09/27/2024 9:17 AM EST [facility] Gram Stain Result No organisms seen 09/27/2024 9:17 AM EST [facility] Cerebrospinal Fluid Lumbar puncture / Unknown Non-blood Collection / Unknown 09/22/2024 9:52 AM EST 09/22/2024 10:06 AM EST Lyudmila Cardoso MD LAB MICROBIOLOGY - GENERAL ORDERABLES Performing Organization Address [facility]/ZIP Co de Phone Number [facility] [address] [place] [address], * Cryptococcal antigen, CSF (09/22/2024 9:52 AM EST) Pathologist [facility] Cryptococcal Antigen CSF Negative Negative 09/24/2024 4:06 PM EST [facility] CAP Mandated Reflex to Culture Not Indicated 09/24/2024 4:06 PM EST [facility] Cerebrospinal Fluid Lumbar puncture / Unknown Non-blood Collection / Unknown 09/22/2024 9:52 AM EST 09/22/2024 10:06 AM EST Narrative [facility] - 09/24/2024 4:06 PM EST Performed at: ??01 - [facility] [address] ??[id number] Improvement Manager: Nori Samuel MD, Phone: ??[phone] Lyudmila Cardoso MD LAB BODY FLUIDS AND STOOLS ORDERABLES [facility] * Encephalitis pathogens molecular study (09/22/2024 9:52 AM EST) Escherichia coli K1 Detection by PCR Not Detected Not Detected LAB MICROBIOLOGY METHOD 09/22/2024 11:54 AM [facility] Haemophilus influenzae Detection by PCR Not Detected Not Detected LAB MICROBIOLOGY METHOD 09/22/2024 11:54 AM [facility] Listeria monocytogenes Detection by PCR Not Detected Not Detected LAB MICROBIOLOGY METHOD 09/22/2024 11:54 AM [facility] Neisseria meningitidis Detection by PCR Not Detected Not Detected LAB MICROBIOLOGY METHOD 09/22/2024 11:54 AM [facility] Streptococcus agalactiae Detection by PCR Not Detected Not Detected LAB MICROBIOLOGY METHOD 09/22/2024 11:54 AM [facility] Streptococcus pneumoniae Detection by PCR Not Detected Not Detected LAB MICROBIOLOGY METHOD 09/22/2024 11:54 AM [facility] Cytomegalovirus Detection by PCR Not Detected Not Detected LAB MICROBIOLOGY METHOD 09/22/2024 11:54 AM [facility] Enterovirus Detection by PCR Not Detected Not Detected LAB MICROBIOLOGY METHOD 09/22/2024 11:54 AM [facility] Herpes Simplex Virus 1 Detection by PCR Not Detected Not Detected LAB MICROBIOLOGY METHOD 09/22/2024 11:54 AM [facility] Herpes Simplex Virus 2 Detection by PCR Not Detected Not Detected LAB MICROBIOLOGY METHOD 09/22/2024 11:54 AM [facility] Human Herpesvirus 6 Detection by PCR Not Detected Not Detected LAB MICROBIOLOGY METHOD 09/22/2024 11:54 AM [facility] Human Parechovirus Detection by PCR Not Detected Not Detected LAB MICROBIOLOGY METHOD 09/22/2024 11:54 AM [facility] Varicella Zoster Virus Detection by PCR Not Detected Not Detected LAB MICROBIOLOGY METHOD 09/22/2024 11:54 AM [facility] Cryptococcus neoformans/gattii Detection by PCR Not Detected Not Detected LAB MICROBIOLOGY METHOD 09/22/2024 11:54 AM EST [facility] Cerebrospinal Fluid Lumbar puncture / Unknown Non-blood Collection / Unknown 09/22/2024 9:52 AM EST 09/22/2024 10:06 AM EST Narrative [facility] - 09/22/2024 11:54 AM EST All results must be correlated with clinical findings. A negative result does not exclude the possibility of BRICK TESTER infection and should not be used as [...] Cardoso MD LAB MICROBIOLOGY - GENERAL ORDERABLES [facility] [address] [place] [address], * Herpes simplex virus 1 and 2 molecular study, qualitative (09/22/2024 9:52 AM EST) Specimen Source CSF 10:56 AM EST [facility] Herpes simplex Virus I Not detected Not detected 09/25/2024 10:56 AM EST [facility] Herpes simplex Virus II Not detected Not detected 09/25/2024 10:56 AM EST [facility] Comment: This test utilizes a real-time [...] characteristics of this procedure were determined by [facility]. This test is performed pursuant to a license agreement with [employer] Test performed at [facility], [address], [place] ??[address] ? [phone] Senait Stokes MD, PhD - Party Demonstrator Cerebrospinal Fluid Lumbar spine structure / Unknown Non-blood Collection / Unknown 09/22/2024 9:52 AM EST 09/22/2024 10:05 AM EST Lyudmila Cardoso MD LAB MICROBIOLOGY - GENERAL ORDERABLES [facility] [address] [place] [address] * (ABNORMAL) CSF cell count with reflex to differential, additional tube (09/22/2024 9:52 AM EST) Total Nucleated Cells, CSF Additional Tube 3 0 - 4 /mm3 09/22/2024 10:56 AM [facility] RBC, CSF Additional Tube 2,870(H) 0 - 10 /mm3 09/22/2024 10:56 AM EST [facility] Color, CSF Additional Tube [place] 09/22/2024 10:56 AM [facility] Appearance, CSF Additional Tube Cloudy(A) Clear/Colorless 09/22/2024 10:56 AM [facility] Tube Number, CSF Additional Tube 4 09/22/2024 10:56 AM [facility] Appearance, Supernatant CSF Additional Tube Xanthochromic Absent Xanthochromic Absent 09/22/2024 10:56 AM EST [facility] Cerebrospinal Fluid Lumbar puncture / Unknown Non-blood Collection / Unknown 09/22/2024 9:52 AM EST 09/22/2024 10:05 AM EST Lyudmila aCrdoso MD LAB BODY FLUIDS AND STOOLS ORDERABLES [facility] [address] [place] [address], * (ABNORMAL) Protein, CSF (09/22/2024 9:52 AM EST) Protein, CSF 52(H) 15 - 45 mg/dL LAB CHEMISTRY METHOD 09/22/2024 10:49 AM EST [facility] Cerebrospinal Fluid Lumbar puncture / Unknown Non-blood Collection / Unknown 09/22/2024 9:52 AM EST 09/22/2024 10:05 AM EST Lyudmila Cardoso MD LAB BODY FLUIDS AND STOOLS ORDERABLES Performing Organization Address [facility] de Phone Number [facility] [address] [place] [address], * Glucose, CSF (09/22/2024 9:52 AM EST) Pathologist [facility] Glucose, CSF 68 40 - 80 mg/dL LAB CHEMISTRY METHOD 09/22/2024 10:49 AM EST [facility] Cerebrospinal Fluid Lumbar puncture / Unknown Non-blood Collection / Unknown 09/22/2024 9:52 AM EST 09/22/2024 10:05 AM EST Lyudmila Cardoso MD LAB BODY FLUIDS AND STOOLS ORDERABLES Performing Organization Address [facility] de Phone Number [facility] [address] [place] [address], * XR Lumbar Puncture Diagnostic w Fluoro/CT [...] Signed Date: 09/23/2024 09:46 ET Workstation ID: [id number] Transcribed By: Self Edit Transcribed Date: 09/22/2024 11:00 ET Resident/PA/QUALITY LEAD: Gabby Underwood Narrative 09/23/2024 9:46 AM EST [...] IMPRESSION: Fluoroscopically-guided lumbar puncture with retrieval of [id number] of CSF fluid as described above. -------- FINAL REPORT -------- Dictated By: Gabby Underwood Dictated Date: 09/22/2024 10:54 ET Assigned Physician: Merle Segundo Reviewed and Electronically Signed By: Merle Segundo Signed Date: 09/23/2024 09:46 ET Workstation ID: [id number] Transcribed By: Self Edit Transcribed Date: 09/22/2024 11:00 ET Resident/PA/QUALITY LEAD: Gabby Underwood Lyudmila Cardoso MD IMG FLUOROSCOPY PRO CEDURES * (ABNORMAL) CBC auto differential (09/22/2024 4:04 AM EST) WBC 6.1 4.8 - 10.8 K/mcL LAB HEMETOLOGY METHOD 09/22/2024 4:19 AM [facility] RBC 4.90 4.50 - 5.50 M/mcL LAB HEMETOLOGY METHOD 09/22/2024 4:19 AM [facility] Hemoglobin 13.4(L) 13.5 - 17.5 g/dL LAB HEMETOLOGY METHOD 09/22/2024 4:19 AM [facility] Hematocrit 42.6 42.0 - 54.0 % LAB HEMETOLOGY METHOD 09/22/2024 4:19 AM [facility] MCV 87.1 79.0 - 98.0 FL LAB HEMETOLOGY METHOD 09/22/2024 4:19 AM [facility] MCH 27.4 27.0 - 32.0 pcg LAB HEMETOLOGY METHOD 09/22/2024 4:19 AM [facility] MCHC 31.5(L) 32.0 - 37.0 g/dL LAB HEMETOLOGY METHOD 09/22/2024 4:19 AM [facility] RDW 14.9 11.0 - 15.0 % LAB HEMETOLOGY METHOD 09/22/2024 4:19 AM [facility] Platelets 227 130 - 400 K/mcL LAB HEMETOLOGY METHOD 09/22/2024 4:19 AM [facility] MPV 9.7 7.0 - 11.0 FL LAB HEMETOLOGY METHOD 09/22/2024 4:19 AM [facility] NRBC 0.0 <1.0 % LAB HEMETOLOGY METHOD 09/22/2024 4:19 AM [facility] NRBC Absolute 0.00 <0.10 K/mcL LAB HEMETOLOGY METHOD 09/22/2024 4:19 AM [facility] Neutrophils Relative 52.6 % LAB HEMETOLOGY METHOD 09/22/2024 4:19 AM [facility] Lymphocytes Relative 32.0 % LAB HEMETOLOGY METHOD 09/22/2024 4:19 AM [facility] Monocytes Relative 12.6 % LAB HEMETOLOGY METHOD 09/22/2024 4:19 AM [facility] Eosinophils Relative 1.5 % LAB HEMETOLOGY METHOD 09/22/2024 4:19 AM [facility] Basophils Relative 0.5 % LAB HEMETOLOGY METHOD 09/22/2024 4:19 AM [facility] Immature Granulocytes Relative 0.8 % LAB HEMETOLOGY METHOD 09/22/2024 4:19 AM [facility] Neutrophils Absolute 3.21 1.50 - 7.00 K/mcL LAB HEMETOLOGY METHOD 09/22/2024 4:19 AM [facility] Lymphocytes Absolute 1.95 1.00 - 5.00 K/mcL LAB HEMETOLOGY METHOD 09/22/2024 4:19 AM [facility] Monocytes Absolute 0.77 0.20 - 1.00 K/mcL LAB HEMETOLOGY METHOD 09/22/2024 4:19 AM [facility] Eosinophils Absolute 0.09 0.00 - 0.50 K/mcL LAB HEMETOLOGY METHOD 09/22/2024 4:19 AM [facility] Basophils Absolute 0.03 0.00 - 0.20 K/mcL LAB HEMETOLOGY METHOD 09/22/2024 4:19 AM EST [facility] Immature Granulocytes Absolute 0.05(H) 0.00 - 0.03 K/mcL LAB HEMETOLOGY METHOD 09/22/2024 4:19 AM [facility] Blood Venous blood specimen / Unknown Venipuncture / Unknown 09/22/2024 4:04 AM EST 09/22/2024 4:13 AM EST Maddison Benavidez MD LAB BLOOD ORDERABLES [facility] [address] [place] [address], * (ABNORMAL) Basic metabolic panel (09/22/2024 4:04 AM EST) Sodium 142 133 - 145 mmol/L LAB CHEMISTRY METHOD 09/22/2024 4:38 AM [facility] Potassium 4.3 3.5 - 5.5 mmol/L LAB CHEMISTRY METHOD 09/22/2024 4:38 AM [facility] Chloride 105 96 - 110 mmol/L LAB CHEMISTRY METHOD 09/22/2024 4:38 AM [facility] CO2 32 21 - 32 mmol/L LAB CHEMISTRY METHOD 09/22/2024 4:38 AM [facility] Anion Gap 5 3 - 11 LAB CHEMISTRY METHOD 09/22/2024 4:38 AM [facility] Glucose 127(H) 70 - 100 mg/dL LAB CHEMISTRY METHOD 09/22/2024 4:38 AM [facility] BUN 15 5 - 25 mg/dL LAB CHEMISTRY METHOD 09/22/2024 4:38 AM [facility] Creatinine 1.09 0.70 - 1.30 mg/dL LAB CHEMISTRY METHOD 09/22/2024 4:38 AM [facility] eGFR 89 >=60 mL/min/1. 73m2 LAB CHEMISTRY METHOD 09/22/2024 4:38 AM EST [facility] Comment:Calculation based on the??Chronic Kidney Disease Epidemiology Collaboration (CKD-EPI) equation refit??without adjustment for race. BUN/Creatinine Ratio 13.8 LAB CHEMISTRY METHOD 09/22/2024 4:38 AM [facility] Calcium 8.4(L) 8.5 - 10.5 mg/dL LAB CHEMISTRY METHOD 09/22/2024 4:38 AM [facility] Blood Venous blood specimen / Unknown Venipuncture / Unknown 09/22/2024 4:04 AM EST 09/22/2024 4:13 AM EST Lyudmila Cardoso MD LAB BLOOD ORDERABLE S Performing Organization Address [facility]/ZIP Co de Phone Number [facility] [address] [place] [address], [place] [phone] * Prothrombin time with INR (09/22/2024 4:04 AM EST) Protime 12.6 10.6 - 13.9 sec LAB COAGULATION METHOD 09/22/2024 4:30 AM [facility] INR 1.0 LAB COAGULATION METHOD 09/22/2024 4:30 AM [facility] Blood Venous blood specimen / Unknown Venipuncture / Unknown 09/22/2024 4:04 AM EST 09/22/2024 4:13 AM EST Maddison Benavidez MD LAB BLOOD ORDERABLES Performing Organization Address [facility]/ZIP Co de Phone Number [facility] [address] [place] [address], [place] [phone] * Type and screen (09/22/2024 4:04 AM EST) ABO Group O 09/22/2024 5:10 AM [facility] Rh Type Positive 09/22/2024 5:10 AM [facility] Antibody Screen Negative 09/22/2024 5:10 AM EST [facility] Blood Venous blood specimen / Unknown Venipuncture / Unknown 09/22/2024 4:04 AM EST 09/22/2024 4:13 AM EST Maddison Benavidez MD LAB BLOOD BANK TEST ORDERABLES Performing Organization Address City/[facility]/ZIP Co de Phone Number [facility] [address] [place] [address], [place] [phone] * Hepatitis C antibody (09/21/2024 8:51 AM EST) [facility] Hepatitis C Antibody Negative Negative LAB CHEMISTRY METHOD 09/21/2024 5:07 PM EST [facility] Blood Venous blood specimen / Unknown Venipuncture / Unknown 09/21/2024 8:51 AM EST 09/21/2024 8:58 AM EST Christine Harman MD LAB BLOOD ORDERABLES Performing Organization Address City/[facility]/ZIP Co de Phone Number [facility] [address] [place] [address], [place] [phone] * Lavender tube (09/21/2024 8:51 AM EST) [facility] Extra Tube Hold for add-ons. 09/21/2024 10:01 AM EST [facility] Comment:Auto resulted. Blood Venous blood specimen / Unknown Venipuncture / Unknown 09/21/2024 8:51 AM EST 09/21/2024 9:00 AM EST Lyudmila Cardoso MD LAB BLOOD ORDERABLE S Performing Organization Address City/[facility]/ZIP Co de Phone Number [facility] [address] [place] [address], [place] [phone] * Prothrombin time with INR (09/21/2024 8:51 AM EST) Pathologist [facility] Protime 12.3 10.6 - 13.9 sec LAB COAGULATION METHOD 09/21/2024 9:20 AM [facility] INR 1.0 LAB COAGULATION METHOD 09/21/2024 9:20 AM [facility] Blood Venous blood specimen / Unknown Venipuncture / Unknown 09/21/2024 8:51 AM EST 09/21/2024 8:58 AM EST Sanna Mackey MD LAB BLOOD ORDERABLES [facility] [address] [place] [address], * (ABNORMAL) Basic metabolic panel (09/21/2024 8:51 AM EST) [facility] Sodium 140 133 - 145 mmol/L LAB CHEMISTRY METHOD 09/21/2024 9:31 AM [facility] Potassium 3.9 3.5 - 5.5 mmol/L LAB CHEMISTRY METHOD 09/21/2024 9:31 AM [facility] Chloride 104 96 - 110 mmol/L LAB CHEMISTRY METHOD 09/21/2024 9:31 AM [facility] CO2 32 21 - 32 mmol/L LAB CHEMISTRY METHOD 09/21/2024 9:31 AM [facility] Anion Gap 4 3 - 11 LAB CHEMISTRY METHOD 09/21/2024 9:31 AM [facility] Glucose 123(H) 70 - 100 mg/dL LAB CHEMISTRY METHOD 09/21/2024 9:31 AM [facility] BUN 15 5 - 25 mg/dL LAB CHEMISTRY METHOD 09/21/2024 9:31 AM [facility] Creatinine 0.84 0.70 - 1.30 mg/dL LAB CHEMISTRY METHOD 09/21/2024 9:31 AM [facility] eGFR 114 >=60 mL/min/1. 73m2 LAB CHEMISTRY METHOD 09/21/2024 9:31 AM EST [facility] Comment:Calculation based on the??Chronic Kidney Disease Epidemiology Collaboration (CKD-EPI) equation refit??without adjustment for race. BUN/Creatinine Ratio 17.9 LAB CHEMISTRY METHOD 09/21/2024 9:31 AM EST [facility] Calcium 9.2 8.5 - 10.5 mg/dL LAB CHEMISTRY METHOD 09/21/2024 9:31 AM EST [facility] Blood Venous blood specimen / Unknown Venipuncture / Unknown 09/21/2024 8:51 AM EST 09/21/2024 8:58 AM EST Sanna Mackey MD LAB BLOOD ORDERABLES [facility] [address] [place] [address], * CT Chest w Contrast (09/20/2024 11:16 [...] Signed Date: 09/20/2024 12:05 ET Workstation ID: [id number] Transcribed By: Self Edit Transcribed Date: 09/20/2024 11:51 ET Narrative 09/20/2024 12:05 PM EST Examination: CT chest with contrast. CLINICAL INDICATION: Pneumonia, effusion abscess suspected. COMPARISON: Chest 2 views TECHNIQUE: 2.5 mm thin axial and reformatted 3 mm thin sagittal and coronal images of chest were obtained following IV 90 mL Isovue-[id number]. Scanner: [employer] LightSpeed 64 slice VCT Dose reduction technique: ASIR [...] were obtained following IV 90 mL Isovue-370.Scanner: [employer] LightSpeed 64 slice VCT Dose reduction technique: ASIR [...] Signed Date: 09/20/2024 12:05 ET Workstation ID: [id number] Transcribed By: Self Edit Transcribed Date: 09/20/2024 11:51 ET Sanna Mohani MD IMG CT PROCEDURES * Concentration (09/20/2024 6:42 AM EST) AFB Concentration Performed 4:05 PM EST [facility] Sputum Venous blood specimen / Unknown Non-blood Collection / Unknown 09/20/2024 6:42 AM EST 09/20/2024 6:43 AM EST Narrative [facility] - 09/22/2024 4:05 PM EST Performed at: ??01 - [facility] [address] ??[id number] Improvement Manager: Rosalina Vuong MD, Phone: ??[phone] Sanna Mackey MD LAB BLOOD ORDERABLES [facility] * Acid fast bacilli stain (09/20/2024 6:42 AM EST) Pathologist [facility] AFB Stain Result No Acid fast bacilli seen on direct smear (Fuchsin method, 1000x) No Acid Fast Bacilli seen on direct smear 09/20/2024 2:46 PM EST [facility] Sputum Non-blood Collection / Unknown 09/20/2024 6:42 AM EST 09/20/2024 6:43 AM EST Bian [facility] - 09/20/2024 2:46 PM EST Expectorated sputum Sanna Mackey MD LAB MICROBIOLOGY - G ENERAL ORDERABLES [facility] [address] [place] [address], * (ABNORMAL) CBC auto differential (09/20/2024 6:06 AM EST) WBC 7.9 4.8 - 10.8 K/[facility] HEMETOLOGY METHOD 09/20/2024 7:00 AM EST [facility] RBC 5.00 4.50 - 5.50 M/mcL LAB HEMETOLOGY METHOD 09/20/2024 7:00 AM [facility] Hemoglobin 13.6 13.5 - 17.5 g/dL LAB HEMETOLOGY METHOD 09/20/2024 7:00 AM [facility] Hematocrit 43.0 42.0 - 54.0 % LAB HEMETOLOGY METHOD 09/20/2024 7:00 AM [facility] MCV 86.9 79.0 - 98.0 FL LAB HEMETOLOGY METHOD 09/20/2024 7:00 AM [facility] MCH 27.5 27.0 - 32.0 pcg LAB HEMETOLOGY METHOD 09/20/2024 7:00 AM [facility] MCHC 31.6(L) 32.0 - 37.0 g/dL LAB HEMETOLOGY METHOD 09/20/2024 7:00 AM [facility] RDW 14.8 11.0 - 15.0 % LAB HEMETOLOGY METHOD 09/20/2024 7:00 AM [facility] Platelets 211 130 - 400 K/mcL LAB HEMETOLOGY METHOD 09/20/2024 7:00 AM [facility] MPV 10.1 7.0 - 11.0 FL LAB HEMETOLOGY METHOD 09/20/2024 7:00 AM [facility] NRBC 0.0 <1.0 % LAB HEMETOLOGY METHOD 09/20/2024 7:00 AM [facility] NRBC Absolute 0.00 <0.10 K/mcL LAB HEMETOLOGY METHOD 09/20/2024 7:00 AM [facility] Neutrophils Relative 59.9 % LAB HEMETOLOGY METHOD 09/20/2024 7:00 AM [facility] Lymphocytes Relative 28.7 % LAB HEMETOLOGY METHOD 09/20/2024 7:00 AM [facility] Monocytes Relative 9.8 % LAB HEMETOLOGY METHOD 09/20/2024 7:00 AM [facility] Eosinophils Relative 0.9 % LAB HEMETOLOGY METHOD 09/20/2024 7:00 AM [facility] Basophils Relative 0.3 % LAB HEMETOLOGY METHOD 09/20/2024 7:00 AM [facility] Immature Granulocytes Relative 0.4 % LAB HEMETOLOGY METHOD 09/20/2024 7:00 AM EST [facility] Neutrophils Absolute 4.72 1.50 - 7.00 K/mcL LAB HEMETOLOGY METHOD 09/20/2024 7:00 AM [facility] Lymphocytes Absolute 2.26 1.00 - 5.00 K/mcL LAB HEMETOLOGY METHOD 09/20/2024 7:00 AM [facility] Monocytes Absolute 0.77 0.20 - 1.00 K/mcL LAB HEMETOLOGY METHOD 09/20/2024 7:00 AM EST [facility] Eosinophils Absolute 0.07 0.00 - 0.50 K/mcL LAB HEMETOLOGY METHOD 09/20/2024 7:00 AM [facility] Basophils Absolute 0.02 0.00 - 0.20 K/mcL LAB HEMETOLOGY METHOD 09/20/2024 7:00 AM [facility] Immature Granulocytes Absolute 0.03 0.00 - 0.03 K/mcL LAB HEMETOLOGY METHOD 09/20/2024 7:00 AM [facility] Blood Venous blood specimen / Unknown Venipuncture / Unknown 09/20/2024 6:06 AM EST 09/20/2024 6:45 AM EST Sanna Mackey MD LAB BLOOD ORDERABLES [facility] [address] [place] [address], * (ABNORMAL) Basic metabolic panel (09/20/2024 6:06 AM EST) Sodium 139 133 - 145 mmol/L LAB CHEMISTRY METHOD 09/20/2024 7:22 AM [facility] Potassium 4.0 3.5 - 5.5 mmol/L LAB CHEMISTRY METHOD 09/20/2024 7:22 AM [facility] Chloride 102 96 - 110 mmol/L LAB CHEMISTRY METHOD 09/20/2024 7:22 AM [facility] CO2 31 21 - 32 mmol/L LAB CHEMISTRY METHOD 09/20/2024 7:22 AM [facility] Anion Gap 6 3 - 11 LAB CHEMISTRY METHOD 09/20/2024 7:22 AM [facility] Glucose 101(H) 70 - 100 mg/dL LAB CHEMISTRY METHOD 09/20/2024 7:22 AM [facility] BUN 11 5 - 25 mg/dL LAB CHEMISTRY METHOD 09/20/2024 7:22 AM [facility] Creatinine 0.88 0.70 - 1.30 mg/dL LAB CHEMISTRY METHOD 09/20/2024 7:22 AM [facility] eGFR 112 >=60 mL/min/1. 73m2 LAB CHEMISTRY METHOD 09/20/2024 7:22 AM [facility] Comment:Calculation based on the??Chronic Kidney Disease Epidemiology Collaboration (CKD-EPI) equation refit??without adjustment for race. BUN/Creatinine Ratio 12.5 LAB CHEMISTRY METHOD 09/20/2024 7:22 AM [facility] Calcium 8.6 8.5 - 10.5 mg/dL LAB CHEMISTRY METHOD 09/20/2024 7:22 AM [facility] Blood Venous blood specimen / Unknown Venipuncture / Unknown 09/20/2024 6:06 AM EST 09/20/2024 6:45 AM EST Sanna Mohani MD LAB BLOOD ORDERABLES Performing Organization Address City/[facility]/ZIP Co de Phone Number [facility] [address] [place] [address], * Concentration (09/19/2024 8:45 AM EST) AFB Concentration Performed 3:44 PM EST [facility] Sputum Venous blood specimen / Unknown Non-blood Collection / Unknown 09/19/2024 8:45 AM EST 09/19/2024 2:29 PM EST Narrative [facility] - 09/25/2024 3:44 PM EST Performed at: ?? - [facility] [address] ??[id number] Improvement Manager: Rosalina Vuong MD, Phone: ??[phone] Sanna Mackey MD LAB BLOOD ORDERABLES Performing Organization Address [facility]/ZIP Co de Phone Number [facility] * Acid fast bacilli stain (09/19/2024 8:45 AM EST) AFB Stain Result No Acid fast bacilli seen on direct smear (Fuchsin method, 1000x) No Acid Fast Bacilli seen on direct smear 09/19/2024 6:15 PM EST [facility] Sputum Non-blood Collection / Unknown 09/19/2024 8:45 AM EST 09/19/2024 2:29 PM EST Sanna Mackey MD LAB MICROBIOLOGY - G ENERAL ORDERABLES Performing Organization Address City/[facility]/ZIP Co de Phone Number [facility] [address] [place] [address], * (ABNORMAL) CBC auto differential (09/19/2024 6:33 AM EST) WBC 12.6(H) 4.8 - 10.8 K/[facility] HEMETOLOGY METHOD 09/19/2024 7:05 AM EST [facility] RBC 5.00 4.50 - 5.50 M/mcL LAB HEMETOLOGY METHOD 09/19/2024 7:05 AM [facility] Hemoglobin 14.0 13.5 - 17.5 g/dL LAB HEMETOLOGY METHOD 09/19/2024 7:05 AM [facility] Hematocrit 44.6 42.0 - 54.0 % LAB HEMETOLOGY METHOD 09/19/2024 7:05 AM [facility] MCV 89.2 79.0 - 98.0 FL LAB HEMETOLOGY METHOD 09/19/2024 7:05 AM [facility] MCH 28.0 27.0 - 32.0 pcg LAB HEMETOLOGY METHOD 09/19/2024 7:05 AM [facility] MCHC 31.4(L) 32.0 - 37.0 g/dL LAB HEMETOLOGY METHOD 09/19/2024 7:05 AM [facility] RDW 15.3(H) 11.0 - 15.0 % LAB HEMETOLOGY METHOD 09/19/2024 7:05 AM [facility] Platelets 180 130 - 400 K/mcL LAB HEMETOLOGY METHOD 09/19/2024 7:05 AM [facility] MPV 9.9 7.0 - 11.0 FL LAB HEMETOLOGY METHOD 09/19/2024 7:05 AM [facility] NRBC 0.0 <1.0 % LAB HEMETOLOGY METHOD 09/19/2024 7:05 AM [facility] NRBC Absolute 0.00 <0.10 K/mcL LAB HEMETOLOGY METHOD 09/19/2024 7:05 AM [facility] Neutrophils Relative 73.9 % LAB HEMETOLOGY METHOD 09/19/2024 7:05 AM [facility] Lymphocytes Relative 15.9 % LAB HEMETOLOGY METHOD 09/19/2024 7:05 AM [facility] Monocytes Relative 8.9 % LAB HEMETOLOGY METHOD 09/19/2024 7:05 AM [facility] Eosinophils Relative 0.5 % LAB HEMETOLOGY METHOD 09/19/2024 7:05 AM [facility] Basophils Relative 0.2 % LAB HEMETOLOGY METHOD 09/19/2024 7:05 AM [facility] Immature Granulocytes Relative 0.6 % LAB HEMETOLOGY METHOD 09/19/2024 7:05 AM [facility] Neutrophils Absolute 9.34(H) 1.50 - 7.00 K/mcL LAB HEMETOLOGY METHOD 09/19/2024 7:05 AM [facility] Lymphocytes Absolute 2.01 1.00 - 5.00 K/mcL LAB HEMETOLOGY METHOD 09/19/2024 7:05 AM [facility] Monocytes Absolute 1.13(H) 0.20 - 1.00 K/mcL LAB HEMETOLOGY METHOD 09/19/2024 7:05 AM [facility] Eosinophils Absolute 0.06 0.00 - 0.50 K/mcL LAB HEMETOLOGY METHOD 09/19/2024 7:05 AM [facility] Basophils Absolute 0.02 0.00 - 0.20 K/mcL LAB HEMETOLOGY METHOD 09/19/2024 7:05 AM [facility] Immature Granulocytes Absolute 0.07(H) 0.00 - 0.03 K/mcL LAB HEMETOLOGY METHOD 09/19/2024 7:05 AM [facility] Blood Venous blood specimen / Unknown Venipuncture / Unknown 09/19/2024 6:33 AM EST 09/19/2024 6:50 AM EST Sanna Mackey MD LAB BLOOD ORDERABLES [facility] [address] [place] [address], * Basic metabolic panel (09/19/2024 6:32 AM EST) Sodium 139 133 - 145 mmol/L LAB CHEMISTRY METHOD 09/19/2024 8:40 AM EST [facility] Potassium 4.2 3.5 - 5.5 mmol/L LAB CHEMISTRY METHOD 09/19/2024 8:40 AM [facility] Chloride 104 96 - 110 mmol/L LAB CHEMISTRY METHOD 09/19/2024 8:40 AM [facility] CO2 31 21 - 32 mmol/L LAB CHEMISTRY METHOD 09/19/2024 8:40 AM [facility] Anion Gap 4 3 - 11 LAB CHEMISTRY METHOD 09/19/2024 8:40 AM [facility] Glucose 98 70 - 100 mg/dL LAB CHEMISTRY METHOD 09/19/2024 8:40 AM [facility] BUN 15 5 - 25 mg/dL LAB CHEMISTRY METHOD 09/19/2024 8:40 AM [facility] Creatinine 0.91 0.70 - 1.30 mg/dL LAB CHEMISTRY METHOD 09/19/2024 8:40 AM [facility] eGFR 110 >=60 mL/min/1. 73m2 LAB CHEMISTRY METHOD 09/19/2024 8:40 AM [facility] Comment:Calculation based on the??Chronic Kidney Disease Epidemiology Collaboration (CKD-EPI) equation refit??without adjustment for race. BUN/Creatinine Ratio 16.5 LAB CHEMISTRY METHOD 09/19/2024 8:40 AM [facility] Calcium 8.8 8.5 - 10.5 mg/dL LAB CHEMISTRY METHOD 09/19/2024 8:40 AM [facility] Blood Venous blood specimen / Unknown Venipuncture / Unknown 09/19/2024 6:32 AM EST 09/19/2024 6:50 AM EST Sanna Mackey MD LAB BLOOD ORDERABLES [facility] [address] [place] [address], [place] [phone] * Vascular US duplex lower extremity venous [...] Signed Date: 09/18/2024 17:57 ET Workstation ID: [id number] Transcribed By: Self Edit Transcribed Date: 09/18/2024 [...] Signed Date: 09/18/2024 17:57 ET Workstation ID: [id number] Transcribed By: Self Edit Transcribed Date: 09/18/2024 17:56 ET Maddison Benavidez MD CV VASCULAR PROCEDUR ES * Interferon gamma interpretation (09/18/2024 10:47 AM EST) [facility] Quantiferon Plus Interpretation Negative Negative LAB CHEMISTRY METHOD 09/19/2024 10:37 AM EST [facility] Blood Venous blood specimen / Unknown Venipuncture / Unknown 09/18/2024 10:47 AM EST 09/18/2024 10:57 AM EST Maddison Benavidez MD LAB BLOOD ORDERABLES Performing Organization Address City/[facility]/ZIP Co de Phone Number [facility] [address] [place] [address], * Interferon gamma antigen 2 (09/18/2024 10:47 AM EST) Blood Venous blood specimen / Unknown Venipuncture / Unknown 09/18/2024 10:47 AM EST 09/18/2024 10:57 AM EST Maddison Benavidez MD LAB BLOOD ORDERABLES [facility] [address] [place] [address], * Inteferon gamma antigen 1 (09/18/2024 10:47 AM EST) Blood Venous blood specimen / Unknown Venipuncture / Unknown 09/18/2024 10:47 AM EST 09/18/2024 10:57 AM EST Maddison Benavidez MD LAB BLOOD ORDERABLES [facility]) [facility] [address] [place] [address], * Interferon gamma mitogen (09/18/2024 10:47 AM EST) Blood Venous blood specimen / Unknown Venipuncture / Unknown 09/18/2024 10:47 AM EST 09/18/2024 10:57 AM EST Maddison Benavidez MD LAB BLOOD ORDERABLES [facility] [address] [place] [address], * Interferon gamma NIL (09/18/2024 10:47 AM EST) Blood Venous blood specimen / Unknown Venipuncture / Unknown 09/18/2024 10:47 AM EST 09/18/2024 10:57 AM EST Maddison Benavidez MD LAB BLOOD ORDERABLES [facility] [address] [place] [address], * (ABNORMAL) TRANSTHORACIC ECHOCARDIOGRAM (TTE) COMPLETE W/ CONTRAST (09/18/2024 10:37 AM EST) Left Atrium Minor [place] 6.0 cm CV PACS Left Atrium Major [place] 6.8 cm CV PACS LA Area Sys [...] Volume 52 mL CV PACS MV Deceleration [place] 4.6 m/s2 CV PACS E Wave Deceleration [...] S' 14 cm/s CV PACS RA Major [place] 6.2 cm CV PACS RA Major [place] Index 2.5 2.1 - 2.7 cm/m2 CV [...] Maddison Benavidez MD CV ECHO PROCEDURES * Concentration (09/18/2024 9:44 AM EST) AFB Concentration Performed 025 3:05 PM EST [facility] Sputum Tracheal structure / Unknown Non-blood Collection / Unknown 09/18/2024 9:44 AM EST 09/18/2024 9:44 AM EST Narrative [facility] - 09/19/2024 3:05 PM EST Performed at: ??01 - [facility] [address] ??[id number] Improvement Manager: Rosalina Vuong MD, Phone: ??[phone] Sanna Mackey MD LAB BLOOD ORDERABLES [facility] * Acid fast bacilli stain (09/18/2024 9:44 AM EST) AFB Stain Result No Acid fast bacilli seen on direct smear (Fuchsin method, 1000x) No Acid Fast Bacilli seen on direct smear 09/18/2024 2:56 PM EST [facility] Sputum Tracheal structure / Unknown Non-blood Collection / Unknown 09/18/2024 9:44 AM EST 09/18/2024 9:44 AM EST Sanna Mackey MD LAB MICROBIOLOGY - G ENERAL ORDERABLES Performing Organization Address City/[facility]/ZIP Co de Phone Number [facility] [address] [place] [address], * (ABNORMAL) CBC auto differential (09/18/2024 9:35 AM EST) WBC 21.9(H) 4.8 - 10.8 K/mcL LAB HEMETOLOGY METHOD 09/18/2024 10:19 AM EST [facility] RBC 4.70 4.50 - 5.50 M/mcL LAB HEMETOLOGY METHOD 09/18/2024 10:19 AM EST [facility] Hemoglobin 13.1(L) 13.5 - 17.5 g/dL LAB HEMETOLOGY METHOD 09/18/2024 10:19 AM EST [facility] Hematocrit 41.8(L) 42.0 - 54.0 % LAB HEMETOLOGY METHOD 09/18/2024 10:19 AM [facility] MCV 88.6 79.0 - 98.0 FL LAB HEMETOLOGY METHOD 09/18/2024 10:19 AM [facility] MCH 27.8 27.0 - 32.0 pcg LAB HEMETOLOGY METHOD 09/18/2024 10:19 AM [facility] MCHC 31.3(L) 32.0 - 37.0 g/dL LAB HEMETOLOGY METHOD 09/18/2024 10:19 AM [facility] RDW 15.2(H) 11.0 - 15.0 % LAB HEMETOLOGY METHOD 09/18/2024 10:19 AM [facility] Platelets 174 130 - 400 K/mcL LAB HEMETOLOGY METHOD 09/18/2024 10:19 AM [facility] MPV 10.4 7.0 - 11.0 FL LAB HEMETOLOGY METHOD 09/18/2024 10:19 AM [facility] NRBC 0.0 <1.0 % LAB HEMETOLOGY METHOD 09/18/2024 10:19 AM [facility] NRBC Absolute 0.00 <0.10 K/mcL LAB HEMETOLOGY METHOD 09/18/2024 10:19 AM [facility] Neutrophils Relative 86.8 % LAB HEMETOLOGY METHOD 09/18/2024 10:19 AM [facility] Lymphocytes Relative 6.8 % LAB HEMETOLOGY METHOD 09/18/2024 10:19 AM [facility] Monocytes Relative 4.8 % LAB HEMETOLOGY METHOD 09/18/2024 10:19 AM [facility] Eosinophils Relative 0.1 % LAB HEMETOLOGY METHOD 09/18/2024 10:19 AM [facility] Basophils Relative 0.3 % LAB HEMETOLOGY METHOD 09/18/2024 10:19 AM EST [facility] Immature Granulocytes Relative 1.2 % LAB HEMETOLOGY METHOD 09/18/2024 10:19 AM EST [facility] Neutrophils Absolute 19.04(H) 1.50 - 7.00 K/[facility] LAB HEMETOLOGY METHOD 09/18/2024 10:19 AM [facility] Lymphocytes Absolute 1.48 1.00 - 5.00 K/mcL LAB HEMETOLOGY METHOD 09/18/2024 10:19 AM [facility] Monocytes Absolute 1.05(H) 0.20 - 1.00 K/mcL LAB HEMETOLOGY METHOD 09/18/2024 10:19 AM [facility] Eosinophils Absolute 0.02 0.00 - 0.50 K/mcL LAB HEMETOLOGY METHOD 09/18/2024 10:19 AM [facility] Basophils Absolute 0.06 0.00 - 0.20 K/mcL LAB HEMETOLOGY METHOD 09/18/2024 10:19 AM [facility] Immature Granulocytes Absolute 0.27(H) 0.00 - 0.03 K/mcL LAB HEMETOLOGY METHOD 09/18/2024 10:19 AM [facility] Blood Venous blood specimen / Unknown Venipuncture / Unknown 09/18/2024 9:35 AM EST 09/18/2024 9:42 AM EST Balta Wilson MD LAB BLOOD ORDERABLE S [facility] [address] [place] [address], * Type and screen (09/18/2024 9:35 AM EST) ABO Group O 09/18/2024 11:10 AM EST [facility] Rh Type Positive 09/18/2024 11:10 AM EST [facility] Antibody Screen Negative 09/18/2024 11:10 AM EST [facility] Blood Venous blood specimen / Unknown Venipuncture / Unknown 09/18/2024 9:35 AM EST 09/18/2024 9:42 AM EST Charlie Greene MD LAB BLOOD BANK TEST ORDERABLES Performing Organization Address City/[facility]/ZIP Co de Phone Number [facility] [address] [place] [address], [place] [phone] * Culture blood (09/18/2024 9:35 AM EST) Pathologist [facility] Culture, Blood No growth at 5 days 09/23/2024 11:01 AM [facility] Blood Venous blood specimen / Unknown Venipuncture / Unknown 09/18/2024 9:35 AM EST 09/18/2024 9:42 AM EST Charlie Greene MD LAB MICROBIOLOGY - G ENERAL ORDERABLES Performing Organization Address City/[facility]/ZIP Co de Phone Number [facility] [address] [place] [address], [place] [phone] * (ABNORMAL) Basic metabolic panel (09/18/2024 9:35 AM EST) Sodium 136 133 - 145 mmol/L LAB CHEMISTRY METHOD 09/18/2024 10:33 AM [facility] Potassium 3.9 3.5 - 5.5 mmol/L LAB CHEMISTRY METHOD 09/18/2024 10:33 AM [facility] Chloride 101 96 - 110 mmol/L LAB CHEMISTRY METHOD 09/18/2024 10:33 AM [facility] CO2 28 21 - 32 mmol/L LAB CHEMISTRY METHOD 09/18/2024 10:33 AM [facility] Anion Gap 7 3 - 11 LAB CHEMISTRY METHOD 09/18/2024 10:33 AM [facility] Glucose 129(H) 70 - 100 mg/dL LAB CHEMISTRY METHOD 09/18/2024 10:33 AM [facility] BUN 12 5 - 25 mg/dL LAB CHEMISTRY METHOD 09/18/2024 10:33 AM [facility] Creatinine 0.88 0.70 - 1.30 mg/dL LAB CHEMISTRY METHOD 09/18/2024 10:33 AM [facility] eGFR 112 >=60 mL/min/1. 73m2 LAB CHEMISTRY METHOD 09/18/2024 10:33 AM [facility] Comment:Calculation based on the??Chronic Kidney Disease Epidemiology Collaboration (CKD-EPI) equation refit??without adjustment for race. BUN/Creatinine Ratio 13.6 LAB CHEMISTRY METHOD 09/18/2024 10:33 AM [facility] Calcium 8.8 8.5 - 10.5 mg/dL LAB CHEMISTRY METHOD 09/18/2024 10:33 AM [facility] Blood Venous blood specimen / Unknown Venipuncture / Unknown 09/18/2024 9:35 AM EST 09/18/2024 9:42 AM EST Balta Wilson MD LAB BLOOD ORDERABLE S [facility] [address] [place] [address], * XR Chest 2 Views (09/18/2024 8:36 AM EST) Anatomical Region Laterality Modality Body Radiographic Xochilt ging 09/18/2024 12:1 0 PM EST Impressions 09/18/2024 12:14 PM EST Left hilar and perihilar density consistent with an inflammatory, infectious, and/or neoplastic process. ??There is a moderate sized left pleural effusion with underlying atelectasis and/or infiltrate. ??The right lung is clear. Code 10566 -------- FINAL REPORT -------- Dictated By: Esa Nathan Dictated Date: 09/18/2024 12:10 ET Assigned Physician: Esa Nathan Reviewed and Electronically Signed By: Esa Nathan Signed Date: 09/18/2024 12:14 ET Workstation ID: [id number] Transcribed By: Self Edit Transcribed Date: 09/18/2024 [...] and/or infiltrate. The rightlung is clear. Code 99585 -------- FINAL REPORT -------- Dictated By: Esa Nathan Dictated Date: 09/18/2024 12:10 ET Assigned Physician: Esa Nathan Reviewed and Electronically Signed By: Esa Nathan Signed Date: 09/18/2024 12:14 ET Workstation ID: [id number] Transcribed By: Self Edit Transcribed Date: 09/18/2024 12:10 ET Maddison Benavidez MD IMG XR PROCEDURES * Culture blood (09/17/2024 7:15 PM EST) Pathologist [facility] Culture, Blood No growth at 5 days 09/22/2024 8:01 PM EST [facility] Blood Venous blood specimen / Unknown Venipuncture / Unknown 09/17/2024 7:15 PM EST 09/17/2024 7:19 PM EST Charlie Greene MD LAB MICROBIOLOGY - G ENERAL ORDERABLES [facility] [address] [place] [address], * Streptococcus pneumoniae antibodies, IgG, 23 serotypes [...] developed and its performance characteristics determined by [facility] in a manner consistent with CLIA requirements. This test has not been cleared or approved by the U.S. Food and Drug Administration. Test Performed by: [place] [address] Improvement Manager: Evan Uribe Ph.D.; CLIA# [id number] Blood Venous blood specimen / Unknown Venipuncture / Unknown 09/17/2024 3:17 PM EST 09/17/2024 3:17 PM EST Kylah Arredondo NP LAB BLOOD ORDERABLES [facility] [address] [place] [address] * MRSA molecular study (09/17/2024 11:36 AM EST) Pathologist [facility] MRSA Screen PCR Not Detected Not Detected LAB MICROBIOLOGY METHOD 09/17/2024 1:08 PM EST [facility] Swab Both anterior nares / Unknown Non-blood Collection / Unknown 09/17/2024 11:36 AM EST 09/17/2024 11:49 AM EST Maddison Benavidez MD LAB MICROBIOLOGY - G ENERAL ORDERABLES Performing Organization Address City/[facility]/ZIP Co de Phone Number [facility] [address] [place] [address], [place] [phone] * (ABNORMAL) Culture sputum (09/17/2024 10:31 AM EST) [facility] Culture, Sputum No pathogens isolated. 09/20/2024 8:43 AM [facility] Gram Stain Result Many Polymorphonuclear leukocytes(A) 09/20/2024 8:43 AM [facility] Gram Stain Result Rare Epithelial cells(A) 09/20/2024 8:43 AM [facility] Gram Stain Result Rare Gram positive cocci in pairs(A) 09/20/2024 8:43 AM [facility] Gram Stain Result Rare Gram positive bacilli(A) 09/20/2024 8:43 AM [facility] Gram Stain Result Greater than 25 WBCS and less than 10 Epithelial cells(A) 09/20/2024 8:43 AM [facility] Sputum, expectorated (Lungs) 09/17/2024 10:31 AM EST 09/17/2024 11:49 AM EST Charlie Greene MD LAB MICROBIOLOGY - G ENERAL ORDERABLES Performing Organization Address City/[facility]/ZIP Co de Phone Number [facility] [address] [place] [address], [place] [phone] * (ABNORMAL) Prothrombin time with INR (09/17/2024 9:08 AM EST) [facility] Protime 22.6(H) 10.6 - 13.9 sec LAB COAGULATION METHOD 09/17/2024 9:33 AM EST [facility] INR 1.8 LAB COAGULATION METHOD 09/17/2024 9:33 AM EST [facility] Blood Venous blood specimen / Unknown Venipuncture / Unknown 09/17/2024 9:08 AM EST 09/17/2024 9:24 AM EST Charlie Greene MD LAB BLOOD ORDERABLES Performing Organization Address [facility] Co de Phone Number [facility] [address] [place] [address], * HIV 1,2 antibody, p24 antigen with reflex to differentiation (09/17/2024 8:36 AM EST) [facility] HIV Combo AB/AG Negative Negative LAB CHEMISTRY METHOD 09/17/2024 3:37 PM EST [facility] Blood Venous blood specimen / Unknown Venipuncture / Unknown 09/17/2024 8:36 AM EST 09/17/2024 9:24 AM EST Narrative [facility] - 09/17/2024 3:37 PM EST This [...] screening. Kylah Arredondo NP LAB BLOOD ORDERABLES Performing Organization Address [facility]/ZIP Co de Phone Number [facility] [address] [place] [address], * Digoxin level (09/17/2024 8:36 AM EST) Digoxin Lvl 1.0 0.5 - 2.0 ng/mL LAB CHEMISTRY METHOD 09/17/2024 10:40 AM EST [facility] Blood Venous blood specimen / Unknown Venipuncture / Unknown 09/17/2024 8:36 AM EST 09/17/2024 9:24 AM EST Kylah Arredondo NP LAB BLOOD ORDERABLES [facility] [address] [place] [address], [place] [phone] * MRSA molecular study (09/17/2024 6:55 AM EST) [facility] MRSA Screen PCR Not Detected Not Detected LAB MICROBIOLOGY METHOD 09/17/2024 9:04 AM EST [facility] Swab Both anterior nares / Unknown Non-blood Collection / Unknown 09/17/2024 6:55 AM EST 09/17/2024 7:12 AM EST Balta Wilson MD LAB MICROBIOLOGY - GENERAL ORDERABLES Performing Organization Address City/[facility]/ZIP Co de Phone Number [facility] [address] [place] [address], [place] [phone] * (ABNORMAL) Blood culture pathogens molecular study (09/17/2024 6:52 AM EST) [facility] Streptococcus pneumoniae Detected (A) Not Detected LAB MICROBIOLOGY METHOD 09/17/2024 8:30 PM EST [facility] Blood Venous blood specimen / Unknown Venipuncture / Unknown 09/17/2024 6:52 AM EST 09/17/2024 7:00 AM EST Balta Wilson MD LAB MICROBIOLOGY - GENERAL ORDERABLES Performing Organization Address City/[facility]/ZIP Co de Phone Number [facility] [address] [place] [address], [place] [phone] * (ABNORMAL) Lactate (09/17/2024 6:52 AM EST) Lactate 2.1(H) 0.4 - 2.0 mmol/L LAB CHEMISTRY METHOD 09/17/2024 7:24 AM EST [facility] Blood Venous blood specimen / Unknown Venipuncture / Unknown 09/17/2024 6:52 AM EST 09/17/2024 7:01 AM EST Balta Wilson MD LAB BLOOD ORDERABLE S [facility] [address] [place] [address], * (ABNORMAL) Blood Culture, Peripheral Draw #1 (09/17/2024 6:52 AM EST) [facility] Culture, Blood Streptococcus pneumoniae(AA) MARY 09/19/2024 8:39 AM [facility] Comment: For S. pneumoniae (non-meningitis) isolates that are Penicillin susceptible, results can be used to predict susceptibility to Ampicillin (oral or parenteral), Amoxicillin, Ampicillin-Sulbactam, Amoxicillin-Clavulanic acid, Cefaclor, Cefdinir, Cefepim e, Cefprozil, Ceftaroline, Ceftriaxone, Cefuroxime, Meropenem. ??Erythromycin results can be used to predict Azithromycin, Clarithromycin and Dirithromycin. This is an appended report. These results have been appended to a previously final verified report. Gram Stain Result Aerobic and Anaerobic bottles Gram positive cocci in pairs and chains(AA) 09/19/2024 8:39 AM EST [facility] Comment:This is an appended report. These results have been appended to a previously preliminary verified report. Blood Venous blood specimen / Unknown Venipuncture / Unknown 09/17/2024 6:52 AM EST 09/17/2024 7:00 AM EST Narrative Organism Antibiotic Method Susceptibility Streptococcus pneumoniae Penicillin (non-meningitis) MARY <=0.06 ug/ml: Susceptible Streptococcus pneumoniae Penicillin PO MARY <=0.06 ug/ml: Susceptible Streptococcus pneumoniae Penicillin (meningitis) MARY <=0.06 ug/ml: Susceptible Streptococcus pneumoniae Cefotaxime (Meningitis) MARY <=0.12 ug/ml: Susceptible Streptococcus pneumoniae Cefotaxime (Non Meningitis) MARY <=0.12 ug/ml: Susceptible Streptococcus pneumoniae Ceftriaxone (Meningitis) MARY <=0.12 ug/ml: Susceptible Streptococcus pneumoniae Ceftriaxone (No n Meningitis) MARY <=0.12 ug/ml: Susceptible Streptococcus pneumoniae Levofloxacin MARY 0.5 ug/ml: Susceptible Streptococcus pneumoniae Moxifloxacin MARY 0.12 ug/ml: Susceptible Streptococcus pneumoniae Erythromycin MARY <=0.12 ug/ml: Susceptible Streptococcus pneumoniae Clindamycin MARY <=0.25 ug/ml: Susceptible Streptococcus pneumoniae Linezolid MARY <=2 ug/ml: Susceptible Streptococcus pneumoniae Vancomycin MARY Streptococcus pneumoniae Tetracycline MARY <=0.25 ug/ml: Susceptible Streptococcus pneumoniae Tigecycline MARY Streptococcus pneumoniae Trimethoprim/Lackey lfamethoxaz ole MARY <=10 ug/ml: Susceptible Balta Wilson MD LAB MICROBIOLOGY - GENERAL ORDERABLES [facility] [address] [place] [address], * (ABNORMAL) Blood Culture, Peripheral Draw #2 (09/17/2024 6:52 AM EST) Culture, Blood Streptococcus pneumoniae(AA) 09/19/2024 8:43 AM EST [facility] Comment: FOR SUSCEPTIBILITIES, REFER TO PREVIOUS CULTURE FROM 09/17/24 @ 0652: [id number] The organism value for this result has been updated. These results have been appended to the previously preliminary verified report. Gram Stain Result Aerobic and Anaerobic bottles Gram positive cocci in pairs and chains(AA) 09/19/2024 8:43 AM EST [facility] Comment: This is an appended report. These results have been appended to a previously preliminary verified report. Corrected result: Previously reported as Aerobic bottle Gram positive cocci in pairs and chains on 09/17/2024 at 1848 EST. Blood Venous blood specimen / Unknown Venipuncture / Unknown 09/17/2024 6:52 AM EST 09/17/2024 7:00 AM EST Balta Wilson MD LAB MICROBIOLOGY - GENERAL ORDERABLES [facility] [address] [place] [address], [place] [phone] * CT Abdomen Pelvis w Contrast (09/17/2024 [...] Mendiola MD on 09/17/2024 06:20:[address] PROCEDURES * CT Angio Chest wo [...] This document has been electronically signed by: mOar Mendiola MD on 09/17/2024 06:15:17 Maeve TEE [facility] CT PROCEDURES * CT Head wo Contrast [...] Mendiola MD on 09/17/2024 05:58:[address] PROCEDURES * Legionella antigen urine, EIA (09/17/2024 5:00 AM EST) Legionella Antigen, Ur Negative Negative 09/17/2024 4:35 PM EST [facility] Urine Urine specimen obtained by clean catch procedure / Unknown Non-blood Collection / Unknown 09/17/2024 5:00 AM EST 09/17/2024 5:51 AM EST Narrative [facility] - 09/17/2024 4:35 PM EST Negative for Legionella pneumophilia serogroup 1 antigen. This presumptive result suggests no current or recent infection due to L. pneumophilia serogroup 1. Culture is recommended if Legionella infection is till suspected, as other serogroups and species of Legionella are not detected by this test. Kylah Arredondo NP LAB URINE ORDERABLES [facility] [address] [place] [address], * (ABNORMAL) Culture urine (09/17/2024 5:00 AM EST) Culture, Urine 10,000-49,000 CFU/mL Streptococcus beta-hemolytic Group B(A) 09/18/2024 10:13 AM EST [facility] Comment: Susceptibility testing is not routinely [...] - G ENERAL ORDERABLES Performing Organization Address City/[facility]/ZIP Co de Phone Number [facility] [address] [place] [address], * Villegas urine culture tube (09/17/2024 5:00 AM EST) Pathologist [facility] Extra Tube Hold for add-ons. 09/17/2024 7:01 AM [facility] Comment:Auto resulted. Urine Urine specimen obtained by clean catch procedure / Unknown Non-blood Collection / Unknown 09/17/2024 5:00 AM EST 09/17/2024 5:29 AM EST Maeve TEE LAB URINE ORDERABLES Performing Organization Address [facility]/ZIP Co de Phone Number [facility] [address] [place] [address], [place] [phone] * (ABNORMAL) Urinalysis with reflex microscopic and culture (09/17/2024 5:00 AM EST) [facility] Specific [place] Urine 1.015 1.003 - 1.030 LAB URINALYSIS - AUTOMATED METHOD 09/17/2024 5:51 AM [facility] pH, Urine 6.5 5.0 - 8.0 pH LAB URINALYSIS - AUTOMATED METHOD 09/17/2024 5:51 AM [facility] Leukocytes, Urine Small(A) Negative LAB URINALYSIS - AUTOMATED METHOD 09/17/2024 5:51 AM [facility] Nitrite, Urine Negative Negative LAB URINALYSIS - AUTOMATED METHOD 09/17/2024 5:51 AM [facility] Protein, Urine Trace <=Trace mg/dL LAB URINALYSIS - AUTOMATED METHOD 09/17/2024 5:51 AM [facility] Glucose, Urine Negative Negative mg/dL LAB URINALYSIS - AUTOMATED METHOD 09/17/2024 5:51 AM [facility] Ketones, Urine Negative Negative mg/dL LAB URINALYSIS - AUTOMATED METHOD 09/17/2024 5:51 AM [facility] Urobilinogen, Urine 1.0 0.2 - 1.0 mg/dL LAB URINALYSIS - AUTOMATED METHOD 09/17/2024 5:51 AM [facility] Bilirubin, Urine Negative Negative LAB URINALYSIS - AUTOMATED METHOD 09/17/2024 5:51 AM [facility] Blood, Urine Negative Negative LAB URINALYSIS - AUTOMATED METHOD 09/17/2024 5:51 AM [facility] RBC, Urine 0.4 0 - 4 /HPF LAB URINALYSIS - AUTOMATED METHOD 09/17/2024 5:51 AM [facility] WBC, Urine 5.8(H) 0 - 4 /HPF LAB URINALYSIS - AUTOMATED METHOD 09/17/2024 5:51 AM [facility] Squamous Epithelial, Urine 23 0 - 60 /LPF LAB URINALYSIS - AUTOMATED METHOD 09/17/2024 5:51 AM [facility] Bacteria, Urine Negative Negative /HPF LAB URINALYSIS - AUTOMATED METHOD 09/17/2024 5:51 AM [facility] Hyaline Casts, Urine 0.4 0 - 3 /LPF LAB URINALYSIS - AUTOMATED METHOD 09/17/2024 5:51 AM [facility] Urine Urine specimen obtained by clean catch procedure / Unknown Non-blood Collection / Unknown 09/17/2024 5:00 AM EST 09/17/2024 5:29 AM EST Maeve TEE LAB URINE ORDERABLES [facility] [address] [place] [address], * Respiratory virus panel molecular study (09/17/2024 4:39 AM EST) Adenovirus Detection by PCR Not Detected Not Detected LAB MICROBIOLOGY METHOD 09/17/2024 6:23 AM [facility] Influenza A PCR Not Detected Not Detected LAB MICROBIOLOGY METHOD 09/17/2024 6:23 AM [facility] Influenza B PCR Not Detected Not Detected LAB MICROBIOLOGY METHOD 09/17/2024 6:23 AM [facility] Coronavirus 229E Not Detected Not Detected LAB MICROBIOLOGY METHOD 09/17/2024 6:23 AM [facility] Coronavirus HKU1 Not Detected Not Detected LAB MICROBIOLOGY METHOD 09/17/2024 6:23 AM [facility] Coronavirus OC43 Not Detected Not Detected LAB MICROBIOLOGY METHOD 09/17/2024 6:23 AM [facility] Coronavirus NL63 Not Detected Not Detected LAB MICROBIOLOGY METHOD 09/17/2024 6:23 AM [facility] Parainfluenza Virus 1 Not Detected Not Detected LAB MICROBIOLOGY METHOD 09/17/2024 6:23 AM [facility] Parainfluenza Virus 2 Not Detected Not Detected LAB MICROBIOLOGY METHOD 09/17/2024 6:23 AM [facility] Parainfluenza Virus 3 Not Detected Not Detected LAB MICROBIOLOGY METHOD 09/17/2024 6:23 AM [facility] Parainfluenza Virus 4 Not Detected Not Detected LAB MICROBIOLOGY METHOD 09/17/2024 6:23 AM [facility] RSV PCR Not Detected Not Detected LAB MICROBIOLOGY METHOD 09/17/2024 6:23 AM [facility] Human Metapneumovirus A and B Not Detected Not Detected LAB MICROBIOLOGY METHOD 09/17/2024 6:23 AM [facility] Rhinovirus/Entero virus Not Detected Not Detected LAB MICROBIOLOGY METHOD 09/17/2024 6:23 AM [facility] Bordetella pertussis Not Detected Not Detected LAB MICROBIOLOGY METHOD 09/17/2024 6:23 AM EST [facility] Bordetella parapertussis Not Detected Not Detected LAB MICROBIOLOGY METHOD 09/17/2024 6:23 AM EST [facility] Mycoplasma pneumo by PCR Not Detected Not Detected LAB MICROBIOLOGY METHOD 09/17/2024 6:23 AM EST [facility] Chlamydia pneumoniae Not Detected Not Detected LAB MICROBIOLOGY METHOD 09/17/2024 6:23 AM EST [facility] SARS COV-2 Not Detected Not Detected LAB MICROBIOLOGY METHOD 09/17/2024 6:23 AM EST [facility] Swab Both anterior nares / Unknown Non-blood Collection / Unknown 09/17/2024 4:39 AM EST 09/17/2024 5:28 AM EST [facility] - 09/17/2024 6:23 AM EST Testing was performed using the ShotSpotter Respiratory Pathogen PCR Assay. All results must [...] TEE LAB MICROBIOLOGY - G ENERAL ORDERABLES [facility] [address] [place] [address], * Troponin I high sensitivity (09/17/2024 4:25 AM EST) Pathologist [facility] High Sensitivity Troponin I 3 <=79 ng/L LAB CHEMISTRY METHOD 09/17/2024 4:55 AM EST [facility] Blood Venous blood specimen / Unknown Venipuncture / Unknown 09/17/2024 4:25 AM EST 09/17/2024 4:28 AM EST [facility] - 09/17/2024 4:55 AM EST High levels of biotin in samples may falsely decrease hsTroponin values. ??Use caution when interpreting hsTroponin results in patients taking biotin who exhibit renal impairment (eGFR <60) or in patients taking more than 20 mg/day of biotin. Shelley Wiseman MD LAB BLOOD ORDERA BLES Performing Organization Address [facility]/ZIP Co de Phone Number [facility] [address] [place] [address], * ECG 12 lead (09/17/2024 3:38 AM EST) Ventricular Rate ECG 90 BPM GEMUSE Atrial Rate 326 BPM GEMUSE QRS Duration 94 ms GEMUSE Q-T Interval 396 ms GEMUSE QTc 484 ms GEMUSE R Sterling -2 degrees GEMUSE T Sterling 5 degrees GEMUSE ECG Interpretation Atrial flutter with variable A-V block Minimal voltage criteria for LVH, may be normal variant Nonspecific T wave abnormality Abnormal ECG No previous ECGs available Confirmed by Navin DEL CASTILLO JAMES ([id number]) on 09/17/2024 9:33:30 PM GEMUSE 09/17/2024 3:38 AM EST 09/17/2024 9:33 PM EST Shelley Wiseman MD ECG ORDERABLES Performing Organization Address [facility] Co de Phone Number GEMUSE * (ABNORMAL) Lactate dehydrogenase (09/17/2024 3:35 AM EST) Pathologist [facility] LDH 248(H) 120 - 246 unit/L LAB CHEMISTRY METHOD 09/17/2024 7:14 AM EST [facility] Blood Venous blood specimen / Unknown Venipuncture / Unknown 09/17/2024 3:35 AM EST 09/17/2024 3:48 AM EST Balta Wilson MD LAB BLOOD ORDERABLE S Performing Organization Address [facility] Co de Phone Number [facility] [address] [place] [address], * (ABNORMAL) CBC auto differential (09/17/2024 3:35 AM EST) [facility] WBC 16.3(H) 4.8 - 10.8 K/mcL LAB HEMETOLOGY METHOD 09/17/2024 3:51 AM EST [facility] RBC 5.50 4.50 - 5.50 M/mcL LAB HEMETOLOGY METHOD 09/17/2024 3:51 AM EST [facility] Hemoglobin 15.2 13.5 - 17.5 g/dL LAB HEMETOLOGY METHOD 09/17/2024 3:51 AM [facility] Hematocrit 47.8 42.0 - 54.0 % LAB HEMETOLOGY METHOD 09/17/2024 3:51 AM [facility] MCV 87.2 79.0 - 98.0 FL LAB HEMETOLOGY METHOD 09/17/2024 3:51 AM [facility] MCH 27.7 27.0 - 32.0 pcg LAB HEMETOLOGY METHOD 09/17/2024 3:51 AM [facility] MCHC 31.8(L) 32.0 - 37.0 g/dL LAB HEMETOLOGY METHOD 09/17/2024 3:51 AM [facility] RDW 15.0 11.0 - 15.0 % LAB HEMETOLOGY METHOD 09/17/2024 3:51 AM [facility] Platelets 184 130 - 400 K/mcL LAB HEMETOLOGY METHOD 09/17/2024 3:51 AM [facility] MPV 9.7 7.0 - 11.0 FL LAB HEMETOLOGY METHOD 09/17/2024 3:51 AM [facility] NRBC 0.0 <1.0 % LAB HEMETOLOGY METHOD 09/17/2024 3:51 AM [facility] NRBC Absolute 0.00 <0.10 K/mcL LAB HEMETOLOGY METHOD 09/17/2024 3:51 AM [facility] Neutrophils Relative 91.4 % LAB HEMETOLOGY METHOD 09/17/2024 3:51 AM [facility] Lymphocytes Relative 4.1 % LAB HEMETOLOGY METHOD 09/17/2024 3:51 AM [facility] Monocytes Relative 3.1 % LAB HEMETOLOGY METHOD 09/17/2024 3:51 AM [facility] Eosinophils Relative 0.0 % LAB HEMETOLOGY METHOD 09/17/2024 3:51 AM [facility] Basophils Relative 0.4 % LAB HEMETOLOGY METHOD 09/17/2024 3:51 AM [facility] Immature Granulocytes Relative 1.0 % LAB HEMETOLOGY METHOD 09/17/2024 3:51 AM [facility] Neutrophils Absolute 14.85(H) 1.50 - 7.00 K/mcL LAB HEMETOLOGY METHOD 09/17/2024 3:51 AM [facility] Lymphocytes Absolute 0.67(L) 1.00 - 5.00 K/mcL LAB HEMETOLOGY METHOD 09/17/2024 3:51 AM [facility] Monocytes Absolute 0.51 0.20 - 1.00 K/mcL LAB HEMETOLOGY METHOD 09/17/2024 3:51 AM [facility] Eosinophils Absolute 0.00 0.00 - 0.50 K/mcL LAB HEMETOLOGY METHOD 09/17/2024 3:51 AM [facility] Basophils Absolute 0.06 0.00 - 0.20 K/mcL LAB HEMETOLOGY METHOD 09/17/2024 3:51 AM [facility] Immature Granulocytes Absolute 0.17(H) 0.00 - 0.03 K/mcL LAB HEMETOLOGY METHOD 09/17/2024 3:51 AM EST [facility] Blood Venous blood specimen / Unknown Venipuncture / Unknown 09/17/2024 3:35 AM EST 09/17/2024 3:48 AM EST Shelley Wiseman MD LAB BLOOD ORDERA BLES Performing Organization Address [facility] Co de Phone Number [facility] [address] [place] [address], * Troponin I high sensitivity (09/17/2024 3:35 AM EST) High Sensitivity Troponin I 3 <=79 ng/L LAB CHEMISTRY METHOD 09/17/2024 4:11 AM EST [facility] Blood Venous blood specimen / Unknown Venipuncture / Unknown 09/17/2024 3:35 AM EST 09/17/2024 3:48 AM EST Narrative [facility] - 09/17/2024 4:11 AM EST High levels of biotin in samples may falsely decrease hsTroponin values. ??Use caution when interpreting hsTroponin results in patients taking biotin who exhibit renal impairment (eGFR <60) or in patients taking more than 20 mg/day of biotin. Shelley Wiseman MD LAB BLOOD ORDERA BLES Performing Organization Address [facility] Co de Phone Number [facility] [address] [place] [address], * (ABNORMAL) Magnesium (09/17/2024 3:35 AM EST) Magnesium 1.7(L) 1.9 - 2.6 mg/dL LAB CHEMISTRY METHOD 09/17/2024 4:08 AM EST [facility] Blood Venous blood specimen / Unknown Venipuncture / Unknown 09/17/2024 3:35 AM EST 09/17/2024 3:48 AM EST Shelley Wiseman MD LAB BLOOD ORDERA BLES [facility] [address] [place] [address], * (ABNORMAL) Basic metabolic panel (09/17/2024 3:35 AM EST) Sodium 135 133 - 145 mmol/L LAB CHEMISTRY METHOD 09/17/2024 4:08 AM [facility] Potassium 3.9 3.5 - 5.5 mmol/L LAB CHEMISTRY METHOD 09/17/2024 4:08 AM [facility] Chloride 101 96 - 110 mmol/L LAB CHEMISTRY METHOD 09/17/2024 4:08 AM [facility] CO2 30 21 - 32 mmol/L LAB CHEMISTRY METHOD 09/17/2024 4:08 AM [facility] Anion Gap 4 3 - 11 LAB CHEMISTRY METHOD 09/17/2024 4:08 AM [facility] [facility] Glucose 117(H) 70 - 100 mg/dL LAB CHEMISTRY METHOD 09/17/2024 4:08 AM [facility] BUN 12 5 - 25 mg/dL LAB CHEMISTRY METHOD 09/17/2024 4:08 AM [facility] Creatinine 0.99 0.70 - 1.30 mg/dL LAB CHEMISTRY METHOD 09/17/2024 4:08 AM [facility] eGFR 99 >=60 mL/min/1. 73m2 LAB CHEMISTRY METHOD 09/17/2024 4:08 AM [facility] Comment:Calculation based on the??Chronic Kidney Disease Epidemiology Collaboration (CKD-EPI) equation refit??without adjustment for race. BUN/Creatinine Ratio 12.1 LAB CHEMISTRY METHOD 09/17/2024 4:08 AM [facility] Calcium 8.9 8.5 - 10.5 mg/dL LAB CHEMISTRY METHOD 09/17/2024 4:08 AM EST [facility] Blood Venous blood specimen / Unknown Venipuncture / Unknown 09/17/2024 3:35 AM EST 09/17/2024 3:48 AM EST Shelley Wiseman MD LAB BLOOD ORDERA BLES [facility] [address] [place] [address], * ECG-Annotated (09/17/2024) Provider Onbase MD ECG ORDERABLES documented in this encounter Visit Diagnoses Diagnosis Left lower lobe pneumonia- Primary Pneumonia, organism unspecified Hemoptysis Lung mass Swelling, mass, or lump in chest Pneumonia of left lower lobe due to infectious organism Longstanding persistent atrial fibrillation (CMS/HCC) Leg swelling Swelling of limb Atrial fibrillation, unspecified type (CMS/HCC) History of Hodgkin's lymphoma TB (pulmonary tuberculosis) Unspecified pulmonary tuberculosis, confirmation unspecified History of Hodgkin's lymphoma Nonischemic cardiomyopathy (CMS/HCC) Other primary cardiomyopathies Atrial fibrillation (CMS/HCC) Atrial fibrillation Hemoptysis documented in this encounter Admitting Diagnoses Diagnosis Left lower lobe pneumonia Pneumonia, organism unspecified Hemoptysis documented in this encounter Administered Medications Inactive Administered Medications - up to 3 most recent administrations Medication Order MAR Action Action Date Dose Rate Site amLODIPine (NORVASC) tablet 10 mg 10 mg, oral, Daily, First dose on Sat09/23/24 at 0900 Given 09/23/2024 8:44 AM EST 10 mg ampicillin-sulbactam (UNASYN) 3 g in sodium chloride 0.9 % 100 mL IVPB 3 g, intravenous, at 200 mL/hr, Administer over 30 Minutes, Every 6 hours, First dose on Sat09/17/24 at 1200, For 7 days, Indication: Pneumonia, Community Acquired New Bag 09/21/2024 12:49 PM EST 3 g 200 mL/hr New Bag 09/21/2024 5:44 AM EST 3 g 200 mL/hr New Bag 09/20/2024 11:29 PM EST 3 g 200 mL/hr buPROPion XL (WELLBUTRIN XL) 24 hr tablet 300 mg 300 mg, oral, Daily, First dose on Sat09/17/24 at 0900, Do not crush, chew, or split. Given 09/23/2024 8:23 AM EST 300 mg Given 09/22/2024 8:52 AM EST 300 mg Given 09/21/2024 9:30 AM EST 300 mg carvediloL (COREG) tablet 25 mg 25 mg, oral, 2 times daily with meals, First dose on Sat09/17/24 at 0800 Given 09/23/2024 8:16 AM EST 25 mg Given 09/22/2024 6:36 PM EST 25 mg Given 09/21/2024 5:19 PM EST 25 mg cefTRIAXone (ROCEPHIN) 2 g in sterile water 20 mL IV syringe 2 g, intravenous, at 400 mL/hr, Administer over 3 Minutes, Every 24 hours, First dose on Sat09/21/24 at 1400, For 7 days, Do not administer simultaneously with any calcium containing solutions via a Y-site in any patient., Indication: Bacteremia, Pneumonia, Community Acquired Given 09/21/2024 2:56 PM EST 2 g 400 mL/hr cefTRIAXone (ROCEPHIN) 2 g in sterile water 20 mL IV syringe 2 g, intravenous, at 400 mL/hr, Administer over 3 Minutes, Every 12 hours, First dose (after last modification) on Sat09/22/24 at 0200, For 10 days, Do not administer simultaneously with any calcium containing solutions via a Y-site in any patient., Indication: Bacteremia, Pneumonia, Community Acquired Given 09/22/2024 2:21 AM EST 2 g 400 mL/hr cefTRIAXone (ROCEPHIN) 2 g in sterile water 20 mL IV syringe 2 g, intravenous, at 400 mL/hr, Administer over 3 Minutes, Every 24 hours, First dose (after last modification) on Sat09/23/24 at 0200, For 9 days, Do not administer simultaneously with any calcium containing solutions via a Y-site in any patient., Indication: Bacteremia, Pneumonia, Community Acquired Given 09/23/2024 2:37 AM EST 2 g 400 mL/hr digoxin (LANOXIN) tablet 250 mcg 250 mcg, oral, Daily, First dose on Sat09/17/24 at 1700, Standard administration time Given 09/22/2024 6:36 PM EST 250 mcg Given 09/21/2024 5:19 PM EST 250 mcg Given 09/20/2024 5:39 PM EST 250 mcg doxycycline (MONODOX) capsule 100 mg 100 mg, oral, Every 12 hours scheduled, First dose on Sat09/17/24 at 0900, For 10 days, Take with at least 8 ounces (large glass) of water, do not lie down for 30 minutes after, Indication: Pneumonia, Community Acquired Given 09/22/2024 8:52 AM EST 10 0 mg Given 09/21/2024 9:18 PM EST 100 mg Given 09/21/2024 9:30 AM EST 100 mg famotidine (PF) (PEPCID) injection 20 mg 20 mg, intravenous, Administer over 2 Minutes, Once, On Sat09/17/24 at 0428, For 1 dose Given 09/17/2024 4:30 AM EST 20 mg four-factor human prothrombin complex concentrate (BALFAXAR) 2,000 Units in sterile water 80 mL infusion 2,000 Units, intravenous, at 480 mL/hr, Administer over 10 Minutes, Once, On Sat09/17/24 at 1000, For 1 dose, Do NOT exceed rate of 504 mL/hr (8.4 mL/min). WITH DOCUMENTATION OF EACH ADMINISTRATION, NURSE ASSURES VISUAL INSPECTION OF THE PRODUCT. *Pharmacy will round doses to nearest vial size* Given 09/17/2024 10:32 AM EST 2,000 Units 480 mL/hr guaiFENesin-codeine (ROBITUSSIN-AC) 100-10 mg/5 mL syrup 5 mL 5 mL, oral, Every 6 hours PRN, cough, Starting on Sat09/17/24 at 1423 hydrALAZINE (APRESOLINE) tablet 10 mg 10 mg, oral, 3 times daily, First dose on Sat09/22/24 at 0900 Given 09/23/2024 3:06 PM EST 10 mg Given 09/23/2024 8:17 AM EST 10 mg Given 09/22/2024 8:21 PM EST 10 mg HYDROmorphone (PF) (DILAUDID) injection 1 mg 1 mg, intravenous, Once, On Sat09/17/24 at 0629, For 1 dose Given 09/17/2024 6:48 AM EST 1 mg iopamidoL (ISOVUE-370) 370 mg iodine /mL (76 %) injection 90 mL 90 mL, intravenous, Once in imaging, Starting on [place] 09/17/24 at 0523, For 1 dose Given 09/17/2024 5:27 AM EST 95 mL iopamidoL (ISOVUE-370) 370 mg iodine /mL (76 %) injection 90 mL 90 mL, intravenous, Once in imaging, Starting on [place] 09/20/24 at 1103, For 1 dose Given 09/20/2024 11:03 AM EST 90 mL levothyroxine (SYNTHROID, LEVOTHROID) tablet 25 mcg 25 mcg, oral, Every morning before breakfast, First dose on [place] 09/17/24 at 0700, ORAL ROUTE: take on an empty stomach and separate from other medications. ENTERAL TUBE ROUTE: If newly initiated enteral nutrition duration is over 5 days, hold enteral nutrition 1 hour before and after drug administration, per ASPEN guidelines. Given 09/23/2024 6:29 AM EST 2 5 mcg Given 09/22/2024 6:28 AM EST 25 mcg Given 09/21/2024 6:26 AM EST 25 mcg magnesium sulfate 2 gram/50 mL (4 %) IVPB 2 g 2 g, intravenous, at 25 mL/hr, Administer over 2 Hours, Once, On [place] 09/17/24 at 0428, For 1 dose New Bag 09/17/2024 4:30 AM EST 2 g 25 mL/hr morphine 2 mg/mL injection 2 mg 2 mg, intravenous, Every 6 hours PRN, severe pain, Starting on [place] 09/20/24 at 0842, FIRST CHOICE MEDICATION FOR MODERATE PAIN (4-6) IF INEFFECTIVE AFTER 30 MIN, PROCEED TO SECOND CHOICE MEDICATION morphine injection 4 mg 4 mg, intravenous, Once, On [place] 09/17/24 at 0456, For 1 dose Given 09/17/2024 5:02 AM EST 4 mg ondansetron (PF) (ZOFRAN) injection 4 mg 4 mg, intravenous, Once, On [place] 09/17/24 at 0428, For 1 dose Given 09/17/2024 4:31 AM EST 4 mg ondansetron (PF) (ZOFRAN) injection 4 mg 4 mg, intravenous, Every 8 hours PRN, vomiting, nausea, Starting on [place] 09/17/24 at 0646, -ONLY give IV if patient is unable to take orally. -If inadequate response within 30 minutes, proceed to next-line agent or contact provider if no further options ordered. ondansetron ODT (ZOFRAN-ODT) disintegrating tablet 4 mg 4 mg, oral, Every 8 hours PRN, vomiting, nausea, Starting on [place] 09/17/24 at 0646, -Give IV if patient is unable to take orally. -If inadequate response within 30 minutes, proceed to next-line agent or contact provider if no further options ordered. For ODT tablets: -Do not remove from blister pack until just before administering. -Patient should allow tablet to dissolve on tongue. oxyCODONE (ROXICODONE) 20 mg/mL concentrated solution 10 mg 10 mg, oral, Every 6 hours PRN, moderate pain, shortness of breath, Starting on Sat09/20/24 at 0842, Concentrated product pantoprazole (PROTONIX) EC tablet 40 mg 40 mg, oral, Every morning before breakfast, First dose on [place] 09/17/24 at 0700, Give on an empty stomach Do not crush, chew, or split. Given 09/23/2024 6:29 AM EST 40 mg Given 09/22/2024 6:28 AM EST 40 mg Given 09/21/2024 6:26 AM EST 40 mg perflutren lipid microsphere (DEFINITY) 1.3 mL in sodium chloride 0.9% 8.7 mL injection 10 mL, intravenous, Administer over 10 Minutes, Once, On Sat09/18/24 at 1100, For 1 dose Given 09/18/2024 10:38 AM EST 10 mL piperacillin-tazobactam (ZOSYN) 4.5 g in sodium chloride 0.9 % 100 mL IVPB 4.5 g, intravenous, at 200 mL/hr, Administer over 0.5 Hours, Once, On Sat09/17/24 at 0630, For 1 dose, Do not administer through same line as lactated ringer? s fluids (LR), Indication: Pneumonia, Community Acquired New Bag 09/17/2024 6:51 AM EST 4.5 g 2 00 mL/hr pneumococcal conjugate 20-valent (PREVNAR 20) vaccine 0.5 mL 0.5 mL, intramuscular, During hospitalization, Starting on Sat09/23/24 at 1000, For 1 dose prochlorperazine (COMPAZINE) injection 10 mg 10 mg, intravenous, Every 6 hours PRN, nausea, vomiting, Starting on [place] 09/17/24 at 0646, 2nd Line Option: -ONLY give IV if patient is unable to take orally. -Give IM if patient does not have IV Access -If inadequate response within 30 minutes, proceed to next-line agent or contact provider if no further options ordered. prochlorperazine (COMPAZINE) suppository 25 mg 25 mg, rectal, Every 12 hours PRN, nausea, vomiting, Starting on [place] 09/17/24 at 0646, 2nd Line Option: -ONLY give OR if patient is unable to take orally and cannot receive IV/IM. -If inadequate response within 30 minutes, proceed to next-line agent or contact provider if no further options ordered. prochlorperazine (COMPAZINE) tablet 10 mg 10 mg, oral, Every 6 hours PRN, nausea, vomiting, Starting on [place] 09/17/24 at 0646, 2nd Line Option: -Give IV or IM if patient is unable to take orally. -If inadequate response within 30 minutes, proceed to next-line agent or contact provider if no further options ordered. sacubitriL-valsartan (ENTRESTO) 49-51 mg per tablet 1 tablet 1 tablet, oral, 2 times daily, First dose on [facility] 09/17/24 at 0900, Contraindicated in combination with SHAMIR inhibitors. Ensure a minimum of 36 hours between any SHAMIR inhibitor dose and sacubitril-valsartan. Given 09/23/2024 8:16 AM EST 1 tablet Given 09/22/2024 8:21 PM EST 1 tablet Given 09/22/2024 8:52 AM EST 1 tablet sodium chloride 0.9 % bolus 1,000 mL 1,000 mL, intravenous, at 1,000 mL/hr, Administer over 1 Hours, Once, On [place] 09/17/24 at 0428, For 1 dose New Bag 09/17/2024 4:31 AM EST 1,000 mL 1000 mL/hr sodium chloride 0.9 % flush 10 mL 10 mL, intravenous, Once, On [facility] 09/17/24 at 0524, For 1 dose Given 09/17/2024 5:27 AM EST 10 mL sodium chloride 0.9 % flush 10 mL 10 mL, intravenous, 2 times daily, First dose on [place] 09/17/24 at 0900 Given 09/23/2024 8:17 AM EST 10 mL Given 09/22/2024 8:22 PM EST 10 mL Given 09/22/2024 8:55 AM EST 10 mL sodium chloride 0.9 % flush 10 mL 10 mL, intravenous, As needed, line care, Starting on [place] 09/17/24 at 0646 Given 09/20/2024 11:03 AM EST 10 mL sodium chloride 0.9 % flush 10 mL 10 mL, intravenous, Once, On [place] 09/20/24 at 1130, For 1 dose Given 09/20/2024 11:30 AM EST 10 mL sodium chloride 0.9 % flush bag 50 mL 50 mL, intravenous, Once, On [facility] 09/17/24 at 1000, For 1 dose, Flush tubing used to administer four-factor PCC (BALFAXAR, KCENTRA). Infuse at the same rate as four-factor PCC after four-factor PCC infused to ensure complete dose is delivered. New Bag 09/17/2024 11:34 AM EST 50 mL venlafaxine XR (EFFEXOR-XR) 24 hr capsule 150 mg 150 mg, oral, Daily, First dose on [place] 09/17/24 at 0900, Capsule may be swallowed whole, or may be opened and its contents sprinkled on applesauce if consumed immediately without chewing. Do not crush or chew. Given 09/23/2024 8:16 AM EST 150 mg Given 09/22/2024 8:52 AM EST 150 mg Given 09/21/2024 9:30 AM EST 150 mg documented in this encounter Discontinued Medications Medication Sig Discontinue Reason Start Date End Da te omeprazole (PriLOSEC) [address] capsule Take 1 capsule (20 mg total) by mouth 1 (one) time each day. Do not crush or chew. Stop Taking at Discharge 08/16/2024 09/23/2024 documented as of this encounter Historical Medications * This list may reflect changes made after this encounter. Medication Sig Dispensed Refills Start Date End Date venlafaxine XR (EFFEXOR-XR) 150 mg 24 hr capsule Take 1 capsule (150 mg total) by mouth 1 (one) time each day. Do not crush or chew. sacubitriL-valsartan (Entresto) 49-51 mg per tablet Take 1 tablet by mouth 2 (two) times a day. rivaroxaban (XARELTO) 20 mg tablet Take 1 tablet (20 mg total) by mouth 1 (one) time each day with dinner. Take with food. levothyroxine (SYNTHROID, LEVOTHROID) 25 mcg tablet Take 1 tablet (25 mcg total) by mouth 1 (one) time each day before breakfast. furosemide (LASIX) 20 mg tablet Take 1 tablet (20 mg total) by mouth 1 (one) time each day. digoxin (LANOXIN) 250 mcg (0.25 mg) tablet Take 1 tablet (250 mcg total) by mouth 1 (one) time each day. cholecalciferol (VITAMIN D-3) 50 mcg (2,000 unit) tablet Take 1 tablet (2,000 Units total) by mouth 1 (one) time each day. carvediloL (COREG) 25 mg tablet Take 1 tablet (25 mg total) by mouth 2 (two) times a day with meals. buPROPion XL (WELLBUTRIN XL) 300 mg 24 hr tablet Take 1 tablet (300 mg total) by mouth 1 (one) time each day. Do not crush, chew, or split. amLODIPine (NORVASC) 10 mg tablet Take 1 tablet (10 mg total) by mouth 1 (one) time each day. added in this encounter Active and Recently Administered Medications Times are shown in EST. Scheduled Medication Order 09/21/2024 09/22/2024 09/23/2024 amLODIPine (NORVASC) tablet 10 mg 10 mg, oral, Daily, First dose on Sat09/23/24 at 0900 0844 (Given - Provider: Sailaja Cosby RN) ampicillin-sulbactam (UNASYN) 3 g in sodium chloride 0.9 % 100 mL IVPB (CANCELED) 3 g, intravenous, at 200 mL/hr, Administer over 30 Minutes, Every 6 hours, First dose on [place] 09/17/24 at 1200, For 7 days, Indication: Pneumonia, Community Acquired 0000 (Stopped - Provider: Mira Figueredo RN)0544 (New Bag - Provider: Mira Figueredo RN)0615 (Stopped - Provider: Mira Figueredo RN)1249 (New Bag - Provider: Ruperto Mesa RN)1342 (Stopped - Provider: Ruperto Mesa RN) buPROPion XL (WELLBUTRIN XL) 24 hr tablet 300 mg 300 mg, oral, Daily, First dose on [place] 09/17/24 at 0900, Do not crush, chew, or split. 0930 (Given - Provider: Ruperto Mesa RN) 0852 (Given - Provider: Saray Coto RN) 0823 (Given - Provider: Sailaja Cosby, RED) carvediloL (COREG) tablet 25 mg 25 mg, oral, 2 times daily with meals, First dose on [place] 09/17/24 at 0800 0930 (Given - Provider: Ruperto Mesa RN)1719 (Given - Provider: Ruperto Mesa RN) 0853 (Not Given - Provider: Saray Coto RN - Reason: See Provider Order - Comment: HR 50s- hold per MD)1836 (Given - Provider: Saray Coto RN) 0816 (Given - Provider: Sailaja Cosby, RED)1700 (Canceled Entry - Provider: Automatic Discharge Provider - Comment: Automatically canceled at discontinue of medication order) cefTRIAXone (ROCEPHIN) 2 g in sterile water 20 mL IV syringe (CANCELED) 2 g, intravenous, at 400 mL/hr, Administer over 3 Minutes, Every 24 hours, First dose on Sat09/21/24 at 1400, For 7 days, Do not administer simultaneously with any calcium containing solutions via a Y-site in any patient., Indication: Bacteremia, Pneumonia, Community Acquired 1456 (Given - Provider: Ruperto Mesa RN) cefTRIAXone (ROCEPHIN) 2 g in sterile water 20 mL IV syringe (CANCELED) 2 g, intravenous, at 400 mL/hr, Administer over 3 Minutes, Every 12 hours, First dose (after last modification) on Sat09/22/24 at 0200, For 10 days, Do not administer simultaneously with any calcium containing solutions via a Y-site in any patient., Indication: Bacteremia, Pneumonia, Community Acquired 0221 (Given - Provider: Mira Figueredo RN) cefTRIAXone (ROCEPHIN) 2 g in sterile water 20 mL IV syringe 2 g, intravenous, at 400 mL/hr, Administer over 3 Minutes, Every 24 hours, First dose (after last modification) on Sat09/23/24 at 0200, For 9 days, Do not administer simultaneously with any calcium containing solutions via a Y-site in any patient., Indication: Bacteremia, Pneumonia, Community Acquired 0237 (Given - Provider: Sailaja Cosby, RED) digoxin (LANOXIN) tablet 250 mcg 250 mcg, oral, Daily, First dose on Sat09/17/24 at 1700, Standard administration time 1719 (Given - Provider: Ruperto Mesa RN) 1836 (Given - Provider: Saray Coto RN) 1700 (Canceled Entry - Provider: Automatic Discharge Provider - Comment: Automatically canceled at discontinue of medication order) doxycycline (MONODOX) capsule 100 mg (CANCELED) 100 mg, oral, Every 12 hours scheduled, First dose on Sat09/17/24 at 0900, For 10 days, Take with at least 8 ounces (large glass) of water, do not lie down for 30 minutes after, Indication: Pneumonia, Community Acquired 0930 (Given - Provider: Ruperto Mesa RN)8 (Given - Provider: Mira Figueredo RN) 0852 (Given - Provider: Saray Coto RN) hydrALAZINE (APRESOLINE) tablet 10 mg 10 mg, oral, 3 times daily, First dose on Sat09/22/24 at 0900 0852 (Given - Provider: Saray Coto RN)1513 (Given - Provider: Saray Coto RN)202 (Given - Provider: Saray Coto RN) 0817 (Given - Provider: Sailaja Cosby, RED)1506 (Given - Provider: Morena Staley RN) levothyroxine (SYNTHROID, LEVOTHROID) tablet 25 mcg 25 mcg, oral, Every morning before breakfast, First dose on Sat09/17/24 at 0700, ORAL ROUTE: take on an empty stomach and separate from other medications. ENTERAL TUBE ROUTE: If newly initiated enteral nutrition duration is over 5 days, hold enteral nutrition 1 hour before and after drug administration, per ASPEN guidelines. 0626 (Given - Provider: Mira Figueredo RN) 0628 (Given - Provider: Mira Figueredo RN) 0629 (Given - Provider: Sailaja Cosby RN) pantoprazole (PROTONIX) EC tablet 40 mg 40 mg, oral, Every morning before breakfast, First dose on Sat09/17/24 at 0700, Give on an empty stomach Do not crush, chew, or split. 625 (Given - Provider: Mira Figueredo RN) 627 (Given - Provider: Mira Figueredo RN) 628 (Given - Provider: Sailaja Cosby, RED) pneumococcal conjugate 20-valent (PREVNAR 20) vaccine 0.5 mL 0.5 mL, intramuscular, During hospitalization, Starting on Sat09/23/24 at 1000, For 1 dose 1110 (Not Given - Provider: Sailaja Cosby RN - Reason: Patient/Resident/Agent refused - education provided ) sacubitriL-valsartan (ENTRESTO) 49-51 mg per tablet 1 tablet 1 tablet, oral, 2 times daily, First dose on Sat09/17/24 at 0900, Contraindicated in combination with SHAMIR inhibitors. Ensure a minimum of 36 hours between any SHAMIR inhibitor dose and sacubitril-valsartan. 30 (Given - Provider: Ruperto Mesa RN)2117 (Given - Provider: Mira Figueredo RN) 52 (Given - Provider: Saray Coto RN)2020 (Given - Provider: Saray Coto RN) 08 (Given - Provider: Sailaja Cosby, RED) sodium chloride 0.9 % flush 10 mL(Linked Group 1) 10 mL, intravenous, 2 times daily, First dose on Sat09/17/24 at 0900 0931 (Given - Provider: Ruperto Mesa RN)2118 (Given - Provider: Mira Figueredo RN) 08 (Given - Provider: Saray Coto RN)2021 (Given - Provider: Saray Coto RN) 08 (Given - Provider: Sailaja Cosby, RED) venlafaxine XR (EFFEXOR-XR) 24 hr capsule 150 mg 150 mg, oral, Daily, First dose on Sat09/17/24 at 0900, Capsule may be swallowed whole, or may be opened and its contents sprinkled on applesauce if consumed immediately without chewing. Do not crush or chew. 0930 (Given - Provider: Ruperto N Mesa, RN) 0852 (Given - Provider: Saray Coto, RED) 0816 (Given - Provider: Sailaja Cosby, RED) Continuous Medication Order 09/21/2024 09/22/2024 09/23/2024 lactated Ringer's infusion (CANCELED) 100 mL/hr, intravenous, Continuous, Starting on Sat09/22/24 at 1615, Recovery (only) 1644 (New Bag - Provider: Roldan Crain MD)1705 (Anesthesia Volume Adjustment - Provider: Marcial Troncoso CRNA)1808 (Stopped - Provider: Saray Coto RN) PRN Medication Order 09/21/2024 09/22/2024 09/23/2024 acetaminophen (TYLENOL) tablet 650 mg 650 mg, oral, Every 4 hours PRN, mild pain, headaches, fever - temperature GREATER than 38 C (100.4 F), Starting on Sat09/17/24 at 0646 albuterol 2.5 mg /3 mL (0.083 %) nebulizer solution 2.5 mg 2.5 mg, nebulization, Every 6 hours PRN, wheezing, Starting on Sat09/17/24 at 0646 guaiFENesin-codeine (ROBITUSSIN-AC) 100-10 mg/5 mL syrup 5 mL 5 mL, oral, Every 6 hours PRN, cough, Starting on Sat09/17/24 at 1423 morphine 2 mg/mL injection 2 mg 2 mg, intravenous, Every 6 hours PRN, severe pain, Starting on Sat09/20/24 at 0842, FIRST CHOICE MEDICATION FOR MODERATE PAIN (4-6) IF INEFFECTIVE AFTER 30 MIN, PROCEED TO SECOND CHOICE MEDICATION ondansetron (PF) (ZOFRAN) injection 4 mg(Linked Group 2) 4 mg, intravenous, Every 8 hours PRN, vomiting, nausea, Starting on [place] 09/17/24 at 0646, -ONLY give IV if patient is unable to take orally. -If inadequate response within 30 minutes, proceed to next-line agent or contact provider if no further options ordered. ondansetron ODT (ZOFRAN-ODT) disintegrating tablet 4 mg(Linked Group 2) 4 mg, oral, Every 8 hours PRN, vomiting, nausea, Starting on [facility] 09/17/24 at 0646, -Give IV if patient is unable to take orally. -If inadequate response within 30 minutes, proceed to next-line agent or contact provider if no further options ordered. For ODT tablets: -Do not remove from blister pack until just before administering. -Patient should allow tablet to dissolve on tongue. oxyCODONE (ROXICODONE) 20 mg/mL concentrated solution 10 mg 10 mg, oral, Every 6 hours PRN, moderate pain, shortness of breath, Starting on [place] 09/20/24 at 0842, Concentrated product prochlorperazine (COMPAZINE) injection 10 mg(Linked Group 3) 10 mg, intravenous, Every 6 hours PRN, nausea, vomiting, Starting on [facility] 09/17/24 at 0646, 2nd Line Option: -ONLY give IV if patient is unable to take orally. -Give IM if patient does not have IV Access -If inadequate response within 30 minutes, proceed to next-line agent or contact provider if no further options ordered. prochlorperazine (COMPAZINE) suppository 25 mg(Linked Group 3) 25 mg, rectal, Every 12 hours PRN, nausea, vomiting, Starting on [place] 09/17/24 at 0646, 2nd Line Option: -ONLY give OR if patient is unable to take orally and cannot receive IV/IM. -If inadequate response within 30 minutes, proceed to next-line agent or contact provider if no further options ordered. prochlorperazine (COMPAZINE) tablet 10 mg(Linked Group 3) 10 mg, oral, Every 6 hours PRN, nausea, vomiting, Starting on [facility] 09/17/24 at 0646, 2nd Line Option: -Give IV or IM if patient is unable to take orally. -If inadequate response within 30 minutes, proceed to next-line agent or contact provider if no further options ordered. sodium chloride 0.9 % flush 10 mL(Linked Group 1) 10 mL, intravenous, As needed, line care, Starting on [facility] 09/17/24 at 0646 Linked Groups Order Group 1: Insert peripheral IV (CANCELED) STAT, Once, On [facility] 09/17/24 at 0647, For 1 occurrence And Maintain IV access (CANCELED) Until discontinued, Starting on [facility] 09/17/24 at 0647, Until Specified And Saline lock IV (CANCELED) Routine, Once, On [place] 09/17/24 at 0647, For 1 occurrence And sodium chloride 0.9 % flush 10 mLJump to med 10 mL, intravenous, 2 times daily, First dose on [place] 09/17/24 at 0900 And sodium chloride 0.9 % flush 10 mLJump to med 10 mL, intravenous, As needed, line care, Starting on [place] 09/17/24 at 0646 Group 2: ondansetron ODT (ZOFRAN-ODT) disintegrating tablet 4 mgJump to med 4 mg, oral, Every 8 hours PRN, vomiting, nausea, Starting on [place] 09/17/24 at 0646, -Give IV if patient is unable to take orally. -If inadequate response within 30 minutes, proceed to next-line agent or contact provider if no further options ordered. For ODT tablets: -Do not remove from blister pack until just before administering. -Patient should allow tablet to dissolve on tongue. Or ondansetron (PF) (ZOFRAN) injection 4 mgJump to med 4 mg, intravenous, Every 8 hours PRN, vomiting, nausea, Starting on Negin 09/17/24 at 0646, -ONLY give IV if patient is unable to take orally. -If inadequate response within 30 minutes, proceed to next-line agent or contact provider if no further options ordered. Group 3: prochlorperazine (COMPAZINE) tablet 10 mgJump to med 10 mg, oral, Every 6 hours PRN, nausea, vomiting, Starting on Negin 09/17/24 at 0646, 2nd Line Option: -Give IV or IM if patient is unable to take orally. -If inadequate response within 30 minutes, proceed to next-line agent or contact provider if no further options ordered. Or prochlorperazine (COMPAZINE) injection 10 mgJump to med 10 mg, intravenous, Every 6 hours PRN, nausea, vomiting, Starting on Negin 09/17/24 at 0646, 2nd Line Option: -ONLY give IV if patient is unable to take orally. -Give IM if patient does not have IV Access -If inadequate response within 30 minutes, proceed to next-line agent or contact provider if no further options ordered. Or prochlorperazine (COMPAZINE) suppository 25 mgJump to med 25 mg, rectal, Every 12 hours PRN, nausea, vomiting, Starting on Negin 09/17/24 at 0646, 2nd Line Option: -ONLY give OR if patient is unable to take orally and cannot receive IV/IM. -If inadequate response within 30 minutes, proceed to next-line agent or contact provider if no further options ordered. documented in this encounter Orders Medications Ordered That Balwinder ht Not Have Been Administered Count Last Ordered Date First Ordered Date pneumococcal conjugate 20-va lent (PREVNAR 20) vaccine 0.5 mL 1 09/23/2024 acetaminophen (TYLENOL) tablet 650 mg 2 09/17/2024 HYDROmorphone (PF) injection 0.5 mg 1 09/22 lactated Ringer's infusion 1 09/22/2024 ondansetron (PF) (ZOFRAN) injection 4 mg 2 09/22/2024 09/17/2024 ondansetron ODT (ZOFRAN-ODT) disintegrating tablet 4 mg 2 09/22/2024 09/17/2024 oxyCODONE (ROXICODONE) immed iate release tablet 5 mg 1 09/22/2024 morphine 2 mg/mL injection 2 mg 2 5 09/17/2024 oxyCODONE (ROXICODONE) 20 mg /mL concentrated solution 10 mg 1 09/20/2024 albuterol 2.5 mg /3 mL (0.08 3 %) nebulizer solution 2.5 mg 1 09/17/2024 guaiFENesin-codeine (ROBITUS SIN-AC) 100-10 mg/5 mL syrup 5 mL 1 09/17/2024 morphine injection 4 mg 1 09/17/2024 prochlorperazine (COMPAZINE) injection 10 mg 1 09/17/2024 prochlorperazine (COMPAZINE) suppository 25 mg 1 09/17/2024 prochlorperazine (COMPAZINE) tablet 10 mg 1 09/17/2024 Lab Orders Without Results Count Last Ordered D ate First Ordered Date ACID FAST BACILLI STAIN 1 09/18/2024 Nursing Count Last Ordered Date First Orde red Date VITAL SIGNS 1 09/17/2024 Consult Count Last Ordered Date First Orde red Date IP CONSULT TO INFECTIOUS DISEASES 1 025 IP CONSULT TO CARDIOTHORACIC SURGERY 1 09/02 IP CONSULT TO PULMONOLOGY 1 09/17/2024 Isolation Count Last Ordered Date First Orde red Date REMOVE ISOLATION 1 09/21/2024 INITIATE DROPLET ISOLATION 1 09/17/2024 Respiratory Care Count Last Ordered Date First Ordered Date OXYGEN THERAPY, ADULT 2 09/22/2024 Admission Count Last Ordered Date First Orde red Date ADMIT TO INPATIENT 2 09/17/2024 Transfer Count Last Ordered Date First Orde red Date TRANSFER PATIENT TO NEW UNIT 1 09/19/2024 ED TO FLOOR BED REQUEST 1 09/17/2024 Discharge Count Last Ordered Date First Orde red Date DISCHARGE PATIENT 1 09/23/2024 documented in this encounter Additional Health Concerns Infection Onset Date Last Indicated Resolved Time Respiratory Rule-Out 09/17/2024 09/17/2024 025 6:23 AM EST COVID-19 Rule-Out 09/17/2024 09/17/2024 09/17/2024 6:23 AM EST Tuberculosis Rule-Out Comment:Negative AFB x [address] Harman 09/17/2024 09/21/2024 3:25 PM EST Bacterial Meningitis Rule-Out 09/22/2024 09/22/2024 09/22/2024 9:33 AM EST Tuberculosis Rule-Out 09/22/2024 09/22/2024 documented as of this encounter Care Teams Tumbler Dyeing Machine Operator Relationship Specialty Start Date End Date Physician, No Pcp PCP - General 08/16/24 documented as of this encounter
--- OUTSIDE RECORDS SUMMARY | 2024-10-02 13:38 | XMS_ITS | Encounter Summary ---
Author Organization [employer] Address [address] [place] [address] [address] [address] Care Team Providers Care Traffic Clerk Name Role Phone Yaquelin Cage Primary Care Provider [phone] Jamal Marie Unavailable Unavailable Fouzia Romero RN Unavailable [phone] Encounter Details Date Type Department Care Team (Latest Contact Info) Description 09/16/2018 Abstract [facility] CONVERSIONS Dental, Provider, DDS Social History Tobacco Use Types Packs/Day Years Used Date Smoking Tobacco: Never Assessed Sex and Gender Information Value Date Recorded [...] Description 10/09/2024 10:30 AM EST Office Visit [facility] MEDICINE [address] [place] [address] Yaquelin Cage ANP [address] [place] [address] documented as of this encounter Visit Diagnoses Not on filedocumented in this encounter Care Teams Traffic Clerk Relationship Specialty Start Date End Date Yaquelin Cage ANP [address] [place] [id number] PCP - General Family Medicine 05/02/20 Jamal Marie FNP [address] [place] [id number] Nurse Practitioner Family Medicine 08/06/23 Fouzia Romero RN [address] [place] [address] [place] [id number] Enamel ApplierLearning And Development Administrator 09/28/24 documented as of this encounter
[2024-10-02 13:39] VITALS: BP 114/82; PULSE 92; BMI 44.0
--- NOTE | 2024-10-02 13:39 | A.OFFVIS_ITS ---
Vital Signs 10/02/24 13:39 Height 5 ft 10 in Weight 306 lb 14.135 oz BMI 44.0 BP 114/82 Blood Pressure Location Lt brachial Position Sitting Pulse 92 Pulse Source Monitor Intake Visit Reasons: 6 m f/u Curriculum Director Required: No Allergies No Known Allergies Allergy (Verified 10/02/24 13:50) Medication List - Last Reconciled 10/02/24 by Margarita Rodriguez, GRACIE-C bupropion HCl XL 300 mg PO DAILY carvedilol 25 mg PO BID 90 days cholecalciferol (vitamin D3) 50 mcg PO DAILY digoxin 250 mcg PO DAILY furosemide 20 mg PO DAILY levothyroxine 25 mcg PO QAM rivaroxaban (Xarelto) 20 mg PO DAILY sacubitril-valsartan 49-51 mg (Entresto) 1 tab PO BID sildenafil (Viagra) 1 tab PO DAILY PRN venlafaxine ER 150 mg PO DAILY HPI HPI 6 m f/u: Details: Pablo is a 39-year-old male with past medical history of morbid obesity, obstructive sleep apnea, chronic atrial fibrillation, heart failure with reduced EF, nonischemic cardiomyopathy who presents for follow-up.? Today he reports that was hospitalized recently at [facility] for GI issues. He said he had an infection. He has not had any known cardiac issues since his last visit in March. He does describe at least 1 fainting episode prior to the [facility] admission in the setting of nausea and vomiting.. He has had issues with lightheadedness since his hospital discharge but no recurrent syncope or falls. No chest discomfort at rest or with activity. He denies shortness of breath, PND, orthopnea. No bleeding issues. Takes all meds as directed. He is still living in a [place] [facility]. He says he takes his meds as directed. He is smoking marijuana routinely. No routine exercise or physical activity. [facility] Medical History Hodgkin lymphoma FH: bone marrow transplant Mitral regurgitation Morbid obesity RAMESH (obstructive sleep apnea) Heart failure with reduced ejection fraction Chronic atrial fibrillation Nonischemic cardiomyopathy Surgical History Hx of cardiac cath Family History Father CVD (cardiovascular disease) Diabetes Mother No problems noted. Social History Alcohol intake: former Patient Tobacco Use Status: Never used Tobacco Substance Use Type: Marijuana Review of Systems Const All systems reviewed & are unremarkable except as noted in HPI and below ENT Reports dizziness Card Denies chest pain, Denies chest pain at rest, Denies chest pain with activity, Denies rapid heart rate, Denies pedal edema, Denies edema, Denies leg edema, Denies lightheadedness, Denies palpitations, Denies dyspnea, Denies dyspnea on exertion and Denies orthopnea Resp Denies cough, Denies dyspnea and Denies dyspnea on exertion GI Denies hematochezia and Denies change in stool character Musc Denies abnormal gait, Denies limited range of motion, Denies muscle cramps, Denies muscle weakness, Denies numbness, Denies radiating pain into limb, Denies stiffness and Denies tingling Neuro Denies abnormal gait, Reports dizziness, Denies numbness and Denies tingling Endo Denies palpitations Physical Exam Vital Signs: Last Vital Signs Pulse 92 10/02/24 13:39 BP 114/82 10/02/24 13:39 BMI result Body Mass Index 44.0 Const Other: morbidly obese General: cooperative, healthy appearing, comfortable and no acute distress Orientation/consciousness: patient oriented x3 Neck Neck: Yes normal visual inspection and Yes no JVD Resp Effort & Inspection: normal respiratory effort Auscultation: clear to auscultation bilaterally, no rales, no rhonchi and no wheezes Cardio Jugular venous distension: no JVD Rate: regular rate Rhythm: regular rhythm Heart sounds: S1 normal heart sound present, S2 normal heart sound present, no murmurs and no rubs Neuro General: patient oriented x3 Extrem General: Yes normal to inspection Psych Appearance: grossly normal Mental Status: mental status grossly normal Speech and movement: Normal speech and movement present Office Procedures EKG Details: Today, read by me, atrial fibrillation, minimal voltage for LVH, nonspecific T- wave abnormality, rate 92, QTC 417 milliseconds [id number], Complete Assessment & Plan Assessment & Plan (1) Heart failure with reduced ejection fraction: Code(s): I50.20 - Unspecified systolic (congestive) heart failure Category: Medical Plan: History of heart failure with reduced EF, secondary to nonischemic cardiomyopathy. EF as low as 30-35% in 2020. He has been on appropriate medical management with Entresto and carvedilol for neurohormonal modulation and he does report med compliance. Last echocardiogram done 05/21/24 showed EF 50-55% with mildly dilated left atrium. He reports still being homeless and living in a [place] [facility]. He says he is taking his meds as directed. He is morbidly obese however on exam he does not appear fluid overloaded. He says when he was discharged from [facility] for noncardiac issue they increased his heart medication to 2 pills twice a day. Since then he has had some lightheadedness when standing. You sounds like they increased his Entresto dose. Will work on getting [facility] records to confirm this. On my exam today blood pressure sitting 110/62, standing 102/58. Informed him to go back to his usual 1 pill b.i.d.. Continue all other medications without change. Maintaining good hydration, following low-salt diet reviewed with him. Signs and symptoms of heart failure discussed. Cardiology follow-up in 6 months, sooner if needed. (2) Nonischemic cardiomyopathy: Code(s): I42.8 - Other cardiomyopathies Category: Medical Plan: As above (3) Chronic atrial fibrillation: Code(s): I48.20 - Chronic atrial fibrillation, unspecified Category: Medical Plan: History of chronic atrial fibrillation, with failed rhythm control. With his morbid obesity, chronic AFib, left atrial enlargement and untreated sleep apnea the chance of maintaining rhythm control is very low. He has been on rate control for many years. He takes carvedilol and digoxin for rate slowing. His last digoxin level 1.0 on 06/24/2024. He is on Xarelto for anticoagulation. No reports of bleeding issues. Continue without change. Stroke risk with AFib reviewed with him. (4) Morbid obesity: Code(s): E66.01 - Morbid (severe) obesity due to excess calories Category: Medical (5) RAMESH (obstructive sleep apnea): Code(s): G47.33 - Obstructive sleep apnea (adult) (pediatric) Category: Medical Plan: Home sleep study done on 03/03/2021 shows obstructive sleep apnea, moderately severe, no significant hypoxemia was recorded, CPAP therapy recommended. Follows with Dr. Parr. Need for mask compliance reviewed with him. (6) Hx of cardiac cath: Comment: 12/31/2018 showing normal coronary arteries Code(s): Z98.890 - Other specified postprocedural states Category: Surgical Plan: As above Plan Time spent on chart review, documentation, interview and assessment Coding Level of Care Code Est Pt Level 4 (73827) Complex EM visit Add On G2211 Diagnoses Heart failure with reduced ejection fraction I50.20 Nonischemic cardiomyopathy I42.8 Chronic atrial fibrillation I48.20 Morbid obesity E66.01 RAMESH (obstructive sleep apnea) G47.33 Hx of cardiac cath Z98.890 CPT Codes EKG - CPT: 38798-[id number], Complete ([id number]) Time Spent (min) 30
== END 2024-10-02 14:22 | disposition home or self-care (01) ==
PROVIDERS: PCP Nurse Practitioner Primary Care; Visit Provider Nurse Practitioner Family
DX: I50.20 Unspecified systolic (congestive) heart failure (principal); I42.8 Other cardiomyopathies; I48.20 Chronic atrial fibrillation, unspecified; E66.01 Morbid (severe) obesity due to excess calories; G47.33 Obstructive sleep apnea (adult) (pediatric); Z98.890 Other specified postprocedural states
CPT/HCPCS: 93010; 99214

== ENCOUNTER → 2024-10-02 13:27 | Outpatient (BNVA) | payer MEDICAID, SELFPAY | PROVIDERS: PCP Nurse Practitioner Primary Care; Visit Provider Nurse Practitioner Family | DX: I48.20 Chronic atrial fibrillation, unspecified (principal); I50.9 Heart failure, unspecified; I25.5 Ischemic cardiomyopathy; I50.20 Unspecified systolic (congestive) heart failure; I42.8 Other cardiomyopathies; E66.01 Morbid (severe) obesity due to excess calories; G47.33 Obstructive sleep apnea (adult) (pediatric); Z98.890 Other specified postprocedural states; Z68.41 Body mass index [BMI] 40.0-44.9, adult | CPT/HCPCS: 93005; 99212 ==

== ENCOUNTER 2025-04-08 14:37 | Outpatient (AMB) | payer MEDICAID, SELFPAY ==
--- NOTE | 2025-04-08 14:38 | A.OFFVIS_ITS ---
Vital Signs 04/08/25 14:40 Height 5 ft 10 in Weight 301 lb 2.423 oz BMI 43.2 BP 100/62 Blood Pressure Location Lt brachial Position Sitting Pulse 48 L Pulse Source Monitor Intake Visit Reasons: 6m follow up Cargo And Container Inspector Required: No Allergies No Known Allergies Allergy (Verified 04/08/25 14:42) Medication List - Last Reconciled 04/08/25 by Margarita Rodriguez NP-C amlodipine 10 mg PO DAILY bupropion HCl XL 300 mg PO DAILY carvedilol 25 mg PO BID 90 days cholecalciferol (vitamin D3) 50 mcg PO DAILY digoxin 125 mcg PO DAILY furosemide 20 mg PO DAILY levothyroxine 25 mcg PO QAM rivaroxaban (Xarelto) 20 mg PO DAILY sacubitril-valsartan 49-51 mg (Entresto) 1 tab PO BID sildenafil (Viagra) 1 tab PO DAILY PRN venlafaxine ER 150 mg PO DAILY HPI HPI 6m follow up: Details: Pablo is a 39-year-old male with past medical history of morbid obesity, obstructive sleep apnea, chronic atrial fibrillation, heart failure with reduced EF, nonischemic cardiomyopathy who presents for follow-up.? His last prior visit was 03/31/2024. Today he reports that he has been doing better overall. He is still [facility] but states now that he has been there a year he has a pellet machine operator assigned to him. He also has developed a new friendship which has helped him feel better. He reports strict compliance with his medications using a pill pack from the pharmacy. He is not wearing CPAP as he says his mask is at his ex-girlfriend's house. He has not been able to obtain it from there. He has not had any chest discomfort at rest or during activity. He is not noticing shortness of breath, PND, orthopnea. He does get leg edema at times that goes away when he lays down in bed. No heart palpitations, lightheadedness, presyncope, syncope. He has had some increased fatigue recently. He is still under high mental stress but somewhat less than last year. He is smoking marijuana routinely. No routine exercise or physical activity. [facility] Medical History Hodgkin lymphoma FH: bone marrow transplant Mitral regurgitation Morbid obesity RAMESH (obstructive sleep apnea) Heart failure with reduced ejection fraction Chronic atrial fibrillation Nonischemic cardiomyopathy Surgical History Hx of cardiac cath Family History Father CVD (cardiovascular disease) Diabetes Mother No problems noted. Social History Alcohol intake: former Patient Tobacco Use Status: Never used Tobacco Substance Use Type: Marijuana Review of Systems Const All systems reviewed & are unremarkable except as noted in HPI and below Reports fatigue ENT Denies dizziness Card Denies chest pain, Denies chest pain at rest, Denies chest pain with activity, Denies rapid heart rate, Denies pedal edema, Denies edema, Denies leg edema, Denies lightheadedness, Denies palpitations, Denies dyspnea, Denies dyspnea on exertion and Denies orthopnea Resp Denies cough, Denies dyspnea and Denies dyspnea on exertion GI Denies hematochezia and Denies change in stool character Musc Denies abnormal gait, Denies limited range of motion, Denies muscle cramps, Denies muscle weakness, Denies numbness, Denies radiating pain into limb, Denies stiffness and Denies tingling Neuro Denies abnormal gait, Denies dizziness, Denies numbness and Denies tingling Endo Reports fatigue and Denies palpitations Physical Exam Vital Signs: Last Vital Signs Pulse 48 L 04/08/25 14:40 BP 100/62 04/08/25 14:40 BMI result Body Mass Index 43.2 Const Other: morbidly obese General: cooperative, healthy appearing, comfortable and no acute distress Orientation/consciousness: patient oriented x3 Neck Neck: Yes normal visual inspection and Yes no JVD Resp Effort & Inspection: normal respiratory effort Auscultation: clear to auscultation bilaterally, no rales, no rhonchi and no wheezes Cardio Jugular venous distension: no JVD Rate: bradycardic Rhythm: abnormal rhythm Heart sounds: S1 normal heart sound present, S2 normal heart sound present, no murmurs and no rubs Neuro General: patient oriented x3 Extrem General: Yes normal to inspection Psych Appearance: grossly normal Mental Status: mental status grossly normal Speech and movement: Normal speech and movement present Office Procedures EKG Details: Today, read by me, atrial fibrillation with slow ventricular response, rate 48, nonspecific T-wave abnormality [id number], Complete Assessment & Plan Assessment & Plan (1) Heart failure with reduced ejection fraction: Code(s): I50.20 - Unspecified systolic (congestive) heart failure Category: Medical Plan: History of heart failure with reduced EF, secondary to nonischemic cardiomyopathy. EF as low as 30-35% in 2020. He has been on appropriate medical management with Entresto and carvedilol for neurohormonal modulation and he does report med compliance. Last echocardiogram done 05/21/24 showed EF 50-55% with mildly dilated left atrium. Labs done 10/27/2024 showed potassium 4.2, creatinine 0.96. He does not appear fluid overloaded on examination. Signs and symptoms of heart failure reviewed with him. Continue carvedilol, Entresto, Lasix. Low-salt diet reviewed. Cardiology follow-up in 6 months, sooner if needed. (2) Nonischemic cardiomyopathy: Code(s): I42.8 - Other cardiomyopathies Category: Medical Plan: As above (3) Chronic atrial fibrillation: Code(s): I48.20 - Chronic atrial fibrillation, unspecified Category: Medical Plan: History of chronic atrial fibrillation, with failed rhythm control. With his morbid obesity, chronic AFib, left atrial enlargement and untreated sleep apnea the chance of maintaining rhythm control is very low. He has been on rate control for many years. EKG done today showing atrial fibrillation with slow ventricular response, rate 48. Symptom of recent fatigue, no lightheadedness. Will have him continue carvedilol. Last digoxin level done 06/24/2024 was 1.0. Will have him reduce digoxin down to 0.125 mg daily. Will check digoxin level in 2 weeks. Office EKG in 2 weeks. If he continues to be low will consider stopping digoxin altogether. Labs 10/27/2024 showed hematocrit 46.3. Continue Xarelto for anticoagulation. (4) Morbid obesity: Code(s): E66.01 - Morbid (severe) obesity due to excess calories Category: Medical Plan: He is trying to work on weight loss. Benefit of weight loss discussed. (5) RAMESH (obstructive sleep apnea): Code(s): G47.33 - Obstructive sleep apnea (adult) (pediatric) Category: Medical Plan: Home sleep study done on 03/03/2021 shows obstructive sleep apnea, moderately severe, no significant hypoxemia was recorded, CPAP therapy recommended. Follows with Dr. Parr. He has not been wearing his mask. Instructed on the importance of mask compliance. (6) Hx of cardiac cath: Comment: 12/31/2018 showing normal coronary arteries Code(s): Z98.890 - Other specified postprocedural states Category: Surgical Plan: As above (7) Bradycardia: Code(s): R00.1 - Bradycardia, unspecified Category: Medical Plan: Noted on EKG today, AFib with slow ventricular response, asymptomatic. Plan Time spent on chart review, documentation, interview and assessment Orders: Orders Digoxin 2 Weeks I48.20 - Chronic atrial fibrillation, unspecified Medications: New digoxin dose reduced - adjust pill pack 125 mcg PO DAILY 30 tabs 2RF Discontinued digoxin Discontinued Reason: Doctor's Order 250 mcg PO DAILY 30 tabs 5RF Coding Level of Care Code Est Pt Level 4 (97911) Complex EM visit Add On G2211 Diagnoses Heart failure with reduced ejection fraction I50.20 Nonischemic cardiomyopathy I42.8 Chronic atrial fibrillation I48.20 Morbid obesity E66.01 RAMESH (obstructive sleep apnea) G47.33 Hx of cardiac cath Z98.890 Bradycardia R00.1 CPT Codes EKG - CPT: 97802-[id number], Complete ([id number]) Time Spent (min) 32
--- OUTSIDE RECORDS SUMMARY | 2025-04-08 14:39 | XMS_ITS | Encounter Summary ---
Author Organization [employer] Address [address] [place] [address] [address] [place] [address] Care Team Providers Care Medical Receptionist Medical Assistant Name Role Phone Yaquelin Cage Primary Care Provider [phone] Jamal Marie Unavailable Unavailable Fouzia Romero RN Unavailable [phone] Reason for Visit * Reason Onset Date Comments Med Refill 02/18/2024 Encounter Details Date Type Department Care Team (Late st Contact Info) Description 02/18/2024 Telephone [facility] MEDICINE [address] [place], [place] [phone] Yaquelin Cage ANP [address] [place], [place] [phone] Med Refill Social History Tobacco Use Types [...] with others, in a hotel, in a longterm, living outside on the street, on a [...] the past 12 months, has t he [employer], [employer], oil or [employer] threatened to shut off services in your [...] 100 MG tablet To be sent to: [facility] documented in this encounter Plan of Treatment Upcoming Encounters Date Type Department Care Team (Late st Contact Info) Description 04/20/2025 2:00 PM EDT Office Visit [facility] [address] [place], [place] [phone] Yaquelin Cage ANP [address] [place], [place] [phone] documented as of this encounter Visit Diagnoses Not on filedocumented in this encounter Additional Health Concerns Assessment Noted Time PHQ-9 Depression Total Score: 22 024 3:48 PM EDT documented as of this encounter Care Teams Medical Receptionist Medical Assistant Relationship Specialty Start Date End Date Yaquelin Cage ANP [address] [place] [address] PCP - General Family Medicine 05/02/20 Jamal Marie FNP [address] [place] [address] Nurse Practitioner Family Medicine 08/06/23 Fouzia Romero, RED [address] [place] [id number] Box Blank Machine Operator HelperCertified Orthoptist 09/28/24 12/31/24 documented as of this encounter
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
[2025-04-08 14:40] VITALS: BP 100/62; PULSE 48; BMI 43.2
== END 2025-04-08 15:17 | disposition home or self-care (01) ==
LOC: HO.HCS 14:37
PROVIDERS: PCP Nurse Practitioner Primary Care; Visit Provider Nurse Practitioner Family
DX: I50.20 Unspecified systolic (congestive) heart failure (principal); I42.8 Other cardiomyopathies; I48.20 Chronic atrial fibrillation, unspecified; E66.01 Morbid (severe) obesity due to excess calories; G47.33 Obstructive sleep apnea (adult) (pediatric); Z98.890 Other specified postprocedural states; R00.1 Bradycardia, unspecified
CPT/HCPCS: 93010; 99214

== ENCOUNTER → 2025-04-08 14:37 | Outpatient (BNVA) | payer MEDICAID, SELFPAY | PROVIDERS: PCP Nurse Practitioner Primary Care; Visit Provider Nurse Practitioner Family | DX: E66.01 Morbid (severe) obesity due to excess calories (principal); I48.20 Chronic atrial fibrillation, unspecified; I50.20 Unspecified systolic (congestive) heart failure; G47.33 Obstructive sleep apnea (adult) (pediatric); R00.1 Bradycardia, unspecified; Z98.890 Other specified postprocedural states | CPT/HCPCS: 93005; 99212 ==

== ENCOUNTER 2025-04-21 13:02 | Outpatient (REF) | payer MEDICAID, SELFPAY ==
--- OUTSIDE RECORDS SUMMARY | 2025-04-21 13:56 | XMS_ITS | Clinical Summary ---
Author Organization [facility] Address [address] [place] [address] Phone Care Team Providers Care Alarm Service Technician Name Role Phone Yaquelin Cage NP Primary Care Provider [phone] Allergies No known active allergies Medications amLODIPine [...] History of Hodgkin's lymphoma 09/17/2024 Nonischemic cardiomyopathy ([facility] V24, [facility] V28) 09/17/2024 Atrial fibrillation ([facility] V24, [facility] V28) 0 09/17/2024 Hemoptysis 09/17/2024 Immunizations Name Administration Dates Next Due Pneumococcal conjugate 20 va lent (Prevnar 20, PCV 20) 2mo and older 09/23/2024(Deferred: Patient Refused) Medical History Medical History Date Comments Non-Hodgkin lymphoma ([facility] V24, [facility] V28) Social History Tobacco Use Types Packs/Day [...] mmol/L LAB CHEMISTRY METHOD 09/22/2024 4:38 AM [facility] Potassium 4.3 3.5 - 5.5 mmol/L LAB CHEMISTRY METHOD 09/22/2024 4:38 AM [facility] Chloride 105 96 - 110 mmol/L LAB CHEMISTRY METHOD 09/22/2024 4:38 AM [facility] CO2 32 21 - 32 mmol/L LAB CHEMISTRY METHOD 09/22/2024 4:38 AM [facility] Anion Gap 5 3 - 11 LAB CHEMISTRY METHOD 09/22/2024 4:38 AM [facility] Glucose 127(H) 70 - 100 mg/dL LAB CHEMISTRY METHOD 09/22/2024 4:38 AM [facility] BUN 15 5 - 25 mg/dL LAB CHEMISTRY METHOD 09/22/2024 4:38 AM [facility] Creatinine 1.09 0.70 - 1.30 mg/dL LAB CHEMISTRY METHOD 09/22/2024 4:38 AM [facility] eGFR 89 >=60 mL/min/1. 73m2 LAB CHEMISTRY METHOD 09/22/2024 4:38 AM [facility] Comment:Calculation based on the Chronic Kidney Disease Epidemiology Collaboration (CKD-EPI) equation refit without adjustment for race. BUN/Creatinine Ratio 13.8 LAB CHEMISTRY METHOD 09/22/2024 4:38 AM [facility] Calcium 8.4(L) 8.5 - 10.5 mg/dL LAB CHEMISTRY METHOD 09/22/2024 4:38 AM [facility] Blood Venous blood specimen / Unknown Venipuncture / Unknown 09/22/2024 4:04 AM EST 09/22/2024 4:13 AM EST us Lyudmila Cardoso MD LAB BLOOD ORDERABLES Final Result Performing Organization Address City/[facility]/ZIP Co de Phone Number [facility] [address] [place] [address], [place] [phone] * Hepatitis C antibody (09/21/2024 8:51 AM EST) Hepatitis C Antibody Negative Negative LAB CHEMISTRY METHOD 09/21/2024 5:07 PM EST [facility] Blood Venous blood specimen / Unknown Venipuncture / Unknown 09/21/2024 8:51 AM EST 09/21/2024 8:58 AM EST Christine Harman MD LAB BLOOD ORDERABLES Final Resul t Performing Organization Address [facility] [[email or web address]] de Phone Number [facility] [address] [place] [address], [place] [phone] * HIV 1,2 antibody, p24 antigen with reflex to differentiation (09/17/2024 8:36 AM EST) Pathologist [facility] HIV Combo AB/AG Negative Negative LAB CHEMISTRY METHOD 09/17/2024 3:37 PM EST [facility] Blood Venous blood specimen / Unknown Venipuncture / Unknown 09/17/2024 8:36 AM EST 09/17/2024 9:24 AM EST Narrative [facility] - 09/17/2024 3:37 PM [...] Res ult Performing Organization Address [facility]/ZIP Co de Phone Number [facility] [address] [place] [address], from Last 3 Months or Most Recently Relevant to Health Maintenance Insurance MEDICAID - [place] Advance Directives * Full Code - Default [...] currently active code status orders. Care Teams Alarm Service Technician Relationship Specialty Start Date End Date Yaquelin Cage NP [address] [place] [id number] PCP - General 11/27/24
[2025-04-21 14:19] LABS: Digoxin 0.5 ng/mL (0.8-2.0)
== END 2025-04-21 13:03 | disposition home or self-care (01) ==
LOC: HO.LAB 13:02
PROVIDERS: PCP Nurse Practitioner Primary Care; Visit Provider Nurse Practitioner Family
DX: I48.20 Chronic atrial fibrillation, unspecified (principal)
CPT/HCPCS: 36415; 80162

== ENCOUNTER 2025-08-10 11:45 | Outpatient (REF) | payer MEDICAID, SELFPAY ==
[2025-08-10 13:56] LABS: MANUAL DIFF FLAG NO
[2025-08-10 14:11] LABS: Hematocrit 47.3 % (42.0-52.0); Hemoglobin 15.4 g/dl (14.0-18.0); Imm Gran Abs Auto 0.00 X10*3/uL (0.00-0.03); Imm Gran Pct Auto 0.0 % (0.0-0.4); Lymphocytes Absolute Auto 1.9 X10*3/uL (1.2-4.9); Mean Corpuscular HGB Conc 32.6 g/dl (31.0-36.0); Mean Corpuscular Hemoglobin 28.3 pg (27.0-33.0); Mean Corpuscular Volume 86.8 fL (80.0-98.0); NRBC Abs Auto 0.000 X10*3/uL (0.0-0.012); NRBC Pct Auto 0.0 /100WBC (0.0-0.2); Platelet Count 189 X10*3/uL (160-400); Red Blood Count 5.45 X10*6/uL (4.60-5.80); White Blood Count 4.1 X10*3/uL (4.8-10.8)
[2025-08-10 14:41] LABS: Alanine Aminotransferase 14 U/L (0-40); Albumin Level 4.2 g/dL (3.5-5.0); Alkaline Phosphatase 78 U/L (39-117); Anion Gap 10 (12-20); Aspartate Amino Transferase 16 U/L (5-37); Blood Urea Nitrogen 16 mg/dL (9-16); Calcium 9.4 mg/dL (8.4-10.2); Carbon Dioxide 31 mmol/L (22-29); Chloride 104 mmol/L (96-108); Estimated Glomerular Filt Rate > 60; Magnesium 2.1 mg/dL (1.6-2.6); Potassium 4.0 mmol/L (3.3-5.1); Sodium 141 mmol/L (135-145); Total Protein 7.4 g/dL (6.5-8.0)
[2025-08-10 14:59] LABS: Parathyroid Hormone Intact 146.7 pg/mL (8.7-77.1)
== END 2025-08-10 11:46 | disposition home or self-care (01) ==
LOC: HO.HHCL 11:45
PROVIDERS: Internal Medicine Medical Oncology; PCP Nurse Practitioner Primary Care; Visit Provider Nurse Practitioner Primary Care
DX: R79.89 Other specified abnormal findings of blood chemistry (principal); C81.90 Hodgkin lymphoma, unspecified, unspecified site; E83.51 Hypocalcemia
CPT/HCPCS: 36415; 80053; 82306; 83615; 83735; 83970; 84100; 84402; 84403; 85025